=== PATIENT | female | born 1950 | race Caucasian/White ===

== ENCOUNTER → 2023-04-03 | Outpatient (REF) | payer OTHER, MEDICARE, SELFPAY ==
[2023-04-03 10:20] LABS: Hematocrit 38.3 % (37-47); Hemoglobin 12.8 g/dL (12.0-15.0); Mean Corp Hgb Conc 33.4 g/dL (32-36); Mean Corpuscular Volume 98.7 fL (81-99); Mean Platelet Vol. 9.4 fl (6.2-12.0); Platelet Count 245 K/mm3 (150-450); RBC Distribution Width CV 12.7 % (11.6-14.6); RBC Distribution Width SD 45.5 fl (35.1-43.9); Red Blood Count 3.88 M/mm3 (4.2-5.4); White Blood Count 7.8 K/mm3 (4.4-11.0)
[2023-04-03 10:42] LABS: Hemoglobin A1c 6.3 % (3.8-5.6)
[2023-04-03 10:45] LABS: ALB/GLOB Ratio 1.1 RATIO (0.9-2.4); AST(SGOT) 15 U/L (15-37); Alanine Aminotransfer ALT/SGPT 21 U/L (13-56); Albumin, Serum 3.6 g/dL (3.2-5.0); Alkaline Phosphatase 94 U/L (45-117); Anion Gap 6 (5-15); BUN 22 mg/dL (7-18); BUN/Creat Ratio 22.9 RATIO (10-20); Calcium,Total 9.2 mg/dL (8.5-10.1); Chloride 102 mmol/L (98-107); Creatinine, Serum 0.96 mg/dL (0.55-1.02); EST Glomerular Filtration Rate 60 mL/min (>60); Est Glom Filt Rate - Afr Amer 73 mL/min (>60); Globulin 3.4 g/dL (2.2-4.2); Glucose 124 mg/dL (74-106); International Normalized Ratio 1.2; Potassium 4.2 mmol/L (3.5-5.1); Prothrombin Time (Protime)PT. 15.3 SECONDS (11.7-14.9); Sodium Level 138 mmol/L (136-145); Thyroid Stim Hormone (TSH) 0.73 uIU/mL (0.358-3.74)
== END ==
LOC: OLS.SANC 07:00
PROVIDERS: Referring Provider Internal Medicine; Visit Provider Internal Medicine
DX: I48.91 Unspecified atrial fibrillation (principal); E11.9 Type 2 diabetes mellitus without complications; I10 Essential (primary) hypertension; E03.9 Hypothyroidism, unspecified
CPT/HCPCS: 36415; 80053; 83036; 84443; 85027; 85610

== ENCOUNTER → 2023-07-04 | Outpatient (REF) | payer MEDICARE, SELFPAY ==
--- OUTSIDE RECORDS SUMMARY | 2023-07-04 04:47 | XMS RPT_ITS | CCD ---
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 CHANEL MENDEZ Start: 03-06-2023 CBC panel - Blood by Automated count CHANEL MENDEZ Start: 03-06-2023 Lipid panel CHANEL MENDEZ Start: 03-06-2023 Lipid 1996 panel - S rajan or Plasma Vern Porter MD Work Phone: Start: 03-05-2023 Glucose [Mass/volume ] in Serum or Plasma CHANEL MENDEZ Start: 03-05-2023 VASC US CAROTID HENRI RY DUPLEX BILATERAL CHANEL MENDEZ Start: 03-05-2023 Glucose [Mass/volume ] in Serum or Plasma CHANEL MENDEZ Start: 03-05-2023 Glucose [Mass/volume ] in Serum or Plasma CHANEL MENDEZ Start: 03-05-2023 MR BRAIN WO IV CONTRAST CHANEL MENDEZ Start: 03-05-2023 Cyanocobalamin vitamin b-12 CHANEL MENDEZ Start: 03-05-2023 IP CONSULT TO NEUROLOGY CHANEL MENDEZ Start: 03-05-2023 Glucose [Mass/volume ] in Serum or Plasma CHANEL MENDEZ Start: 03-04-2023 Glucose [Mass/volume ] in Serum or Plasma CHANEL MENDEZ Start: 03-04-2023 Glucose [Mass/volume ] in Serum or Plasma CHANEL MENDEZ Start: 03-04-2023 TRANSTHORACIC ECHO ( TTE) COMPLETE CHANEL MENDEZ Start: 03-04-2023 Glucose [Mass/volume ] in Serum or Plasma CHANEL MENDEZ Start: 03-04-2023 Glucose [Mass/volume ] in Serum or Plasma CHANLE MENDEZ Start: 03-04-2023 Basic metabolic 2000 panel - Serum or Plasma CHANEL MENDEZ Start: 03-04-2023 CBC panel - Blood by Automated count CHANEL MENDEZ Start: 03-04-2023 Glucose [Mass/volume ] in Serum or Plasma CHANEL MENDEZ Start: 03-03-2023 Glucose [Mass/volume ] in Serum or Plasma CHANEL MENDEZ Start: 03-03-2023 Glucose [Mass/volume ] in Serum or Plasma CHANEL MENDEZ Start: 03-03-2023 Glucose [Mass/volume ] in Serum or Plasma CHANEL MENDEZ Start: 03-02-2023 Glucose [Mass/volume ] in Serum or Plasma CHANEL MENDEZ Start: 03-02-2023 Glucose [Mass/volume ] in Serum or Plasma CHANEL MENDEZ Start: 03-02-2023 IP CONSULT TO CARDIOLOGY CHANEL MENDEZ Start: 03-02-2023 Glucose [Mass/volume ] in Serum or Plasma CHANEL MENDEZ Start: 03-02-2023 Glucose [Mass/volume ] in Serum or Plasma CHANEL MENDEZ Start: 03-02-2023 EXTRA TUBES CHANEL MENDEZ Start: 03-02-2023 LAVENDER TOP CHANEL MENDEZ Start: 03-02-2023 SERIAL TROPONIN, 6 H OUR (POOLE) CHANEL MENDEZ Start: 03-02-2023 THYROXINE, FREE CHANEL SHORT Start: 03-02-2023 ED TO FLOOR BED REQUEST CHANEL MENDEZ Start: 03-02-2023 ADMIT TO INPATIENT MARY KAY MENDEZ Start: 03-02-2023 SERIAL TROPONIN, 2 H OUR (POOLE) CHANEL MENDEZ Start: 03-02-2023 Bacteria identified in Urine by Culture CHANEL MENDEZ Start: 03-02-2023 DRUG SCREEN,URINE CHANEL MENDEZ Start: 03-02-2023 MICROSCOPIC ONLY, URINE CHANEL MENDEZ Start: 03-02-2023 URINALYSIS WITH REFL EX MICROSCOPIC CHANEL MENDEZ Start: 03-02-2023 Thyrotropin [Units/v olume] in Serum or Plasma Vern Porter MD Work Phone: Start: 03-02-2023 INSERT STRAIGHT CATH ETER PRN CHANEL MENDEZ Start: 03-01-2023 XR CHEST 1 VIEW CHANEL SHORT Start: 03-01-2023 XR PELVIS 1-2 VIEWS TROY MENDEZ Start: 03-01-2023 XR TIBIA FIBULA LEFT 2 VIEWS CHANEL MENDEZ Start: 03-01-2023 XR TIBIA FIBULA RIGH T 2 VIEWS CHANEL MENDEZ Start: 03-01-2023 CT HEAD WO IV CONTRAST CHANEL MENDEZ Start: 03-01-2023 CT CERVICAL SPINE WO IV CONTRAST CHANEL MENDEZ Start: 03-01-2023 aPTT in Blood by Coagulation assay CHANEL MENDEZ Start: 03-01-2023 Basic metabolic 2000 panel - Serum or Plasma CHANEL MENDEZ Start: 03-01-2023 CBC W Auto Different ial panel - Blood CHANEL MENDEZ Start: 03-01-2023 PROTIME-INR CHANEL MENDEZ Start: 03-01-2023 SERIAL TROPONIN, INI TIAL (PEABODY) CHANEL MENDEZ Start: 03-01-2023 TROPONIN T SERIES, H IGH SENSITIVITY (0, 2 HR, 6 HR) CHANEL MENDEZ Start: 03-01-2023 Glucose [Mass/volume ] in Serum or Plasma CHANEL MENDEZ Start: 01-31-2023 Microalbumin/Creatin ine [Mass Ratio] in Urine Francesca Mcconnell MD Work Phone: Start: 01-31-2023 Urinalysis Francecsa Mcconnell MD Work Phone: Start: 01-31-2023 Complete blood count with white cell differential, automated Francesca Mcconnell MD Work Phone: Start: 01-31-2023 Comprehensive metabo lic panel Francesca Mcconnell MD Work Phone: Start: 01-31-2023 Hemoglobin A1c measurement Francesca Mcconnell MD Work Phone: Start: 01-31-2023 Lipid panel Francesca Mcconnell MD Work Phone: Start: 01-31-2023 TSH WITH REFLEX TO F REE T4 IF ABNORMAL Francesca Mcconnell MD Work Phone: Start: 05-24-2021 Mammography Vern powell MD Work Phone: Start: 01-16-2019 Colonoscopy Francesca blanco Plan of Treatment Date Care Activity Detail Author Start: 03-29-2028 DTaP/Tdap/Td Vaccines (2 - Td or Tdap) DTaP/Tdap/Td Vaccines (2 - Td or Tdap) [facility] Start: 03-06-2024 Lipid panel Lipid Panel [facility] Start: 03-02-2024 Thyroid stimulating hormone measurement TSH Level [facility] Start: 02-01-2024 Hemoglobin A1c measurement Diabetes: Hemoglobin A1C [facility] Start: 10-04-2023 End: 10-04-2023 Patient encounter procedure 10/04/2023 10:00 AM EDT Office Visit [facility] [address] [place] [address] Vern Porter MD [address] [place] [address] [facility] Start: 07-28-2023 End: 07-28-2023 Patient encounter procedure 07/28/2023 1:45 PM EST Office Visit [facility] [address] [place] [id number] Francesca Mcconnell MD [address] [place] [address] [facility] Start: 05-02-2023 Hemoglobin A1c measurement Diabetes: Hemoglobin A1C [facility] Start: 01-27-2023 COVID-19 Vaccine () COVID-19 Vaccine ( season) [facility] Start: 01-27-2023 Influenza vaccination Influenza Vaccine (#1) [facility] Start: 12-29-2022 Glaucoma screening Diabetes: Retinopathy Screening [facility] Start: 05-24-2022 Screening for malignant neoplasm of breast Mammogram [facility] Start: 04-27-2022 COVID-19 Vaccine (4 - Pfizer series) COVID-19 Vaccine (4 - Pfizer series) [facility] Start: 2008 RSV Immunization aged 60 or older (1 - 1-dose 60+ series) RSV Immunization aged 60 or older (1 - 1-dose 60+ series) [facility] Start: 1998 Zoster Vaccines (1 of 2) Zoster Vaccines (1 of 2) [facility] Start: 1988 Screening for malignant neoplasm of breast Mammogram [facility] Start: 08-16-1967 Urine screening for protein Diabetes: Urine Protein Screening [facility] Start: 1966 Hepatitis C screening Hepatitis C Screening [facility] Start: 1960 Depression Screening Depression Screening [facility] Start: 1958 Diabetic foot examination Diabetes: Foot Exam [facility] Start: 1958 Glaucoma screening Diabetes: Retinopathy Screening [facility] Start: 1958 Preventive dental service Diabetes: Dental Exam [facility] Start: 1948 Medicare Advantage Annual Wellness Visit (AWV) Medicare Advantage Annual Wellness Visit (AWV) [facility] Start: 1948 Medicare Annual Wellness Visit Medicare Annual Wellness Visit (AWV) [facility] Start: 1948 Screening for malignant neoplasm of colon [facility] Start: 1948 Screening for osteoporosis Bone Density Scan [facility] End: 06-26-2023 Bacteria identified in Urine by Culture [facility] Work Phone: Immunizations Immunization Date Immunization Notes Care Provider Fa cili 03-02-2022 Flu vaccine, quadrivalent, high-dose, preservative free, age 65y+ (FLUZONE) Vern Porter MD Work Phone: [facility] Work Phone: 03-02-2022 influenza virus vaccine, unspecified formulation Francesca Mcconnell MD [facility] 03-02-2022 SARS-CoV-2 (COVID-19 ) mRNA (tozinameran 12y+) bivalent boost Francesca Mcconnell MD [facility] 04-08-2021 SARS-CoV-2 (COVID-19 ) mRNA BNT-162b2 vax Francesca Mcconnell MD [facility] 01-17-2021 Flu vaccine, quadrivalent, high-dose, preservative free, age 65y+ (FLUZONE) Vern Porter MD Work Phone: [facility] Work Phone: 01-17-2021 influenza virus vaccine, unspecified formulation Francesca Mcconnell MD [facility] 09-13-2020 SARS-CoV-2 (COVID-19 ) mRNA BNT-162b2 ruth Mcconnell MD [facility] Payers Date Payer Category Payer Medicare [id number] 2018 Unknown [id number] 1950 Unknown [id number] 1948 Unknown [id number] 1948 Unknown [id number] 1948 Unknown [id number] Social History Date Type Detail Facility Start: 10-16-2017 End: 04-05-2023 Never smoked tobacco (finding) [facility] Sex Assigned At [facility] Start: 04-05-2023 Tobacco use and exposure Smokeless tobacco non-user [facility] Work Phone: Start: 04-05-2023 Alcohol intake Ex-drinker (finding) [facility] Work Phone: Start: 03-02-2023 End: 04-05-2023 History of Social function [facility] Start: 03-02-2023 End: 04-05-2023 [facility] Utilities [facility] Has the electric, gas, oil, or water Related Content Database (RCDb) threatened to shut off services in your home in past 12Mo No [facility] Are you now , , , , never or living with a partner? Never [facility] Work Phone: How often to you hav e a drink containing alcohol? Never [facility] Work Phone: How many standard drinks containing alcohol do you have on a typical day? Patient does not drink [facility] Work Phone: Do you feel stress - tense, restless, nervous, or anxious, or unable to sleep at night because your mind is troubled all the time - these days [OSQ] Not at all [facility] Work Phone: (I/We) worried whether (my/our) food would run out before (I/we) got money to buy more. Never true [facility] Work Phone: Start: 1950 [facility] Start: 03-02-2023 Gender identity Identifies as female gender (finding) [facility] Work Phone: Start: 03-26-2023 End: 04-05-2023 Exposure to SARS-CoV-2 (event) Not sure [facility] Start: 06-26-2023 Tobacco smoking status NHIS Tobacco smoking consumption unknown [facility] Work Phone: Start: 1950 Sex Assigned At Not on file [facility] NEGATED: Highlighted rowStart: NINF History of tobacco use Passive smoker [facility] Work Phone: Medical Equipment Procedure Code Equipment Code Equipment Origin al Text Equipment Identifier Dates One touch ultra blue test strips, See Instructions, Instructions: Tests once daily and when not feeling well. Please dispense a 9 day supply, Supply, # 3 box(es), 3 Refill(s), Type: Maintenance, Pharmacy: [id number], Tests once daily and when... Start: 11-23-2017 One touch ultra soft lancets, See Instructions, Instructions: Tests once daily and when not feeling well. Please dispense a 90 day supply., Supply, # 3 box(es), 0 Refill(s), Type: Maintenance, Pharmacy: [facility] #[id number], Tests once daily and when not... Start: 11-23-2017 See Instructions , Instructions: USE TO TEST ONCE DAILY AND WHEN NOT FEELING WELL, # 100 unknown unit, 2 Refill(s), Type: Soft Stop, Pharmacy: [facility] #[id number], USE TO TEST ONCE DAILY AND WHEN NOT FEELING WELL Start: 09-25-2018 See Instructions , Instructions: USE TO TEST ONCE DAILY AND WHEN NOT FEELING WELL., # 100 unknown unit, 2 Refill(s), Type: Soft Stop, Pharmacy: [id number], USE TO TEST ONCE DAILY AND WHEN NOT FEELING WELL. Start: 09-25-2018 Instructions: US E TO TEST ONCE DAILY AND WHEN NOT FEELING WELL Start: 10-15-2017 End: 11-23-2017 One touch ultra blue test strips, See Instructions, Instructions: Tests once daily and when not feeling well. Please dispense a 9 day supply, Supply, # 3 box(es), 3 Refill(s), Type: Maintenance, Pharmacy: [facility] #[id number], Tests once daily and when... Start: 11-23-2017 One touch ultra soft lancets, See Instructions, Instructions: Tests once daily and when not feeling well. Please dispense a 90 day supply., Supply, # 3 box(es), 0 Refill(s), Type: Maintenance, Pharmacy: [facility] #[id number], Tests once daily and when not... Start: 11-23-2017 See Instructions , Instructions: USE TO TEST ONCE DAILY AND WHEN NOT FEELING WELL, # 100 unknown unit, 2 Refill(s), Type: Soft Stop, Pharmacy: [facility] #[id number], USE TO TEST ONCE DAILY AND WHEN NOT FEELING WELL Start: 09-25-2018 See Instructions , Instructions: USE TO TEST ONCE DAILY AND WHEN NOT FEELING WELL., # 100 unknown unit, 2 Refill(s), Type: Soft Stop, Pharmacy: [facility] #[id number], USE TO TEST ONCE DAILY AND WHEN NOT FEELING WELL. Start: 09-25-2018 Instructions: US E TO TEST ONCE DAILY AND WHEN NOT FEELING WELL Start: 10-15-2017 End: 11-23-2017 One touch ultra blue test strips, See Instructions, Instructions: Tests once daily and when not feeling well. Please dispense a 9 day supply, Supply, # 3 box(es), 3 Refill(s), Type: Maintenance, Pharmacy: [facility] #[id number], Tests once daily and when... Start: 11-23-2017 One touch ultra soft lancets, See Instructions, Instructions: Tests once daily and when not feeling well. Please dispense a 90 day supply., Supply, # 3 box(es), 0 Refill(s), Type: Maintenance, Pharmacy: [facility] #[id number], Tests once daily and when not... Start: 11-23-2017 Instructions: US E TO TEST ONCE DAILY AND WHEN NOT FEELING WELL Start: 10-15-2017 End: 11-23-2017 See Instructions , Instructions: USE TO TEST ONCE DAILY AND WHEN NOT FEELING WELL, # 100 unknown unit, 2 Refill(s), Type: Soft Stop, Pharmacy: [facility] #[id number], USE TO TEST ONCE DAILY AND WHEN NOT FEELING WELL Start: 09-25-2018 See Instructions , Instructions: USE TO TEST ONCE DAILY AND WHEN NOT FEELING WELL., # 100 unknown unit, 2 Refill(s), Type: Soft Stop, Pharmacy: [facility] #[id number], USE TO TEST ONCE DAILY AND WHEN NOT FEELING WELL. Start: 09-25-2018 One touch ultra blue test strips, See Instructions, Instructions: Tests once daily and when not feeling well. Please dispense a 9 day supply, Supply, # 3 box(es), 3 Refill(s), Type: Maintenance, Pharmacy: [facility] #[id number], Tests once daily and when... Start: 03-25-2020 One touch ultra soft lancets, See Instructions, Instructions: Tests once daily and when not feeling well. Please dispense a 90 day supply., Supply, # 3 box(es), 0 Refill(s), Type: Maintenance, Pharmacy: [facility] #[id number], Tests once daily and when not... Start: 03-25-2020 Instructions: US E TO TEST ONCE DAILY AND WHEN NOT FEELING WELL Start: 10-15-2017 End: 11-23-2017 See Instructions , Instructions: USE TO TEST ONCE DAILY AND WHEN NOT FEELING WELL, # 100 unknown unit, 2 Refill(s), Type: Soft Stop, Pharmacy: [facility] #[id number], USE TO TEST ONCE DAILY AND WHEN NOT FEELING WELL Start: 09-25-2018 See Instructions , Instructions: USE TO TEST ONCE DAILY AND WHEN NOT FEELING WELL., # 100 unknown unit, 2 Refill(s), Type: Soft Stop, Pharmacy: [facility] #[id number], USE TO TEST ONCE DAILY AND WHEN NOT FEELING WELL. Start: 09-25-2018 One touch ultra blue test strips, See Instructions, Instructions: Tests once daily and when not feeling well. Please dispense a 9 day supply, Supply, # 3 box(es), 3 Refill(s), Type: Maintenance, Pharmacy: [facility] #[id number], Tests once daily and when... Start: 03-25-2020 One touch ultra soft lancets, See Instructions, Instructions: Tests once daily and when not feeling well. Please dispense a 90 day supply., Supply, # 3 box(es), 0 Refill(s), Type: Maintenance, Pharmacy: [facility] #[id number], Tests once daily and when not... Start: 03-25-2020 Instructions: US E TO TEST ONCE DAILY AND WHEN NOT FEELING WELL Start: 10-15-2017 End: 11-23-2017 See Instructions , Instructions: USE TO TEST ONCE DAILY AND WHEN NOT FEELING WELL, # 100 unknown unit, 2 Refill(s), Type: Soft Stop, Pharmacy: [facility] #[id number], USE TO TEST ONCE DAILY AND WHEN NOT FEELING WELL Start: 09-25-2018 See Instructions , Instructions: USE TO TEST ONCE DAILY AND WHEN NOT FEELING WELL., # 100 unknown unit, 2 Refill(s), Type: Soft Stop, Pharmacy: [facility] #[id number], USE TO TEST ONCE DAILY AND WHEN NOT FEELING WELL. Start: 09-25-2018 One touch ultra blue test strips, See Instructions, Instructions: Tests once daily and when not feeling well. Please dispense a 9 day supply, Supply, # 3 box(es), 3 Refill(s), Type: Maintenance, Pharmacy: [facility] #[id number], Tests once daily and when... Start: 11-23-2017 One touch ultra soft lancets, See Instructions, Instructions: Tests once daily and when not feeling well. Please dispense a 90 day supply., Supply, # 3 box(es), 0 Refill(s), Type: Maintenance, Pharmacy: [facility] #[id number], Tests once daily and when not... Start: 11-23-2017 Instructions: US E TO TEST ONCE DAILY AND WHEN NOT FEELING WELL Start: 10-15-2017 End: 11-23-2017 See Instructions , Instructions: USE TO TEST ONCE DAILY AND WHEN NOT FEELING WELL, # 100 unknown unit, 2 Refill(s), Type: Soft Stop, Pharmacy: [facility] #[id number], USE TO TEST ONCE DAILY AND WHEN NOT FEELING WELL Start: 09-25-2018 See Instructions , Instructions: USE TO TEST ONCE DAILY AND WHEN NOT FEELING WELL., # 100 unknown unit, 2 Refill(s), Type: Soft Stop, Pharmacy: [facility] #[id number], USE TO TEST ONCE DAILY AND WHEN NOT FEELING WELL. Start: 09-25-2018 One touch ultra blue test strips, See Instructions, Instructions: Tests once daily and when not feeling well. Please dispense a 9 day supply, Supply, # 3 box(es), 3 Refill(s), Type: Maintenance, Pharmacy: [facility] #[id number], Tests once daily and when... Start: 11-23-2017 One touch ultra soft lancets, See Instructions, Instructions: Tests once daily and when not feeling well. Please dispense a 90 day supply., Supply, # 3 box(es), 0 Refill(s), Type: Maintenance, Pharmacy: [facility] #[id number], Tests once daily and when not... Start: 11-23-2017 See Instructions , Instructions: USE TO TEST ONCE DAILY AND WHEN NOT FEELING WELL, # 100 unknown unit, 2 Refill(s), Type: Soft Stop, Pharmacy: [facility] #[id number], USE TO TEST ONCE DAILY AND WHEN NOT FEELING WELL Start: 09-25-2018 See Instructions , Instructions: USE TO TEST ONCE DAILY AND WHEN NOT FEELING WELL., # 100 unknown unit, 2 Refill(s), Type: Soft Stop, Pharmacy: [facility] #[id number], USE TO TEST ONCE DAILY AND WHEN NOT FEELING WELL. Start: 09-25-2018 Instructions: US E TO TEST ONCE DAILY AND WHEN NOT FEELING WELL Start: 10-15-2017 End: 11-23-2017 One touch ultra blue test strips, See Instructions, Instructions: Tests once daily and when not feeling well. Please dispense a 9 day supply, Supply, # 3 box(es), 3 Refill(s), Type: Maintenance, Pharmacy: [facility] #[id number], Tests once daily and when... Start: 03-25-2020 One touch ultra soft lancets, See Instructions, Instructions: Tests once daily and when not feeling well. Please dispense a 90 day supply., Supply, # 3 box(es), 0 Refill(s), Type: Maintenance, Pharmacy: [facility] #[id number], Tests once daily and when not... Start: 03-25-2020 Instructions: US E TO TEST ONCE DAILY AND WHEN NOT FEELING WELL Start: 10-15-2017 End: 11-23-2017 See Instructions , Instructions: USE TO TEST ONCE DAILY AND WHEN NOT FEELING WELL, # 100 unknown unit, 2 Refill(s), Type: Soft Stop, Pharmacy: [facility] #[id number], USE TO TEST ONCE DAILY AND WHEN NOT FEELING WELL Start: 09-25-2018 See Instructions , Instructions: USE TO TEST ONCE DAILY AND WHEN NOT FEELING WELL., # 100 unknown unit, 2 Refill(s), Type: Soft Stop, Pharmacy: [facility] #[id number], USE TO TEST ONCE DAILY AND WHEN NOT FEELING WELL. Start: 09-25-2018 One touch ultra blue test strips, See Instructions, Instructions: Tests once daily and when not feeling well. Please dispense a 9 day supply, Supply, # 3 box(es), 3 Refill(s), Type: Maintenance, Pharmacy: [facility] #[id number], Tests once daily and when... Start: 03-25-2020 One touch ultra soft lancets, See Instructions, Instructions: Tests once daily and when not feeling well. Please dispense a 90 day supply., Supply, # 3 box(es), 0 Refill(s), Type: Maintenance, Pharmacy: [facility] #[id number], Tests once daily and when not... Start: 03-25-2020 Instructions: US E TO TEST ONCE DAILY AND WHEN NOT FEELING WELL Start: 10-15-2017 End: 11-23-2017 See Instructions , Instructions: USE TO TEST ONCE DAILY AND WHEN NOT FEELING WELL, # 100 unknown unit, 2 Refill(s), Type: Soft Stop, Pharmacy: [facility] #[id number], USE TO TEST ONCE DAILY AND WHEN NOT FEELING WELL Start: 09-25-2018 See Instructions , Instructions: USE TO TEST ONCE DAILY AND WHEN NOT FEELING WELL., # 100 unknown unit, 2 Refill(s), Type: Soft Stop, Pharmacy: [facility] #[id number], USE TO TEST ONCE DAILY AND WHEN NOT FEELING WELL. Start: 09-25-2018 One touch ultra blue test strips, See Instructions, Instructions: Tests once daily and when not feeling well. Please dispense a 9 day supply, Supply, # 3 box(es), 3 Refill(s), Type: Maintenance, Pharmacy: [facility] #[id number], Tests once daily and when... Start: 03-25-2020 One touch ultra soft lancets, See Instructions, Instructions: Tests once daily and when not feeling well. Please dispense a 90 day supply., Supply, # 3 box(es), 0 Refill(s), Type: Maintenance, Pharmacy: [facility] #[id number], Tests once daily and when not... Start: 03-25-2020 Instructions: US E TO TEST ONCE DAILY AND WHEN NOT FEELING WELL Start: 10-15-2017 End: 11-23-2017 See Instructions , Instructions: USE TO TEST ONCE DAILY AND WHEN NOT FEELING WELL, # 100 unknown unit, 2 Refill(s), Type: Soft Stop, Pharmacy: [facility] #[id number], USE TO TEST ONCE DAILY AND WHEN NOT FEELING WELL Start: 09-25-2018 See Instructions , Instructions: USE TO TEST ONCE DAILY AND WHEN NOT FEELING WELL., # 100 unknown unit, 2 Refill(s), Type: Soft Stop, Pharmacy: [facility] #[id number], USE TO TEST ONCE DAILY AND WHEN NOT FEELING WELL. Start: 09-25-2018 One touch ultra blue test strips, See Instructions, Instructions: Tests once daily and when not feeling well. Please dispense a 9 day supply, Supply, # 3 box(es), 3 Refill(s), Type: Maintenance, Pharmacy: [facility], Tests once daily and when... Start: 03-25-2020 One touch ultra soft lancets, See Instructions, Instructions: Tests once daily and when not feeling well. Please dispense a 90 day supply., Supply, # 3 box(es), 0 Refill(s), Type: Maintenance, Pharmacy: [facility], Tests once daily and when not... Start: 03-25-2020 Instructions: US E TO TEST ONCE DAILY AND WHEN NOT FEELING WELL Start: 10-15-2017 End: 11-23-2017 See Instructions , Instructions: USE TO TEST ONCE DAILY AND WHEN NOT FEELING WELL, # 100 unknown unit, 2 Refill(s), Type: Soft Stop, Pharmacy: [id number], USE TO TEST ONCE DAILY AND WHEN NOT FEELING WELL Start: 09-25-2018 End: 01-04-2021 See Instructions , Instructions: USE TO TEST ONCE DAILY AND WHEN NOT FEELING WELL., # 100 unknown unit, 2 Refill(s), Type: Soft Stop, Pharmacy: [id number], USE TO TEST ONCE DAILY AND WHEN NOT FEELING WELL. Start: 09-25-2018 End: 01-04-2021 One touch ultra blue test strips, See Instructions, Instructions: Tests once daily and when not feeling well. Please dispense a 9 day supply, Supply, # 3 box(es), 3 Refill(s), Type: Maintenance, Pharmacy: [id number], Tests once daily and when... Start: 03-25-2020 One touch ultra soft lancets, See Instructions, Instructions: Tests once daily and when not feeling well. Please dispense a 90 day supply., Supply, # 3 box(es), 0 Refill(s), Type: Maintenance, Pharmacy: [id number], Tests once daily and when not... Start: 03-25-2020 Instructions: US E TO TEST ONCE DAILY AND WHEN NOT FEELING WELL Start: 10-15-2017 End: 11-23-2017 See Instructions , Instructions: USE TO TEST ONCE DAILY AND WHEN NOT FEELING WELL, # 100 unknown unit, 2 Refill(s), Type: Soft Stop, Pharmacy: [id number], USE TO TEST ONCE DAILY AND WHEN NOT FEELING WELL Start: 09-25-2018 End: 01-04-2021 See Instructions , Instructions: USE TO TEST ONCE DAILY AND WHEN NOT FEELING WELL., # 100 unknown unit, 2 Refill(s), Type: Soft Stop, Pharmacy: [id number], USE TO TEST ONCE DAILY AND WHEN NOT FEELING WELL. Start: 09-25-2018 End: 01-04-2021 One touch ultra blue test strips, See Instructions, Instructions: Tests once daily and when not feeling well. Please dispense a 9 day supply, Supply, # 3 box(es), 3 Refill(s), Type: Maintenance, Pharmacy: [id number], Tests once daily and when... Start: 03-25-2020 One touch ultra soft lancets, See Instructions, Instructions: Tests once daily and when not feeling well. Please dispense a 90 day supply., Supply, # 3 box(es), 0 Refill(s), Type: Maintenance, Pharmacy: [id number], Tests once daily and when not... Start: 03-25-2020 One touch ultra blue test strips, See Instructions, Instructions: Tests once daily and when not feeling well. Please dispense a 9 day supply, Supply, # 3 box(es), 3 Refill(s), Type: Maintenance, Pharmacy: [id number], Tests once daily and when... Start: 03-25-2020 One touch ultra soft lancets, See Instructions, Instructions: Tests once daily and when not feeling well. Please dispense a 90 day supply., Supply, # 3 box(es), 0 Refill(s), Type: Maintenance, Pharmacy: [id number], Tests once daily and when not... Start: 03-25-2020 One touch ultra blue test strips, See Instructions, Instructions: Tests once daily and when not feeling well. Please dispense a 9 day supply, Supply, # 3 box(es), 3 Refill(s), Type: Maintenance, Pharmacy: [id number], Tests once daily and when... Start: 03-25-2020 One touch ultra soft lancets, See Instructions, Instructions: Tests once daily and when not feeling well. Please dispense a 90 day supply., Supply, # 3 box(es), 0 Refill(s), Type: Maintenance, Pharmacy: [id number], Tests once daily and when not... Start: 03-25-2020 One touch ultra blue test strips, See Instructions, Instructions: Tests once daily and when not feeling well. Please dispense a 9 day supply, Supply, # 100 EA, 3 Refill(s), Type: Maintenance, Pharmacy: [id number], Tests once daily and when not... Start: 07-09-2021 One touch ultra soft lancets, See Instructions, Instructions: Tests once daily and when not feeling well. Please dispense a 90 day supply., Supply, # 100 EA, 3 Refill(s), Type: Maintenance, Pharmacy: [id number], Tests once daily and when not fe... Start: 07-09-2021 One touch ultra blue test strips, See Instructions, Instructions: Tests once daily and when not feeling well., Supply, # 100 EA, 3 Refill(s), Type: Maintenance, Pharmacy: [id number], Tests once daily and when not feeling well., 63, in, 01/05/22... Start: 01-05-2022 One touch ultra soft lancets, See Instructions, Instructions: Tests once daily and when not feeling well. Please dispense a 90 day supply., Supply, # 100 EA, 3 Refill(s), Type: Maintenance, Pharmacy: [id number], Tests once daily and when not fe... Start: 01-05-2022 One touch ultra blue test strips, See Instructions, Instructions: Tests once daily and when not feeling well., Supply, # 100 EA, 3 Refill(s), Type: Maintenance, Pharmacy: [id number], Tests once daily and when not feeling well., 63, in, 01/05/22... Start: 01-05-2022 One touch ultra soft lancets, See Instructions, Instructions: Tests once daily and when not feeling well. Please dispense a 90 day supply., Supply, # 100 EA, 3 Refill(s), Type: Maintenance, Pharmacy: [id number], Tests once daily and when not fe... Start: 01-05-2022 One touch ultra blue test strips, See Instructions, Instructions: Tests once daily and when not feeling well., Supply, # 100 EA, 3 Refill(s), Type: Maintenance, Pharmacy: [id number], Tests once daily and when not feeling well., 63, in, 01/05/22... Start: 01-05-2022 One touch ultra soft lancets, See Instructions, Instructions: Tests once daily and when not feeling well. Please dispense a 90 day supply., Supply, # 100 EA, 3 Refill(s), Type: Maintenance, Pharmacy: [id number], Tests once daily and when not fe... Start: 01-05-2022 One touch ultra blue test strips, See Instructions, Instructions: Tests once daily and when not feeling well., Supply, # 100 EA, 3 Refill(s), Type: Maintenance, Pharmacy: [id number], Tests once daily and when not feeling well., 63, in, 01/05/22... Start: 01-05-2022 One touch ultra soft lancets, See Instructions, Instructions: Tests once daily and when not feeling well. Please dispense a 90 day supply., Supply, # 100 EA, 3 Refill(s), Type: Maintenance, Pharmacy: [id number], Tests once daily and when not fe... Start: 01-05-2022 One touch ultra blue test strips, See Instructions, Instructions: Tests once daily and when not feeling well., Supply, # 100 EA, 3 Refill(s), Type: Maintenance, Pharmacy: [id number], Tests once daily and when not feeling well., 63, in, 01/05/22... Start: 01-05-2022 One touch ultra soft lancets, See Instructions, Instructions: Tests once daily and when not feeling well. Please dispense a 90 day supply., Supply, # 100 EA, 3 Refill(s), Type: Maintenance, Pharmacy: [id number], Tests once daily and when not fe... Start: 01-05-2022 One touch ultra blue test strips, See Instructions, Instructions: Tests once daily and when not feeling well., Supply, # 100 EA, 3 Refill(s), Type: Maintenance, Pharmacy: [id number], Tests once daily and when not feeling well., 63, in, 01/05/22 13:55:00 EDT, Height Measured, 160, lb, 01/05/22 13:55:00 EDT, Weight Measured Start: 01-05-2022 One touch ultra soft lancets, See Instructions, Instructions: Tests once daily and when not feeling well. Please dispense a 90 day supply., Supply, # 100 EA, 3 Refill(s), Type: Maintenance, Pharmacy: [id number], Tests once daily and when not feeling well. Please dispense a 90 day supply., 63, in, 01/05/22 13:55:00 EDT, Height Measured, 160, lb, 01/05/22 13:55:00 EDT, Weight Measured Start: 01-05-2022 OneTouch Delica Plus [id number] Miscellaneous, See Instructions, Instructions: TEST ONCE DAILY AND WHEN NOT FEELING WELL., # 100 unknown unit, 0 Refill(s), Type: Maintenance, Pharmacy: [facility] #[id number], TEST ONCE DAILY AND WHEN NOT FEELING WELL., 63, in, 07/11/22 13:24:00 EST, Height Measured, 160, lb, 07/11/22 13:24:00 EST, Weight Measured Start: 01-05-2023 OneTouch Ultra I n Vitro Strip, See Instructions, Instructions: USE TO TEST ONCE DAILY AND WHEN NOT FEELING WELL, # 100 unknown unit, 0 Refill(s), Type: Maintenance, Pharmacy: [facility] #[id number], USE TO TEST ONCE DAILY AND WHEN NOT FEELING WELL, 63, in, 07/11/22 13:24:00 EST, Height Measured, 160, lb, 07/11/22 13:24:00 EST, Weight Measured Start: 01-05-2023 One touch ultra blue test strips, See Instructions, Instructions: Tests once daily and when not feeling well., Supply, # 100 EA, 3 Refill(s), Type: Maintenance, Pharmacy: [facility] #[id number], Tests once daily and when not feeling well., 63, in, 01/05/22 13:55:00 EDT, Height Measured, 160, lb, 01/05/22 13:55:00 EDT, Weight Measured Start: 01-05-2022 One touch ultra soft lancets, See Instructions, Instructions: Tests once daily and when not feeling well. Please dispense a 90 day supply., Supply, # 100 EA, 3 Refill(s), Type: Maintenance, Pharmacy: [facility] #[id number], Tests once daily and when not feeling well. Please dispense a 90 day supply., 63, in, 01/05/22 13:55:00 EDT, Height Measured, 160, lb, 01/05/22 13:55:00 EDT, Weight Measured Start: 01-05-2022 OneTouch Delica Plus [id number] Miscellaneous, See Instructions, Instructions: TEST ONCE DAILY AND WHEN NOT FEELING WELL., # 100 unknown unit, 0 Refill(s), Type: Maintenance, Pharmacy: [facility] #[id number], TEST ONCE DAILY AND WHEN NOT FEELING WELL., 63, in, 07/11/22 13:24:00 EST, Height Measured, 160, lb, 07/11/22 13:24:00 EST, Weight Measured Start: 01-05-2023 OneTouch Ultra I n Vitro Strip, See Instructions, Instructions: USE TO TEST ONCE DAILY AND WHEN NOT FEELING WELL, # 100 unknown unit, 0 Refill(s), Type: Maintenance, Pharmacy: [facility] #[id number], USE TO TEST ONCE DAILY AND WHEN NOT FEELING WELL, 63, in, 07/11/22 13:24:00 EST, Height Measured, 160, lb, 07/11/22 13:24:00 EST, Weight Measured Start: 01-05-2023 USE TO TEST ONCE DAILY AND WHEN NOT FEELING WELL [id number] Start: 04-03-2023 TEST ONCE DAILY AND WHEN NOT FEELING WELL. [id number] Start: 04-03-2023 Functional Status Date Assessment Result Facility 07-11-2022 Functional Status Other Exposure to Infectious Disease Unknown [facility] 01-05-2022 Functional Status No recent travel [facility] Clinical Notes 01-04-2021 to 06-26-2023 Cecile Albert RN - 06/26/2023 11:45 AM Jose Albert RN - 06/26/2023 11:45 AM Jose Albert RN - 06/26/2023 9:30 AM Jagdish Rivera RN - 06/26/2023 7:16 AM EST Note Date & Type Note Facility 06-26-2023 Emergency department Note Confirmed with Dr Shankar. Ok to hold off on drawing 2nd troponin Cecile Albert RN 06/26/23 1145 [facility] 06-26-2023 Emergency department Note Confirmed with Dr Shankar. Ok to hold off on drawing 2nd troponin Cecile Albert RN 06/26/23 1145 Checked on patient. Still waiting on urine sample. Pt notified that if not able to urinate might have to straight cath. Pt is going to try now. Silverman external catheter in place. Cecile Albert RN 06/26/23 0931 PT family member called for update, Lillian soto (POA per family member). Approved by patient Andressa Rivera RN 06/26/23 0717 PT to ED via EMS From [facility] in [place]. PT nurse was concerned about AMS. Nurse reports suddenly was disorient last known 0400. PT usually Alert and oriented pt told nurse eye felt funny. Sara patel. Pt currently a x o x 2. BG 128. Andressa Rivera RN 06/26/23 0552 Emergency Department Encounter [facility] ED Patient: Cindy Soto : 1950 Date of Evaluation: 06/26/2023 ED Provider: Hernan Kenny DO Chief Complaint Chief Complaint Patient presents with Altered Mental Status NOORVIK Cindy Soto is a 72 y.o. female who presents to the emergency department complaining of feeling abnormal. Patient reports she woke up, just did not feel . She cannot put her finger on exactly what is causing her to feel ill. Per EMS, patient had complained that her vision was off. She is normally alert and oriented but was reportedly only oriented x 2. Currently, patient is awake, alert and oriented x 4. She has no complaints and states that her symptoms have resolved. Additional history obtained from : n/a Barriers to obtaining history from patient: n/a ROS: Review of Systems completed as follows: (Bold = positive, Not bold = negative) GENERAL: fevers, chills, malaise ENT: runny nose, congestion, sore throat, ear pain NEURO: weakness, numbness of tingling, headache, confusion CARDIOVASCULAR: chest pain, syncope PULMONARY: shortness of breath, cough, wheezing GASTROINTESTINAL: nausea, vomiting, abdominal pain, diarrhea, constipation, MUSCULOSKELETAL: pain GENITAL/URINARY: dysuria, hematuria, increased urinary frequency, hesitancy, flank pain SKIN: rash, lesions, wound Past History Past Medical History: Diagnosis Date Diabetes mellitus (HCC) Disease of thyroid gland Stroke (HCC) No past surgical history on file. Social History Socioeconomic History Marital status: Single I have reviewed the history above as provided by nursing notes. Medications/Allergies Previous Medications No medications on file No Known Allergies I have reviewed the history above as provided by nursing notes. Physical Exam ED Triage Vitals Temp Heart Rate Resp BP 06/26/23 0604 06/26/23 0604 06/26/23 0604 06/26/23 0607 36.7 C (98.1 F) 63 21 134/75 SpO2 Temp Source Heart Rate Source Patient Position 06/26/23 0604 06/26/23 0604 06/26/23 0606/26/23 06 96 % Oral Monitor Lying BP Location FiO2 (%) 06/26/23 06 -- Left arm GENERAL: The patient appears nourished and normally developed. Vital signs as documented. EYES: PERRL. No scleral icterus or orbital trauma noted. HEENT: Mucous membranes moist. Nares patent without copious rhinorrhea. LUNGS: Lungs are clear to auscultation, without any respiratory distress. CARDIAC: Rhythm is regular. No murmur appreciated ABDOMEN: Nontender, soft, with no obvious masses, and no peritoneal signs. EXTREMITIES: Non edematous, with no obvious deformities. SKIN: Good color, with no significant rashes. No pallor. NEURO: Alert and oriented x 3. Extraocular movements intact. Pupils equal round reactive. No appreciable facial droop. Motor strength normal in upper and lower extremities. Sensation intact throughout. Normal sqchep-hjkt-cnujbi movements. Normal heel wynne movements. NIH stroke scale 0. Diagnostics Labs: Results for orders placed or performed during the hospital encounter of 06/26/23 CBC auto differential Result Value Ref Range Auto WBC 8.4 3.6 - 10.7 10*3/uL RBC 4.17 3.8 - 5.20 10*6/uL Hemoglobin 13.6 11.7 - 16.0 g/dL Hematocrit 39.9 35.0 - 47.0 % MCV 95.8 80.0 - 98.0 fL MCH 32.6 26.0 - 34.0 pg MCHC 34.0 32.0 - 36.0 % RDW 12.5 11.5 - 14.5 % Platelets 269 140 - 440 10*3/uL MPV 7.4 7.4 - 12.4 fL nRBC 0.2 0.0 - 2.0 /100 WBCs Neutrophils Relative 57.3 40.0 - 80.0 % Lymphocytes Relative 28.3 20.0 - 40.0 % Monocytes Relative 10.0 2.0 - 10.0 % Eosinophils Relative 4.0 1.0 - 6.0 % Basophils Relative 0.4 0.0 - 2.0 % Neutrophils Absolute 4.8 1.8 - 7.0 10*3/uL Lymphocytes Absolute 2.4 1.0 - 4.3 10*3/uL Monocytes Absolute 0.8 0.0 - 0.8 10*3/uL Eosinophils Absolute 0.3 0.0 - 0.5 10*3/uL Basophils Absolute 0.0 0.0 - 0.2 10*3/uL PROTIME/INR & PTT Result Value Ref Range PROTHROMBIN TIME 10.7 9.0 - 12.0 s INR 1.0 0.9 - 1.1 APTT 28.8 20.0 - 30.5 s Comprehensive metabolic panel Result Value Ref Range SODIUM 139 135 - 145 mmol/L POTASSIUM 3.9 3.5 - 5.1 mmol/L CHLORIDE 105 98 - 107 mmol/L CARBON DIOXIDE 24 22 - 30 mmol/L ANION GAP 10 3 - 13 mmol/L UREA NITROGEN 17 7 - 17 mg/dL CREATININE 0.96 0.52 - 1.04 mg/dL GLUCOSE 116 (H) 70 - 100 mg/dL CALCIUM 9.6 8.4 - 10.4 mg/dL AST (SGOT) 22 15 - 46 U/L ALT 17 0 - 34 U/L ALKALINE PHOSPHATASE 87 38 - 126 U/L ALBUMIN 3.8 3.5 - 5.0 g/dL BILIRUBIN, TOTAL 0.3 0.2 - 1.3 mg/dL TOTAL PROTEIN 6.6 6.3 - 8.2 g/dL eGFR 62.2 >60.0 mL/min/1.73m*2 ECG 12 lead if not already done by Squad Result Value Ref Range Heart Rate 56 bpm QRSD Interval 87 ms QT Interval 475 ms QTC Interval 459 ms P [place] 0 degrees QRS [place] -39 degrees T Wave [place] -22 degrees [place] Interval 0 ms Radiographs: CT head wo IV contrast Final Result Diminished cerebral volume and evidence of chronic microvascular ischemic change without acute intracranial abnormality. Report Dictated on Electronically Signed By: Daryl Malik MD Electronically Signed Date/Time: 06/26/2023 6:33 AM EST Procedures/EKG: EKG Interpreted in [employer] software by myself SCREENINGS EMERGENCY DEPARTMENT COURSE and DIFFERENTIAL DIAGNOSIS/MDM: Vitals: Vitals: 06/26/23 0604 06/26/23 0607 BP: 134/75 Pulse: 63 Resp: 21 Temp: 36.7 C (98.1 F) TempSrc: Oral SpO2: 96% Weight: 75.6 kg (166 lb 9.6 oz) Height: 1.676 m (5' 6 ) The patient presented with a chief complaint of altered mental status. Vital signs reviewed. Examination shows a well-appearing female with normal mental status. She is not confused currently. Her NIH stroke scale is 0. Considered differential such as TIA, stroke, metabolic encephalopathy from conditions such as urinary tract infection among other etiologies. I ordered the stroke B order set as well as urinalysis to ensure patient is not suffering from these issues. Patient's workup reveals a grossly normal CBC and metabolic panel. Her INR is within normal limits. CT head was performed, personally reviewed and shows no acute intracranial hemorrhage. EKG personally reviewed showing atrial fibrillation consistent with reported history. Pending troponin, and urinalysis as well as reassessment, patient will likely be discharged back to nursing facility as she currently is without symptoms. Unsure of the etiology of the symptoms but I do not see a large evidence that this would be related to TIA. Diagnoses as of 06/26/23 1116 Altered mental status, unspecified altered mental status type Lower urinary tract infectious disease Diagnostic tests considered but not performed: Considered admission but I see no evidence of stroke on today's current exam External records reviewed: Reviewed office visit with neurology on 06/08/2023. Patient was evaluated post hospitalization due to stroke as she was found to have multifocal subacute infarcts on 03/20. The concern was that these were cardioembolic in setting of new of atrial fibrillation. She is currently on Eliquis. She has history of hypertension, hyperlipidemia, diabetes and CAD. Diagnostics interpreted by me: Personally reviewed CT head, EKG as above Chronic conditions impacting care: Atrial fibrillation, previous stroke, hypertension, hyperlipidemia, diabetes ED Medications managed: Medications - No data to display Patients symptoms are consistent with sepsis, severe sepsis or septic shock (if yes, use .sepsiscoremeasure ) - no Final Impression 1. Altered mental status, unspecified altered mental status type DISPOSITION anticipate discharge if workup is unremarkable Comment: Please note this report has been produced using speech recognition software and may contain errors related to that system including errors in grammar, punctuation, and spelling, as well as words and phrases that may be inappropriate. If there are any questions or concerns please feel free to contact the dictating provider for clarification. Hernan Kenny DO [employer] Hernan Kenny DO 06/26/23 0649 Patient signed out to me pending a UA she presented with some confusion sounds like but has improved mental status she does have a UTI plan to treat with Keflex and discharge given her mental status is normal noticed the workup was benign. Jas Shankar MD 06/26/23 1115 documented in this encounter [facility] 06-26-2023 Emergency department Note Checked on patient. Still waiting on urine sample. Pt notified that if not able to urinate might have to straight cath. Pt is going to try now. Silverman external catheter in place. Cecile Albert RN 06/26/23 0931 [facility] 06-26-2023 Emergency department Note PT family member called for update, Lillian soto (POA per family member). Approved by patient Andressa Rivera RN 06/26/23 0717 [facility] 06-26-2023 Emergency department Note PT to ED via EMS From [facility] in [place]. PT nurse was concerned about AMS. Nurse reports suddenly was disorient last known 0400. PT usually Alert and oriented pt told nurse eye felt funny. [place] neg. Pt currently a x o x 2. BG 128. Andressa Rivera RN 06/26/23 0552 [facility] True Office 06-26-2023 Physician Emergency department Note Emergency Department Encounter [facility] ED Patient: Cindy Soto : 1950 Date of Evaluation: 06/26/2023 ED Provider: Hernan Kenny DO Chief Complaint Chief Complaint Patient presents with Altered Mental Status KHANH Soto is a 72 y.o. female who presents to the emergency department complaining of feeling abnormal. Patient reports she woke up, just did not feel . She cannot put her finger on exactly what is causing her to feel ill. Per EMS, patient had complained that her vision was off. She is normally alert and oriented but was reportedly only oriented x 2. Currently, patient is awake, alert and oriented x 4. She has no complaints and states that her symptoms have resolved. Additional history obtained from : n/a Barriers to obtaining history from patient: n/a ROS: Review of Systems completed as follows: (Bold = positive, Not bold = negative) GENERAL: fevers, chills, malaise ENT: runny nose, congestion, sore throat, ear pain NEURO: weakness, numbness of tingling, headache, confusion CARDIOVASCULAR: chest pain, syncope PULMONARY: shortness of breath, cough, wheezing GASTROINTESTINAL: nausea, vomiting, abdominal pain, diarrhea, constipation, MUSCULOSKELETAL: pain GENITAL/URINARY: dysuria, hematuria, increased urinary frequency, hesitancy, flank pain SKIN: rash, lesions, wound Past History Past Medical History: Diagnosis Date Diabetes mellitus (HCC) Disease of thyroid gland Stroke (HCC) No past surgical history on file. Social History Socioeconomic History Marital status: Single I have reviewed the history above as provided by nursing notes. Medications/Allergies Previous Medications No medications on file No Known Allergies I have reviewed the history above as provided by nursing notes. Physical Exam ED Triage Vitals Temp Heart Rate Resp BP 06/26/23 0604 06/26/23 0604 06/26/23 0604 06/26/23 0607 36.7 C (98.1 F) 63 21 134/75 SpO2 Temp Source Heart Rate Source Patient Position 06/26/23 0604 06/26/23 0604 06/26/23 0604 06/26/23 0604 96 % Oral Monitor Lying BP Location FiO2 (%) 06/26/23 0604 -- Left arm GENERAL: The patient appears nourished and normally developed. Vital signs as documented. EYES: PERRL. No scleral icterus or orbital trauma noted. HEENT: Mucous membranes moist. Nares patent without copious rhinorrhea. LUNGS: Lungs are clear to auscultation, without any respiratory distress. CARDIAC: Rhythm is regular. No murmur appreciated ABDOMEN: Nontender, soft, with no obvious masses, and no peritoneal signs. EXTREMITIES: Non edematous, with no obvious deformities. SKIN: Good color, with no significant rashes. No pallor. NEURO: Alert and oriented x 3. Extraocular movements intact. Pupils equal round reactive. No appreciable facial droop. Motor strength normal in upper and lower extremities. Sensation intact throughout. Normal puzvxl-nrpb-vqauwn movements. Normal heel wynne movements. NIH stroke scale 0. Diagnostics Labs: Results for orders placed or performed during the hospital encounter of 06/26/23 CBC auto differential Result Value Ref Range Auto WBC 8.4 3.6 - 10.7 10*3/uL RBC 4.17 3.8 - 5.20 10*6/uL Hemoglobin 13.6 11.7 - 16.0 g/dL Hematocrit 39.9 35.0 - 47.0 % MCV 95.8 80.0 - 98.0 fL MCH 32.6 26.0 - 34.0 pg MCHC 34.0 32.0 - 36.0 % RDW 12.5 11.5 - 14.5 % Platelets 269 140 - 440 10*3/uL MPV 7.4 7.4 - 12.4 fL nRBC 0.2 0.0 - 2.0 /100 WBCs Neutrophils Relative 57.3 40.0 - 80.0 % Lymphocytes Relative 28.3 20.0 - 40.0 % Monocytes Relative 10.0 2.0 - 10.0 % Eosinophils Relative 4.0 1.0 - 6.0 % Basophils Relative 0.4 0.0 - 2.0 % Neutrophils Absolute 4.8 1.8 - 7.0 10*3/uL Lymphocytes Absolute 2.4 1.0 - 4.3 10*3/uL Monocytes Absolute 0.8 0.0 - 0.8 10*3/uL Eosinophils Absolute 0.3 0.0 - 0.5 10*3/uL Basophils Absolute 0.0 0.0 - 0.2 10*3/uL PROTIME/INR & PTT Result Value Ref Range PROTHROMBIN TIME 10.7 9.0 - 12.0 s INR 1.0 0.9 - 1.1 APTT 28.8 20.0 - 30.5 s Comprehensive metabolic panel Result Value Ref Range SODIUM 139 135 - 145 mmol/L POTASSIUM 3.9 3.5 - 5.1 mmol/L CHLORIDE 105 98 - 107 mmol/L CARBON DIOXIDE 24 22 - 30 mmol/L ANION GAP 10 3 - 13 mmol/L UREA NITROGEN 17 7 - 17 mg/dL CREATININE 0.96 0.52 - 1.04 mg/dL GLUCOSE 116 (H) 70 - 100 mg/dL CALCIUM 9.6 8.4 - 10.4 mg/dL AST (SGOT) 22 15 - 46 U/L ALT 17 0 - 34 U/L ALKALINE PHOSPHATASE 87 38 - 126 U/L ALBUMIN 3.8 3.5 - 5.0 g/dL BILIRUBIN, TOTAL 0.3 0.2 - 1.3 mg/dL TOTAL PROTEIN 6.6 6.3 - 8.2 g/dL eGFR 62.2 >60.0 mL/min/1.73m*2 ECG 12 lead if not already done by Squad Result Value Ref Range Heart Rate 56 bpm QRSD Interval 87 ms QT Interval 475 ms QTC Interval 459 ms P [place] 0 degrees QRS [place] -39 degrees T Wave [place] -22 degrees [place] Interval 0 ms Radiographs: CT head wo IV contrast Final Result Diminished cerebral volume and evidence of chronic microvascular ischemic change without acute intracranial abnormality. Report Dictated on Electronically Signed By: Daryl Malik MD Electronically Signed Date/Time: 06/26/2023 6:33 AM EST Procedures/EKG: EKG Interpreted in [employer] software by myself SCREENINGS EMERGENCY DEPARTMENT COURSE and DIFFERENTIAL DIAGNOSIS/MDM: Vitals: Vitals: 06/26/23 0604 06/26/23 0607 BP: 134/75 Pulse: 63 Resp: 21 Temp: 36.7 C (98.1 F) TempSrc: Oral SpO2: 96% Weight: 75.6 kg (166 lb 9.6 oz) Height: 1.676 m (5' 6 ) The patient presented with a chief complaint of altered mental status. Vital signs reviewed. Examination shows a well-appearing female with normal mental status. She is not confused currently. Her NIH stroke scale is 0. Considered differential such as TIA, stroke, metabolic encephalopathy from conditions such as urinary tract infection among other etiologies. I ordered the stroke B order set as well as urinalysis to ensure patient is not suffering from these issues. Patient's workup reveals a grossly normal CBC and metabolic panel. Her INR is within normal limits. CT head was performed, personally reviewed and shows no acute intracranial hemorrhage. EKG personally reviewed showing atrial fibrillation consistent with reported history. Pending troponin, and urinalysis as well as reassessment, patient will likely be discharged back to nursing facility as she currently is without symptoms. Unsure of the etiology of the symptoms but I do not see a large evidence that this would be related to TIA. Diagnoses as of 06/26/23 1116 Altered mental status, unspecified altered mental status type Lower urinary tract infectious disease Diagnostic tests considered but not performed: Considered admission but I see no evidence of stroke on today's current exam External records reviewed: Reviewed office visit with neurology on 06/08/2023. Patient was evaluated post hospitalization due to stroke as she was found to have multifocal subacute infarcts on 03/20. The concern was that these were cardioembolic in setting of new of atrial fibrillation. She is currently on Eliquis. She has history of hypertension, hyperlipidemia, diabetes and CAD. Diagnostics interpreted by me: Personally reviewed CT head, EKG as above Chronic conditions impacting care: Atrial fibrillation, previous stroke, hypertension, hyperlipidemia, diabetes ED Medications managed: Medications - No data to display Patients symptoms are consistent with sepsis, severe sepsis or septic shock (if yes, use .sepsiscoremeasure ) - no Final Impression 1. Altered mental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 individual risks. Cervical cancer screening: A screening PAP is recommended every 3 years for women 21-29. For women 30-65 it is recommended a PAP test with HPV test every 5 years. No further screening after age 65, if previous PAPs were negative. Pelvic exam: Screening tool used to detect abnormalities in the female genitals. This is recommended on visits where a PAP test is performed. This is done at your comprehensive physical exam. Cholesterol screening: Screening through lab testing should be performed every 5 years in patients who have no chronic health issues. Patients who have underlying issues such as: hypertension, diabetes, high cholesterol, or history of stroke, should have this done at least every year. This is usually done with your comprehensive physical exam blood work. Diabetes screening: You should have your blood sugar measured once a year if you are at low risk and twice a year if you are at high risk for developing diabetes. Your blood sugar is usually checked with your comprehensive physical exam blood work. Glaucoma screening: Recommended yearly for anyone with diabetes, family history of glaucoma, -Americans, or Hispanics. Bone Mass Measurements: All women 65 and older should have testing done every 5 years or at a younger age if a high risk for fracture. Last bone density was 2018. Colon cancer screening: Recommended for all adults 50-75 years old. There are several ways to screen for colon cancer based on your risk: FIT: This is to detect blood in your stool and is recommended on a yearly basis. This is done via stool cards that can be sent home with you after your visit. ColoGuard: Every 3 years. Your last test was done in and should be repeated in . Colonoscopy: Recommended at least once every 10 years for those at low risk, and as frequently as every 2 years for those at high risk. Your last test was done in 2018 and should be repeated in 2028 Lung cancer screening: Counseling and annual screening for lung cancer with low dose CT. Recommended for smokers or former smokers (quit within last 15 years) age 50-79, who have smoked an amount that is equal to at least 1 pack per day for 20 years. Hepatitis C Virus (HCV) Screening: Recommended as a one-time test for all adults born between 1711-8573, or those with high-risk behaviors. Human Immunodeficiency Virus (HIV): Recommended once for healthy adults 18-75, as screening and then only if there are any concerns of possible exposure. Influenza Vaccine: Required yearly for all adults Pneumococcal Vaccine: Required for all adults 65 or older. Zoster Vaccine (Shingles): Two shots 2-6 months apart, this can be completed at your local pharmacy. Provider: Dr. Mcconnell [facility] 02-13-2023 Evaluation + Plan noteExtracted from: Title:dm Author:Francesca Mcconnell MD Date: 07/11/22 1. Type 2 diabetes mellitus without complications (E11.9) Healthy diet discussed. Limit simple sugars. Test glucose daily. Goals reviewed. Continue with metformin. Await labs 2. Hypothyroid (E03.9) TSH reviewed from December. Euthyroid. Continue to take medication on an empty stomach first thing in the morning. Continue current dose. 3. Hypertension (I10) DASH diet reviewed. Stressed importance of 20 minutes of cardiovascular exercise at least 20 minutes daily. Continue with current medication. 4. Hypercholesterolemia (E78.00) Well controlled on current medication. Continue to take as prescribed. Monitor diet. Exercise 20 minutes at least 4 times per week. 5. Chronic kidney disease, stage 3 (N18.30) await labs Orders: 1123F adv care pln tlkd + alt dcsn maker docd (Charge), Quantity: 1, Well adult exam Mammogram Routine Screening Bilateral (Request), Instructions: Additional Mammography Images and US Breast If Needed. Radiologist to Determine Optimal Study, Breast cancer screening by mammogram Mammogram Routine Screening Bilateral (Request), Instructions: Additional Mammogram Views and US if needed, Breast cancer screening by mammogram US Carotid Duplex Bilateral (Request), Carotid stenosis follow-up in December for annual wellness [facility] 02-13-2023 Note Chief Complaint DM/HTN/CHOL/TSH CHECK, DID NOT HAVE LABS DRAWN PRIOR TO APPT History of Present Illness Cindy presents for chronic condition review. DM - Taking metformin without any side effects, monitoring diet HTN - compliant with prescribed medications, no chest pain or palpitations Hypercholesterolemia - taking simvastatin without any side effects Depression - taking duloxetine 60 milligrams daily along with ziprasidone from psychiatrist Hypothyroidism - taking on an empty stomach, no palpitations or abnormal weight changes Review of Systems Constitutional Symptoms: negative for fever, headaches, fatigue, recent Illness. Eyes: negative for loss and blurring of vision, double vision. Cardiovascular: negative for chest pain/pressure, palpitations, edema, claudication. Integumentary: negative for skin trouble or rash, Non-healing skin lesion. Neurological: negative for numbness, tingling, weakness. Endocrine: negative for weight gain, polyuria, polydipsia, polyphagia Physical Exam Vitals & Measurements HR: 72 (Peripheral) BP: 110/64 SpO2: 97% HT: 63 in WT: 160 lb BMI: 28.34 General Appearance: Vital Signs have been reviewed. Comfortable. Well nourished, and well developed. Awake, alert, and oriented and appears stated age. The patient is cooperative with exam. Eyes: PERRLA, EOMI, conjunctiva and sclerae clear. Chest: Lungs are clear to auscultation bilaterally with no wheezes, rales, or rhonchi. Cardiovascular: The heart rate is normal and the rhythm is regular. Murmur: not present. Extremities reveal no cyanosis, clubbing, or edema. Skin: Skin reveals good turgor and no rashes . Neurological: Neuro: Intact and non-focal. Sensation is normal to touch, position and vibration Assessment/Plan 1. Type 2 diabetes mellitus without complications (E11.9) Healthy diet discussed. Limit simple sugars. Test glucose daily. Goals reviewed. Continue with metformin. Await labs 2. Hypothyroid (E03.9) TSH reviewed from December. Euthyroid. Continue to take medication on an empty stomach first thing inthe morning. Continue current dose. 3. Hypertension (I10) DASH diet reviewed. Stressed importance of 20 minutes of cardiovascular exercise at least 20 minutes daily. Continue with current medication. 4. Hypercholesterolemia (E78.00) Well controlled on current medication. Continue to take as prescribed. Monitor diet. Exercise 20 minutes at least 4 times per week. 5. Chronic kidney disease, stage 3 (N18.30) await labs Orders: 1123F adv care pln tlkd + alt dcsn maker docd (Charge), Quantity: 1, Well adult exam Mammogram Routine Screening Bilateral (Request), Instructions: Additional Mammography Images and USBreast If Needed. Radiologist to Determine Optimal Study, Breast cancer screening by mammogram Mammogram Routine Screening Bilateral (Request), Instructions: Additional Mammogram Views and US ifneeded, Breast cancer screening by mammogram US Carotid Duplex Bilateral (Request), Carotid stenosis follow-up in December for annual wellness Patient Information Name:CINDY SOTO Address: [address] [place] [address] [address] [place] [address] Sex:Female Date of :1950 Location:[facility] Date of Service:07/11/2022 Primary Care Physician: Francesca Mcconnell MD, Problem List/Past Medical History Ongoing Carotid stenosis Cervical disc disorder with radiculopathy, unspecified cervical region Chronic GERD Chronic kidney disease, stage 3 Hypercholesterolemia Hypertension Hypothyroid IBS (irritable bowel syndrome) Type 2 diabetes mellitus without complications Historical No qualifying data Procedure/Surgical History Colonoscopy (01/16/2019) Comments: 01/16/2019 Friedenberg hemorrhoids repeat 5 years. CE - Cataract extraction (12/27/2017) Comments: With lens implant. Lumbar spinal stenosis (07/27/2014) Colonoscopy (06/29/2013) Comments: Normal. Due in 2019.. Colonoscopy (10/27/2009) Comments: Normal. LMP - Last menstrual period (05/29/1998) Medications aspirin 81 mg oral tablet, 81 mg= 1 tab(s), Oral, daily calcium (as carbonate)-vitamin D 600 mg-800 intl units oral tablet, chewable, 1 tab(s), Chewed, daily DULoxetine 60 mg oral delayed release capsule, bid fluticasone 50 mcg/inh nasal spray, 2 spray(s), Nasal, daily, 3 refills Lasix 20 mg oral tablet, 20 mg= 1 tab(s), Oral, daily, 3 refills levothyroxine 75 mcg (0.075 mg) oral tablet, 1 tab(s), Oral, daily Lyrica 50 mg oral capsule, 50 mg= 1 cap(s), Oral, hs metFORMIN 1000 mg oral tablet, 1 tab(s), Oral, bid Multi Vitamin+, daily One touch ultra blue test strips, See Instructions, 3 refills One touch ultra soft lancets, See Instructions, 3 refills PreserVision, Oral, daily simvastatin 20 mg oral tablet, 1 tab(s), Oral, qhs valsartan 80 mg oral tablet, 80 mg= 1 tab(s), Oral, bid ziprasidone 40 mg oral capsule, 40 mg= 1 cap(s), Oral, daily Allergies No known allergies Social History Alcohol Current, Wine (5 oz) Electronic Cigarette/Vaping Electronic Cigarette Use: Never. Employment/School Retired Exercise Exercise frequency: 1-2 times/week. Home/Environment Feels unsafe at home: No. Financial concerns: No. Quaker restrictions/concerns: NONE. Substance Abuse Never Tobacco Never (less than 100 in lifetime) Family History CAD - Coronary artery disease: Father. Cancer: Mother. Diabetes: Brother. Electronically Signed on 07/11/22 01:37 PM Francesca Mcconnell MD [facility]08-10-2022 Hospital Discharge instructions Patient Education 01/05/2022 12:59:18 Medicare Preventive (Women) (LIZZIE) Date:Female Patient Name: The physicians of [facility] would like to take this opportunity to remind you of the importance of preventative medicine and why it is important for you to schedule yearly checkups.The following are the current recommendations for preventative services based on your age group according to the U.S. Preventive Services Task Force: Annual wellness exam: This is a yearly visit with your physician to review your overall health and to discuss necessary testing to prevent disease. Blood pressure: You should have your blood pressure checked yearly to screen for high blood pressure. We have checked this today at your visit. The goal is to have a blood pressure less than 140/90 for most adults. Breast cancer screening: Recommended for all women over age 40. Testing to be done every 1-2 years based on individual risks. Cervical cancer screening: A screening PAP is recommended every 3 years for women 21-29. For women 30-65 it is recommended a PAP test with HPV test every 5 years. No further screening after age 65, if previous PAPs were negative. Pelvic exam: Screening tool used to detect abnormalities in the female genitals. This is recommended on visits where a PAP test is performed. This is done at your comprehensive physical exam. Cholesterol screening: Screening through lab testing should be performed every 5 years in patients who have no chronic health issues. Patients who have underlying issues such as: hypertension, diabetes, high cholesterol, or history of stroke, should have this done at least every year. This is usually done with your comprehensive physical exam blood work. Diabetes screening: You should have your blood sugar measured once a year if you are at low risk and twice a year if you are at high risk for developing diabetes. Your blood sugar is usually checked with your comprehensive physical exam blood work. Glaucoma screening: Recommended yearly for anyone with diabetes, family history of glaucoma, -Americans, or Hispanics. Bone Mass Measurements: All women 65 and older should have testing done every 5 years or at a younger age if a high risk for fracture. Last bone density was 2018. Colon cancer screening: Recommended for all adults 50-75 years old. There are several ways to screen for colon cancer based on your risk: FIT: This is to detect blood in your stool and is recommended on a yearly basis. This is done via stool cards that can be sent home with you after your visit. ColoGuard: Every 3 years. Your last test was done in and should be repeated in . Colonoscopy: Recommended at least once every 10 years for those at low risk, and as frequently as every 2 years for those at high risk. Your last test was done in 2018 and should be repeated in 2028 Lung cancer screening: Counseling and annual screening for lung cancer with low dose CT. Recommended for smokers or former smokers (quit within last 15 years) age 50-79, who have smoked an amount that is equal to at least 1 pack per day for 20 years. Hepatitis C Virus (HCV) Screening: Recommended as a one-time test for all adults born between 8462-8134, or those with high-risk behaviors. Human Immunodeficiency Virus (HIV): Recommended once for healthy adults 18-75, as screening and then only if there are any concerns of possible exposure. Influenza Vaccine: Required yearly for all adults Pneumococcal Vaccine: Required for all adults 65 or older. Zoster Vaccine (Shingles): Two shots 2-6 months apart, this can be completed at your local pharmacy. Provider: [facility] 08-09-2021 Evaluation + Plan noteExtracted from: Title:cpe Author:Francesca Mcconnell MD Date: 01/04/21 1. Encounter for general ariadne lt medical examination without abnormal findings (Z00.00) Preventative measures reviewed. Immunizations are up to date. Labs reviewed. Ordered: [id number] urnls dip stick/tablet rgnt auto w/o microscopy (Form/Charge), Quantity: 1, Modifier(s): QW, Encounter for general adult medical examination without abnormal findings Hypertension Type 2 diabetes mellitus without complications ECG 12-Lead, Diabetes w Periph. Circulatory Disorder, 01/04/21 8:34:00 EDT Urine Albumin/Creatinine Ratio (Request), Encounter for general adult medical examination without abnormal findings Hypertension Type 2 diabetes mellitus without complications 2. Encounter for screening mammogram for malignant neoplasm of breast (Z12.31) order given Ordered: Mammogram Routine Screening Bilateral (Request), Instructions: Additional Mammography Images and US Breast if needed, Encounter for screening mammogram for malignant neoplasm of breast Review Orders for Potential Authorizations, 01/04/21 8:35:19 EDT, 01/04/21 8:35:19 EDT 3. Type 2 diabetes mellitus without complications (E11.9) Healthy diet discussed. Limit simple sugars. Test glucose daily. Goals reviewed. Continue with current medication. Ordered: [id number] urnls dip stick/tablet rgnt auto w/o microscopy (Form/Charge), Quantity: 1, Modifier(s): QW, Encounter for general adult medical examination without abnormal findings Hypertension Type 2 diabetes mellitus without complications ECG 12-Lead, Diabetes w Periph. Circulatory Disorder, 01/04/21 8:34:00 EDT [facility] - OFFICE VISIT 20 MIN-POOLE (Scheduling Request), Type 2 diabetes mellitus without complications Hypothyroid Hypertension Hypercholesterolemia Urine Albumin/Creatinine Ratio (Request), Encounter for general adult medical examination without abnormal findings Hypertension Type 2 diabetes mellitus without complications 4. Hypothyroid (E03.9) TSH reviewed. Euthyroid. Continue to take medication on an empty stomach first thing in the morning. Continue current dose. Ordered: [facility] - OFFICE VISIT 20 MIN-POOLE (Scheduling Request), Type 2 diabetes mellitus without complications Hypothyroid Hypertension Hypercholesterolemia 5. Hypertension (I10) DASH diet reviewed. Stressed importance of 20 minutes of cardiovascular exercise at least 20 minutes daily. Continue with current medication. Ordered: [id number] urnls dip stick/tablet rgnt auto w/o microscopy (Form/Charge), Quantity: 1, Modifier(s): QW, Encounter for general adult medical examination without abnormal findings Hypertension Type 2 diabetes mellitus without complications ECG 12-Lead, Diabetes w Periph. Circulatory Disorder, 01/04/21 8:34:00 EDT [facility] - OFFICE VISIT 20 MIN-POOLE (Scheduling Request), Type 2 diabetes mellitus without complications Hypothyroid Hypertension Hypercholesterolemia Urine Albumin/Creatinine Ratio (Request), Encounter for general adult medical examination without abnormal findings Hypertension Type 2 diabetes mellitus without complications 6. Hypercholesterolemia (E78.00) Well controlled on current medication. Continue to take as prescribed. Monitor diet. continue with exercise 5 days a week Ordered: [facility] - OFFICE VISIT 20 MIN-ZULEMA (Scheduling Request), Type 2 diabetes mellitus without complications Hypothyroid Hypertension Hypercholesterolemia 7. Chronic GERD (K21.9) monitor diet 8. Chronic kidney disease, stage 3 (N18.30) continue follow up with Dr. Esquivel 9. Carotid stenosis (I65.29) Needs repeat carotid ultrasound. Orders: furosemide, = 1 tab(s) ( 20 mg ), PO, Daily, # 90 tab(s), 3 Refill(s), Type: Maintenance, Pharmacy: [facility], 1 tab(s) Oral daily, 64, in, 01/04/21 8:32:00 EDT, Height Measured, 165, lb, 01/04/21 8:32:00 EDT, Weight Measured, (Ordered) furosemide, = 1 tab(s) ( 20 mg ), PO, Daily, # 90 tab(s), 3 Refill(s), Type: Hard Stop, Pharmacy: [facility], (Completed) Blood Count, Complete, CBC, Auto: Hgb, Hct, RBC, WBC and Platelet Count, and Auto Diff WB (Request), Annual physical exam Comprehensive Metabolic Panel (Request), Instructions: w/ reflex a1c, Annual physical exam Hemoglobin A1c (Request), Type 2 diabetes mellitus without complications Lipid Panel (Request), Annual physical exam Hypercholesterolemia T3 Free (Request), Hypothyroid T4 Free (Request), Hypothyroid TSH (Request), Hypothyroid Annual physical exam US Carotid Duplex Bilateral (Request), Bilateral carotid artery stenosis f/u 6 months [facility] Evaluation + Plan note No data available for this section [facility] Evaluation note* Diagnosis 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)- Primary Essential hypertension Unspecified essential hypertension Hypercholesterolemia Pure hypercholesterolemia Diabetes mellitus without complication (CMS/HCC) Type II or unspecified type diabetes mellitus without mention of complication, not stated as uncontrolled Cerebrovascular accident (CVA), unspecified mechanism (CMS/HCC) Mixed hyperlipidemia documented in this encounter [facility] Work Phone: Evaluation note* Diagnosis Type 2 diabetes mellitus without complications (CMS/HCC) Essential (primary) hypertension Unspecified essential hypertension Pure hypercholesterolemia, unspecified Hypothyroidism, unspecified Chronic kidney disease, stage 3 unspecified (CMS/HCC) documented in this encounter [facility] Work Phone: Evaluation note* Diagnosis Altered mental status, unspecified altered mental status type- Primary Lower urinary tract infectious disease Urinary tract infection, site not specified documented in this encounter [facility] Discharge instructions No data available for this section [facility] Progress note No data available for this section [facility] Reason for referral (narrative)* Consultation (Routine) - Authorized Specialty Diagnoses / Procedures Referred By Tatianna stevenson Referred To Contact Cardiology Diagnoses 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) Essential hypertension Hypercholesterolemia Diabetes mellitus without complication (CMS/HCC) Cerebrovascular accident (CVA), unspecified mechanism (CMS/HCC) Mixed hyperlipidemia Procedures Follow Up In Cardiology Vern Porter MD [address] [address] Referral ID Status Reason Start Date Expiration Date V isits Requested Visits Authorized [id number] Authorized 04/05/2023 04/04/2024 1 1 [facility] Work Phone: Reason for referral (narrative)* Consultation (Routine) - Pending Review Specialty Diagnoses / Procedures Referred By Tatianna stevenson Referred To Contact Internal Medicine Diagnoses Lower urinary tract infectious disease Procedures [place] OFFICE/OUTPATIENT NEW HIGH MDM 60 MINUTES Jas Shankar MD [address] [place] [address] 75 [address] [place] [address] Referral ID Status Reason Start Date Expiration Date Visits Requested Visits Authorized [id number] Pending Review Specialty Services Required 06/26/2023 06/25/2024 1 1 [facility] Summary Purpose Family History No Family History Records FoundNo Family History Records FoundNo Family History Records FoundNo Family History Records FoundNo Family History Records FoundNo Family History Records FoundNo Family History Records FoundNo Family History Records Found Advance Directives No Advanced Directives Records FoundDocuments on File Type Date Recorded Patient Scanning Manager Expl anation Living Will 03/14/2023 TRI Latest Code Status on File Code Status Date Activated Date Inactivated Comments Full Code 03/13/2023 4:22 PM Question Answer Comments Plan of Care: Code Status Discussion Completed Decision Maker: Patient Code Status History Code Status Date Activated Date Inactivated Comments Full Code 03/11/2023 1:53 PM 03/13/2023 4:22 PM Question Answer Comments Plan of Care: Code Status Discussion Completed Decision Maker: Patient Full Code 03/02/2023 5:29 AM 03/11/2023 1:53 PM Question Answer Comments Plan of Care: Code Status Discussion Not Compl eted Decision Maker: Provider Rationale: Patient lacks capaci ty/Care Team unable to identify or reach proxy Documents on File Type Date Recorded Patient Scanning Manager Krunal alfred Living Will 03/14/2023 TRI Latest Code Status on File Code Status Date Activated Date Inactivated Comments Full Code 03/13/2023 4:22 PM Question Answer Comments Plan of Care: Code Status Discussion Completed Decision Maker: Patient Code Status History Code Status Date Activated Date Inactivated Comments Full Code 03/11/2023 1:53 PM 03/13/2023 4:22 PM Question Answer Comments Plan of Care: Code Status Discussion Completed Decision Maker: Patient Full Code 03/02/2023 5:29 AM 03/11/2023 1:53 PM Question Answer Comments Plan of Care: Code Status Discussion Not Compl eted Decision Maker: Provider Rationale: Patient lacks capaci ty/Care Team unable to identify or reach proxy Assessments and Plan Title:Viral Syndrome/COVID RO phone Author:Paul Calvillo PA-C Date:05/25/20 1. Viral syndrome (B34.9) discussed with Cindy she is a concerning presentation for COVID-19, we need to get her on the testing schedule , she develops chest pain or shortness of breath she needs to go directly to the emergency room, she should increase her fluid intake , Tylenol for fevers , we will follow-up with her test results , she will call if she develops any new symptoms or localization of her symptoms . Discussed her presentation is much more in keeping with a viral syndrome rather than an acute localized bacterial infection . She is aware and agrees. Overall phone time was 6 minutes. Orders: SARS-CoV-2 RNA (COVID-19), Qualitative NAAT (Request), Body aches Cough Fever Title:DM Author:Francesca Mcconnell MD Date: 07/03/20 1. Type 2 diabetes mellitus without complications (E11.9) Healthy diet discussed. Limit simple sugars. Test glucose daily. Goals reviewed. Continue with current medication. Ordered: LCFP - OFFICE VISIT 20 MIN-POOLE (Scheduling Request), Hypertension 2. Hypothyroid (E03.9) TSH reviewed. Euthyroid. Continue to take medication on an empty stomach first thing in the morning. Continue current dose. Ordered: LCFP - OFFICE VISIT 20 MIN-POOLE (Scheduling Request), Hypertension 3. Hypertension (I10) DASH diet reviewed. Stressed importance of 20 minutes of cardiovascular exercise at least 20 minutes daily. Continue with current medication. Ordered: LCFP - OFFICE VISIT 20 MIN-POOLE (Scheduling Request), Hypertension 4. Chronic kidney disease, stage 3 (N18.30) Stable 5. Hypercholesterolemia (E78.00) Well controlled on current medication. Continue to take as prescribed. Monitor diet. Exercise 20 minutes at least 4 times per week. F/U 6 months. Title:cpe Author:Francesca Mcconnell MD Date: 01/01/20 1. Annual physical exam (Z00 .00) Preventative measures reviewed. Immunizations are up to date. Labs reviewed. Ordered: [id number] urnls dip stick/tablet rgnt auto w/o microscopy (Form/Charge), Quantity: 1, Modifier(s): QW, Hypertension Annual physical exam 2. BMI 26.0-26.9,adult (Z68.26) 3. Breast cancer screening by mammogram (Z12.31) Indications, risks and benefits reviewed. Ordered: Mammogram Routine Screening Bilateral (Request), Instructions: Additional Mammogram Views and US if needed, Breast cancer screening by mammogram 4. Type 2 diabetes mellitus without complications (E11.9) Healthy diet discussed. Limit simple sugars. Test glucose daily. Goals reviewed. Continue with current medication. Ordered: Blood Count, Complete, CBC, Auto: Hgb, Hct, RBC, WBC and Platelet Count, and Auto Diff WB (Request), Hypertension Type 2 diabetes mellitus without complications Hypothyroid Hypercholesterolemia Chronic GERD Chronic kidney disease, stage 3 Comprehensive Metabolic Panel (Request), Instructions: w/ reflex a1c, Hypertension Type 2 diabetes mellitus without complications Hypothyroid Hypercholesterolemia Chronic GERD Chronic kidney disease, stage 3 Hemoglobin A1c (Request), Hypertension Type 2 diabetes mellitus without complications Hypothyroid Hypercholesterolemia Chronic GERD Chronic kidney disease, stage 3 LCFP - OFFICE VISIT 20 MIN-POOLE (Scheduling Request), Type 2 diabetes mellitus without complications Hypertension Hypothyroid Lipid Panel (Request), Hypertension Type 2 diabetes mellitus without complications Hypothyroid Hypercholesterolemia Chronic GERD Chronic kidney disease, stage 3 TSH (Request), Hypertension Type 2 diabetes mellitus without complications Hypothyroid Hypercholesterolemia Chronic GERD Chronic kidney disease, stage 3 5. Hypertension (I10) DASH diet reviewed. Stressed importance of 20 minutes of cardiovascular exercise at least 20 minutes daily. Continue with current medication. Ordered: [id number] urnls dip stick/tablet rgnt auto w/o microscopy (Form/Charge), Quantity: 1, Modifier(s): QW, Hypertension Annual physical exam Blood Count, Complete, CBC, Auto: Hgb, Hct, RBC, WBC and Platelet Count, and Auto Diff WB (Request), Hypertension Type 2 diabetes mellitus without complications Hypothyroid Hypercholesterolemia Chronic GERD Chronic kidney disease, stage 3 Comprehensive Metabolic Panel (Request), Instructions: w/ reflex a1c, Hypertension Type 2 diabetes mellitus without complications Hypothyroid Hypercholesterolemia Chronic GERD Chronic kidney disease, stage 3 Hemoglobin A1c (Request), Hypertension Type 2 diabetes mellitus without complications Hypothyroid Hypercholesterolemia Chronic GERD Chronic kidney disease, stage 3 LCFP - OFFICE VISIT 20 MIN-POOLE (Scheduling Request), Type 2 diabetes mellitus without complications Hypertension Hypothyroid Lipid Panel (Request), Hypertension Type 2 diabetes mellitus without complications Hypothyroid Hypercholesterolemia Chronic GERD Chronic kidney disease, stage 3 TSH (Request), Hypertension Type 2 diabetes mellitus without complications Hypothyroid Hypercholesterolemia Chronic GERD Chronic kidney disease, stage 3 Urine Albumin/Creatinine Ratio (Request), Hypertension 6. Hypothyroid (E03.9) TSH reviewed. Euthyroid. Continue to take medication on an empty stomach first thing in the morning. Continue current dose. Ordered: Blood Count, Complete, CBC, Auto: Hgb, Hct, RBC, WBC and Platelet Count, and Auto Diff WB (Request), Hypertension Type 2 diabetes mellitus without complications Hypothyroid Hypercholesterolemia Chronic GERD Chronic kidney disease, stage 3 Comprehensive Metabolic Panel (Request), Instructions: w/ reflex a1c, Hypertension Type 2 diabetes mellitus without complications Hypothyroid Hypercholesterolemia Chronic GERD Chronic kidney disease, stage 3 Hemoglobin A1c (Request), Hypertension Type 2 diabetes mellitus without complications Hypothyroid Hypercholesterolemia Chronic GERD Chronic kidney disease, stage 3 LCFP - OFFICE VISIT 20 MIN-POOLE (Scheduling Request), Type 2 diabetes mellitus without complications Hypertension Hypothyroid Lipid Panel (Request), Hypertension Type 2 diabetes mellitus without complications Hypothyroid Hypercholesterolemia Chronic GERD Chronic kidney disease, stage 3 TSH (Request), Hypertension Type 2 diabetes mellitus without complications Hypothyroid Hypercholesterolemia Chronic GERD Chronic kidney disease, stage 3 7. Carotid stenosis (I65.29) Repeat carotid ultrasounds ordered 8. Hypercholesterolemia (E78.00) continue with current diet and exercise management. tolerating simvastatin without any side effects Ordered: Blood Count, Complete, CBC, Auto: Hgb, Hct, RBC, WBC and Platelet Count, and Auto Diff WB (Request), Hypertension Type 2 diabetes mellitus without complications Hypothyroid Hypercholesterolemia Chronic GERD Chronic kidney disease, stage 3 Comprehensive Metabolic Panel (Request), Instructions: w/ reflex a1c, Hypertension Type 2 diabetes mellitus without complications Hypothyroid Hypercholesterolemia Chronic GERD Chronic kidney disease, stage 3 Hemoglobin A1c (Request), Hypertension Type 2 diabetes mellitus without complications Hypothyroid Hypercholesterolemia Chronic GERD Chronic kidney disease, stage 3 Lipid Panel (Request), Hypertension Type 2 diabetes mellitus without complications Hypothyroid Hypercholesterolemia Chronic GERD Chronic kidney disease, stage 3 TSH (Request), Hypertension Type 2 diabetes mellitus without complications Hypothyroid Hypercholesterolemia Chronic GERD Chronic kidney disease, stage 3 9. Chronic kidney disease, stage 3 (N18.3) stable. Discussed the importance of monitoring blood pressure and sugar to preserve renal function Ordered: Blood Count, Complete, CBC, Auto: Hgb, Hct, RBC, WBC and Platelet Count, and Auto Diff WB (Request), Hypertension Type 2 diabetes mellitus without complications Hypothyroid Hypercholesterolemia Chronic GERD Chronic kidney disease, stage 3 Comprehensive Metabolic Panel (Request), Instructions: w/ reflex a1c, Hypertension Type 2 diabetes mellitus without complications Hypothyroid Hypercholesterolemia Chronic GERD Chronic kidney disease, stage 3 Hemoglobin A1c (Request), Hypertension Type 2 diabetes mellitus without complications Hypothyroid Hypercholesterolemia Chronic GERD Chronic kidney disease, stage 3 Lipid Panel (Request), Hypertension Type 2 diabetes mellitus without complications Hypothyroid Hypercholesterolemia Chronic GERD Chronic kidney disease, stage 3 TSH (Request), Hypertension Type 2 diabetes mellitus without complications Hypothyroid Hypercholesterolemia Chronic GERD Chronic kidney disease, stage 3 10. Chronic GERD (K21.9) diet reviewed Ordered: Blood Count, Complete, CBC, Auto: Hgb, Hct, RBC, WBC and Platelet Count, and Auto Diff WB (Request), Hypertension Type 2 diabetes mellitus without complications Hypothyroid Hypercholesterolemia Chronic GERD Chronic kidney disease, stage 3 Comprehensive Metabolic Panel (Request), Instructions: w/ reflex a1c, Hypertension Type 2 diabetes mellitus without complications Hypothyroid Hypercholesterolemia Chronic GERD Chronic kidney disease, stage 3 Hemoglobin A1c (Request), Hypertension Type 2 diabetes mellitus without complications Hypothyroid Hypercholesterolemia Chronic GERD Chronic kidney disease, stage 3 Lipid Panel (Request), Hypertension Type 2 diabetes mellitus without complications Hypothyroid Hypercholesterolemia Chronic GERD Chronic kidney disease, stage 3 TSH (Request), Hypertension Type 2 diabetes mellitus without complications Hypothyroid Hypercholesterolemia Chronic GERD Chronic kidney disease, stage 3 follow-up in 6 months for DM check Additional Source Comments INFORMATION SOURCE (unrecogn ized section and content) DATE CREATED AUTHOR AUTHOR'S ORGANIZ ATION 07/12/2022 [facility] DATE CREATED AUTHOR AUTHOR'S ORGANIZ ATION 01/28/2023 [facility] DATE CREATED AUTHOR AUTHOR'S ORGANIZ ATION 03/07/2023 [facility] DATE CREATED AUTHOR AUTHOR'S ORGANIZ ATION 04/07/2023 [facility] DATE CREATED AUTHOR AUTHOR'S ORGANIZ ATION 04/07/2023 [facility] DATE CREATED AUTHOR AUTHOR'S ORGANIZ ATION 06/15/2023 [facility] DATE CREATED AUTHOR AUTHOR'S ORGANIZ ATION 06/28/2023 [facility] Patient Care team informatio n (unrecognized section and content) Senior Human Resources Representative Relationship Specialty Start Date End Date Francesca Mcconnell MD [address] [address] Primary Care Provider 08/16/14 Senior Human Resources Representative Relationship Specialty Start Date End [facility] [address] [place] [address] PCP - General 06/26/23 Reason for Visit (unrecogniz ed section and content) Reason Comments Altered Mental Status Scheduled Active and Recently Administ ered Medications (unrecognized section and content) FOR RECORDS PERTAINING TO PATIENTS WHO ARE OR HAVE BEEN ENROLLED IN A CHEMICAL DEPENDENCY/SUBSTANCEABUSE PROGRAM, SOME INFORMATION MAY BE OMITTED. This clinical summary was aggregated from multiple sources. Caution should be exercised in using it in the provision of clinical care. This summary normalizes information from multiple sources, and as a consequence, information in this document may materially change the coding, format and clinical context of patient data. In addition, data may be omitted in some cases. CLINICAL DECISIONS SHOULD BE BASED ON THE PRIMARY CLINICAL RECORDS. [facility] [employer] [facility] provides no warranty or guarantee of the accuracy or completeness of information in this document.
[2023-07-04 10:00] LABS: Mean Corp Hgb Conc 33.3 g/dL (32-36); Mean Corpuscular Volume 96.1 fL (81-99); Mean Platelet Vol. 9.5 fl (6.2-12.0); Platelet Count 281 K/mm3 (150-450); RBC Distribution Width CV 11.8 % (11.6-14.6); RBC Distribution Width SD 41.3 fl (35.1-43.9); Red Blood Count 4.37 M/mm3 (4.2-5.4); White Blood Count 9.1 K/mm3 (4.4-11.0)
[2023-07-04 10:20] LABS: Anion Gap 3 (5-15); BUN 19 mg/dL (7-18); BUN/Creat Ratio 18.1 RATIO (10-20); Chloride 104 mmol/L (98-107); Creatinine, Serum 1.05 mg/dL (0.55-1.02); EST Glomerular Filtration Rate 54 mL/min (>60); Est Glom Filt Rate - Afr Amer 66 mL/min (>60); Glucose 131 mg/dL (74-106); Sodium Level 134 mmol/L (136-145)
== END ==
LOC: OLS.SANC 04:00
PROVIDERS: Visit Provider Internal Medicine
DX: I48.91 Unspecified atrial fibrillation (principal); E11.9 Type 2 diabetes mellitus without complications; I10 Essential (primary) hypertension; E78.5 Hyperlipidemia, unspecified; E03.9 Hypothyroidism, unspecified
CPT/HCPCS: 36415; 80048; 85027

== ENCOUNTER → 2023-08-02 | Outpatient (REF) | payer MEDICARE, SELFPAY ==
--- OUTSIDE RECORDS SUMMARY | 2023-08-02 04:33 | XMS RPT_ITS | CCD ---
Author Name Unknown Address [address] [place] [address] Organization [facility] Care Team Providers Care [place] Worker Name Role Phone Francesca Mcconnell Primary Care Physician [phone] Dr. FRANCESCA MCCONNELL Primary Care Unavailable Dr. [...] Unavailable Francesca Mcconnell MD Primary Care Provider [phone] VERN PORTER Attending Unavailable FRANCESCA MCCONNELL Primary Care Unavailable CHANEL MENDEZ Admitting Unavailable CHANEL MENDEZ Attending Unavailable CATALINA HAM Consulting Unavailable FRANCESCA MCCONNELL Primary Care Unavailable CASE NOBLE Consulting UnavailBRIDGET Smith Consulting Unavailable FRANCESCA MCCONNELL Primary Care Unavailable ALLYSON MURRAY Attending Unavailable [facility] Primary Care Provider Unav HERNAN Baltazar Attending Unavailable [facility] Primary Care Unavailable Medications Current Medications Medication [...] mg tablet Indications: Atrial fibrillation by electrocardiogram ([facility]) Take 1 tablet (5 mg) by mouth [...] 30 tab(s), 1 Refill(s), Type: Maintenance, Pharmacy: [id number], 1 tab(s) Oral daily Start Date: 08/08/18 Stop Date: 08/17/18 Status: Discontinued linaclotide 0.145 mg oral capsule (12 sources) Guanylate Cyclase-C Agonist Start: 8 End: 8 take 1 capsule by mouth once daily Linzess 145 mcg oral capsule 1 cap(s) ( 145 mcg ), po, daily, # 30 cap(s), 0 Refill(s), Type: Maintenance, Pharmacy: [id number] #[id number], 1 cap(s) po daily Start Date: 10/16/17 Stop Date: 02/22/18 Status: Discontinued lisinopril 40 mg oral tablet (13 sources) Angiotensin Converting Enzyme Inhibitor Start: 8 End: 3 take 1 tablet by mouth once daily lisinopril 40 mg oral tablet See Instructions, Instructions: TAKE 1 TABLET DAILY, # 90 tab(s), 2 Refill(s), Type: Soft Stop, [facility]acy: [facility], TAKE 1 TABLET DAILY Start [...] Coronary atherosclerosis; Translations: [Atherosclerotic heart disease of [place] coronary artery with other forms of angina [...] Cervical disc disorder with radiculopathy 08-27-2018 Chronic Spondylosis; intervertebral disc disorders; other back problems (18 sources) Cervical disc disorder with radiculopathy; Translations: [Cervical disc disorder with radiculopathy, unspecified cervical region] Onset: 08-18-19 19 08-27-2018 Episodic Thyroid disorders (20 sources) Hypothyroidism; Translations: [Hypothyroidism, unspecified] Onset: 10-17-19 18 12-03-2018 Chronic Unclassified (2 sources) Patient encounter status; Translations: [Encounter for screening mammogram for malignant neoplasm of breast] Onset: 01-01-20 Urinary tract infections (3 sources) Lower urinary tract infectious disease; Translations: [Urinary tract infection, site not specified] Onset: 06-26-19 24 06-26-2023 Episodic Past or Other Problems Problem Classification [...] for closed fracture] Onset: 04-01-2018 04-04-2023 Episodic Superficial injury; contusion (2 sources) Contusion [...] 09:30-0500 Diastolic blood pressure 95 mm[Hg] Hernan [employer] DO Work Phone: [facility] 06-26-2023 09:30-0500 Heart rate 55 /min Hernan [employer] DO Work Phone: [facility] 06-26-2023 09:30-0500 Respiratory rate 18 /min Hernan [employer] DO Work Phone: [facility] 06-26-2023 09:30-0500 SaO2% (BldA) [Mass fraction] 99 % Hernan [employer] DO Work Phone: [facility] 06-26-2023 09:30-0500 Systolic blood pressure 160 mm[Hg] Hernan Nesheim DO Work Phone: [facility] 06-26-2023 06:04-0500 Body height 167.6 cm Hernan Nesheim DO Work Phone: [facility] 06-26-2023 06:04-0500 Body mass index (BMI) [Ratio] 26.89 kg/m2 Hernan [employer] DO Work Phone: [facility] 06-26-2023 06:04-0500 Body temperature 98.1 [degF] Hernan [employer] DO Work Phone: [facility] 06-26-2023 06:04-0500 Body weight 75.57 kg Hernan Nesheim DO Work Phone: [facility] [email or web address] 04-05-2023 11:37-0500 Body height 162.6 cm Vern Porter MD Work Phone: [facility] 04-05-2023 11:37-0500 Body mass index (BMI) [Ratio] 27.12 kg/m2 Vern Porter MD Work Phone: [facility] 04-05-2023 11:37-0500 Body temperature 98.91 [degF] Vern Porter MD Work Phone: [facility] 04-05-2023 11:37-0500 Body weight 71.67 kg Vern Porter MD Work Phone: [facility] 04-05-2023 11:37-0500 Diastolic blood pressure 93 mm[Hg] Vern Porter MD Work Phone: [facility] 04-05-2023 11:37-0500 Heart rate 66 /min Vern Porter MD Work Phone: [facility] 04-05-2023 11:37-0500 Respiratory rate 18 /min Vern Porter MD Work Phone: [facility] 04-05-2023 11:37-0500 SaO2% (BldA) [Mass fraction] 98 % Vern Porter MD Work Phone: [facility] 04-05-2023 11:37-0500 Systolic blood pressure 155 mm[Hg] Vern Porter MD Work Phone: [facility] 01-27-2023 12:59-0400 Body height 160.02 cm Francesca Mcconnell MD [facility] 01-27-2023 12:59-0400 Body mass index (BMI) [Ratio] 29.05 kg/m2 Francesca Mcconnell MD [facility] 01-27-2023 12:59-0400 Body surface area Derived from formula 1.82 m2 Francesca Mcconnell MD [facility] 01-27-2023 12:59-0400 Body weight 74.39 kg Francesca Mcconnell MD [facility] 01-27-2023 12:59-0400 Diastolic blood pressure 82 mm[Hg] Francesca Mcconnell MD [facility] 01-27-2023 12:59-0400 Heart rate 60 /min Francesca Mcconnell MD [facility] 01-27-2023 12:59-0400 Last Menstrual Period [id number] Francesca Mcconnell MD [facility] 01-27-2023 12:59-0400 Mean blood pressure 97 mm[Hg] Francesca Mcconnell MD [facility] 01-27-2023 12:59-0400 SaO2% (BldA) [Mass fraction] 96 % Francesca Mcconnell MD [facility] 01-27-2023 12:59-0400 Systolic blood pressure 128 mm[Hg] Francesca Mcconnell MD [facility] 07-11-2022 13:24-0500 Body height 160.02 cm Francesca Mcconnell MD [facility] 07-11-2022 13:24-0500 Body mass index (BMI) [Ratio] 28.34 kg/m2 Francesca Mcconnell MD [facility] 07-11-2022 13:24-0500 Body surface area Derived from formula 1.79 m2 Francesca Mcconnell MD [facility] 07-11-2022 13:24-0500 Body weight 72.58 kg Francesca Mcconnell MD [facility] 07-11-2022 13:24-0500 Diastolic blood pressure 64 mm[Hg] Francesca Mcconnell MD [facility] 07-11-2022 13:24-0500 Heart rate 72 /min Francesca Mcconnell MD [facility] 07-11-2022 13:24-0500 Mean blood pressure 79 mm[Hg] Francesca Mcconnell MD [facility] 07-11-2022 13:24-0500 SaO2% (BldA) [Mass fraction] 97 % Francesca Mcconnell MD [facility] 07-11-2022 13:24-0500 Systolic blood pressure 110 mm[Hg] Francesca Mcconnell MD [facility] 01-05-2022 13:55-0400 Body height 160.02 cm Francesca Mcconnell MD [facility] 01-05-2022 13:55-0400 Body mass index (BMI) [Ratio] 28.34 kg/m2 Francesca Mcconnell MD [facility] 01-05-2022 13:55-0400 Body surface area Derived from formula 1.79 m2 Francesca Mcconnell MD [facility] 01-05-2022 13:55-0400 Body weight 72.58 kg Francesca Mcconnell MD [facility] 01-05-2022 13:55-0400 Diastolic blood pressure 78 mm[Hg] Francesca Mcconnell MD [facility] 01-05-2022 13:55-0400 Heart rate 72 /min Francesca Mcconnell MD [facility] 01-05-2022 13:55-0400 Mean blood pressure 93 mm[Hg] Francesca Mcconnell MD [facility] 01-05-2022 13:55-0400 SaO2% (BldA) [Mass fraction] 100 % Francesca Mcconnell MD [facility] 01-05-2022 13:55-0400 Systolic blood pressure 122 mm[Hg] Francesca Mcconnell MD [facility] 01-04-2021 08:32-0400 Body height 162.56 cm Francesca Mcconnell MD [facility] 01-04-2021 08:32-0400 Body mass index (BMI) [Ratio] 28.32 kg/m2 Francesca Mcconnell MD [facility] 01-04-2021 08:32-0400 Body surface area Derived from formula 1.84 m2 Francesca Mcconnell MD [facility] 01-04-2021 08:32-0400 Body temperature 97.9 [degF] Francesca Mcconnell MD [facility] 01-04-2021 08:32-0400 Body weight 74.84 kg Francesca Mcconnell MD [facility] 01-04-2021 08:32-0400 Diastolic blood pressure 80 mm[Hg] Francesca Mcconnell MD [facility] 01-04-2021 08:32-0400 Heart rate 65 /min Francesca Mcconnell MD [facility] 01-04-2021 08:32-0400 Last Menstrual Period [id number] Francesca Mcconnell MD [facility] 01-04-2021 08:32-0400 Mean blood pressure 95 mm[Hg] Francesca Mcconnell MD [facility] 01-04-2021 08:32-0400 Systolic blood pressure 124 mm[Hg] Francesca Mcconnell MD [facility] 07-03-2020 10:12-0500 BMI (Body Mass Index) 27.19 kg/m2 Francesca Mcconnell [facility] 07-03-2020 10:12-0500 Body Temperature 95.2 [degF] [facility]2020 10:12-0500 [facility] 07-03-2020 10:12-0500 BSA (Body Surface Area) 1.8 [facility] 10:120500 Height 162.56 cm [facility] 05-25-2020 10:27-0500 BMI (Body Mass Index) 27.12 kg/m2 [facility] 05-25-2020 10:27-0500 Body Temperature 104 [degF] [facility] 05-25-2020 10:27-0500 [facility] 05-25-2020 10:27-0500 BSA (Body Surface Area) 1.8 m2 [facility] 05-25-2020 10:27-0500 Height [facility] 01-01-2020 08:49-0400 BMI (Body Mass Index) 26.26 kg/m2 [facility] 01-01-2020 08:49-0400 [facility] 01-01-2020 08:49-0400 BP Diastolic 64 mm[Hg] [facility] 01-01-2020 08:49-0400 BP Systolic 110 mm[Hg] [facility] 01-01-2020 08:49-0400 BSA (Body Surface Area) 1.77 m2 Francesca [facility] 01-01-2020 08:49-0400 Heart rate 66 /min Francesca [facility] 01-01-2020 08:49-0400 Height 162.56 cm Francesca [facility] 01-01-2020 08:49-0400 Last Menstrual Period [id number] Francesca [facility] 01-01-2020 08:49-0400 Mean Blood Pressure 79 mm[Hg] Francesca [facility] Encounters Encounter Date Encounter Type Care Provider Facility Start: 07-28-2023 Unknown Francesca Mcconnell MD Faci lity:[facility] Start: 07-28-2023 End: 07-29-2023 Patient encounter procedure Francesca Mcconnell MD [facility] Start: 06-26-2023 End: 06-26-2023 Emergency department patient visit HERNAN KENNY [facility] Start: 06-26-2023 End: 06-26-2023 Emergency department patient visit Hernan Elan Nesheim DO Work Phone: [facility] ED Procedures Date Procedure Procedure Detail Performing Clinician Start: 06-26-2023 Urinalysis complete panel - Urine Hernan Elan Nesheim DO Work Phone: Start: 06-26-2023 Urnls [...] CHANEL MENDEZ Start: 03-13-2023 WALKER STANDARD CHANEL R OTH Start: 03-13-2023 WEIGH PATIENT CHANEL Spaulding Start: 03-13-2023 ADULT DISCHARGE DIET DA VID MENDEZ Start: 03-13-2023 SNF DISCHARGE POTENTIAL CHANEL MENDEZ Start: 03-13-[address] [facility] LEVEL OF CARE CHANEL MENDEZ Start: 03-13-2023 SNF REHAB POTENTIAL TROY MENDEZ Start: 03-13-2023 Glucose [Mass/volume ] in [...] MENDEZ Start: 03-11-2023 DISCHARGE ACTIVITY MARY KAY MENDEZ Start: 03-11-2023 DISCHARGE INSTRUCTIONS CHANEL MENDEZ Start: 03-11-2023 SNF DISCHARGE POTENTIAL CHANEL MENDEZ Start: 03-11-2023 SNF FREE OF COMMUNIC ABLE DISEASE CHANEL MENDEZ Start: 03-11-[address] [facility] LEVEL OF CARE CHANEL MENDEZ Start: 03-11-2023 SNF REHAB POTENTIAL TROY SONYA MENDEZ Start: 03-11-2023 VITAL SIGNS CHANEL MENDEZ [...] Serum or Plasma CHANEL MENDEZ Start: 03-08-2023 CONTROL MANAGER EVAL AND TREAT MARY KAY Afia MENDEZ [...] metabolic 2000 panel - Serum or Plasma HCANEL MENDEZ Start: 03-07-2023 CBC panel - Blood [...] [Mass/volume ] in Serum or Plasma CHANEL MEDNEZ Start: 03-04-2023 Glucose [Mass/volume ] in Serum or Plasma CHANEL MENDEZ Start: 03-04-2023 Basic metabolic 2000 panel [...] Start: 03-02-2023 SERIAL TROPONIN, 6 H OUR (METCALF) CHANEL MENDEZ Start: 03-02-2023 THYROXINE, FREE CHANEL SHORT Start: 03-02-2023 ED TO FLOOR BED REQUEST CHANEL MENDEZ Start: 03-02-2023 ADMIT TO INPATIENT MARY KAY MENDEZ Start: 03-02-2023 SERIAL TROPONIN, 2 H OUR (METCALF) CHANEL MENDEZ Start: 03-02-2023 Bacteria identified in [...] MENDEZ Start: 03-01-2023 SERIAL TROPONIN, INI TIAL (POOLE) CHANEL MENDEZ Start: 03-01-2023 TROPONIN T SERIES, H IGH SENSITIVITY (0, 2 HR, 6 HR) CHANEL MENDEZ Start: 03-01-2023 Glucose [Mass/volume ] in Serum or Plasma CHANEL MENDEZ Start: 01-31-2023 Microalbumin/Creatin ine [Mass Ratio] in Urine Francesca Mcconnell MD Work Phone: Start: 01-31-2023 Urinalysis Francesca Mcconnell MD Work Phone: Start: 01-31-2023 Complete [...] DTaP/Tdap/Td Vaccines (2 - Td or Tdap) [facility] Start: 03-06-2024 Lipid panel Lipid Panel [facility] Start: 03-02-2024 Thyroid stimulating hormone measurement TSH Level [facility] Start: 02-01-2024 Hemoglobin A1c measurement Diabetes: Hemoglobin A1C [facility] Start: 10-04-2023 End: 10-04-2023 Patient encounter procedure 10/04/2023 10:00 AM EDT Office Visit [facility] [address] [place] [address] Vern Porter MD [address] [place], [place] [id number] [facility] Start: 07-28-2023 End: 07-28-2023 Patient encounter procedure 07/28/2023 1:45 PM EST Office Visit [facility] [address] [place] [id number] Francesca Mcconnell MD [address] [place] [address] [place], [place] [id number] [facility] Start: 05-02-2023 Hemoglobin A1c measurement Diabetes: Hemoglobin A1C [facility] Start: 01-27-2023 COVID-19 Vaccine () COVID-19 Vaccine () [facility] Start: 01-27-2023 Influenza vaccination Influenza Vaccine (#1) [facility] Start: 12-29-2022 Glaucoma screening Diabetes: Retinopathy Screening [facility] Start: 05-24-2022 Screening for malignant neoplasm of breast Mammogram [facility] Start: 04-27-2022 COVID-19 Vaccine (4 - Pfizer series) COVID-19 Vaccine (4 - Pfizer series) [facility] Start: 2008 RSV Immunization aged 60 or older (1 - 1-dose 60+ series) RSV Immunization aged 60 or older (1 - 1-dose 60+ series) [facility] Start: 1998 Zoster Vaccines (1 of 2) Zoster Vaccines (1 of 2) [facility] Start: 1988 Screening for malignant neoplasm of breast Mammogram [facility] Start: 08-16-1967 Urine screening for protein Diabetes: Urine Protein Screening [facility] Start: 1966 Hepatitis C screening Hepatitis C Screening [facility] Start: 1960 Depression Screening Depression Screening [facility] Start: 1958 Diabetic foot examination Diabetes: Foot Exam [facility] Start: 1958 Glaucoma screening Diabetes: Retinopathy Screening [facility] Start: 1958 Preventive dental service Diabetes: Dental Exam [facility] Start: 1948 Medicare Advantage Annual Wellness Visit (AWV) Medicare Advantage Annual Wellness Visit (AWV) [facility] Start: 1948 Medicare Annual Wellness Visit Medicare Annual Wellness Visit (AWV) [facility] Start: 1948 Screening for malignant neoplasm of colon [facility] Start: 1948 Screening for osteoporosis Bone Density Scan [facility] [email or web address] End: 06-26-2023 Bacteria identified in Urine by Culture [facility] [email or web address] [facility] Work Phone: Immunizations Immunization Date Immunization Notes Care Provider [facility] 03-02-2022 Flu vaccine, quadrivalent, high-dose, preservative free, age 65y+ (FLUZONE) Vern Porter MD Work Phone: [facility] Work Phone: 03-02-2022 influenza virus vaccine, unspecified formulation Francesca Mcconnell MD [facility] 03-02-2022 SARS-CoV-2 (COVID-19 ) mRNA (tozinameran 12y+) bivalent boost Francesca Mcconnell MD [facility] 04-08-2021 SARS-CoV-2 (COVID-19 ) mRNA BNT-162b2 kristyx Francesca Mcconnell MD [facility] 01-17-2021 Flu vaccine, quadrivalent, high-dose, preservative free, age 65y+ (FLUZONE) Vern Porter MD Work Phone: [facility] Work Phone: 01-17-2021 influenza virus vaccine, unspecified formulation Francesca Mcconnell MD [facility] 09-13-2020 SARS-CoV-2 (COVID-19 ) mRNA BNT-162b2 kristyx Francesca Mcconnell MD [facility] Payers Date Payer Category Payer Medicare [id number] 2018 Unknown [id number] 1948 Unknown [id number] 1948 Unknown [id number] 1948 Unknown [id number] 1948 Unknown [id number] Social History Date Type Detail Facility Start: 10-16-2017 End: 07-11-2022 Never smoked tobacco (finding) [facility] Sex Assigned At Sex [facility] Start: 04-05-2023 Tobacco use and exposure Smokeless tobacco non-user [facility] Work Phone: Start: 04-05-2023 Alcohol intake Ex-drinker (finding) [facility] Work Phone: Start: 03-02-2023 End: 04-05-2023 History of Social function [facility] Start: 03-02-2023 End: 04-05-2023 [facility] [employer] [facility] Has [employer], gas, oil, or water [email or web address] threatened to shut off services in your home in past 12Mo No [facility] Are you now , , , , never or living with a partner? Never [facility] Work Phone: How often to you hav e a drink containing alcohol? Never [facility] Work Phone: How many standard drinks containing alcohol do you have on a typical day? Patient does not drink [facility] Work Phone: Do you feel stress - tense, restless, nervous, or anxious, or unable to sleep at night because your mind is troubled all the time - these days [OSQ] Not at all [facility] Work Phone: (I/We) worried whether (my/our) food would run out before (I/we) got money to buy more. Never true [facility] Work Phone: Start: 1950 [facility] Start: 03-02-2023 Gender identity Identifies as female gender (finding) [facility] Work Phone: Start: 03-26-2023 End: 04-05-2023 Exposure to SARS-CoV-2 (event) Not sure [facility] Start: 06-26-2023 Tobacco smoking status NHIS Tobacco smoking consumption unknown [facility] Work Phone: Start: 1950 Sex Assigned At Not on file [facility] [email or web address] NEGATED: Highlighted rowStart: NINF History of tobacco use Passive smoker [facility] Work Phone: Medical Equipment Procedure Code Equipment Code Equipment Origin al Text Equipment Identifier Dates One touch ultra blue test strips, See Instructions, Instructions: Tests once daily and when not feeling well. Please dispense a 9 day supply, Supply, # 3 box(es), 3 Refill(s), Type: Maintenance, Pharmacy: [id number], Tests once daily and when... Start: 11-23-2017 One touch ultra soft lancets, See Instructions, Instructions: Tests once daily and when not feeling well. Please dispense a 90 day supply., Supply, # 3 box(es), 0 Refill(s), Type: Maintenance, Pharmacy: [id number], Tests once daily and when not... Start: 11-23-2017 See Instructions , Instructions: USE TO TEST ONCE DAILY AND WHEN NOT FEELING WELL, # 100 unknown unit, 2 Refill(s), Type: Soft Stop, Pharmacy: [id number] #[id number], USE TO TEST ONCE DAILY AND WHEN NOT FEELING WELL Start: 09-25-2018 See Instructions , Instructions: USE TO TEST ONCE DAILY AND WHEN NOT FEELING WELL., # 100 unknown unit, 2 Refill(s), Type: Soft Stop, Pharmacy: [id number] #[id number], USE TO TEST ONCE DAILY AND WHEN NOT FEELING WELL. Start: 09-25-2018 Instructions: US E TO TEST ONCE DAILY AND WHEN NOT FEELING WELL Start: 10-15-2017 End: 11-23-2017 One touch ultra blue test strips, See Instructions, Instructions: Tests once daily and when not feeling well. Please dispense a 9 day supply, Supply, # 3 box(es), 3 Refill(s), Type: Maintenance, Pharmacy: [id number] #[id number], Tests once daily and when... Start: 11-23-2017 One touch ultra soft lancets, See Instructions, Instructions: Tests once daily and when not feeling well. Please dispense a 90 day supply., Supply, # 3 box(es), 0 Refill(s), Type: Maintenance, Pharmacy: [id number][id number], Tests once daily and when not... Start: 11-23-2017 See Instructions , Instructions: USE TO TEST ONCE DAILY AND WHEN NOT FEELING WELL, # 100 unknown unit, 2 Refill(s), Type: Soft Stop, Pharmacy: [id number] #[id number], USE TO TEST ONCE DAILY AND WHEN NOT FEELING WELL Start: 09-25-2018 See Instructions , Instructions: USE TO TEST ONCE DAILY AND WHEN NOT FEELING WELL., # 100 unknown unit, 2 Refill(s), Type: Soft Stop, Pharmacy: [id number], USE TO TEST ONCE DAILY AND WHEN NOT FEELING WELL. Start: 09-25-2018 Instructions: US E TO TEST ONCE DAILY AND WHEN NOT FEELING WELL Start: 10-15-2017 End: 11-23-2017 One touch ultra blue test strips, See Instructions, Instructions: Tests once daily and when not feeling well. Please dispense a 9 day supply, Supply, # 3 box(es), 3 Refill(s), Type: Maintenance, Pharmacy: [id number], Tests once daily and when... Start: [...] box(es), 3 Refill(s), Type: Maintenance, [facility]acy: [id number], Tests once daily and when... Start: 03-25-2020 One touch ultra soft lancets, See Instructions, Instructions: Tests once daily and when not feeling well. Please dispense a 90 day supply., Supply, # 3 box(es), 0 Refill(s), Type: Maintenance, Pharmacy: [id number], Tests once daily and when not... Start: 03-25-2020 Instructions: US E TO TEST ONCE DAILY AND WHEN NOT FEELING WELL Start: 10-15-2017 End: 11-23-2017 See Instructions , Instructions: USE TO TEST ONCE DAILY AND WHEN NOT FEELING WELL, # 100 unknown unit, 2 Refill(s), Type: Soft Stop, [facility]acy: [id number], USE TO TEST ONCE DAILY AND WHEN NOT FEELING WELL Start: 09-25-2018 See Instructions , Instructions: USE TO TEST ONCE DAILY AND WHEN NOT FEELING WELL., # 100 unknown unit, 2 Refill(s), Type: Soft Stop, Pharmacy: [id number], USE TO TEST ONCE DAILY AND WHEN NOT FEELING WELL. Start: 09-25-2018 One touch ultra blue test strips, See Instructions, Instructions: Tests once daily and when not feeling well. Please dispense a 9 day supply, Supply, # 3 box(es), 3 Refill(s), Type: Maintenance, Pharmacy: [id number], Tests once daily and when... Start: [...] 2 Refill(s), Type: Soft Stop, Pharmacy: [id number], USE TO TEST ONCE DAILY AND WHEN NOT FEELING WELL Start: 09-25-2018 See Instructions , Instructions: USE TO TEST ONCE DAILY AND WHEN NOT FEELING WELL., # 100 unknown unit, 2 Refill(s), Type: Soft Stop, Pharmacy: [id number], USE TO TEST ONCE DAILY AND WHEN NOT FEELING WELL. Start: 09-25-2018 One touch ultra blue test strips, See Instructions, Instructions: Tests once daily and when not feeling well. Please dispense a 9 day supply, Supply, # 3 box(es), 3 Refill(s), Type: Maintenance, Pharmacy: [id number], Tests once daily and when... Start: 11-23-2017 One touch ultra soft lancets, See Instructions, Instructions: Tests once daily and when not feeling well. Please dispense a 90 day supply., Supply, # 3 box(es), 0 Refill(s), Type: Maintenance, Pharmacy: [id number], Tests once daily and when not... Start: 11-23-2017 See Instructions , Instructions: USE TO TEST ONCE DAILY AND WHEN NOT FEELING WELL, # 100 unknown unit, 2 Refill(s), Type: Soft Stop, Pharmacy: [id number], USE TO TEST ONCE DAILY AND WHEN NOT FEELING WELL Start: 09-25-2018 See Instructions , Instructions: USE TO TEST ONCE DAILY AND WHEN NOT FEELING WELL., # 100 unknown unit, 2 Refill(s), Type: Soft Stop, Pharmacy: [facility] #[id number], USE TO TEST ONCE DAILY AND WHEN NOT FEELING WELL. Start: 09-25-2018 Instructions: US E TO TEST ONCE DAILY AND WHEN NOT FEELING WELL Start: 10-15-2017 End: 11-23-2017 One touch ultra blue test strips, See Instructions, Instructions: Tests once daily and when not feeling well. Please dispense a 9 day supply, Supply, # 3 box(es), 3 Refill(s), Type: Maintenance, Pharmacy: [id number], Tests once daily and when... Start: 03-25-2020 One touch ultra soft lancets, See Instructions, Instructions: Tests once daily and when not feeling well. Please dispense a 90 day supply., Supply, # 3 box(es), 0 Refill(s), Type: Maintenance, Pharmacy: [id number], Tests once daily and when not... Start: 03-25-2020 Instructions: US E TO TEST ONCE DAILY AND WHEN NOT FEELING WELL Start: 10-15-2017 End: 11-23-2017 See Instructions , Instructions: USE TO TEST ONCE DAILY AND WHEN NOT FEELING WELL, # 100 unknown unit, 2 Refill(s), Type: Soft Stop, Pharmacy: [id number], USE TO TEST ONCE DAILY AND WHEN NOT FEELING WELL Start: 09-25-2018 See Instructions , Instructions: USE TO TEST ONCE DAILY AND WHEN NOT FEELING WELL., # 100 unknown unit, 2 Refill(s), Type: Soft Stop, Pharmacy: [id number], USE TO TEST ONCE DAILY AND WHEN NOT FEELING WELL. Start: 09-25-2018 One touch ultra blue test strips, See Instructions, Instructions: Tests once daily and when not feeling well. Please dispense a 9 day supply, Supply, # 3 box(es), 3 Refill(s), Type: Maintenance, Pharmacy: [id number], Tests once daily and when... Start: 03-25-2020 One touch ultra soft lancets, See Instructions, Instructions: Tests once daily and when not feeling well. Please dispense a 90 day supply., Supply, # 3 box(es), 0 Refill(s), Type: Maintenance, Pharmacy: [facility] #[id number], Tests once daily and when not... Start: 03-25-2020 Instructions: US E TO TEST ONCE DAILY AND WHEN NOT FEELING WELL Start: 10-15-2017 End: 11-23-2017 See Instructions , Instructions: USE TO TEST ONCE DAILY AND WHEN NOT FEELING WELL, # 100 unknown unit, 2 Refill(s), Type: Soft Stop, Pharmacy: [id number], USE TO TEST ONCE DAILY AND WHEN NOT FEELING WELL Start: 09-25-2018 See Instructions , Instructions: USE TO TEST ONCE DAILY AND WHEN NOT FEELING WELL., # 100 unknown unit, 2 Refill(s), Type: Soft Stop, Pharmacy: [id number], USE TO TEST ONCE DAILY AND WHEN NOT FEELING WELL. Start: 09-25-2018 One touch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 Address: [facility] [address] P: F: [place] [address]- [place] Worker Relationship Specialty Start Date End Date Francesca Mcconnell MD [address] [place] [address] Primary Care Provider 08/16/14 [place] Worker Relationship Specialty Start Date End Date [facility] [address] [place] [address] PCP - General 06/26/23 Reason for Visit [...] BE BASED ON THE PRIMARY CLINICAL RECORDS. [employer] provides no warranty or guarantee of the accuracy or completeness of information in this document.
[2023-08-02 07:43] LABS: Anion Gap 5 (5-15); BUN 17 mg/dL (7-18); BUN/Creat Ratio 15.6 RATIO (10-20); Calcium,Total 9.9 mg/dL (8.5-10.1); Chloride 107 mmol/L (98-107); Creatinine, Serum 1.09 mg/dL (0.55-1.02); EST Glomerular Filtration Rate 52 mL/min (>60); Est Glom Filt Rate - Afr Amer 63 mL/min (>60); Glucose 124 mg/dL (74-106); Potassium 4.1 mmol/L (3.5-5.1); Sodium Level 140 mmol/L (136-145)
[2023-08-02 07:48] LABS: Hematocrit 41.5 % (37-47); Hemoglobin 13.9 g/dL (12.0-15.0); Mean Corp Hgb Conc 33.5 g/dL (32-36); Mean Corpuscular Hgb 32.3 pg (27.0-32.0); Mean Corpuscular Volume 96.3 fL (81-99); Mean Platelet Vol. 9.1 fl (6.2-12.0); Platelet Count 261 K/mm3 (150-450); RBC Distribution Width CV 12.1 % (11.6-14.6); RBC Distribution Width SD 43.2 fl (35.1-43.9); Red Blood Count 4.31 M/mm3 (4.2-5.4); White Blood Count 6.8 K/mm3 (4.4-11.0)
== END ==
LOC: OLS.SANC 04:00
PROVIDERS: Referring Provider Internal Medicine; Visit Provider Internal Medicine
DX: E11.9 Type 2 diabetes mellitus without complications (principal); E78.5 Hyperlipidemia, unspecified
CPT/HCPCS: 36415; 80048; 85027

== ENCOUNTER → 2023-09-05 | Outpatient (REF) | payer MEDICARE, SELFPAY ==
[2023-09-05 13:48] LABS: BUN 17 mg/dL (7-18); Creatinine, Serum 1.03 mg/dL (0.55-1.02); EST Glomerular Filtration Rate 56 mL/min (>60); Est Glom Filt Rate - Afr Amer 67 mL/min (>60)
== END ==
LOC: OLS.SANC 05:00
PROVIDERS: Visit Provider Internal Medicine
DX: E11.9 Type 2 diabetes mellitus without complications (principal); I10 Essential (primary) hypertension; E78.5 Hyperlipidemia, unspecified; E03.9 Hypothyroidism, unspecified
CPT/HCPCS: 36415; 82565; 84520

== ENCOUNTER → 2023-09-15 | Outpatient (REF) | payer MEDICARE, SELFPAY ==
[2023-09-15 08:36] LABS: Vitamin B12 275 pg/mL (211-911)
[2023-09-15 08:47] LABS: Thyroid Stim Hormone (TSH) 0.51 uIU/mL (0.358-3.74)
== END ==
LOC: OLS.SANC 05:00
PROVIDERS: Visit Provider Internal Medicine
DX: E11.9 Type 2 diabetes mellitus without complications (principal); E03.9 Hypothyroidism, unspecified
CPT/HCPCS: 36415; 82607; 84443

== ENCOUNTER → 2023-11-02 05:00 | Outpatient (REF) | payer MEDICARE, SELFPAY ==
[2023-11-02 08:51] LABS: Hematocrit 34.7 % (37-47); Hemoglobin 11.3 g/dL (12.0-15.0); Mean Corp Hgb Conc 32.6 g/dL (32-36); Mean Corpuscular Hgb 31.8 pg (27.0-32.0); Mean Corpuscular Volume 97.7 fL (81-99); Mean Platelet Vol. 9.5 fl (6.2-12.0); Platelet Count 262 K/mm3 (150-450); RBC Distribution Width CV 12.6 % (11.6-14.6); RBC Distribution Width SD 45.2 fl (35.1-43.9); Red Blood Count 3.55 M/mm3 (4.2-5.4); White Blood Count 9.3 K/mm3 (4.4-11.0)
[2023-11-02 09:04] LABS: Anion Gap 7 (5-15); BUN 15 mg/dL (7-18); BUN/Creat Ratio 14.2 RATIO (10-20); Calcium,Total 9.1 mg/dL (8.5-10.1); Chloride 103 mmol/L (98-107); Creatinine, Serum 1.06 mg/dL (0.55-1.02); EST Glomerular Filtration Rate 54 mL/min (>60); Est Glom Filt Rate - Afr Amer 65 mL/min (>60); Glucose 120 mg/dL (74-106); Potassium 3.7 mmol/L (3.5-5.1); Sodium Level 136 mmol/L (136-145)
== END ==
LOC: OLS.SANC 05:00
PROVIDERS: Visit Provider Internal Medicine
DX: I48.91 Unspecified atrial fibrillation (principal); E11.9 Type 2 diabetes mellitus without complications; I10 Essential (primary) hypertension; E78.5 Hyperlipidemia, unspecified; E03.9 Hypothyroidism, unspecified
CPT/HCPCS: 36415; 80048; 85027

== ENCOUNTER → 2023-11-08 04:00 | Outpatient (REF) | payer MEDICARE, SELFPAY ==
[2023-11-08 08:43] LABS: Hematocrit 34.5 % (37-47); Hemoglobin 11.1 g/dL (12.0-15.0); Mean Corp Hgb Conc 32.2 g/dL (32-36); Mean Corpuscular Hgb 31.7 pg (27.0-32.0); Mean Corpuscular Volume 98.6 fL (81-99); Mean Platelet Vol. 9.4 fl (6.2-12.0); Platelet Count 272 K/mm3 (150-450); RBC Distribution Width CV 12.9 % (11.6-14.6); RBC Distribution Width SD 45.8 fl (35.1-43.9); White Blood Count 8.8 K/mm3 (4.4-11.0)
[2023-11-08 08:52] LABS: Anion Gap 3 (5-15); BUN 15 mg/dL (7-18); BUN/Creat Ratio 16.3 RATIO (10-20); Calcium,Total 9.4 mg/dL (8.5-10.1); Chloride 104 mmol/L (98-107); Creatinine, Serum 0.92 mg/dL (0.55-1.02); EST Glomerular Filtration Rate 63 mL/min (>60); Est Glom Filt Rate - Afr Amer 77 mL/min (>60); Glucose 171 mg/dL (74-106); Sodium Level 137 mmol/L (136-145)
== END ==
LOC: OLS.SANC 04:00
PROVIDERS: Referring Provider Internal Medicine; Visit Provider Internal Medicine
DX: E11.9 Type 2 diabetes mellitus without complications (principal); I10 Essential (primary) hypertension; E78.5 Hyperlipidemia, unspecified; E03.9 Hypothyroidism, unspecified
CPT/HCPCS: 36415; 80048; 85027

== ENCOUNTER → 2023-12-20 | Outpatient (REF) | payer MEDICARE, SELFPAY ==
[2023-12-20 09:00] LABS: Hematocrit 37.5 % (37-47); Hemoglobin 12.2 g/dL (12.0-15.0); Mean Corp Hgb Conc 32.5 g/dL (32-36); Mean Corpuscular Hgb 31.5 pg (27.0-32.0); Mean Corpuscular Volume 96.9 fL (81-99); Mean Platelet Vol. 9.6 fl (6.2-12.0); Platelet Count 231 K/mm3 (150-450); RBC Distribution Width CV 12.6 % (11.6-14.6); RBC Distribution Width SD 44.6 fl (35.1-43.9); Red Blood Count 3.87 M/mm3 (4.2-5.4); White Blood Count 7.1 K/mm3 (4.4-11.0)
[2023-12-20 09:10] LABS: Anion Gap 6 (5-15); BUN 12 mg/dL (7-18); BUN/Creat Ratio 11.1 RATIO (10-20); Calcium,Total 9.2 mg/dL (8.5-10.1); Chloride 104 mmol/L (98-107); Creatinine, Serum 1.08 mg/dL (0.55-1.02); EST Glomerular Filtration Rate 53 mL/min (>60); Est Glom Filt Rate - Afr Amer 64 mL/min (>60); Glucose 112 mg/dL (74-106); Potassium 4.2 mmol/L (3.5-5.1); Sodium Level 139 mmol/L (136-145)
== END ==
LOC: OLS.SANC 05:00
PROVIDERS: Visit Provider Internal Medicine
DX: E11.9 Type 2 diabetes mellitus without complications (principal); E03.9 Hypothyroidism, unspecified; E78.5 Hyperlipidemia, unspecified; I10 Essential (primary) hypertension
CPT/HCPCS: 36415; 80048; 85027

== ENCOUNTER → 2024-01-05 | Outpatient (REF) | payer MEDICARE, SELFPAY ==
[2024-01-05 09:16] LABS: Thyroid Stim Hormone (TSH) 1.56 uIU/mL (0.358-3.74)
[2024-01-05 10:38] LABS: Vitamin B12 301 pg/mL (211-911)
== END ==
LOC: OLS.SANC 05:00
PROVIDERS: Visit Provider Internal Medicine
DX: E11.9 Type 2 diabetes mellitus without complications (principal); I63.9 Cerebral infarction, unspecified; I10 Essential (primary) hypertension; E03.9 Hypothyroidism, unspecified
CPT/HCPCS: 36415; 82607; 82746; 84443

== ENCOUNTER → 2024-01-22 04:00 | Outpatient (REF) | payer MEDICARE, SELFPAY ==
[2024-01-22 09:18] LABS: Cholesterol 128 mg/dL (200); High Density Lipoprotein 48 mg/dL; Triglycerides 121 mg/dL; Very Low Density Lipoprotein 24 mg/dL (5-40)
== END ==
LOC: OLS.SANC 04:00
PROVIDERS: Visit Provider Internal Medicine
DX: I48.91 Unspecified atrial fibrillation (principal); I10 Essential (primary) hypertension; E03.9 Hypothyroidism, unspecified; E11.9 Type 2 diabetes mellitus without complications; E78.5 Hyperlipidemia, unspecified
CPT/HCPCS: 36415; 80061

== ENCOUNTER → 2024-03-20 | Outpatient (REF) | payer MEDICARE, SELFPAY ==
[2024-03-20 09:14] LABS: Hematocrit 38.7 % (37-47); Hemoglobin 12.7 g/dL (12.0-15.0); Mean Corp Hgb Conc 32.8 g/dL (32-36); Mean Corpuscular Hgb 32.3 pg (27.0-32.0); Mean Corpuscular Volume 98.5 fL (81-99); Mean Platelet Vol. 9.4 fl (6.2-12.0); Platelet Count 270 K/mm3 (150-450); RBC Distribution Width CV 13.2 % (11.6-14.6); RBC Distribution Width SD 48.2 fl (35.1-43.9); Red Blood Count 3.93 M/mm3 (4.2-5.4); White Blood Count 8.9 K/mm3 (4.4-11.0)
[2024-03-20 09:21] LABS: Anion Gap 4 (5-15); BUN 17 mg/dL (7-18); BUN/Creat Ratio 15.7 RATIO (10-20); Calcium,Total 9.4 mg/dL (8.5-10.1); Chloride 102 mmol/L (98-107); Creatinine, Serum 1.08 mg/dL (0.55-1.02); EST Glomerular Filtration Rate 53 mL/min (>60); Est Glom Filt Rate - Afr Amer 64 mL/min (>60); Glucose 120 mg/dL (74-106); Potassium 3.9 mmol/L (3.5-5.1); Sodium Level 136 mmol/L (136-145)
== END ==
LOC: OLS.SANC 05:00
DX: I48.91 Unspecified atrial fibrillation (principal); E11.9 Type 2 diabetes mellitus without complications; I10 Essential (primary) hypertension; E78.5 Hyperlipidemia, unspecified
CPT/HCPCS: 36415; 80048; 85027

== ENCOUNTER → 2024-08-23 | Outpatient (REF) | payer MEDICARE, SELFPAY ==
[2024-08-23 08:48] LABS: Anion Gap 13 (5-15); BUN 16 mg/dL (4-19); BUN/Creat Ratio 15.5 RATIO (10-20); Calcium,Total 9.3 mg/dL (7.6-11.0); Carbon Dioxide 24.3 mmol/L (21.0-32.0); Chloride 100 mmol/L (98-108); Creatinine, Serum 1.06 mg/dL (0.70-1.20); EST Glomerular Filtration Rate 54 (>60); Glucose 126 mg/dL (70-99); Potassium 4.1 mmol/L (3.3-5.1); Sodium Level 137 mmol/L (133-145)
== END ==
LOC: OLS.SANC 05:00
DX: I48.91 Unspecified atrial fibrillation (principal); E11.9 Type 2 diabetes mellitus without complications; E03.9 Hypothyroidism, unspecified; I10 Essential (primary) hypertension
CPT/HCPCS: 36415; 80048

== ENCOUNTER → 2024-09-08 | Outpatient (REF) | payer MEDICARE, SELFPAY ==
[2024-09-09 08:30] LABS: Bacteria 0 SEEN /hpf (None Seen); Mucous, Urine 0 SEEN /hpf (<or=2+); White Blood Cells 0 SEEN /hpf (0-5)
[2024-09-09 09:09] LABS: Color, Urine Yellow (Yellow); Glucose, Dipstick Normal (Normal); Ketone-Dipstick Negative (Negative); Leukocyte Esterase-Dipstick Negative /ul (Negative); Nitrite-Dipstick Negative (Negative); Occult Blood-Urine 25 /ul (Negative); Protein-Dipstick 30 mg/dl (Negative); Urine Bilirubin Dipstick Negative (Negative); Urine Clarity Sl. Cloudy (Clear); Urine Urobilinogen Normal (Normal)
[2024-09-09 09:26] LABS: Red Blood Cells-Urine 0-5 SEEN /hpf (0-5); Squamous Epithelial Cells - UA 0-5 SEEN /hpf (5-10)
== END ==
LOC: OLS.SANC 20:00
DX: N39.0 Urinary tract infection, site not specified (principal)
CPT/HCPCS: 81001; 87077; 87086; 87088

== ENCOUNTER → 2024-09-10 | Outpatient (REF) | payer MEDICARE, SELFPAY ==
[2024-09-10 10:24] LABS: Hemoglobin A1c 6.3 % (<=5.6)
== END ==
LOC: OLS.SANC 04:00
DX: I48.91 Unspecified atrial fibrillation (principal); E11.9 Type 2 diabetes mellitus without complications; I10 Essential (primary) hypertension; E03.9 Hypothyroidism, unspecified
CPT/HCPCS: 36415; 83036

== ENCOUNTER → 2024-11-28 | Outpatient (REF) | payer MEDICARE, SELFPAY ==
[2024-11-28 09:10] LABS: Cholesterol 116 mg/dL (<=200); Low Density Lipoprotein Calc. 48 mg/dL; Triglycerides 146 mg/dL; Very Low Density Lipoprotein 29 mg/dL (5-40); cholesterol:hdl ratio screen 3.02
== END ==
LOC: OLS.SANC 04:00
DX: I48.91 Unspecified atrial fibrillation (principal); I10 Essential (primary) hypertension; E11.9 Type 2 diabetes mellitus without complications; E03.9 Hypothyroidism, unspecified; E78.5 Hyperlipidemia, unspecified
CPT/HCPCS: 36415; 80061

== ENCOUNTER → 2025-01-17 | Outpatient (REF) | payer MEDICARE, SELFPAY ==
[2025-01-17 08:28] LABS: Hematocrit 34.1 % (37-47); Hemoglobin 12.2 g/dL (12.0-15.0); Mean Corp Hgb Conc 35.8 g/dL (32-36); Mean Corpuscular Volume 94.7 fL (81-99); Mean Platelet Vol. 9.3 fl (6.2-12.0); Platelet Count 258 K/mm3 (150-450); RBC Distribution Width CV 11.9 % (11.6-14.6); RBC Distribution Width SD 41.1 fl (35.1-43.9); Red Blood Count 3.60 M/mm3 (4.2-5.4); White Blood Count 8.8 K/mm3 (4.4-11.0)
== END ==
LOC: OLS.SANC 05:00
DX: I10 Essential (primary) hypertension (principal); E11.9 Type 2 diabetes mellitus without complications; E03.9 Hypothyroidism, unspecified
CPT/HCPCS: 36415; 85027

== ENCOUNTER → 2025-01-22 | Outpatient (REF) | payer MEDICARE, SELFPAY ==
[2025-01-22 08:07] LABS: Hematocrit 33.9 % (37-47); Hemoglobin 12.0 g/dL (12.0-15.0); Immature Granulocytes Count 0.030 X10^3/uL (0.0-0.0); Mean Corp Hgb Conc 35.4 g/dL (32-36); Mean Corpuscular Volume 95.5 fL (81-99); Mean Platelet Vol. 9.3 fl (6.2-12.0); NRBC Flagged by Analyzer 0 % (0-5); Platelet Count 251 K/mm3 (150-450); RBC Distribution Width CV 11.8 % (11.6-14.6); RBC Distribution Width SD 41.1 fl (35.1-43.9); Red Blood Count 3.55 M/mm3 (4.2-5.4); White Blood Count 7.3 K/mm3 (4.4-11.0)
[2025-01-22 08:44] LABS: AST(SGOT) 22 U/L (<=31); Alanine Aminotransfer ALT/SGPT 12 U/L (<=34); Albumin, Serum 3.9 g/dL (3.4-4.8); Alkaline Phosphatase 67 U/L (35-104); Anion Gap 11 (5-15); BUN 14 mg/dL (4-19); BUN/Creat Ratio 14.9 RATIO (10-20); Calcium,Total 9.3 mg/dL (7.6-11.0); Carbon Dioxide 28.4 mmol/L (21.0-32.0); Chloride 96 mmol/L (98-108); Globulin 2.4 g/dL (2.2-4.2); Glucose 108 mg/dL (70-99); Potassium 3.5 mmol/L (3.3-5.1)
== END ==
LOC: OLS.SANC 05:00
PROVIDERS: Visit Provider Internal Medicine
DX: I48.91 Unspecified atrial fibrillation (principal); I10 Essential (primary) hypertension; E11.9 Type 2 diabetes mellitus without complications; E03.9 Hypothyroidism, unspecified
CPT/HCPCS: 36415; 80053; 84443; 85025

== ENCOUNTER → 2025-02-14 | Outpatient (REF) | payer MEDICARE, SELFPAY | LOC: OLS.SANC 05:00 | DX: E11.9 Type 2 diabetes mellitus without complications (principal) | CPT/HCPCS: 36415; 83036 ==

== ENCOUNTER → 2025-05-22 10:00 | Outpatient (REF) | payer MEDICARE, SELFPAY ==
[2025-05-23 07:37] LABS: Mucous, Urine 0 SEEN /hpf (<or=2+)
--- OUTSIDE RECORDS SUMMARY | 2025-05-23 07:55 | XMS RPT_ITS | CCD ---
Author Organization [facility] Care Team Providers Care Driver Supervisor Name Role Phone Jeovany Mcconnell Primary Care Physician Dr. JEOVANY MCCONNELL Primary Care Unavailable Dr. JEOVANY MCCONNELL Attending Unavailable Dr. JEOVANY MCCONNELL Primary Care Unavailable Dr. JEOVANY MCCONNELL Attending Unavailable Jeovany Mcconnell MD Primary Care Physician PROVIDER, UNKNOWN Attending Unavailable PROVIDER, UNKNOWN Referring Unavailable Jeovany Mcconnell MD Primary Care Unavailable Jeovany Mcconnell MD Primary Care Unavailable PROVIDER, UNKNOWN Attending Unavailable PROVIDER, UNKNOWN Referring Unavailable Jeovany Mcconnell MD Primary Care Unavailable PROVIDER, UNKNOWN Attending Unavailable PROVIDER, UNKNOWN Referring Unavailable Jeovany Mcconnell MD Unavailable [phone] Jeovany Mcconnell MD Primary Care Provider VERN BLEDSOE Attending Unavailable JEOVANY MCCONNELL Primary Care Unavailable [facility] Primary Care Provider Unav vitaliyable HERNAN KENNY Attending Unavailable [facility] Primary Care Unavailable Jeovany Mcconnell MD Primary Care Provider Jeovany Mcconnell MD Primary Care Provider Mark Jimenez MD Primary Care Provider CHANEL MENDEZ Admitting Unavailable CHANEL MENDEZ Attending Unavailable SUPRIYA HOFFMAN Consulting Unavailable JEOVANY MCCONNELL Primary Care Unavailable Mirza Moffett MD Primary Care Provider Henry Ewing MD Attending Provider Unava ilable CHELSI CARLSON Attending Unavaila MIRZA Ratliff Primary Care Unavailable CHELSI CARLSON Attending Unavaila MIRZA Ratliff Primary Care Unavailable CYDNEY ENCISO Attending Unavailable CYDNEY ENCISO Referring Unavailable MARK JIMENEZ Primary Care Unavaila ble JOSE MIGUEL ALFARO Attending Unavailable SELF Referring Unavailable MIRZA MOFFETT Primary Care Unavailable CYDNEY ENCISO Attending Unavailable ZUHAIR, MIRZA Primary Care Unavailable MATTO, JOSE MIGUEL Attending Unavailable SELF Referring Unavailable ZUHAIR, MIRZA Primary Care Unavailable CYDNEY ENCISO Referring Unavailable JASSMARK Primary Care Unavaila ble [place] OLS, Peter Attending Unavailable [place] OLS, Mahaveer Attending Unavail able [place] OLS, Mahaveer Attending Unavail able [place] OLS, Mahaveer Referring Unavail able [place] OLS, Mahaveer Attending Unavail able [place] [facility], Mahaveer Referring Unavail able [place] OLS, Mahaveer Attending Unavail able [place] [facility]LS, Mahaveer Attending Unavail able [place] OLS, Mahaveer Attending Unavail able Medications Current Medications Medication Drug Class(es) Dates Sig (Normalized) Sig (Original) acetaminophen 325 mg oral tablet (20 sources) Start: 03-12-2023 take 2 tablets by mouth every four hours for pain acetaminophen (Tylenol) 325 mg tablet Indications: Bilateral leg pain Take 2 tablets (650 mg) by mouth every 4 hours if needed for mild pain (1 - 3). 30 tablet 0 03/12/2023 Active take 2 capsules by m outh every six hours as needed acetaminophen 325 mg cap Take 2 capsules by mouth every 6 hours as needed for pain. Active take 1 tablet by jeanine th every eight hours as needed acetaminophen (TYLENOL EXTRA STRENGTH) 5 00 mg tablet Take 500 mg by mouth every 8 hours as needed. Active acetaminophen 32 5 mg cap Take by mouth. 0 Active Comment on above: Take by mouth. apixaban 5 mg oral tablet (17 sources) Factor Xa Inhibitor Start: 3 take 1 tablet by mouth every twelve hours apixaban (Eliquis) 5 mg tablet Indications: Atrial fibrillation by electrocardiogram ([facility]) Take 1 tablet (5 mg) by mouth every 12 hours. 0 03/11/2023 Active take 1 tablet by mouth twice giuseppe ly apixaban (ELIQUIS) 5 mg tab(s) Take 5 mg by mouth two times a day. Active Comment on above: Take by mouth two ti mes a day. PreserVision (20 sources) Vitamin C Start: 9 PreserVision Oral, daily, 0 Refill(s), Type: Maintenance Start Date: 08/08/18 Status: Ordered aspirin 81 mg oral tablet (20 sources) Platelet Aggregation Inhibitor, Nonsteroidal Anti-inflammatory Drug Start: 9 take 1 tablet by mouth once daily aspirin 81 mg oral tablet = 1 tab(s) ( 81 mg ), Oral, daily, 0 Refill(s), Type: Maintenance Start Date: 08/08/18 Status: Ordered Start: 10-16-2017 End: 02-22-2018 take 1 tablet by mouth once daily aspirin 81 mg oral delayed release tablet 1 tab(s) ( 81 mg ), PO, Daily, # 90 tab(s), 0 Refill(s), Type: Maintenance Start Date: 10/16/17 Stop Date: 02/22/18 Status: Discontinued take 1 tablet by jeanine th once daily aspirin 81 mg EC tablet Take 1 tablet (81 mg) by mouth once daily. 0 Active Comment on above: Take by mouth. atenolol 25 mg oral tablet (17 sources) beta-Adrenergic Angie Start: 3 take 1 tablet by mouth twice daily atenolol (Tenormin) 25 mg tablet Indications: Atrial fibrillation by electrocardiogram ([facility]) Take 1 tablet (25 mg) by mouth 2 times a day. 0 03/11/2023 Active take 1 tablet by mouth once tere y atenolol (TENORMIN) 25 mg tablet Take 25 mg by mouth once daily. Active Comment on above: Take 25 mg by mouth once daily. atorvastatin 10 mg oral tablet (17 sources) HMG-CoA Reductase Inhibitor Start: 03-24-2023 atorvastatin (Lipitor) 10 mg tablet 1 tablet (10 mg). 0 03/24/2023 Active Comment on above: Take 10 mg by mouth once daily. benoxinate hydrochloride 4 mg/ml / fluorescein sodium 3 mg/ml ophthalmic solution (4 sources) Diagnostic Dye Start: 11-12-2024 End: 11-13-2024 fluorescein-benoxinate 0.3-0.4 % 1 drop (FLURESS) Start: 03-11-2024 End: 03-11-2024 fluorescein-benoxinate 0.3-0 .4 % 1 Drop (FLURESS) Start: 08-03-2023 End: 08-04-2023 fluorescein-benoxinate 0.3-0 .4 % 1 Drop (FLURESS) bisacodyl 5 mg delayed release oral tablet (16 sources) Stimulant Laxative Bisacodyl (DU LCOLAX) 5 mg tab Take 5 mg by mouth as needed for constipation. Active Comment on above: Take 5 mg by mouth a s needed for constipation. busPIRone hydrochloride 5 mg oral tablet (17 sources) Start: 3 take 1 tablet by mouth once daily busPIRone (Buspar) 5 mg tablet Take 1 tablet (5 mg) by mouth once daily. 0 04/03/2023 Active take 1 tablet by mouth twice giuseppe ly busPIRone (BUSPAR) 5 mg tablet Take 5 mg by mouth two times a day. Active take 1 tablet by mouth three mamie es daily busPIRone (BUSPAR) 5 mg tablet Take 5 mg by mouth three times a day. 0 Active Comment on above: Take 5 mg by mouth t hree times a day. Calcium (1 source) Phosphate Binder, Calcium take 1 tablet by mouth once daily [id number] op-david-bor 600 mg calcium- 800 unit-50 mg tablet Take 1 tablet by mouth once daily. 0 Active calcium carbonate 1500 mg / cholecalciferol 800 unt chewable tablet (20 sources) Vitamin D Start: 9 take 1 tablet by mouth once daily calcium (as carbonate)-vitamin D 600 mg-800 intl units oral tablet, chewable 1 tab(s), Chewed, daily, 0 Refill(s), Type: Maintenance Start Date: 08/08/18 Status: Ordered Start: 08-08-2018 take 1 tablet by jeanine th once daily calcium (as carbonate)-vitamin D 600 mg-800 intl units oral tablet, chewable 1 tab(s), Chewed, daily, 0 Refill(s), Type: Maintenance Start Date: 08/08/18 Status: Ordered take 1 tablet by jeanine th once daily calcium carbonate-vitamin D3 600 mg-20 mcg (800 unit) tablet Take 1 tablet by mouth once daily. 0 Active Calcium Carbonate / vitamin D3 (16 sources) take 1 tablet by jeanine th once daily CALCIUM CARBONATE/VITAMIN D3 (CALCIUM 600 + D,3, ORAL) Take 1 tablet by mouth once daily. Active CALCIUM CARBONAT E/VITAMIN D3 (CALCIUM 600 + D,3, ORAL) Take by mouth. 0 Active Comment on above: Take by mouth. CALCIUM CARBONATE-VITAMIN D3 ORAL (1 source) take 800 [IU] by mouth once daily CALCIUM CARBONATE-VITAMIN D3 ORAL Take 800 Units by mouth once daily. 0 Active carboxymethylcellulose sodium 10 mg/ml ophthalmic solution (16 sources) carboxymethylcel lulose sodium ([employer]IFICIAL TEARS, [facility],) 1 % drops Use 1-2 drops in both eyes as needed. Active Comment on above: Use in both eyes. cephalexin 500 mg oral capsule (15 sources) Cephalosporin Antibacterial Start : 06-26 End: 07-03 cephalexin (Keflex) 500 MG capsule Take 1 capsule (500 mg) by mouth in the morning and 1 capsule (500 mg) at noon and 1 capsule (500 mg) in the evening and 1 capsule (500 mg) before bedtime. Do all this for 7 days. 28 capsule 0 06/26/2023 07/03/2023 Active Start: 04-02-2018 End: 08-08-2018 take 1 capsule by mouth every twelve hours Keflex 500 mg oral capsule = 1 cap(s) ( 500 mg ), PO, q12 hr, # 20 cap(s), 0 Refill(s), Type: Maintenance, Pharmacy: [id number], 1 cap(s) Oral q12 hr,x10 day(s) Start Date: 04/02/18 Stop Date: 08/08/18 Status: Discontinued cetirizine hydrochloride 10 mg oral capsule (8 sources) Histamine-1 Receptor Antagonist take 1 capsule by mouth once daily as needed Cetirizine 10 mg cap Take 10 mg by mouth once daily as needed. Active docusate sodium 100 mg oral capsule (16 sources) take 1 capsule by mouth once daily docusate sodium (DULCOLAX STOOL SOFTENER, DSS,) 100 mg capsule Take 100 mg by mouth once daily. Active take 1 capsule by mouth twice da shawn docusate sodium (DULCOLAX STOOL SOFTENER, DSS,) 100 mg capsule Take 100 mg by mouth two times a day. 0 Active Comment on above: Take 100 mg by mouth two times a day. DULoxetine 60 mg delayed release oral capsule (20 sources) Serotonin and Norepinephrine Reuptake Inhibitor Start: 04-15-20 14 take 1 capsule by mouth twice daily DULoxetine (CYMBALTA) 60 mg capsule Take 60 mg by mouth two times a day. 04/15/2014 Active fluticasone propionate 0.05 mg/actuat metered dose nasal spray (20 sources) Corticosteroid Start: 07-11-19 15 fluticasone (FLONASE) 50 mcg/actuation nasal spray Use 1 spray in each nostril as needed for cold/allergy symptoms. 07/11/2014 Active Start: 07-11-2014 fluticasone (F LONASE) 50 mcg/actuation nasal spray take 2 spray(s) nasa l route once daily fluticasone (Flonase) 50 mcg/actuation nasal spray Administer 2 sprays into each nostril once daily. Shake gently. Before first use, prime pump. After use, clean tip and replace cap. 0 Active fluticasone 50 mcg/inh nasal spray (5 sources) Start: 07-23-2020 fluticasone 50 mcg/inh nasal spray = 2 spray(s), Nasal, daily, # 48 g, 3 Refill(s), Type: Soft Stop, Pharmacy: [facility], 2 spray(s) Nasal daily, 64, in, 07/03/20 10:12:00 EST, Height Measured, 158.4, lb, 07/03/20 10:12:00 EST, Weight Measured Start Date: 07/23/20 Status: Ordered Fluticasone propionate 0.05 MG/ACTUAT Metered Dose Nasal [place] (8 sources) Start: 03-02-2020 fluticasone 50 mcg/inh nasal spray = 2 spray(s), Nasal, daily, # 48 g, 3 Refill(s), Type: Soft Stop, Pharmacy: [facility], 2 spray(s) Nasal daily, 64, in, 01/01/20 8:49:00 EDT, Height Measured, 153, lb, 01/01/20 8:49:00 EDT, Weight Measured Start Date: 03/02/20 Status: Ordered Start: 12-05-2018 fluticasone 50 mcg/inh nasal spray 2 spray(s), Nasal, daily, # 48 g, 3 Refill(s), Type: Soft Stop, Pharmacy: [facility] Start Date: 12/05/18 Status: Ordered furosemide 20 mg oral tablet (20 sources) Loop Diuretic Start: 05-16-2018 End: 04-05-2023 take 1 tablet by mouth once daily Lasix 20 mg oral tablet = 1 tab(s) ( 20 mg ), PO, Daily, # 90 tab(s), 3 Refill(s), Type: Maintenance, Pharmacy: [facility], 1 tab(s) Oral daily, 64, in, 01/04/21 8:32:00 EDT, Height Measured, 165, lb, 01/04/21 8:32:00 EDT, Weight Measured Start Date: 01/04/21 Status: Ordered take 1 tablet by mouth twice giuseppe ly furosemide (LASIX) 20 mg tablet Take 20 mg by mouth two times a day. 0 Active Comment on above: Take 20 mg by mouth two times a day. gabapentin 300 mg oral capsule (8 sources) Anti-epileptic Agent take 1 capsule by mouth three times daily gabapentin (NEURONTIN) 300 mg capsule Take 300 mg by mouth three times a day. Active hydroCHLOROthiazide 25 mg oral tablet (13 sources) Thiazide Diuretic Start: 2024 take 1 tablet by mouth once daily hydroCHLOROthiazide 25 mg tablet Take 1 tablet by mouth once daily. 90 tablet 11/27/2024 Active Start: 08-08-2018 End: 08-17-2018 take 1 tablet by mouth once daily hydroCHLOROthiazide 25 mg oral tablet = 1 tab(s) ( 25 mg ), PO, Daily, # 30 tab(s), 1 Refill(s), Type: Maintenance, Pharmacy: [id number], 1 tab(s) Oral daily Start Date: 08/08/18 Stop Date: 08/17/18 Status: Discontinued ibuprofen 600 mg oral tablet (14 sources) Nonsteroidal Anti-inflammatory Drug Start: 03-28-2023 ibuprofen 600 mg tablet Take 1 tablet (600 mg) by mouth. 0 03/28/2023 Active End: 07-03-2024 take 1 tablet by mouth every eight hours as needed ibuprofen (MOTRIN) 600 mg tablet Take 600 mg by mouth every 8 hours as needed for pain. 07/03/2024 Discontinued (Other) Comment on above: Take 600 mg by mouth every 6 hours as needed. latanoprost 0.05 mg/ml ophthalmic solution (18 sources) Prostaglandin Analog Start: 4 End: 4 take 1 drop(s) into the eye(s) once daily at bedtime latanoprost (XALATAN) 0.005 % ophthalmic solution Use 1 Drop in both eyes daily at bedtime. 2.5 mL 11 03/11/2024 Active Start: 03-30-2023 latanoprost (X alatan) 0.005 % ophthalmic solution LATANOPROST 0.005% EYE DROPS 0 03/30/2023 Active take 1 drop(s) into the eye(s) once daily at bedtime latanoprost (XALATAN) 0.005 % ophthalmic solution 1 Drop daily at bedtime. 0 Active Comment on above: 1 Drop daily at bedt kiley. levothyroxine sodium 0.075 mg oral tablet (20 sources) l-Thyroxine Start: 3 take 1 tablet by mouth once daily levothyroxine 75 mcg (0.075 mg) oral tablet = 1 tab(s), Oral, daily, Instructions: ON AN EMPTY STOMACH., # 90 tab(s), 3 Refill(s), Type: Maintenance, Pharmacy: [facility], TAKE 1 TABLET DAILY ON AN EMPTY STOMACH, 63, in, 07/11/22 13:24:00 EST, Height Measured, 160, lb, 07/11/22 13:24:00 EST, Weight Measured Start Date: 12/29/22 Status: Ordered Start: 01-03-2022 take 1 tablet by jeanine once daily levothyroxine 75 mcg (0.075 mg) oral tablet = 1 tab(s), Oral, daily, Instructions: ON AN EMPTY STOMACH., # 90 tab(s), 3 Refill(s), Type: Maintenance, Pharmacy: [facility], TAKE 1 TABLET DAILY ON AN EMPTY STOMACH, 64, in, 07/08/21 9:58:00 EST, Height Measured, 163, lb, ... Start Date: 01/03/22 Status: Ordered Start: 01-26-2021 take 1 tablet by jeanine th once daily levothyroxine 75 mcg (0.075 mg) oral tablet = 1 tab(s), Oral, daily, Instructions: ON AN EMPTY STOMACH., # 90 tab(s), 3 Refill(s), Type: Maintenance, Pharmacy: [facility], TAKE 1 TABLET DAILY ON AN EMPTY STOMACH, 64, in, 01/04/21 8:32:00 EDT, Height Measured, 165, lb, 2... Start Date: 01/26/21 Status: Ordered Start: 02-07-2020 take 1 tablet by jeanine th once daily Synthroid 75 mcg (0.075 mg) oral tablet = 1 tab(s) ( 75 mcg ), PO, Daily, Instructions: TAKE ON AN EMPTY STOMACH, # 90 tab(s), 3 Refill(s), Type: Maintenance, Pharmacy: [facility], 1 tab(s) Oral daily,Instr:TAKE ON AN EMPTY STOMACH, 64, in, 01/01/20 8:49:00 EDT, Height Me... Start Date: 02/07/20 Status: Ordered Start: 12-14-2019 take 1 tablet by jeanine th once daily Synthroid 75 mcg (0.075 mg) oral tablet = 1 tab(s) ( 75 mcg ), PO, Daily, Instructions: TAKE ON AN EMPTY STOMACH, # 90 tab(s), 0 Refill(s), Type: Maintenance, Pharmacy: [facility], 1 tab(s) Oral daily,Instr:TAKE ON AN EMPTY STOMACH, 64, in, 09/02/19 8:31:00 EDT, Height Me... Start Date: 12/14/19 Status: Ordered Start: 10-15-2017 End: 10-16-2017 take 1 tablet by mouth once daily Synthroid 75 mcg (0.075 mg) oral tablet 1 tab(s) ( 75 mcg ), PO, Daily, # 90 tab(s), 0 Refill(s), Type: Maintenance Start Date: 10/15/17 Stop Date: 10/16/17 Status: Discontinued take 1 capsule by mo ut once daily before breakfast levothyroxine 75 mcg cap Take 75 mcg by mouth daily before breakfast. Active take 1 tablet by jeanine th once daily before mealtime levothyroxine (Synthroid, Levoxyl) 75 mcg tablet Take 1 tablet (75 mcg) by mouth once daily in the morning. Take before meals. 0 Active Comment on above: Take 75 mcg by mouth daily before breakfast. losartan potassium 50 mg oral tablet (7 sources) Angiotensin 2 Receptor Angie take 2 tablets by mouth once daily losartan (COZAAR) 50 mg tablet Take 100 mg by mouth once daily. Active take 1 tablet by jeanine th once daily losartan (COZAAR) 50 mg tablet Take 50 mg by mouth once daily. Active End: 07-03-2024 take 1 tablet by mouth once daily losartan (COZAAR) 25 mg tablet Take 25 mg by mouth once daily. 07/03/2024 Discontinued (Dosage adjustment) Magnesium Hydroxide (16 sources) take 30 mL by mouth once daily as needed magnesium hydroxide (MILK OF MAGNESIA ORAL) Take 30 mL by mouth once daily as needed. Active magnesium hydrox all (MILK OF MAGNESIA ORAL) Take by mouth. 0 Active Comment on above: Take by mouth. metFORMIN hydrochloride 1000 mg oral tablet (20 sources) Biguanide Start: 07-21-2022 take 1 tablet by mouth twice daily metFORMIN 1000 mg oral tablet = 1 tab(s), Oral, bid, # 180 tab(s), 3 Refill(s), Type: Maintenance, Pharmacy: [facility], TAKE 1 TABLET TWICE A DAY, 63, in, 07/11/22 13:24:00 EST, Height Measured, 160, lb, 07/11/22 13:24:00 EST, Weight Measured Start Date: 07/21/22 Status: Ordered Start: 07-26-2021 take 1 tablet by jeanine twice daily metFORMIN 1000 mg oral tablet = 1 tab(s), Oral, bid, # 180 tab(s), 3 Refill(s), Type: Maintenance, Pharmacy: [facility], TAKE 1 TABLET TWICE A DAY, 64, in, 07/08/21 9:58:00 EST, Height Measured, 163, lb, 07/08/21 9:58:00 EST, Weight Measured Start Date: 07/26/21 Status: Ordered Start: 01-27-2021 take 1 tablet by jeanine twice daily metFORMIN 1000 mg oral tablet = 1 tab(s), Oral, bid, # 180 tab(s), 1 Refill(s), Type: Maintenance, Pharmacy: [facility], TAKE 1 TABLET TWICE A DAY, 64, in, 01/04/21 8:32:00 EDT, Height Measured, 165, lb, 01/04/21 8:32:00 EDT, Weight Measured Start Date: 01/27/21 Status: Ordered Start: 10-29-2020 take 1 tablet by jeanine th twice daily metFORMIN 1000 mg oral tablet = 1 tab(s), Oral, bid, # 180 tab(s), 0 Refill(s), Type: Maintenance, Pharmacy: [facility], TAKE 1 TABLET TWICE A DAY, 64, in, 07/03/20 10:12:00 EST, Height Measured, 158.4, lb, 07/03/20 10:12:00 EST, Weight Measured Start Date: 10/29/20 Status: Ordered Start: 12-01-2019 take 1 tablet by jeanine th twice daily metFORMIN 1000 mg oral tablet See Instructions, Instructions: TAKE 1 TABLET TWICE A DAY, # 180 tab(s), 3 Refill(s), Pharmacy: [facility], 64, in, 09/02/19 8:31:00 EDT, Height Measured, 158, lb, 09/02/19 8:31:00 EDT, Weight Measured Start Date: 12/01/19 Status: Ordered Start: 10-15-2017 End: 11-23-2017 take 1 tablet by mouth twice daily metFORMIN 1000 mg oral tablet 1 tab(s) ( 1,000 mg ), PO, BID, # 180 tab(s), 0 Refill(s), Type: Maintenance Start Date: 10/15/17 Stop Date: 11/23/17 Status: Discontinued Comment on above: Take 1,000 mg by jeanine th twice daily with meals. Multi Vitamin+ (20 sources) Start: 08-09-19 Multi Vitamin+ daily, 0 Refill(s), Type: Maintenance Start Date: 08/08/18 Status: Ordered Multivitamin preparation (4 sources) multivitamin (ON CE DAILY ORAL) Take by mouth. Active multivitamin tablet (1 source) take 1 tablet by mouth once daily multivitamin tablet Take 1 tablet by mouth once daily. 0 Active multivitamin with minerals iron-free (tdihfnym-phfq-xyksjbl s-folic acid) (1 source) take 1 tablet by mouth once daily multivitamin with minerals iron-free (wxvzwaya-ssrc-neqhbe ls-folic acid) Take 1 tablet by mouth once daily. 0 Active nitroglycerin 0.4 mg sublingual tablet (6 sources) Nitrate Vasodilator nitroglyceri n sublingual (NITROQUICK) 0.4 mg SL tablet Dissolve 0.4 mg under the tongue every 5 minutes as needed for chest pain. Active phenylephrine hydrochloride 25 mg/ml ophthalmic solution (4 sources) alpha-1 Adrenergic Agonist Start: 11-13-19 End: 11-14-19 PHENYLephrine 2.5 % 1 drop (AK-DILATE, KATHY-SYNEPHRINE) Start: 11-12-2024 End: 11-13-2024 1 drop, BOTH EYES, DIRECT ED, Starting on Mon11/12/24 at 1430, Until Mon11/13/24 at 022, Administer for dilation PROTECT FROM LIGHT, OPHT CLINIC MED ORDERS Start: 08-03-2023 End: 08-04-2023 PHENYLephrine 2.5 % 1 Drop ( AK-DILATE, KATHY-SYNEPHRINE) Polyethylene Glycol 3350 powd (6 sources) take 17 g by mouth once daily Polyethylene Glycol 3350 powd Take 17 g by mouth once daily. Active proparacaine hydrochloride 5 mg/ml ophthalmic solution (4 sources) Local Anesthetic Start: 11-12-2024 End: 11-13-2024 proparacaine 0.5 % 1 drop (ALCAINE) Start: 11-12-2024 End: 11-13-2024 1 drop, BOTH EYES, DIRECT ED, Starting on Mon11/12/24 at 1430, Until Mon11/13/24 at 0229, Administer for pneumo tonometry, tonopen tonometry, or pachymetry. In the event of a proparacaine shortage, administer 1 drop of tetracaine 0.5% ophthalmic drops into both eyes as directed for pneumo tonometry, tonopen tonometry, or pachymetry, OPHT CLINIC MED ORDERS Start: 08-03-2023 End: 08-04-2023 proparacaine 0.5 % 1 Drop (A LCAINE) simvastatin 20 mg oral tablet (20 sources) HMG-CoA Reductase Inhibitor Start: 04-19-2014 End: 09-18-2023 take 1 tablet by mouth once daily at bedtime simvastatin 20 mg oral tablet = 1 tab(s), Oral, qhs, # 90 tab(s), 1 Refill(s), Type: Maintenance, [facility]acy: [facility], TAKE 1 TABLET AT BEDTIME, 63, in, 07/11/22 13:24:00 EST, Height Measured, 160, lb, 07/11/22 13:24:00 EST, Weight Measured Start Date: 01/19/23 Status: Ordered tropicamide 10 mg/ml ophthalmic solution (4 sources) Anticholinergic Start: 11-12-2024 End: 11-13-2024 tropicamide 1 % 1 drop (MYDRIACYL) Start: 11-12-2024 End: 11-13-2024 1 drop, BOTH EYES, DIRECT ED, Starting on Mon11/12/24 at 1430, Until Mon11/13/24 at 0229, Administer for dilation, OPHT CLINIC MED ORDERS Start: 08-03-2023 End: 08-04-2023 tropicamide 1 % 1 Drop (MYDR IACYL) valsartan 80 mg oral tablet (20 sources) Angiotensin 2 Receptor Angie Start: 12-23-2018 End: 04-05-2023 take 1 tablet by mouth twice daily valsartan 80 mg oral tablet = 1 tab(s) ( 80 mg ), Oral, bid, # 30 tab(s), 0 Refill(s), Type: Maintenance Start Date: 12/23/18 Status: Ordered Start: 08-17-2018 End: 04-05-2023 take 1 tablet by mouth twice daily valsartan 160 mg oral tablet = 1 tab(s) ( 160 mg ), PO, bid, # 30 tab(s), 0 Refill(s), Type: Maintenance Start Date: 08/17/18 Stop Date: 12/23/18 Status: Discontinued vit A/C/E ac/ZnOx/cupric oxide (VIT A-VIT C-VIT [id number]-[id number] ORAL) (1 source) take 1 tablet by mouth once daily before mealtime vit A/C/E ac/ZnOx/cupric oxide (VIT A-VIT C-VIT T-HJLY-EXOTOE ORAL) Take 1 tablet by mouth once daily. 0 Active vit A/vit C/vit E/zinc/copper (PRESERVISION AREDS ORAL) (1 source) Start: 019 End: 023 vit A/vit C/vit E/zinc/copper (PRESERVISION AREDS ORAL) Take by mouth. PreserVision 0 08/08/2018 04/05/2023 Discontinued (Duplicate order) ziprasidone 40 mg oral capsule (20 sources) Atypical Antipsychotic Start: 018 take 1 capsule by mouth once daily ziprasidone 40 mg oral capsule = 1 cap(s) ( 40 mg ), PO, daily, # 180 cap(s), 0 Refill(s), Type: Maintenance Start Date: 10/15/17 Status: Ordered take 1 capsule by mouth once giuseppe ly ziprasidone (GEODON) 20 mg capsule Take 20 mg by mouth once daily. Active Completed/Discontinued Medications Medication Drug Class(es) Dates Sig (Normalized) Sig (Original) FOLIC ACID/MULTIVIT-MIN/ LUTEIN (CENTRUM SILVER ORAL) (13 sources) End: 07-03-2024 take 1 tablet by mouth once daily FOLIC ACID/MULTIVIT-MIN/L UTEIN (CENTRUM SILVER ORAL) Take 1 tablet by mouth once daily. 07/03/2024 Discontinued (Other) take 1 tablet by mouth once tere y FOLIC ACID/MULTIVIT-MIN/LUTEIN (CENTRUM SILVER ORAL) Take 1 tablet by mouth once daily. Active FOLIC ACID/MULTI VIT-MIN/LUTEIN (CENTRUM SILVER ORAL) Take by mouth. 0 Active Comment on above: Take by mouth. linaclotide 0.145 mg oral capsule (12 sources) Guanylate Cyclase-C Agonist Start: 8 End: 8 take 1 capsule by mouth once daily Linzess 145 mcg oral capsule 1 cap(s) ( 145 mcg ), po, daily, # 30 cap(s), 0 Refill(s), Type: Maintenance, Pharmacy: [id number], 1 cap(s) po daily Start Date: 10/16/17 Stop Date: 02/22/18 Status: Discontinued lisinopril 40 mg oral tablet (20 sources) Angiotensin Converting Enzyme Inhibitor Start: 8 End: 4 take 1 tablet by mouth once daily lisinopril 40 mg oral tablet See Instructions, Instructions: TAKE 1 TABLET DAILY, # 90 tab(s), 2 Refill(s), Type: Soft Stop, Pharmacy: [facility], TAKE 1 TABLET DAILY Start Date: 11/23/17 Stop Date: 08/17/18 Status: Discontinued Comment on above: Take 40 mg by mouth once daily. MULTIVITAMIN ORAL (11 sources) End: 4 MULTIVITAMIN ORAL Take by mouth. 02/26/2024 Discontinued (Course of therapy completed) MULTIVITAMIN ORA L Take by mouth. 0 Active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 [facility] (SB[facility]) [address] [place] [address] [place] MUCUS (#/LPF) IN URINE SEDIMENT Few Normal Negative [facility] Comment on above: Performed By: #### L [id number], LAB17 #### [employer]: CARLOS A VILLAGRAN ([id number]) [facility] ([facility]) [address] NITRITE PRESENCE IN URINE Negative Normal Negative [facility] Comment on above: Performed By: #### L [id number], LAB17 #### [employer]: CARLOS A VILLAGRAN ([id number]) [facility] [address] [place] [address] [place] NON-SQUAMOUS EPITHELIAL (#/HPF) IN URINE 0-2 Abnormal Negative [facility] Comment on above: Performed By: #### L [id number], LAB17 #### [employer]: CARLOS A VILLAGRAN ([id number]) [facility] ([facility]) [address] pH (U) 6.0 [pH] Normal 5.0-8.0 [facility] Comment on above: Performed By: #### L [id number], LAB17 #### [employer]: CARLOS A VILLAGRAN ([id number]) [facility] ([facility]) [address] Protein (U) [Mass/Vol] Negative Normal Negative [facility] Comment on above: Performed By: #### L [id number], LAB17 #### [employer]: CARLOS A VILLAGRAN ([id number]) [facility] [address] [place] [address] [place] RBC (#/HPF) IN URINE SEDIMENT 3-5 Abnormal 0-2 [facility] Comment on above: Performed By: #### L [id number], LAB17 #### [employer]: CARLOS A VILLAGRAN ([id number]) [facility] ([facility]) [address] Specific gravity (U) [Rel density] 1.009 Normal 1.005-1.030 [facility] Comment on above: Performed By: #### L [id number], LAB17 #### [employer]: CARLOS A VILLAGRAN ([id number]) [facility] [place] ([facility]) [address] SQUAMOUS EPITHELIAL CELLS (#/HPF) IN URINE SEDIMENT 0-2 Normal 3-5 [facility] Comment on above: Performed By: #### L [id number], LAB17 #### [employer]: CARLOS A VILLAGRAN ([id number]) [facility] ([facility] [address] UROBILINOGEN (MG/DL) IN URINE Normal Normal Normal (0-1) [facility] Comment on above: Performed By: #### L [id number], LAB17 #### [employer]: CARLOS A VILLAGRAN ([id number]) [facility] ([facility]) [address] WBC (LEUKOCYTE) (#/HPF) IN URINE SEDIMENT 26-50 Abnormal 0-5 [facility] Comment on above: Performed By: #### L [id number], LAB17 #### [employer]: CARLOS A VILLAGRAN ([id number]) [facility] ([facility]) [address] COMPREHENSIVE METABOLIC PANE Raul 06-26-2023 Albumin [Mass/Vol] 3.8 g/dL Normal 3.5-5.0 [facility] Comment on above: Performed By: #### L [id number], LAB17 #### [employer]: CARLOS A VILLAGRAN ([id number]) [facility] ([facility]) [address] [place] [address] [place] ALP [Catalytic activity/Vol] 87 U/L Normal 38-126 [facility] Comment on above: Performed By: #### L [id number], LAB17 #### [employer]: CARLOS A VILLAGRAN ([id number]) [facility] ([facility] [address] [place] [address] [place] ALT [Catalytic activity/Vol] 17 U/L Normal 0-34 [facility] Comment on above: Performed By: #### L [id number], LAB17 #### [employer]: CARLOS A VILLAGRAN ([id number]) [facility] [place] (SBHLAB) [address] [place], [place] [id number] [place] [address] Anion gap [Moles/Vol] 10 mmol/L Normal 3-13 [facility] Comment on above: Performed By: #### L [id number], LAB17 #### [employer]: CARLOS A VILLAGRAN ([id number]) [facility] ([facility]) [address] [place], [place] [id number] [place] [address] AST [Catalytic activity/Vol] 22 U/L Normal 15-46 [facility] Comment on above: Performed By: #### L [id number], LAB17 #### [employer]: CARLOS A VILLAGRAN ([id number]) [facility] ([facility]) [address] [place], [place] [id number] [place] [address] Bilirubin [Mass/Vol] 0.3 mg/dL Normal 0.2-1.3 [facility] Comment on above: Performed By: #### L [id number], LAB17 #### [employer]: CARLOS A VILLAGRAN ([id number]) [facility] (HLAB) [address] [place], [place] [id number] [place] [address] Calcium [Mass/Vol] 9.6 mg/dL Normal 8.4-10.4 [facility] Comment on above: Performed By: #### L [id number], LAB17 #### [employer]: CARLOS A VILLAGRAN ([id number]) [facility] ([facility] [address] [place] [address] [place] Chloride [Moles/Vol] 105 mmol/L Normal 98-107 [facility] Comment on above: Performed By: #### L [id number], LAB17 #### [employer]: CARLOS A VILLAGRAN ([id number]) [facility] ([facility]) [address] [place] [address] [place] CO2 [Moles/Vol] 24 mmol/L Normal 22-30 [facility] Comment on above: Performed By: #### L [id number], LAB17 #### [employer]: CARLOS A VILLAGRAN ([id number]) [facility] ([facility]) [address] Creatinine [Mass/Vol] 0.96 mg/dL Normal 0.52-1.04 [facility] Comment on above: Performed By: #### L [id number], LAB17 #### [employer]: CARLOS A VILLAGRAN ([id number]) [facility] ([facility]) [address] GLOMERULAR FILTRATION RATE ML/MIN/1.73 SQ M.PREDICTED 62.2 mL/min/1.73m*2 Normal >60.0 [facility] Comment on above: Result Comment: Calc ulation based on the Chronic Kidney Disease Epidemiology Collaboration (CKD-EPI) equation refit without adjustment for race Performed By: #### L [id number], LAB17 #### [employer]: CARLOS A VILLAGRAN ([id number]) [facility] ([facility]) [address] [place] [address] [place] Glucose [Mass/Vol] 116 mg/dL High 70-100 [facility] Comment on above: Performed By: #### L [id number], LAB17 #### [employer]: CARLOS A VILLAGRAN ([id number]) [facility] ([facility]) [address] [place] [address] [place] Potassium [Moles/Vol] 3.9 mmol/L Normal 3.5-5.1 [facility] Comment on above: Performed By: #### L [id number], LAB17 #### [employer]: CARLOS A VILLAGRAN ([id number]) [facility] ([facility]) [address] [place] [address] [place] Protein [Mass/Vol] 6.6 g/dL Normal 6.3-8.2 [facility] Comment on above: Performed By: #### L [id number], LAB17 #### [employer]: CARLOS A VILLAGRAN ([id number]) [facility] ([facility]) [address] Sodium [Moles/Vol] 139 mmol/L Normal 135-145 [facility] Comment on above: Performed By: #### L [id number], LAB17 #### [employer]: CARLOS A VILLAGRAN ([id number]) [facility] (SB[facility]) [address] Urea nitrogen [Mass/Vol] 17 mg/dL Normal 7-17 [facility] Comment on above: Performed By: #### L [id number], LAB17 #### [employer]: CARLOS A VILLAGRAN ([id number]) [facility] ([facility]) [address] HEAD WO IV CONTRASTon CT HEAD WO IV CONTRAST [facility] 1950 [id number] Exam Date/Time: 06/26/2023 06:31 Procedure: CT HEAD WO IV CONTRAST Ordering Provider: KENNY DUSTIN Reason For Exam: Neuro deficit, acute, stroke suspected CT HEAD: CLINICAL INDICATION: Acute alteration in mental awareness TECHNIQUE: Transaxial CT sequence performed through the head with 3 mm reconstruction. Sagittal and Coronal reconstruction images included. Dose reduction employed with automated exposure control. COMPARISON: None FINDINGS: Ventricles and Extra-axial spaces: Generalized enlargement of the ventricles and sulci is noted. No abnormal extracerebral collection identified. Cerebral and cerebellar parenchyma: Periventricular low attenuation areas are noted bilaterally, corresponding to chronic microvascular ischemic change. No additional focal mass lesion or evidence for acute infarct is identified throughout the cerebrum or cerebellum. Hemorrhage: None Brainstem: Normal Visualized Paranasal sinuses: Normal. Mastoid air cells: Normal Visualized Orbits: Normal Calvarium and skull base: Normal Other: Atherosclerotic calcification within the distal internal carotid and vertebral arteries IMPRESSION: Diminished cerebral volume and evidence of chronic microvascular ischemic change without acute intracranial abnormality. Report Dictated on Electronically Signed By: Daryl Malik MD Electronically Signed Date/Time: 06/26/2023 6:33 AM EST AMS Normal [facility] CT Head WO contraston 2023 Diminished cerebral volume and evidence of chronic microvascular ischemic change without acute intracranial abnormality. Report Dictated on Electronically Signed By: Daryl Malik MD Electronically Signed Date/Time: 06/26/2023 6:33 AM [facility] RADIOLOGY SYSTEM Patient Name: CINDY SOTO : 1950 Exam Date/Time: 06/26/2023 06:31 Procedure: CT HEAD WO IV CONTRAST Ordering Provider: KENNY DUSTIN Reason For Exam: Neuro deficit, acute, stroke suspected CT HEAD: CLINICAL INDICATION: Acute alteration in mental awareness TECHNIQUE: Transaxial CT sequence performed through the head with 3 mm reconstruction. Sagittal and Coronal reconstruction images included. Dose reduction employed with automated exposure control. COMPARISON: None FINDINGS: Ventricles and Extra-axial spaces: Generalized enlargement of the ventricles and sulci is noted. No abnormal extracerebral collection identified. Cerebral and cerebellar parenchyma: Periventricular low attenuation areas are noted bilaterally, corresponding to chronic microvascular ischemic change. No additional focal mass lesion or evidence for acute infarct is identified throughout the cerebrum or cerebellum. Hemorrhage: None Brainstem: Normal Visualized Paranasal sinuses: Normal. Mastoid air cells: Normal Visualized Orbits: Normal Calvarium and skull base: Normal Other: Atherosclerotic calcification within the distal internal carotid and vertebral arteries [facility] Daryl Malik MD - 06/26/2023 Patient Name: CINDY SOTO : 1950 Exam Date/Time: 06/26/2023 06:31 Procedure: CT HEAD WO IV CONTRAST Ordering Provider: KENNY DUSTIN Reason For Exam: Neuro deficit, acute, stroke suspected CT HEAD: CLINICAL INDICATION: Acute alteration in mental awareness TECHNIQUE: Transaxial CT sequence performed through the head with 3 mm reconstruction. Sagittal and Coronal reconstruction images included. Dose reduction employed with automated exposure control. COMPARISON: None FINDINGS: Ventricles and Extra-axial spaces: Generalized enlargement of the ventricles and sulci is noted. No abnormal extracerebral collection identified. Cerebral and cerebellar parenchyma: Periventricular low attenuation areas are noted bilaterally, corresponding to chronic microvascular ischemic change. No additional focal mass lesion or evidence for acute infarct is identified throughout the cerebrum or cerebellum. Hemorrhage: None Brainstem: Normal Visualized Paranasal sinuses: Normal. Mastoid air cells: Normal Visualized Orbits: Normal Calvarium and skull base: Normal Other: Atherosclerotic calcification within the distal internal carotid and vertebral arteries IMPRESSION: Diminished cerebral volume and evidence of chronic microvascular ischemic change without acute intracranial abnormality. Report Dictated on Electronically Signed By: Daryl Malik MD Electronically Signed Date/Time: 06/26/2023 6:33 AM EST [facility] Radiology Study observation (narrative) [facility] CT Head WO contrastOrdered B y: Daryl Malik on 06-26-2023 [facility] Work Phone: Comprehensive metabolic 1998 panelon 06-26-2023 Albumin [Mass/Vol] 3.8 g/dL 3.5 - 5.0 g/dL [facility] ALP [Catalytic activity/Vol] 87 U/L 38 - 126 U/L [facility] ALT [Catalytic activity/Vol] 17 U/L 0 - 34 U/L [facility] Anion gap [Moles/Vol] 10 mmol/L 3 - 13 mmol/L [facility] AST [Catalytic activity/Vol] 22 U/L 15 - 46 U/L [facility] Bilirubin [Mass/Vol] 0.3 mg/dL 0.2 - 1 .3 mg/dL [facility] Calcium [Mass/Vol] 9.6 mg/dL 8.4 - 10. 4 mg/dL [facility] Chloride [Moles/Vol] 105 mmol/L 98 - 10 7 mmol/L [facility] CO2 [Moles/Vol] 24 mmol/L 22 - 30 mmol/L [facility] Creatinine [Mass/Vol] 0.96 mg/dL 0.52 - 1.04 mg/dL [facility] GFR/1.73 sq M.predicted MDRD (S/P/Bld) [Vol rate/Area] 62.2 mL/min/{1.73_m2} - PINF [facility] Comment on above: Calculation based on the Chronic Kidney Disease Epidemiology Collaboration (CKD-EPI) equation refit without adjustment for race Glucose [Mass/Vol] 116 mg/dL High 70 - 100 mg/dL [facility] Interpretation and review of laboratory results Abnormal [facility] Potassium [Moles/Vol] 3.9 mmol/L 3.5 - 5.1 mmol/L [facility] Protein [Mass/Vol] 6.6 g/dL 6.3 - 8.2 g/dL [facility] Sodium [Moles/Vol] 139 mmol/L 135 - 145 mmol/L [facility] Urea nitrogen [Mass/Vol] 17 mg/dL 7 - 17 mg/dL [facility] ECG 12 lead if not already d one by Mela 06-26-2023 Heart Rate 56 bpm [facility] P [place] 0 degrees [facility] [place] Interval 0 ms [facility] QRS [place] -39 degrees [facility] QRSD [facility]val [facility] ms [facility] QTC Interval 459 ms [facility] T Wave [place] -22 degrees [facility] Atrial fibrillation LVH with secondary repolarization abnormality Inferior infarct, old Anterior infarct, old No previous ECG for comparison Electronically Signed On 06-26-2023 06:50:15 EST by Hernan Kenny CV Hernan Gallardo D O - 06/26/2023 IMPRESSION: Atrial fibrillation LVH with secondary repolarization abnormality Inferior infarct, old Anterior infarct, old No previous ECG for comparison Electronically Signed On 06-26-2023 06:50:15 EST by Hernan Kenny [facility] ECG 12-LEADon 06-26-2023 ECG 12-LEAD IMPRESSION: Atrial fibrillation LVH with secondary repolarization abnormality Inferior infarct, old Anterior infarct, old No previous ECG for comparison Electronically Signed On 06-26-2023 06:50:15 EST by Hernan Kenny Normal [facility] ED Nursing Noteon 06-26-2023 ED Nursing Note Confirmed with Dr Shankar. Ok to hold off on drawing 2nd troponin Cecile Albert RN 06/26/23 0519 Normal [facility] ED Nursing Note Checked on patient. Still waiting on urine sample. Pt notified that if not able to urinate might have to straight cath. Pt is going to try now. [place] external catheter in place. Cecile Albert RN 06/26/23 6378 [facility] ED Nursing Note PT family member jazmin led for update, Lillian soto (POA per family member). Approved by patient Andressa Rivera RN 06/26/23 0717 [facility] ED Nursing Note [facility] [place] PT nurse was concerned about AMS. Nurse reports suddenly was disorient last known 0400. PT usually Alert and oriented pt told nurse eye felt funny. [place] neg. Pt currently a x o x 2. BG 128. Andressa Rivera RN 06/26/23 0552 [facility] ED Provider Noteon ED Provider Note Emergency Department Encounter [facility] ED Patient: Cindy Soto : 1950 Date of Evaluation: 06/26/2023 ED Provider: Hernan Kenny, Chief Complaint Chief Complaint Patient presents with ? Altered Mental Status KHANH Soto is a 72 y.o. female who presents to the emergency department complaining of feeling abnormal. Patient reports she woke up, just did not feel. She cannot put her finger on exactly [...] Past History Past Medical History: Diagnosis Date ? Diabetes mellitus (HCC) ? Disease of thyroid gland ? Stroke (HCC) No past surgical history on file. Social History Socioeconomic History ? Marital status: Single I have reviewed the history above as provided by nursing notes. Medications/Allergies Previous Medications No medications on file No Known Allergies I have reviewed the history above as provided by nursing notes. Physical Exam ED Triage Vitals Temp Heart Rate Resp BP 06/26/23 0604 06/26/23 0604 06/26/23 0604 06/26/23 0607 36.7 ?C (98.1 ?F) 63 21 134/75 SpO2 Temp Source Heart [...] and lower extremities. Sensation intact throughout. Normal [id number] movements. Normal heel wynne movements. NIH stroke [...] 475 ms QTC Interval 459 ms P [place] 0 degrees QRS [place] -39 degrees T Wave [place] -22 degrees [place] Interval 0 ms Radiographs: CT head wo IV contrast Final Result Diminished cerebral volume and evidence of chronic microvascular ischemic ch (more content not included)... Normal [facility] ED Provider Note Patient signed out t o me pending a UA she presented with some confusion sounds like but has improved mental status she does have a UTI plan to treat with Keflex and discharge given her mental status is normal noticed the workup was benign. Jas Shankar MD 06/26/23 1115 Normal [facility] PROTIME AND APTTon aPTT Coag (Bld) [Time] 28.8 s Normal 20.0-30.5 [facility] Comment on above: Performed By: #### L [id number] #### [employer]: CARLOS A VILLAGRAN ([id number]) [facility] ([facility]) [address] INR Coag (PPP) [Relative time] 1.0 {INR} Normal 0.9-1.1 [facility] Comment on above: Result Comment: Kg mmended Anticoagulant Therapy: SEE BELOW ----- INR of 2.0 - 3.0 : - Prophylaxis of Venous Thrombosis (high-risk surgery) - Treatment of Venous Thrombosis - Treatment of Pulmonary Embolism (Includes tissue heart valves, Acute Myocardial Infarction to prevent systemic embolism, Valvular Heart Disease, and Atrial Fibrillation) ----- INR of 2.5 - 3.5 : - Mechanical Prosthetic Valves (high risk) - If oral anticoagulant therapy is used to prevent Myocardial Infarction Performed By: #### Stoney [id number] #### [employer]: CARLOS A VILLAGRAN ([phone]) [facility] ([facility]) [address] [place] [address] PT Coag (PPP) [Time] 10.7 s Normal 9.0-12.0 [facility] Comment on above: Performed By: #### L [id number] #### [employer]: CARLOS A VILLAGRAN ([id number]) [facility] ([facility]) [address] [place] [address] PROTIME/INR & PTTon 06-26-19 24 aPTT Coag (PPP) [Time] 28.8 s 20.0 - 30.5 s [facility] INR Coag (PPP) [Relative time] 1.0 {INR} 0.9 - 1.1 [facility] Comment on above: Recommended Anticoag ulant Therapy: SEE BELOW ----- INR of 2.0 - 3.0 : - Prophylaxis of Venous Thrombosis (high-risk surgery) - Treatment of Venous Thrombosis - Treatment of Pulmonary Embolism (Includes tissue heart valves, Acute Myocardial Infarction to prevent systemic embolism, Valvular Heart Disease, and Atrial Fibrillation) ----- INR of 2.5 - 3.5 : - Mechanical Prosthetic Valves (high risk) - If oral anticoagulant therapy is used to prevent Myocardial Infarction Interpretation and review of laboratory results Normal [facility] PT Coag (Bld) [Time] 10.7 s 9.0 - 1 2.0 s [facility] TROPONIN, WITH SERIAL REFLEX on 06-26-2023 Troponin I.cardiac [Mass/Vol] ng/mL Normal <0.034 [facility] Comment on above: Result Comment: SHARON Sykes COMMENTS: Patients with high levels of Biotin oral intake (ie >5 mg/day) may have falsely decreased Troponin levels. Performed By: #### L [id number], [id number] #### [employer]: CARLOS A VILLAGRAN ([id number]) [facility] ([facility]) [address] [place] [address] Troponin I.cardiac [Mass/Vol ]on 06-26-2023 Interpretation and review of laboratory results Normal [facility] Patients with high levels of Biotin oral intake (ie >5 mg/day) may have falsely decreased Troponin levels. [facility] Troponin, with Serial Reflex on 06-26-2023 Troponin I.cardiac [Mass/Vol] ng/mL NINF - 0.034 ng/mL [facility] URINE CULTUREon 06-26-2023 Bacteria identified Cx Nom (U) URINE CULTURE Reference Normal urogenital armando present [ S = SUSCEPTIBLE R = RESISTANT I = INTERMEDIATE S-DD = Susceptible-dose dependent NS = Non-susceptible NO = No Interpretation ] Normal [facility] Comment on above: Performed By: #### L [id number] #### [employer]: TUYET GARZA ([id number]) [facility] ([facility]) [address] [place] [address] Urinalysis complete panel (U )Ordered By: Liza Douglas on 06-26-2023 Bacteria LM.HPF (Urine sed) [#/Area] Few Abnormal Negative /HPF [facility] Bilirubin Ql (U) Negative Negative mg/dL [facility] Clarity (U) Clear Clear [facility] Color (U) Light Yellow Lt. Yellow [facility] Epithelial cells.squamous LM.HPF (Urine sed) [#/Area] [facility]) Normal Normal (<70) mg/dL [facility] Hemoglobin Ql (U) Negative Negative mg/dL [facility] Interpretation and review of laboratory results Abnormal [facility] Ketones (U) [Mass/Vol] Negative Negat juan mg/dL [facility] Leukocyte esterase Test strip Ql (U) 500 Abnormal Negative Darlyn/uL [facility] Mucus LM.HPF (Urine sed) [#/Area] Few Negative /LPF [facility] Nitrite Ql (U) Negative Negative [facility] th Non-Squamous Epithalial Cells, Urine 0-2 Abnormal Negative /HPF [facility] pH (U) 6.0 [pH] 5.0 - 8.0 pH [facility] Protein (U) [Mass/Vol] Negative Negat juan mg/dL [facility] RBC LM.HPF (Urine sed) [#/Area] 3-5 Abnormal [facility] Specific gravity (U) [Rel density] 1.009 1.005 - 1.030 [facility] Urobilinogen (U) [Mass/Vol] Normal Normal (0-1) mg/dL [facility] WBC LM.HPF (Urine sed) [#/Area] 26-50 Abnormal [facility] Basophil percentageOrdered B y: Mark Jimenez on 04-03-2023 Bilirubin [Mass/Vol] 0.50 mg/dL 0.20-1.00 [facility] Comment on above: For patients on eltr ombopag therapy, use of Dimension [place]on TBIL is not recommended. Chloride [Moles/Vol] 102 mmol/L 98-107 [facility] Glucose [Mass/Vol] 124 mg/dL 74-106 [facility] Comment on above: Fasting Glucose resu lt from 100 to 125 mg/dL suggests IMPAIRED HOMEOSTASIS per A.D.A. criteria. Potassium [Moles/Vol] 4.2 mmol/L 3.5-5.1 [facility] Protein [Mass/Vol] 7.0 g/dL 6.4-8.2 [facility] Sodium [Moles/Vol] 138 mmol/L 136-145 [facility] WBC (Bld) [#/Vol] 7.8 10*3/uL 4.4-11.0 [facility] Blood erythrocytes count (nu mber/volume)Ordered By: Mark Jimenez on 04-03-2023 RBC (Bld) [#/Vol] 3.88 10*6/uL 4.2-5.4 [facility] Blood hemoglobin measurement (mass/volume)Ordered By: Mark Jimenez on 04-03-2023 Hemoglobin (Bld) [Mass/Vol] 12.8 g/dL 12.0-15.0 [facility] Blood platelet mean volumeOr dered By: Mark Jimenez on 04-03-2023 Platelet mean volume (Bld) [Entitic vol] 9.4 fL 6.2-12.0 [facility] Determination of erythrocyte mean corpuscular volume (MCV)Ordered By: Mark Jimenez on 04-03-2023 MCV (RBC) [Entitic vol] 98.7 fL 81-99 [facility] Hematocrit Auto (Bld) [Volum e fraction]Ordered By: Mark Jimenez on 04-03-2023 Hematocrit (Bld) [Volume fraction] 38.3 % 37-47 [facility] INR in Blood by Coagulation assayOrdered By: Mark Jimenez on 04-03-2023 INR Coag (Bld) [Relative time] 1.2 {INR} [facility] - Chemistry and C hemistry - challengeOrdered By: Mark Jimenez on 04-03-2023 ALP [Catalytic activity/Vol] 94 U/L 45-117 [facility] ALT [Catalytic activity/Vol] 21 U/L 13-56 [facility] CO2 [Moles/Vol] 30.0 mmol/L 21.0-32.0 [facility] Globulin (S) [Mass/Vol] 3.4 g/dL 2.2-4.2 [facility] Urea nitrogen/Creatinine [Mass ratio] 22.9 mg/mg 10-20 [facility] - CoagulationOrde red By: Mark Jimenez on 04-03-2023 PT Coag (PPP) [Time] 15.3 s 11.7-14.9 [facility] - Hematology and Cell countsOrdered By: Mark Jimenez on 04-03-2023 Erythrocyte distribution width (RBC) [Entitic vol] 45.5 fL 35.1-43.9 [facility] Erythrocyte distribution width (RBC) [Ratio] 12.7 % 11.6-14.6 [facility] MCH (RBC) [Entitic mass] 33.0 pg 27.0-32.0 [facility] MCHC Auto (RBC) [Mass/Vol]Or dered By: Mark Jimenez on 04-03-2023 MCHC (RBC) [Mass/Vol] 33.4 g/dL 32-36 [facility] No Panel InformationOrdered By: Mark Jimenez on 04-03-2023 Estimated GFR (MDRD) Amer 73 mL/min >60 [facility] Comment on above: GFR Calc Estimated GFR (MDRD) Non-Af Amer 60 mL/min >60 [facility] Comment on above: Non- GFR Calc Thyroid Stimulating Hormone (TSH) 0.73 uIU/mL 0.358-3.74 [facility] Platelets bldOrdered By: Basil Jimenez on 04-03-2023 Platelets (Bld) [#/Vol] 245 10*3/uL 150-450 [facility] Serum or plasma albumin kai urement (mass/volume)Ordered By: Mark Jimenez on 04-03-2023 Albumin [Mass/Vol] 3.6 g/dL 3.2-5.0 [facility] Serum or plasma albumin/glob ulin mass ratioOrdered By: Mark Jimenez on 04-03-2023 Albumin/Globulin [Mass ratio] 1.1 {ratio} 0.9-2.4 [facility] Serum or plasma calcium kai urement (mass/volume)Ordered By: Mark Jimenez on 04-03-2023 Calcium [Mass/Vol] 9.2 mg/dL 8.5-10.1 [facility] Serum or plasma creatinine m easurement (mass/volume)Ordered By: Mark Jimenez on 04-03-2023 Creatinine [Mass/Vol] 0.96 mg/dL 0.55-1.02 [facility] Comment on above: The validity of the calculated GFR & GFRAA in patients over 70 years has not been determined. Clinical correlation is essential. Serum or plasma urea nitroge n measurement (mass/volume)Ordered By: Mark Jimenez on 04-03-2023 Urea nitrogen [Mass/Vol] 22 mg/dL 7-18 [facility] Thin prep Papanicolaou smear with manual screeningOrdered By: Mark Jimenez on 04-03-2023 Thin prep Papanicolaou smear with manual screening 15 U/L 15-37 [facility] Thin prep Papanicolaou smear with manual screening 6 5-15 [facility] Whole blood hemoglobin A1c/t otal hemoglobin ratio (mass fraction)Ordered By: Mark Jimenez on 04-03-2023 HbA1c (Bld) [Mass fraction] 6.3 % 3.8-5.6 [facility] Comment on above: Normal < 5.7 % Predi abetic 5.7 - 6.4 % Diabetic >or= 6.5 % Please note range changes. Glucose Test strip manual (B ld) [Mass/Vol]on 03-13-2023 Glucose [Mass/Vol] 168 mg/dL High [address] [place] [address] Comment on above: Performed By: #### 2 341-6 ####KEENAN Gonzalez ([id number])[facility] ([facility])[address] [place] [address] Glucose [Mass/Vol] 227 mg/dL High [address] [place] [address] Comment on above: Performed By: #### 6 598-7 #### KEENAN Gonzalez ([id number]) [facility] ([facility]) [address] [place] [address] Glucose [Mass/Vol] 134 mg/dL High [address] [place] [address] Comment on above: Performed By: #### 6 598-7 #### KEENAN Gonzalez ([id number]) [facility] ([facility]) [address] [place] [address] Glucose Test strip manual (B ld) [Mass/Vol]on 03-12-2023 Glucose [Mass/Vol] 183 mg/dL High [address] [place] [address] Comment on above: Performed By: #### 6 598-7 #### KEENAN Gonzalez ([id number]) [facility] ([facility]) [address] [place] [address] Glucose [Mass/Vol] 145 mg/dL High [address] [place] [address] Comment on above: Performed By: #### 6 598-7 #### KEENAN Gonzalez ([id number]) [facility] ([facility]) [address] [place] [address] Glucose [Mass/Vol] 260 mg/dL High [address] [place] [address] Comment on above: Performed By: #### 6 598-7 #### KEENAN Gonzalez ([id number]) [facility] ([facility]) [address] [place] [address] Glucose [Mass/Vol] 113 mg/dL High [address] [place] [address] Comment on above: Performed By: #### 6 598-7 #### KEENAN Gonzalez ([id number]) [facility] ([facility]) [address] [place] [address] Glucose Test strip manual (B ld) [Mass/Vol]on 03-11-2023 Glucose [Mass/Vol] 137 mg/dL High [address] [place] [address] Comment on above: Performed By: #### 6 598-7 #### KEENAN Gonzalez ([id number]) [facility] ([facility]) [address] [place] [address] Glucose [Mass/Vol] 213 mg/dL High [address] [place] [address] Comment on above: Performed By: #### 6 598-7 #### KEENAN Gonzalez ([id number]) [facility] ([facility]) [address] [place] [address] Glucose [Mass/Vol] 236 mg/dL High [address] [place] [address] Comment on above: Performed By: #### 6 598-7 #### KEENAN Gonzalez ([id number]) [facility] ([facility]) [address] [place] [address] Glucose [Mass/Vol] 145 mg/dL High [address] [place] [address] Comment on above: Performed By: #### 6 598-7 #### KEENAN Gonzalez ([id number]) [facility] ([facility]) [address] [place] [address] Glucose Test strip manual (B ld) [Mass/Vol]on 03-10-2023 Glucose [Mass/Vol] 131 mg/dL High [address] [place] [address] Comment on above: Performed By: #### 2 341-6 ####KEENAN Gonzalez ([id number])[facility] ([facility])[address] [place] [address] Glucose [Mass/Vol] 212 mg/dL High [address] [place] [address] Comment on above: Performed By: #### 2 341-6 ####KEENAN Gonzalez ([id number])[facility] ([facility])[address] [place] [address] Glucose [Mass/Vol] 226 mg/dL High [address] [place] [address] Comment on above: Performed By: #### 2 341-6 ####KEENAN Gonzalez ([id number])[facility] ([facility])[address] [place] [address] Glucose [Mass/Vol] 134 mg/dL High [address] [place] [address] Comment on above: Performed By: #### 2 341-6 ####KEENAN Gonzalez ([id number])[facility] ([facility])[address] [place] [address] Glucose Test strip manual (B ld) [Mass/Vol]on 03-09-2023 Glucose [Mass/Vol] 124 mg/dL High [address] [place] [address] Comment on above: Performed By: #### 2 341-6 ####KEENAN Gonzalez ([id number])[facility] ([facility])[address] [place] [address] Glucose [Mass/Vol] 187 mg/dL High [address] [place] [address] Comment on above: Performed By: #### 2 341-6 ####KEENAN Gonzalez ([id number])[facility] ([facility])[address] [place] [address] Glucose [Mass/Vol] 216 mg/dL High 74-99 [facility] Comment on above: Performed By: #### 2 341-6 ####KEENAN Gonzalez ([id number])[facility] ([facility])[address] [place] [address] Glucose [Mass/Vol] 139 mg/dL High 74-99 [facility] Comment on above: Performed By: #### 2 341-6 ####KEENAN Gonzalez ([id number])[facility] ([facility])[address] [place] [address] Basic metabolic 2000 panelon 03-08-2023 Anion gap [Moles/Vol] 11 mmol/L Normal <=19 [facility] Comment on above: Performed By: #### 2 4321-2 #### KEENAN Gonzalez ([id number]) [facility] ([facility]) [address] [place] [address] Calcium [Mass/Vol] 9.4 mg/dL Normal 8.5-10.4 [facility] Comment on above: Performed By: #### 2 4321-2 #### KEENAN Gonzalez ([id number]) [facility] ([facility]) [address] [place] [address] Chloride [Moles/Vol] 102 mmol/L Normal 97-107 [facility] Comment on above: Performed By: #### 2 4321-2 #### KEENAN Gonzalez ([id number]) [facility] ([facility]) [address] [place] [address] CO2 [Moles/Vol] 24 mmol/L Normal 24-31 [facility] Comment on above: Performed By: #### 2 4321-2 #### KEENAN Gonzalez ([id number]) [facility] ([facility]) [address] [place] [address] Creatinine [Mass/Vol] 1.00 mg/dL Normal 0.40-1.60 [facility] Comment on above: Performed By: #### 2 4321-2 #### KEENAN Gonzalez ([id number]) [facility] ([facility]) [address] [place] [address] GFR/1.73 sq M.predicted MDRD (S/P/Bld) [Vol rate/Area] 59 mL/min/1.73m*2 Low >60 [facility] Comment on above: Result Comment: Calc ulations of estimated GFR are performed using the 2020 CKD-EPI Study Refit equation without the race variable for the IDMS-Traceable creatinine methods. https://jasn.asnjournals.org/content/early//ASN.2020 430250 Performed By: #### 2 1-2 #### KEENAN Gonzalez ([id number]) [facility] ([facility]) [address] [place] [address] Glucose [Mass/Vol] 153 mg/dL High 65-99 [facility] Comment on above: Performed By: #### 2 1-2 #### KEENAN Gonzalez ([id number]) [facility] ([facility]) [address] [place] [address] Potassium [Moles/Vol] 4.2 mmol/L Normal 3.4-5.1 [facility] Comment on above: Performed By: #### 2 1-2 #### KEENAN Gonzalez ([id number]) [facility] ([facility]) [address] [place] [address] Sodium [Moles/Vol] 137 mmol/L Normal 133-145 [facility] Comment on above: Performed By: #### 2 4320-2 #### KEENAN Gonzalez ([id number]) [facility] ([facility]) [address] [place] [address] Urea nitrogen [Mass/Vol] 29 mg/dL High 8-25 [facility] Comment on above: Performed By: #### 2 4320-2 #### KEENAN Gonzalez ([id number]) [facility] ([facility]) [address] [place] [address] CBC panel Auto (Bld)on 03-08 Erythrocyte distribution width (RBC) [Ratio] 11.9 % Normal 11.5-14.5 [facility] Comment on above: Performed By: #### 2 4321-2 #### KEENAN Gonzalez ([id number]) [facility] ([facility]) [address] [place] [address] Hematocrit (Bld) [Volume fraction] 37.2 % Normal 36.0-46.0 [facility] Comment on above: Performed By: #### 2 4321-2 #### KEENAN Gonzalez ([id number]) [facility] ([facility]) [address] [place] [address] Hemoglobin (Bld) [Mass/Vol] 12.4 g/dL Normal 12.0-16.0 [facility] Comment on above: Performed By: #### 2 4320-2 #### KEENAN Gonzalez ([id number]) [facility] ([facility]) [address] [place] [address] MCH (RBC) [Entitic mass] 31.8 pg Normal 26.0-34.0 [facility] Comment on above: Performed By: #### 2 4320-2 #### KEENAN Gonzalez ([id number]) [facility] ([facility]) [address] [place] [address] MCHC (RBC) [Mass/Vol] 33.3 g/dL Normal 32.0-36.0 [facility] Comment on above: Performed By: #### 2 4321-2 #### KEENAN Gonzalez ([id number]) [facility] ([facility]) [address] [place] [address] MCV (RBC) [Entitic vol] 95 fL Normal 80-100 [facility] Comment on above: Performed By: #### 2 4320-2 #### KEENAN Gonzalez ([id number]) [facility] ([facility]) [address] [place] [address] Nucleated RBC/100 WBC (Bld) [Ratio] 0.0 /100 WBCs Normal 0.0-0.0 [facility] Comment on above: Performed By: #### 2 4321-2 #### KEENAN Gonzalez ([id number]) [facility] ([facility]) [address] [place] [address] Platelet mean volume (Bld) [Entitic vol] 9.4 fL Normal 7.5-11.5 [facility] Comment on above: Performed By: #### 2 4321-2 #### KEENAN Gonzalez ([id number]) [facility] ([facility]) [address] [place] [address] Platelets (Bld) [#/Vol] 248 x10*3/uL Normal 150-450 [facility] Comment on above: Performed By: #### 2 4321-2 #### KEENAN Gonzalez ([id number]) [facility] ([facility]) [address] [place] [address] RBC (Bld) [#/Vol] 3.90 x10*6/uL Low 4.00-5.20 [facility] Comment on above: Performed By: #### 2 4321-2 #### KEENAN Gonzalez ([id number]) [facility] ([facility]) [address] [place] [address] WBC (Bld) [#/Vol] 8.0 x10*3/uL Normal 4.4-11.3 [facility] Comment on above: Performed By: #### 2 4321-2 #### KEENAN Gonzalez ([id number]) [facility] ([facility]) [address] [place] [address] Glucose Test strip manual (B ld) [Mass/Vol]on 03-08-2023 Glucose [Mass/Vol] 102 mg/dL High 74-99 [facility] Comment on above: Performed By: #### 2 341-6 ####KEENAN Gonzalez ([id number])[facility] ([facility])[address] [place] [address] Glucose [Mass/Vol] 249 mg/dL High 74-99 [facility] Comment on above: Performed By: #### 2 341-6 ####KEENAN Gonzalez ([id number])[facility] ([facility])[address] [place] [address] Glucose [Mass/Vol] 171 mg/dL High 74-99 [facility] Comment on above: Performed By: #### 2 4321-2 #### KEENAN Gonzalez ([id number]) [facility] ([facility]) [address] [place] [address] Glucose [Mass/Vol] 165 mg/dL High 74-99 [facility] Comment on above: Performed By: #### 2 4321-2 #### KEENAN Gonzalez ([id number]) [facility] ([facility]) [address] [place] [address] Basic metabolic 2000 panelon 03-07-2023 Anion gap [Moles/Vol] 8 mmol/L Normal <=19 [facility] Comment on above: Performed By: #### 2 4321-2 #### KEENAN Gonzalez ([id number]) [facility] ([facility]) [address] [place] [address] Calcium [Mass/Vol] 9.4 mg/dL Normal 8.5-10.4 [facility] Comment on above: Performed By: #### 2 1-2 #### KEENAN Gonzalez ([id number]) [facility] ([facility]) [address] [place] [address] Chloride [Moles/Vol] 103 mmol/L Normal 97-107 [facility] Comment on above: Performed By: #### 2 4321-2 #### KEENAN Gonzalez ([id number]) [facility] ([facility]) [address] [place] [address] CO2 [Moles/Vol] 27 mmol/L Normal 24-31 [facility] Comment on above: Performed By: #### 2 4321-2 #### KEENAN Gonzalez ([id number]) [facility] ([facility]) [address] [place] [address] Creatinine [Mass/Vol] 0.90 mg/dL Normal 0.40-1.60 [facility] Comment on above: Performed By: #### 2 4321-2 #### KEENAN Gonzalez ([id number]) [facility] ([facility]) [address] [place] [address] GFR/1.73 sq M.predicted MDRD (S/P/Bld) [Vol rate/Area] 67 mL/min/1.73m*2 Normal >60 [facility] Comment on above: Result Comment: Calc ulations of estimated GFR are performed using the 2020 CKD-EPI Study Refit equation without the race variable for the IDMS-Traceable creatinine methods. https://jasn.asnjournals.org/content/early//ASN.2020 274348 Performed By: #### 2 4321-2 #### KEENAN Gonzalez ([id number]) [facility] ([facility]) [address] [place] [address] Glucose [Mass/Vol] 154 mg/dL High 65-99 [facility] Comment on above: Performed By: #### 2 4321-2 #### KEENAN Gonzalez ([id number]) [facility] ([facility]) [address] [place] [address] Potassium [Moles/Vol] 4.2 mmol/L Normal 3.4-5.1 [facility] Comment on above: Performed By: #### 2 4321-2 #### KEENAN Gonzalez ([id number]) [facility] ([facility]) [address] [place] [address] Sodium [Moles/Vol] 138 mmol/L Normal 133-145 [facility] Comment on above: Performed By: #### 2 4321-2 #### KEENAN Gonzalez ([id number]) [facility] ([facility]) [address] [place] [address] Urea nitrogen [Mass/Vol] 30 mg/dL High 8-25 [facility] Comment on above: Performed By: #### 2 4321-2 #### KEENAN Gonzalez ([id number]) [facility] ([facility]) [address] [place] [address] CBC panel Auto (Bld)on 03-07 Erythrocyte distribution width (RBC) [Ratio] 11.9 % Normal 11.5-14.5 [facility] Comment on above: Performed By: #### 5 8410-2 ####KEENAN Gonzalez ([id number])[facility] ([facility])[address] [place] [address] Hematocrit (Bld) [Volume fraction] 38.7 % Normal 36.0-46.0 [facility] Comment on above: Performed By: #### 5 8410-2 ####KEENAN Gonzalez ([id number])[facility] (TR[facility])[address] [place] [address] Hemoglobin (Bld) [Mass/Vol] 12.8 g/dL Normal 12.0-16.0 [facility] Comment on above: Performed By: #### 5 8410-2 ####KEENAN Gonzalez ([id number])[facility] ([facility])[address] [place] [address] MCH (RBC) [Entitic mass] 31.9 pg Normal 26.0-34.0 [facility] Comment on above: Performed By: #### 5 8410-2 ####KEENAN Gonzalez ([id number])[facility] (TRIP)[address] [place] [address] MCHC (RBC) [Mass/Vol] 33.1 g/dL Normal 32.0-36.0 [facility] Comment on above: Performed By: #### 5 8410-2 ####KEENAN Gonzalez ([id number])[facility] (TRIP)[address] [place] [address] MCV (RBC) [Entitic vol] 97 fL Normal 80-100 [facility] Comment on above: Performed By: #### 5 8410-2 ####KEENAN Gonzalez ([id number])[facility] (TRIP)[address] [place] [address] Nucleated RBC/100 WBC (Bld) [Ratio] 0.0 /100 WBCs Normal 0.0-0.0 [facility] Comment on above: Performed By: #### 5 8410-2 ####KEENAN Gonzalez ([id number])[facility] (TRIP)[address] [place] [address] Platelet mean volume (Bld) [Entitic vol] 9.2 fL Normal 7.5-11.5 [facility] Comment on above: Performed By: #### 5 8410-2 ####KEENAN Gonzalez ([id number])[facility] (TRIP)[address] [place] [address] Platelets (Bld) [#/Vol] 255 x10*3/uL Normal 150-450 [facility] Comment on above: Performed By: #### 5 8410-2 ####KEENAN Gonzalez ([id number])[facility] (TRIP)[address] [place] [address] RBC (Bld) [#/Vol] 4.01 x10*6/uL Normal 4.00-5.20 [facility] Comment on above: Performed By: #### 5 8410-2 ####KEENAN Gonzalez ([id number])[facility] (TRIP)[address] [place] [address] WBC (Bld) [#/Vol] 9.0 x10*3/uL Normal 4.4-11.3 [facility] Comment on above: Performed By: #### 5 8410-2 ####KEENAN Gonzalez ([id number])[facility] (TRIP)[address] [place] [address] Glucose Test strip manual (B ld) [Mass/Vol]on 03-07-2023 Glucose [Mass/Vol] 167 mg/dL High 74-99 [facility] Comment on above: Performed By: #### 2 4321-2 #### KEENAN Gonzalez ([id number]) [facility] (TRIP) [address] [place] [address] Glucose [Mass/Vol] 202 mg/dL High 74-99 [facility] Comment on above: Performed By: #### 2 4321-2 #### KEENAN Gonzalez ([id number]) [facility] (TRIP) [address] [place] [address] Glucose [Mass/Vol] 235 mg/dL High 74-99 [facility] Comment on above: Performed By: #### 2 4321-2 #### KEENAN Gonzalez ([id number]) [facility] (TRIP) [address] [place] [address] Glucose [Mass/Vol] 142 mg/dL High 74-99 [facility] Comment on above: Performed By: #### 2 4321-2 #### KEENAN Gonzalez ([id number]) [facility] (TRIP) [address] [place] [address] Basic metabolic 2000 panelon 03-06-2023 Anion gap [Moles/Vol] 10 mmol/L Normal <=19 [facility] Comment on above: Performed By: #### 2 4321-2 ####KEENAN Gonzalez ([id number])[facility] (TRIP)[address] [place] [address] Calcium [Mass/Vol] 9.5 mg/dL Normal 8.5-10.4 [facility] Comment on above: Performed By: #### 2 4321-2 ####KEENAN Gonzalez ([id number])[facility] (TRIP)[address] [place] [address] Chloride [Moles/Vol] 102 mmol/L Normal 97-107 [facility] Comment on above: Performed By: #### 2 4321-2 ####KEENAN Gonzalez ([id number])[facility] (TRIP)[address] [place] [address] CO2 [Moles/Vol] 27 mmol/L Normal 24-31 [facility] Comment on above: Performed By: #### 2 4321-2 ####KEENAN Gonzalez ([id number])[facility] (TRIP)[address] [place] [address] Creatinine [Mass/Vol] 0.90 mg/dL Normal 0.40-1.60 [facility] Comment on above: Performed By: #### 2 4321-2 ####KEENAN Gonzalez ([id number])[facility] (TRIP)[address] [place] [address] GFR/1.73 sq M.predicted MDRD (S/P/Bld) [Vol rate/Area] 67 mL/min/1.73m*2 Normal >60 [facility] Comment on above: Result Comment: Calc ulations of estimated GFR are performed using the 2020 CKD-EPI Study Refit equation without the race variable for the IDMS-Traceable creatinine methods. https://jasn.asnjournals.org/content/early//ASN.2020 776112 Performed By: #### 2 4320-2 ####KEENAN Gonzalez ([id number])[facility] (TRIP)[address] [place] [address] Glucose [Mass/Vol] 165 mg/dL High 65-99 [facility] Comment on above: Performed By: #### 2 1-2 ####KEENAN Gonzalez ([id number])[facility] (TRIP)[address] [place] [address] Potassium [Moles/Vol] 4.5 mmol/L Normal 3.4-5.1 [facility] Comment on above: Performed By: #### 2 1-2 ####KEENAN Gonzalez ([id number])[facility] (TRIP)[address] [place] [address] Sodium [Moles/Vol] 139 mmol/L Normal 133-145 [facility] Comment on above: Performed By: #### 2 1-2 ####KEENAN Gonzalez ([id number])[facility] (TRIP)[address] [place] [address] Urea nitrogen [Mass/Vol] 32 mg/dL High 8-25 [facility] Comment on above: Performed By: #### 2 4321-2 ####KEENAN Gonzalez ([id number])[facility] (TRIP)[address] [place] [address] CBC panel Auto (Bld)on 03-06 Erythrocyte distribution width (RBC) [Ratio] 11.9 % Normal 11.5-14.5 [facility] Comment on above: Performed By: #### 5 8410-2 ####KEENAN Gonzalez ([id number])[facility] (TRIP)[address] [place] [address] Hematocrit (Bld) [Volume fraction] 38.6 % Normal 36.0-46.0 [facility] Comment on above: Performed By: #### 5 8410-2 ####KEENAN Gonzalez ([id number])[facility] (TRIP)[address] [place] [address] Hemoglobin (Bld) [Mass/Vol] 13.0 g/dL Normal 12.0-16.0 [facility] Comment on above: Performed By: #### 5 8410-2 ####KEENAN Gonzalez ([id number])[facility] (TRIP)[address] [place] [address] MCH (RBC) [Entitic mass] 32.4 pg Normal 26.0-34.0 [facility] Comment on above: Performed By: #### 5 8410-2 ####KEENAN Gonzalez ([id number])[facility] (TRIP)[address] [place] [address] MCHC (RBC) [Mass/Vol] 33.7 g/dL Normal 32.0-36.0 [facility] Comment on above: Performed By: #### 5 8410-2 ####KEENNA Gonzalez ([id number])[facility] (TRIP)[address] [place] [address] MCV (RBC) [Entitic vol] 96 fL Normal 80-100 [facility] Comment on above: Performed By: #### 5 8410-2 ####KEENAN Gonzalez ([id number])[facility] (TRIP)[address] [place] [address] Nucleated RBC/100 WBC (Bld) [Ratio] 0.0 /100 WBCs Normal 0.0-0.0 [facility] Comment on above: Performed By: #### 5 8410-2 ####KEENAN Gonzalez ([id number])[facility] (TRIP)[address] [place] [address] Platelet mean volume (Bld) [Entitic vol] 9.5 fL Normal 7.5-11.5 [facility] Comment on above: Performed By: #### 5 8410-2 ####KEENAN Gonzalez ([id number])[facility] (TRIP)[address] [place] [address] Platelets (Bld) [#/Vol] 267 x10*3/uL Normal 150-450 [facility] Comment on above: Performed By: #### 5 8410-2 ####KEENAN Gonzalez ([id number])[facility] (TRIP)[address] [place] [address] RBC (Bld) [#/Vol] 4.01 x10*6/uL Normal 4.00-5.20 [facility] Comment on above: Performed By: #### 5 8410-2 ####KEENAN Gonzalez ([id number])[facility] (TRIP)[address] [place] [address] WBC (Bld) [#/Vol] 8.6 x10*3/uL Normal 4.4-11.3 [facility] Comment on above: Performed By: #### 5 8410-2 ####KEENAN Gonzalez ([id number])[facility] (TRIP)[address] [place] [address] CT ANGIO HEAD NECK W AND WO IV CONTRASTon 03-06-2023 CT ANGIO HEAD NECK W AND WO IV CONTRAST Interpreted By: Chanel Akhtar, STUDY: CT ANGIO HEAD NECK W AND WO IV CONTRAST; 03/06/2023 2:41 pm INDICATION: Signs/Symptoms:CVA; COMPARISON: None available. ACCESSION NUMBER(S): [id number] ORDERING CLINICIAN: RENATA LAL TECHNIQUE: Spiral high resolution axial images were obtained through the head, neck and superior mediastinum following bolus administration of intravenous contrast for CT angiography. The data was subsequently post-processed utilizing 3D multi-planar reconstructions, 3D maximum intensity projections, and a tissue segmentation algorithm at a separate workstation under physician supervision. 75 cc Omnipaque 350 IV contrast was administered. FINDINGS: Moderate motion artifact is seen in the lungs without consolidation. There is atelectasis. No airway filling defects seen. Thyroid is unremarkable. Visualized pulmonary vasculature is unremarkable. Moderate motion of the vasculature demonstrated. The ascending thoracic aorta measures 3.4 cm external AP diameter. Mild atherosclerotic disease of the descending thoracic aorta demonstrated. Takeoff of the bilateral common carotid arteries are patent. Bilateral bulbs are patent with mild atherosclerotic disease. Bilateral internal carotid arteries are patent but tortuous. The patient is canted in the gantry. Petrous, clinoid intracavernous carotid arteries are widely patent with mild atherosclerotic disease of the intracavernous carotid arteries. Given the rotation of the head each A1 segment is patent. Each M1 segment is patent. M2 through M4 branches appear patent given the canted in the gantry. 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 Tortuous takeoff of each vertebral artery demonstrated with atherosclerotic disease of the takeoff the right vertebral artery. The left vertebral artery is more tortuous than the right. Both are patent and nearly equal in caliber and contribute to a normal basilar artery which supplies the bilateral posterior cerebral arteries which are patent given the canted in the gantry of the patient. Artifact from fusion hardware with multiple laminectomies in the cervical spine noted. Hyperostosis frontalis interna is seen. IMPRESSION: 1. The patient is canted in the gantry increasing the appearance of tortuosity of the left intracavernous carotid artery before the M1 and A1 segment takeoff. On the sagittal images this appears to be symmetric. In the axial images this suggests slight aneurysmal dilatation to 4 mm that may be accentuated due to the tilt in the axial plane. This is more symmetric in appearance on the coronal reconstructed images with the aneurysmal portion measuring 2.6 mm. This is near the takeoff of the ophthalmic artery but separate from it. 2. Ectatic ascending thoracic aorta. 3. Moderate motion in the lungs. No focal airspace disease suggested. Signed by: Chanel Akhtar 03/07/2023 8:07 AM Dictation workstation: [id number] [facility] Glucose Test strip manual (B ld) [Mass/Vol]on 03-06-2023 Glucose [Mass/Vol] 170 mg/dL High [address] [place] [address] Comment on above: Performed By: #### 2 341-6 ####KEENAN Gonzalez ([id number])[facility] (TRIP)[address] [place] [address] Glucose [Mass/Vol] 170 mg/dL High [address] [place] [address] Comment on above: Performed By: #### 2 341-6 ####KEENAN Gonzalez ([id number])[facility] (TRIP)[address] [place] [address] Glucose [Mass/Vol] 216 mg/dL High [address] [place] [address] Comment on above: Performed By: #### 2 341-6 ####KEENAN Gonzalez ([id number])[facility] (TRIP)[address] [place] [address] Glucose [Mass/Vol] 161 mg/dL High [address] [place] [address] Comment on above: Performed By: #### 2 341-6 ####KEENAN Gonzalez ([id number])[facility] (TRIP)[address] [place] [address] Lipid 1996 panelon Cholesterol [Mass/Vol] 120 mg/dL Low 133-200 [facility] Comment on above: Performed By: #### 2 4331-1 ####KEENAN Gonzalez ([id number])[facility] ()[address] [place] [address] Cholesterol in HDL [Mass/Vol] 35.0 mg/dL Low >50.0 [facility] Comment on above: Result Comment: Teresa elam Cholesterol Education Program (NCFP) guidelines: <40 mg/dL: Low HDL-cholesterol (major risk factor for CHD) >60 mg/dL: High HDL-cholesterol (negativerisk factor for CHD) HDL-cholesterol is affected by a number of factors (e.g., smoking, exercise, hormones, sex and age). Performed By: #### 2 4331-1 ####KEENAN Gonzalez ([id number])[facility] ()[address] [place] [address] Cholesterol in LDL [Mass/Vol] 61 mg/dL Low 65-130 [facility] Comment on above: Performed By: #### 2 4331-1 ####KEENAN Gonzalez ([id number])[facility] ()[address] [place] [address] Cholesterol.total/Felicia sterol in HDL [Mass ratio] 3.4 Normal SEE COMMENT [facility] Comment on above: Result Comment: Acco rding to the [employer], the goal is to maintain the total Cholesterol/HDL ratio at 5-to-1, or lower, with an optimum ratio of 3.5-to-1. Performed By: #### 2 4331-1 ####KEENAN Gonzalez ([id number])[facility] ()[address] [place] [address] Triglyceride [Mass/Vol] 118 mg/dL Normal 40-150 [facility] Comment on above: Performed By: #### 2 4331-1 ####KEENAN Gonzalez ([id number])[facility] ()[address] [place] [address] Cobalaminson 03-05-2023 Cobalamin (Vitamin B12) [Mass/Vol] 1046 pg/mL High 211-911 [facility] Comment on above: Performed By: #### 2 132-9 ####JEANETTE Lua ([id number])[facility] ([facility])[address] [place] [address] Glucose Test strip manual (B ld) [Mass/Vol]on 03-05-2023 Glucose [Mass/Vol] 205 mg/dL High 74-99 [facility] Comment on above: Performed By: #### 2 341-6 ####KEENAN Gonzalez ([id number])[facility] ([facility])[address] [place] [address] Glucose [Mass/Vol] 163 mg/dL High 74-99 [facility] Comment on above: Performed By: #### 5 902-2 #### KEENAN Gonzalez ([id number]) [facility] (TRIP) [address] [place] [address] Glucose [Mass/Vol] 216 mg/dL High 74-99 [facility] Comment on above: Performed By: #### 5 902-2 #### KEENAN Gonzalez ([id number]) [facility] (TRIP) [address] [place] [address] Glucose [Mass/Vol] 171 mg/dL High -99 [facility] Comment on above: Performed By: #### 5 902-2 #### KEENAN Gonzalez ([id number]) [facility] (TRIP) [address] [place] [address] MR BRAIN WO IV CONTRASTon MR BRAIN WO IV CONTRAST Interpreted By: Chanel Akhtar, STUDY: MR BRAIN WO IV CONTRAST; 03/05/2023 11:41 am INDICATION: Signs/Symptoms:Persisten t confusion, trouble following commands. COMPARISON: CT brain 01 March 2023 and MR brain 02 September 2016. ACCESSION NUMBER(S): [id number] ORDERING CLINICIAN: ELENI PURCELL TECHNIQUE: PROCEDURE: Multiplanar, multisequence MRI of the brain performed on a 1.5 Venessa MRI without contrast. DWI and ADC map are performed as well. FINDINGS: Faint 2 mm area of restricted diffusion seen in the subcortical right parietal lobe with ADC correlate. The FLAIR and T2 weighted sequence demonstrate no abnormality in this location. Moderate periventricular and scattered supratentorial increased signal intensity on FLAIR and T2 weighted sequence is also seen in the carlito consistent with chronic microvascular ischemic change. Symmetric volume loss of the cerebral more than cerebellar hemispheres. No intra-axial or extra-axial mass or signal intensity to suggest abnormal blood products. 7th and 8th cranial nerve complex and cerebellopontine angles are unremarkable. Atrophy of the corpus callosum is seen. There is marked atrophy of the pituitary. No abnormality in the region of the pineal gland. No cerebellar tonsillar ectopia. Carlito, medulla and cervical spinal cord are unremarkable. Tiny old lacunar infarct left thalamus is seen. Iumb-ny-edfaocbe motion artifact is seen on the axial gradient > FLAIR or T2 weighted sequence. Prominent Virchow Kal spaces are seen. Brainstem is otherwise unremarkable. Globes and orbits are unremarkable. Mild ethmoid mucosal thickening is seen. The remainder of the paranasal sinuses and the mastoids are unremarkable as is the scalp and calvarium. IMPRESSION: 1. Tiny foci of faint restricted diffusion may be due to subacute infarcts in the subcortical bilateral parietal lobes with ADC correlates, but no signal intensity on FLAIR or T2 weighted sequence in these regions. Discussed with Eleni York, nurse practitioner caring for the patient. 2. Symmetric volume loss of the cerebral more than cerebellar hemispheres. 3. Scattered supratentorial white matter increased signal intensity on FLAIR and T2 weighted sequence likely due to chronic microvascular ischemic change. Signed by: Chanel Akhtar 03/05/2023 4:40 PM Dictation workstation: [id number] [facility] US CAROTID ARTERY DUPLE X BILATERALon 03-05-2023 [facility] US CAROTID ARTERY DUPLEX BILATERAL Interpreted By: Leonidas Remy, STUDY: [id number]; 03/05/2023 5:39 pm INDICATION: Signs/Symptoms:CVA : /possible CVA COMPARISON: 03/13/2020 ACCESSION NUMBER(S): [id number] ORDERING CLINICIAN: ELENI PURCELL TECHNIQUE: Carotid Examination using B-mode, color flow and doppler spectral analysis. FINDINGS: RIGHT CAROTID SYSTEM DCCA PSV/EDV: 49.8 / 13 cm/sec ECA PSV: 71.9 cm/sec PICA PSV/EDV: 68.2 / 14.2 cm/sec JULIANNE PSV/EDV: 63.3 / 17.9 cm/sec DICA PSV/EDV: 87.8 / 17.9 cm/sec ALIX/VCC Ratio: 1.8 VERT : ANTEGRADE LEFT CAROTID SYSTEM DCCA PSV/EDV: 57 / 15.5 cm/sec ECA PSV: 51.1 cm/sec PICA PSV/EDV: 39 / 9 cm/sec JULIANNE PSV/EDV: 45 / 9 cm/sec DICA PSV/EDV: 85 / 25 cm/sec ALIX/VCC Ratio: 1.5 VERT : ANTEGRADE DUPLEX IMAGES: Right Carotid System: This carotid bifurcation is widely patent. Mild plaque is noted within the internal carotid artery. Left Carotid System: This carotid bifurcation is widely patent. Mild plaque is noted within the internal carotid artery. Interpretation is based upon the IAC recommendations which are the 2020 modified diagnostic criteria adopted from the 2003 Society of Radiologist and Ultrasound Consensus Conference. IMPRESSION: Less than 50% stenosis of the ICAs bilaterally. MACRO: None. Signed by: Leonidas Remy 03/05/2023 6:37 PM Dictation workstation: [id number] [facility] Basic metabolic 2000 panelon 03-04-2023 Anion gap [Moles/Vol] 14 mmol/L Normal <=19 [facility] Comment on above: Performed By: #### 1 4979-9 #### KEENAN Gonzalez ([id number]) [facility] (TRIP) [address] [place] [address] Calcium [Mass/Vol] 9.7 mg/dL Normal 8.5-10.4 [facility] Comment on above: Performed By: #### 1 4979-9 #### KEENAN Gonzalez ([id number]) [facility] (TRIP) [address] [place] [address] Chloride [Moles/Vol] 102 mmol/L Normal 97-107 [facility] Comment on above: Performed By: #### 1 4979-9 #### KEENAN Gonzalez ([id number]) [facility] (TRIP) [address] [place] [address] CO2 [Moles/Vol] 25 mmol/L Normal 24-31 [facility] Comment on above: Performed By: #### 1 4979-9 #### KEENAN Gonzalez ([id number]) [facility] (TRIP) [address] [place] [address] Creatinine [Mass/Vol] 0.90 mg/dL Normal 0.40-1.60 [facility] Comment on above: Performed By: #### 1 4979-9 #### KEENAN Gonzalez ([id number]) [facility] (TRIP) [address] [place] [address] GFR/1.73 sq M.predicted MDRD (S/P/Bld) [Vol rate/Area] 67 mL/min/1.73m*2 Normal >60 [facility] Comment on above: Result Comment: Calc ulations of estimated GFR are performed using the 2020 CKD-EPI Study Refit equation without the race variable for the IDMS-Traceable creatinine methods. https://jasn.asnjournals.org/content/early//ASN.2020 769413 Performed By: #### 1 4979-9 #### KEENAN Gonzalez ([id number]) [facility] (TRIP) [address] [place] [address] Glucose [Mass/Vol] 179 mg/dL High 65-99 [facility] Comment on above: Performed By: #### 1 4979-9 #### KEENAN Gonzalez ([id number]) [facility] (TRIP) [address] [place] [address] Potassium [Moles/Vol] 3.7 mmol/L Normal 3.4-5.1 [facility] Comment on above: Performed By: #### 1 4979-9 #### KEENAN Gonzalez (83089) [facility] (TRIP) [address] [place] [address] Sodium [Moles/Vol] 141 mmol/L Normal 133-145 [facility] Comment on above: Performed By: #### 1 4979-9 #### KEENAN Gonzalez ([id number]) [facility] (TRIP) [address] [place] [address] Urea nitrogen [Mass/Vol] 28 mg/dL High 8-25 [facility] Comment on above: Performed By: #### 1 4979-9 #### KEENAN Gonzalez ([id number]) [facility] (TRIP) [address] [place] [address] CBC panel Auto (Bld)on 03-04 Erythrocyte distribution width (RBC) [Ratio] 12.0 % Normal 11.5-14.5 [facility] Comment on above: Performed By: #### 1 4979-9 #### KEENAN Gonzalez ([id number]) [facility] (TRIP) [address] [place] [address] Hematocrit (Bld) [Volume fraction] 39.3 % Normal 36.0-46.0 [facility] Comment on above: Performed By: #### 1 4979-9 #### KEENAN Gonzalez ([id number]) [facility] (TRIP) [address] [place] [address] Hemoglobin (Bld) [Mass/Vol] 13.2 g/dL Normal 12.0-16.0 [facility] Comment on above: Performed By: #### 1 4979-9 #### KEENAN Gonzalez ([id number]) [facility] (TRIP) [address] [place] [address] MCH (RBC) [Entitic mass] 31.8 pg Normal 26.0-34.0 [facility] Comment on above: Performed By: #### 1 4979-9 #### KEENAN Gonzalez ([id number]) [facility] (TRIP) [address] [place] [address] MCHC (RBC) [Mass/Vol] 33.6 g/dL Normal 32.0-36.0 [facility] Comment on above: Performed By: #### 1 4979-9 #### KEENAN Gonzalez ([id number]) [facility] (TRIP) [address] [place] [address] MCV (RBC) [Entitic vol] 95 fL Normal 80-100 [facility] Comment on above: Performed By: #### 1 4979-9 #### KEENAN Gonzalez ([id number]) [facility] (TRIP) [address] [place] [address] Nucleated RBC/100 WBC (Bld) [Ratio] 0.0 /100 WBCs Normal 0.0-0.0 [facility] Comment on above: Performed By: #### 1 4979-9 #### KEENAN Gonzalez ([id number]) [facility] (TRIP) [address] [place] [address] Platelet mean volume (Bld) [Entitic vol] 9.2 fL Normal 7.5-11.5 [facility] Comment on above: Performed By: #### 1 4979-9 #### KEENAN Gonzalez ([id number]) [facility] (TRIP) [address] [place] [address] Platelets (Bld) [#/Vol] 278 x10*3/uL Normal 150-450 [facility] Comment on above: Performed By: #### 1 4979-9 #### KEENAN Gonzalez ([id number]) [facility] (TRIP) [address] [place] [address] RBC (Bld) [#/Vol] 4.15 x10*6/uL Normal 4.00-5.20 [facility] Comment on above: Performed By: #### 1 4979-9 #### KEENAN Gonzalez ([id number]) [facility] (TRIP) [address] [place] [address] WBC (Bld) [#/Vol] 9.1 x10*3/uL Normal 4.4-11.3 [facility] Comment on above: Performed By: #### 1 4979-9 #### KEENAN Gonzalez ([id number]) [facility] ([facility]) [address] [place] [address] Glucose Test strip manual (B ld) [Mass/Vol]on 03-04-2023 Glucose [Mass/Vol] 180 mg/dL High 7499 [facility] Comment on above: Performed By: #### 5 902-2 #### KEENAN Gonzalez ([id number]) [facility] ([facility]) [address] [place] [address] Glucose [Mass/Vol] 165 mg/dL High 7499 [facility] Comment on above: Performed By: #### 5 902-2 #### KEENAN Gonzalez ([id number]) [facility] ([facility]) [address] [place] [address] Glucose [Mass/Vol] 155 mg/dL High 74-99 [facility] Comment on above: Performed By: #### 5 902-2 #### KEENAN Gonzalez ([id number]) [facility] ([facility]) [address] [place] [address] Glucose [Mass/Vol] 166 mg/dL High 74-99 [facility] Comment on above: Performed By: #### 5 902-2 #### KEENAN Gonzalez ([id number]) [facility] ([facility]) [address] [place] [address] TRANSTHORACIC ECHO (TTE) [facility] 03-04-2023 TRANSTHORACIC ECHO (TTE) COMPLETE [facility] [address] [place] [address] TRANSTHORACIC ECHOCARDIOGRAM REPORT Patient Name: CINDY Lopez Physician: [id number] Vern Bledsoe MD Study Date: 03/04/2023 Ordering Provider: [id number] SUPRIYA HOFFMAN MRN/PID: [id number] Fellow: Nurse: Date of /Age: 3 1950 Cia Agent: Edyta Concepcion RDCS years Gender: F Additional Staff: Height: 167.64 cm Admit Date: Weight: 72.58 kg Admission Status: BSA: 1.82 m2 Department Location: [facility] Blood Pressure: 133 /70 mmHg Study Type: TRANSTHORACIC ECHO (TTE) COMPLETE Diagnosis/ICD: Disorientation, unspecified-R41.0; Shortness of breath-R06.02 Indication: SOB, Altered mental status Patient History: Pertinent History: Dyspnea and Altered mental status. Study Detail: The following Echo studies were performed: 2D, M-Mode, Doppler and color flow. PHYSICIAN INTERPRETATION: Left Ventricle: Left ventricular systolic function is normal, with an estimated ejection fraction of 50-55%. There are no regional wall motion abnormalities. The left ventricular cavity size is upper limits of normal. Spectral Doppler shows an impaired relaxation pattern of left ventricular diastolic filling. Left Atrium: The left atrium is mildly dilated. Right Ventricle: The right ventricle is upper limits of normal in size. There is normal right ventricular global systolic function. Right Atrium: The right atrium is upper limits of normal in size. Aortic Valve: The aortic valve is probably trileaflet. There is trivial aortic valve regurgitation. The peak instantaneous gradient of the aortic valve is 8.4 mmHg. Mitral Valve: The mitral valve is normal in structure. There is trace mitral valve regurgitation. Tricuspid Valve: The tricuspid valve is structurally normal. There is mild to moderate tricuspid regurgitation. Pulmonic Valve: The pulmonic valve is not well visualized. There is trace pulmonic valve regurgitation. Pericardium: There is no pericardial effusion noted. Aorta: The aortic root was not well visualized. CONCLUSIONS: 1. Left ventricular systolic function is normal with a 50-55% estimated ejection fraction. 2. Spectral Doppler shows an impaired relaxation pattern of left ventricular diastolic filling. 3. Mild to moderate tricuspid regurgitation. QUANTITATIVE DATA SUMMARY: 2D MEASUREMENTS: Normal Ranges: LAs: 3.40 cm (2.7-4.0cm) LA VOLUME: Normal Ranges: LA Volume Index: 32.7 ml/m2 RA VOLUME BY A/L METHOD: Normal Ranges: RA Area A4C: 20.9 cm2 M-MODE MEASUREMENTS: Normal Ranges: Ao Root: 2.80 cm (2.0-3.7cm) AORTA MEASUREMENTS: Normal Ranges: Asc Ao, d: 2.40 cm (2.1-3.4cm) LV DIASTOLIC FUNCTION: Normal Ranges: MV Peak E: 0.87 m/s (0.7-1.2 m/s) MV Peak A: 0.39 m/s (0.42-0.7 m/s) E/A Ratio: 2.23 (1.0-2.2) MV lateral e' 0.13 m/s MV medial e' 0.08 m/s MITRAL VALVE: Normal Ranges: MV DT: 139 msec (150-240msec) AORTIC VALVE: Normal Ranges: AoV Vmax: 1.45 m/s (<=1.7m/s) AoV Peak P.4 mmHg (<20mmHg) LVOT Max Luis: 0.79 m/s (<=1.1m/s) LVOT Diameter: 1.80 cm (1.8-2.4cm) AoV Area,Vmax: 1.38 cm2 (2.5-4.5cm2) RIGHT VENTRICLE: RV Basal 2.74 cm RV Mid 2.79 cm RV Major 6.6 cm TAPSE: 12.6 mm RV s' 0.07 m/s TRICUSPID VALVE/RVSP: Normal Ranges: Peak TR Velocity: 2.48 m/s RV Syst Pressure: 27.6 mmHg (< 30mmHg) IVC Diam: 1.30 cm [id number] Vern Bledsoe MD Electronically signed on 03/05/2023 at 3:31:37 PM Final [facility] Glucose Test strip manual (B ld) [Mass/Vol]on 03-03-2023 Glucose [Mass/Vol] 152 mg/dL High [address] [place] [address] Comment on above: Performed By: #### 1 4979-9 #### KEENAN Gonzalez ([id number]) [facility] ([facility]) [address] [place] [address] Glucose [Mass/Vol] 173 mg/dL High [address] [place] [address] Comment on above: Performed By: #### 1 4979-9 #### KEENAN Gonzalez ([id number]) [facility] ([facility]) [address] [place] [address] Glucose [Mass/Vol] 180 mg/dL High [address] [place] [address] Comment on above: Performed By: #### 1 4979-9 #### KEENAN Gonzalez ([id number]) [facility] ([facility]) [address] [place] [address] Glucose [Mass/Vol] 178 mg/dL High [address] [place] [address] Comment on above: Performed By: #### 1 4979-9 #### KEENAN Gonzalez ([id number]) [facility] ([facility]) [address] [place] [address] Bacteria identifiedon 2022 Bacteria identified Cx Nom (U) Test: Urine culture Specimen Source: Clean Catch/Voided Specimen Type: Urine Specimen Date: 03/02/2023 1:01 AM Result Date: 03/03/2023 9:42 AM Result Status: Final result Abnormal: No Resulting Lab: [facility] [id number] [place] [address] CULTURE No significant growth [facility] Comment on above: Performed By: #### 1 4979-9 #### KEENAN Gonzalez ([id number]) [facility] ([facility]) [address] [place] [address] DRUG SCREEN,URINEon 03-02-20 Amphetamines Screen method >1000 ng/mL Ql (U) Negative [facility] Comment on above: Order Comment: These toxicological screening tests provide unconfirmed qualitative measurements to aid in treatment and diagnosis in cases of drug use or overdose. This test is used only for medical purposes. A positive result does not indicate or measure intoxication. For specific test performance or pathologist consultation, please contact the Laboratory.The following threshold concentrations are used for these analyses.Values at or above the threshold concentration are reported as positive. Values below the threshold are reported as negative.Drug /Screening ThresholdTHC/CANNABINOIDS................50 ng/mlMETHADONE......................300 ng/mlCOCAINE METABOLITES............300 ng/mlBENZODIAZEPINE.................300 ng/mlPCP.............................25 ng/mlOPIATE.........................300 ng/mlAMPHETAMINE/ECSTASY...........1000 ng/mlBARBITURATE....................200 ng/mlOXYCODONE......................100 ng/mlFENTANYL.........................5 ng/ml Performed By: #### 5 7021-8 #### KEENAN Gonzalez ([id number]) [facility] ([facility]) [address] [place] [address] Barbiturates Screen method >300 ng/mL Ql (U) Negative [facility] Comment on above: Order Comment: These toxicological screening tests provide unconfirmed qualitative measurements to aid in treatment and diagnosis in cases of drug use or overdose. This test is used only for medical purposes. A positive result does not indicate or measure intoxication. For specific test performance or pathologist consultation, please contact the Laboratory.The following threshold concentrations are used for these analyses.Values at or above the threshold concentration are reported as positive. Values below the threshold are reported as negative.Drug /Screening ThresholdTHC/CANNABINOIDS................50 ng/mlMETHADONE......................300 ng/mlCOCAINE METABOLITES............300 ng/mlBENZODIAZEPINE.................300 ng/mlPCP.............................25 ng/mlOPIATE.........................300 ng/mlAMPHETAMINE/ECSTASY...........1000 ng/mlBARBITURATE....................200 ng/mlOXYCODONE......................100 ng/mlFENTANYL.........................5 ng/ml Performed By: #### 5 7021-8 #### KEENAN Gonzalez ([id number]) [facility] ([facility]) [address] [place] [address] Benzodiazepines Screen method >300 ng/mL Ql (U) Negative [facility] Comment on above: Order Comment: These toxicological screening tests provide unconfirmed qualitative measurements to aid in treatment and diagnosis in cases of drug use or overdose. This test is used only for medical purposes. A positive result does not indicate or measure intoxication. For specific test performance or pathologist consultation, please contact the Laboratory.The following threshold concentrations are used for these analyses.Values at or above the threshold concentration are reported as positive. Values below the threshold are reported as negative.Drug /Screening ThresholdTHC/CANNABINOIDS................50 ng/mlMETHADONE......................300 ng/mlCOCAINE METABOLITES............300 ng/mlBENZODIAZEPINE.................300 ng/mlPCP.............................25 ng/mlOPIATE.........................300 ng/mlAMPHETAMINE/ECSTASY...........1000 ng/mlBARBITURATE....................200 ng/mlOXYCODONE......................100 ng/mlFENTANYL.........................5 ng/ml Performed By: #### 5 7021-8 #### KEENAN Gonzalez ([id number]) [facility] ([facility]) [address] [place] [address] Benzoylecgonine Screen method >300 ng/mL Ql (U) Negative [facility] Comment on above: Order Comment: These toxicological screening tests provide unconfirmed qualitative measurements to aid in treatment and diagnosis in cases of drug use or overdose. This test is used only for medical purposes. A positive result does not indicate or measure intoxication. For specific test performance or pathologist consultation, please contact the Laboratory.The following threshold concentrations are used for these analyses.Values at or above the threshold concentration are reported as positive. Values below the threshold are reported as negative.Drug /Screening ThresholdTHC/CANNABINOIDS................50 ng/mlMETHADONE......................300 ng/mlCOCAINE METABOLITES............300 ng/mlBENZODIAZEPINE.................300 ng/mlPCP.............................25 ng/mlOPIATE.........................300 ng/mlAMPHETAMINE/ECSTASY...........1000 ng/mlBARBITURATE....................200 ng/mlOXYCODONE......................100 ng/mlFENTANYL.........................5 ng/ml Performed By: #### 5 7021-8 #### KEENAN Gonzalez ([id number]) [facility] ([facility]) [address] [place] [address] Cannabinoids Screen method >50 ng/mL Ql (U) Negative Normal [facility] Comment on above: Order Comment: These toxicological screening tests provide unconfirmed qualitative measurements to aid in treatment and diagnosis in cases of drug use or overdose. This test is used only for medical purposes. A positive result does not indicate or measure intoxication. For specific test performance or pathologist consultation, please contact the Laboratory.The following threshold concentrations are used for these analyses.Values at or above the threshold concentration are reported as positive. Values below the threshold are reported as negative.Drug /Screening ThresholdTHC/CANNABINOIDS................50 ng/mlMETHADONE......................300 ng/mlCOCAINE METABOLITES............300 ng/mlBENZODIAZEPINE.................300 ng/mlPCP.............................25 ng/mlOPIATE.........................300 ng/mlAMPHETAMINE/ECSTASY...........1000 ng/mlBARBITURATE....................200 ng/mlOXYCODONE......................100 ng/mlFENTANYL.........................5 ng/ml Performed By: #### 5 7021-8 #### KEENAN Gonzalez ([id number]) [facility] ([facility]) [address] [place] [address] fentaNYL+Norfentanyl Screen Ql (U) Negative [facility] Comment on above: Order Comment: These toxicological screening tests provide unconfirmed qualitative measurements to aid in treatment and diagnosis in cases of drug use or overdose. This test is used only for medical purposes. A positive result does not indicate or measure intoxication. For specific test performance or pathologist consultation, please contact the Laboratory.The following threshold concentrations are used for these analyses.Values at or above the threshold concentration are reported as positive. Values below the threshold are reported as negative.Drug /Screening ThresholdTHC/CANNABINOIDS................50 ng/mlMETHADONE......................300 ng/mlCOCAINE METABOLITES............300 ng/mlBENZODIAZEPINE.................300 ng/mlPCP.............................25 ng/mlOPIATE.........................300 ng/mlAMPHETAMINE/ECSTASY...........1000 ng/mlBARBITURATE....................200 ng/mlOXYCODONE......................100 ng/mlFENTANYL.........................5 ng/ml Performed By: #### 5 7021-8 #### KEENAN Gonzalez ([id number]) [facility] ([facility]) [address] [place] [address] Methadone Ql (U) Negative Normal [facility] Comment on above: Order Comment: These toxicological screening tests provide unconfirmed qualitative measurements to aid in treatment and diagnosis in cases of drug use or overdose. This test is used only for medical purposes. A positive result does not indicate or measure intoxication. For specific test performance or pathologist consultation, please contact the Laboratory.The following threshold concentrations are used for these analyses.Values at or above the threshold concentration are reported as positive. Values below the threshold are reported as negative.Drug /Screening ThresholdTHC/CANNABINOIDS................50 ng/mlMETHADONE......................300 ng/mlCOCAINE METABOLITES............300 ng/mlBENZODIAZEPINE.................300 ng/mlPCP.............................25 ng/mlOPIATE.........................300 ng/mlAMPHETAMINE/ECSTASY...........1000 ng/mlBARBITURATE....................200 ng/mlOXYCODONE......................100 ng/mlFENTANYL.........................5 ng/ml Performed By: #### 5 7021-8 #### KEENAN Gonzalez ([id number]) [facility] ([facility]) [address] [place] [address] Opiates Screen method >300 ng/mL Ql (U) Negative Normal [facility] Comment on above: Order Comment: These toxicological screening tests provide unconfirmed qualitative measurements to aid in treatment and diagnosis in cases of drug use or overdose. This test is used only for medical purposes. A positive result does not indicate or measure intoxication. For specific test performance or pathologist consultation, please contact the Laboratory.The following threshold concentrations are used for these analyses.Values at or above the threshold concentration are reported as positive. Values below the threshold are reported as negative.Drug /Screening ThresholdTHC/CANNABINOIDS................50 ng/mlMETHADONE......................300 ng/mlCOCAINE METABOLITES............300 ng/mlBENZODIAZEPINE.................300 ng/mlPCP.............................25 ng/mlOPIATE.........................300 ng/mlAMPHETAMINE/ECSTASY...........1000 ng/mlBARBITURATE....................200 ng/mlOXYCODONE......................100 ng/mlFENTANYL.........................5 ng/ml Performed By: #### 5 7021-8 #### KEENAN Gonzalez ([id number]) [facility] ([facility]) [address] [place] [address] oxyCODONE Ql (U) Negative Normal [facility] Comment on above: Order Comment: These toxicological screening tests provide unconfirmed qualitative measurements to aid in treatment and diagnosis in cases of drug use or overdose. This test is used only for medical purposes. A positive result does not indicate or measure intoxication. For specific test performance or pathologist consultation, please contact the Laboratory.The following threshold concentrations are used for these analyses.Values at or above the threshold concentration are reported as positive. Values below the threshold are reported as negative.Drug /Screening ThresholdTHC/CANNABINOIDS................50 ng/mlMETHADONE......................300 ng/mlCOCAINE METABOLITES............300 ng/mlBENZODIAZEPINE.................300 ng/mlPCP.............................25 ng/mlOPIATE.........................300 ng/mlAMPHETAMINE/ECSTASY...........1000 ng/mlBARBITURATE....................200 ng/mlOXYCODONE......................100 ng/mlFENTANYL.........................5 ng/ml Performed By: #### 5 7021-8 #### KEENAN Gonzalez ([id number]) [facility] ([facility]) [address] [place] [address] Phencyclidine Screen method >25 ng/mL Ql (U) Negative Normal [facility] Comment on above: Order Comment: These toxicological screening tests provide unconfirmed qualitative measurements to aid in treatment and diagnosis in cases of drug use or overdose. This test is used only for medical purposes. A positive result does not indicate or measure intoxication. For specific test performance or pathologist consultation, please contact the Laboratory.The following threshold concentrations are used for these analyses.Values at or above the threshold concentration are reported as positive. Values below the threshold are reported as negative.Drug /Screening ThresholdTHC/CANNABINOIDS................50 ng/mlMETHADONE......................300 ng/mlCOCAINE METABOLITES............300 ng/mlBENZODIAZEPINE.................300 ng/mlPCP.............................25 ng/mlOPIATE.........................300 ng/mlAMPHETAMINE/ECSTASY...........1000 ng/mlBARBITURATE....................200 ng/mlOXYCODONE......................100 ng/mlFENTANYL.........................5 ng/ml Performed By: #### 5 7021-8 #### KEENAN Gonzalez ([id number]) [facility] ([facility]) [address] [place] [address] Glucose Test strip manual (B ld) [Mass/Vol]on 03-02-2023 Glucose [Mass/Vol] 144 mg/dL High 74-99 [facility] Comment on above: Performed By: #### 1 4979-9 #### KEENAN Gonzalez ([id number]) [facility] ([facility]) [address] [place] [address] Glucose [Mass/Vol] 182 mg/dL High 74-99 [facility] Comment on above: Performed By: #### 1 4979-9 #### KEENAN Gonzalez ([id number]) [facility] ([facility]) [address] [place] [address] Glucose [Mass/Vol] 161 mg/dL High 74-99 [facility] Comment on above: Performed By: #### 1 4979-9 #### KEENAN Gonzalez ([id number]) [facility] ([facility]) [address] [place] [address] Glucose [Mass/Vol] 152 mg/dL High -[address] [place] [address] Comment on above: Performed By: #### 5 7021-8 #### KEENAN Gonzalez ([id number]) [facility] ([facility]) [address] [place] [address] TSH DL <= 0.05 mIU/L Qnon TSH Qn 0.10 m[IU]/L Low 0.27-4.20 [facility] Comment on above: Performed By: #### 5 7021-8 #### KEENAN Gonzalez ([id number]) [facility] ([facility]) [address] [place] [address] Thyroxine.freeon 03-02-2023 Free T4 [Mass/Vol] 4.10 ng/dL High 0.90-1.70 [facility] Comment on above: Performed By: #### 5 7021-8 #### KEENAN Gonzalez ([id number]) [facility] ([facility]) [address] [place] [address] Troponin T.cardiacon 023 Troponin T.cardiac [Mass/Vol] 21 ng/L High <=15 [facility] Comment on above: Result Comment: Cons istent with previous results Performed By: #### 5 7021-8 #### KEENAN Gonzalez ([id number]) [facility] ([facility]) [address] [place] [address] Troponin T.cardiac [Mass/Vol] 22 ng/L High <=15 [facility] Comment on above: Result Comment: Cons istent with previous results Performed By: #### 5 7021-8 #### KEENAN Gonzalez ([id number]) [facility] ([facility]) [address] [place] [address] Urinalysis complete panel (U )on 03-02-2023 Appearance (U) Clear Normal Clear [facility] Comment on above: Performed By: #### 5 7021-8 #### KEENAN Gonzalez ([id number]) [facility] ([facility]) [address] [place] [address] Bilirubin (U) [Mass/Vol] Negative Normal NEGATIVE [facility] Comment on above: Performed By: #### 5 7021-8 #### KEENAN Gonzalez ([id number]) [facility] ([facility]) [address] [place] [address] Color (U) Yellow Normal Light-Yello w, Yellow, Dark-Yellow [facility] Comment on above: Performed By: #### 5 7021-8 #### KEENAN Gonzalez ([id number]) [facility] ([facility]) [address] [place] [address] Glucose Auto test strip (U) [Mass/Vol] Normal Normal Normal [facility] Comment on above: Performed By: #### 5 7021-8 #### KEENAN Gonzalez ([id number]) [facility] ([facility]) [address] [place] [address] Ketones (U) [Mass/Vol] Negative [facility]: Performed By: #### 5 7021-8 #### KEENAN Gonzalez ([id number]) [facility] ([facility]) [address] [place] [address] Leukocyte esterase Auto test strip Ql (U) 75 Darlyn/???L Abnormal NEGATIVE [facility] Comment on above: Performed By: #### 5 7021-8 #### KEENAN Gonzalez ([id number]) [facility] ([facility]) [address] [place] [address] Nitrite Auto test strip Ql (U) Negative Normal NEGATIVE [facility] Comment on above: Performed By: #### 5 7021-8 #### KEENAN Gonzalez ([id number]) [facility] ([facility]) [address] [place] [address] pH (U) 5.5 [pH] Normal 5.0, 5.5, 6.0, 6.5, 7.0, 7.5, 8.0 [facility] Comment on above: Performed By: #### 5 7021-8 #### KEENAN Gonzalez ([id number]) [facility] ([facility]) [address] [place] [address] Protein (U) [Mass/Vol] 30 (1+) Abnormal NEGAT JUAN, 10 (TRACE), 20 (TRACE) [facility] Comment on above: Performed By: #### 5 7021-8 #### KEENAN Gonzalez ([id number]) [facility] ([facility]) [address] [place] [address] RBC (U) [#/Vol] 0.03 (TRACE) Abnormal NEGATIVE [facility] Comment on above: Performed By: #### 5 7021-8 #### KEENAN Gonzalez ([id number]) [facility] ([facility]) [address] [place] [address] Specific gravity (U) [Rel density] 1.019 Normal 1.005-1.035 [facility] Comment on above: Performed By: #### 5 7021-8 #### KEENAN Gonzalez ([id number]) [facility] ([facility]) [address] [place] [address] Urobilinogen (U) [Mass/Vol] Normal Normal Normal [facility] Comment on above: Performed By: #### 5 7021-8 #### KEENAN Gonzalez ([id number]) [facility] ([facility]) [address] [place] [address] Urinalysis microscopic panel Auto Ql (U)on 03-02-2023 Bacteria Auto (Urine sed) [#/Area] 2+ /HPF Abnormal NONE SEEN [facility] Comment on above: Performed By: #### 5 7021-8 #### KENEAN Gonzalez ([id number]) [facility] ([facility]) [address] [place] [address] Epithelial cells.squamous Auto (Urine sed) [#/Area] 1-9 (SPARSE) Normal Reference range not established . [facility] Comment on above: Performed By: #### 5 7021-8 #### KEENAN Gonzalez ([id number]) [facility] ([facility]) [address] [place] [address] Hyaline casts Auto (Urine sed) [#/Area] 2+ /LPF Abnormal NONE [facility] Comment on above: Performed By: #### 5 7021-8 #### KEENAN Gonzalez ([id number]) [facility] ([facility]) [address] [place] [address] Leukocyte clumps Auto (Urine sed) [#/Area] FEW Normal Reference range not established . [facility] Comment on above: Performed By: #### 5 7021-8 #### KEENAN Gonzalez ([id number]) [facility] ([facility]) [address] [place] [address] RBC Auto (Urine sed) [#/Area] NONE Normal NONE, 1-2, 3-5 [facility] Comment on above: Performed By: #### 5 7021-8 #### KEENAN Gonzalez ([id number]) [facility] ([facility]) [address] [place] [address] Transitional cells Computer assisted (U) [#/Area] 1-2 (FEW) Normal Reference range not established . [facility] Comment on above: Performed By: #### 5 7021-8 #### KEENAN Gonzalez ([id number]) [facility] ([facility]) [address] [place] [address] WBC Auto (Urine sed) [#/Area] 1-5 Normal 1-5, NONE [facility] Comment on above: Performed By: #### 5 7021-8 #### KEENAN Gonzalez ([id number]) [facility] ([facility]) [address] [place] [address] Basic metabolic 2000 panelon 03-01-2023 Anion gap [Moles/Vol] 15 mmol/L Normal <=19 [facility] Comment on above: Performed By: #### 2 4321-2 #### KEENAN Gonzalez ([id number]) [facility] ([facility]) [address] [place] [address] Calcium [Mass/Vol] 10.2 mg/dL Normal 8.5-10.4 [facility] Comment on above: Performed By: #### 2 4321-2 #### KEENAN Gonzalez ([id number]) [facility] ([facility]) [address] [place] [address] Chloride [Moles/Vol] 95 mmol/L Low 97-107 [facility] Comment on above: Performed By: #### 2 4321-2 #### KEENAN Gonzalez ([id number]) [facility] ([facility]) [address] [place] [address] CO2 [Moles/Vol] 23 mmol/L Low 24-31 [facility] Comment on above: Performed By: #### 2 4321-2 #### KEENAN Gonzalez ([id number]) [facility] ([facility]) [address] [place] [address] Creatinine [Mass/Vol] 1.20 mg/dL Normal 0.40-1.60 [facility] Comment on above: Performed By: #### 2 4321-2 #### KEENAN Gonzalez ([id number]) [facility] ([facility]) [address] [place] [address] GFR/1.73 sq M.predicted MDRD (S/P/Bld) [Vol rate/Area] 48 mL/min/1.73m*2 Low >60 [facility] Comment on above: Result Comment: Calc ulations of estimated GFR are performed using the 2020 CKD-EPI Study Refit equation without the race variable for the IDMS-Traceable creatinine methods. https://jasn.asnjournals.org/content//ASN.2020 488279 Performed By: #### 2 4321-2 #### KEENAN Gonzalez ([id number]) [facility] ([facility]) [address] [place] [address] Glucose [Mass/Vol] 219 mg/dL High 65-99 [facility] Comment on above: Performed By: #### 2 4321-2 #### KEENAN Gonzalez ([id number]) [facility] ([facility]) [address] [place] [address] Potassium [Moles/Vol] 4.1 mmol/L Normal 3.4-5.1 [facility] Comment on above: Performed By: #### 2 4321-2 #### KEENAN Gonzalez ([id number]) [facility] ([facility]) [address] [place] [address] Sodium [Moles/Vol] 133 mmol/L Normal 133-145 [facility] Comment on above: Performed By: #### 2 4321-2 #### KEENAN Gonzalez ([id number]) [facility] ([facility]) [address] [place] [address] Urea nitrogen [Mass/Vol] 33 mg/dL High 8-25 [facility] Comment on above: Performed By: #### 2 4321-2 #### KEENAN Gonzalez ([id number]) [facility] ([facility]) [address] [place] [address] CBC W Auto Differential pane l (Bld)on 03-01-2023 Basophils (Bld) [#/Vol] 0.04 x10*3/uL Normal 0.00-0.10 [facility] Comment on above: Performed By: #### 5 7021-8 #### KEENAN Gonzalez ([id number]) [facility] ([facility]) [address] [place] [address] Basophils/100 WBC (Bld) 0.5 % Normal 0.0-2.0 [facility] Comment on above: Performed By: #### 5 7021-8 #### KEENAN Gonzalez ([id number]) [facility] ([facility]) [address] [place] [address] Eosinophils (Bld) [#/Vol] 0.34 x10*3/uL Normal 0.00-0.40 [facility] Comment on above: Performed By: #### 7021-8 #### KEENAN Gonzalez ([id number]) [facility] ([facility]) [address] [place] [address] Eosinophils/100 WBC (Bld) 3.9 % Normal 0.0-6.0 [facility] Comment on above: Performed By: #### 7021-8 #### KEENAN Gonzalez ([id number]) [facility] ([facility]) [address] [place] [address] Erythrocyte distribution width (RBC) [Ratio] 12.4 % Normal 11.5-14.5 [facility] Comment on above: Performed By: #### 5 7021-8 #### KEENAN Gonzalez ([id number]) [facility] ([facility]) [address] [place] [address] Hematocrit (Bld) [Volume fraction] 42.1 % Normal 36.0-46.0 [facility] Comment on above: Performed By: #### 5 7021-8 #### KEENAN Gonzalez ([id number]) [facility] ([facility]) [address] [place] [address] Hemoglobin (Bld) [Mass/Vol] 14.4 g/dL Normal 12.0-16.0 [facility] Comment on above: Performed By: #### 5 7021-8 #### KEENAN Gonzalez ([id number]) [facility] ([facility]) [address] [place] [address] Immature granulocytes (Bld) [#/Vol] 0.03 x10*3/uL Normal 0.00-0.50 [facility] Comment on above: Performed By: #### 7021-8 #### KEENAN Gonzalez ([id number]) [facility] ([facility]) [address] [place] [address] Immature granulocytes/100 WBC (Bld) 0.3 % Normal 0.0-0.9 [facility] Comment on above: Result Comment: Gia ture Granulocyte Count (IG) includes promyelocytes, myelocytes and metamyelocytes but does not include bands. Percent differential counts (%) should be interpreted in the context of the absolute cell counts (cells/UL). Performed By: #### 5 7021-8 #### KEENAN Gonzalez ([id number]) [facility] ([facility]) [address] [place] [address] Lymphocytes (Bld) [#/Vol] 2.17 x10*3/uL Normal 0.80-3.00 [facility] Comment on above: Performed By: #### 5 7021-8 #### KEENAN Gonzalez ([id number]) [facility] ([facility]) [address] [place] [address] Lymphocytes/100 WBC (Bld) 25.0 % Normal 13.0-44.0 [facility] Comment on above: Performed By: #### 5 7021-8 #### KEENAN Gonzalez ([id number]) [facility] ([facility]) [address] [place] [address] MCH (RBC) [Entitic mass] 32.5 pg Normal 26.0-34.0 [facility] Comment on above: Performed By: #### 5 7021-8 #### KEENAN Gonzalez ([id number]) [facility] ([facility]) [address] [place] [address] MCHC (RBC) [Mass/Vol] 34.2 g/dL Normal 32.0-36.0 [facility] Comment on above: Performed By: #### 5 7021-8 #### KEENAN Gonzalez ([id number]) [facility] ([facility]) [address] [place] [address] MCV (RBC) [Entitic vol] 95 fL Normal 80-100 [facility] Comment on above: Performed By: #### 5 7021-8 #### KEENAN Gonzalez ([id number]) [facility] ([facility]) [address] [place] [address] Monocytes (Bld) [#/Vol] 0.88 x10*3/uL High 0.05-0.80 [facility] Comment on above: Performed By: #### 5 7021-8 #### KEENAN Gonzalez ([id number]) [facility] ([facility]) [address] [place] [address] Monocytes/100 WBC (Bld) 10.1 % Normal 2.0-10.0 [facility] Comment on above: Performed By: #### 5 7021-8 #### KEENAN Gonzalez ([id number]) [facility] ([facility]) [address] [place] [address] Neutrophils (Bld) [#/Vol] 5.21 x10*3/uL Normal 1.60-5.50 [facility] Comment on above: Result Comment: Perc ent differential counts (%) should be interpreted in the context of the absolute cell counts (cells/uL). Performed By: #### 5 7021-8 #### KEENAN Gonzalez ([id number]) [facility] ([facility]) [address] [place] [address] Neutrophils/100 WBC (Bld) 60.2 % Normal 40.0-80.0 [facility] Comment on above: Performed By: #### 5 7021-8 #### KEENAN Gonzalez ([id number]) [facility] ([facility]) [address] [place] [address] Nucleated RBC/100 WBC (Bld) [Ratio] 0.0 /100 WBCs Normal 0.0-0.0 [facility] Comment on above: Performed By: #### 5 7021-8 #### KEENAN Gonzalez ([id number]) [facility] ([facility]) [address] [place] [address] Platelet mean volume (Bld) [Entitic vol] 9.0 fL Normal 7.5-11.5 [facility] Comment on above: Performed By: #### 5 7021-8 #### KEENAN Gonzalez ([id number]) [facility] ([facility]) [address] [place] [address] Platelets (Bld) [#/Vol] 282 x10*3/uL Normal 150-450 [facility] Comment on above: Performed By: #### 5 7021-8 #### KEENAN Gonzalez ([id number]) [facility] ([facility]) [address] [place] [address] RBC (Bld) [#/Vol] 4.43 x10*6/uL Normal 4.00-5.20 [facility] Comment on above: Performed By: #### 5 7021-8 #### KEENAN Gonzalez ([id number]) [facility] ([facility]) [address] [place] [address] WBC (Bld) [#/Vol] 8.7 x10*3/uL Normal 4.4-11.3 [facility] Comment on above: Performed By: #### 5 7021-8 #### KEENAN Gonzalez ([id number]) [facility] ([facility]) [address] [place] [address] CT CERVICAL SPINE WO IV CONT [facility] 03-01-2023 CT CERVICAL SPINE WO IV CONTRAST Interpreted By: Julia Pierce, STUDY: CT CERVICAL SPINE WO IV CONTRAST; 03/01/2023 9:11 pm INDICATION: Signs/Symptoms:trauma; COMPARISON: 2019 ACCESSION NUMBER(S): [id number] ORDERING CLINICIAN: RENÉE XIE TECHNIQUE: Contiguous axial images were acquired from the skull base to the lung apices. Images are degraded by motion. FINDINGS: There is straightening of the normal cervical lordosis. No acute fracture or spondylolisthesis is identified. The occipital condyles, arch of C1, and the odontoid processes are intact. The atlantoaxial relationship is well maintained. Postsurgical changes anterior spinal fusion C5-C7 and posterior spinal fusion C3-C7 are noted. Multilevel degenerative changes are noted throughout the cervical spine. The visualized lung apices are unremarkable. IMPRESSION: 1. No definite acute fracture or spondylolisthesis. 2. Images are degraded by motion artifact. Signed by: Julia Pierce 03/01/2023 9:22 PM Dictation workstation: [id number] [facility] CT HEAD WO IV CONTRASTon CT HEAD WO IV CONTRAST Interpreted By: Julia Haines, STUDY: CT HEAD WO IV CONTRAST; 03/01/2023 9:11 pm INDICATION: Signs/Symptoms:trauma. COMPARISON: MRI dated 09/02/2016. ACCESSION NUMBER(S): [id number] ORDERING CLINICIAN: RENÉE XIE TECHNIQUE: CT axial images through the Brain were obtained without contrast. FINDINGS: There is no mass effect, hemorrhage, or infarct. Henderson-white differentiation is maintained. There is diffuse prominence of the ventricles and sulci indicating the presence of mild diffuse cerebral volume loss. The basal cisterns are patent. Patchy areas of hypodense attenuation are seen in the subcortical and periventricular white matter; compatible with small vessel ischemic disease. The visualized paranasal sinuses appear clear. IMPRESSION: No acute intracranial abnormality. Age-related volume loss and microvascular disease. MACRO: None. Signed by: Julia Pierce 03/01/2023 9:17 PM Dictation workstation: [id number] [facility] Coagulation surface inducedo n 03-01-2023 aPTT Coag (PPP) [Time] 25.6 s Normal 22.0-32.5 [facility] Comment on above: Performed By: #### 1 4979-9 #### KEENAN Gonzalez ([id number]) [facility] ([facility]) [address] [place] [address] Coagulation tissue factor in ducedon 03-01-2023 PT Coag (PPP) [Time] 10.7 s Normal 9.3-12.7 [facility] Comment on above: Order Comment: INR T herapeutic Range: 2.0-3.5 Performed By: #### 5 902-2 #### KEENAN Gonzalez ([id number]) [facility] ([facility]) [address] [place] [address] ECG 12-LEADon 03-01-2023 ECG 12-LEAD Ventricular Rate 76 Atrial Rate 375 QRS Duration 92 Q-T Interval 396 QTC Calculation(Bazett) 445 R [place] -39 T [place] 10 QRS Count 13 Q Onset 216 T Offset 414 QTC Fredericia 428 Diagnosis Atrial fibrillation Left axis deviation Voltage criteria for left ventricular hypertrophy Cannot rule out Septal infarct , age undetermined Abnormal ECG No previous ECGs available Confirmed by Supriya Hoffman ([id number]) on 03/06/2023 9:19:30 AM Normal [facility] Glucose Test strip manual (B ld) [Mass/Vol]on 03-01-2023 Glucose [Mass/Vol] 200 mg/dL High 74-99 [facility] Comment on above: Performed By: #### 2 341-6 #### KEENAN Gonzalez ([id number]) [facility] () [address] [place] [address] PT Coag (PPP) [Time]on 03-01 INR Coag (PPP) [Relative time] 1.0 Normal 0.9-1.2 [facility] Comment on above: Order Comment: INR T herapeutic Range: 2.0-3.5 Performed By: #### 5 902-2 #### KEENAN Gonzalez ([id number]) [facility] ([facility]) [address] [place] [address] Troponin T.cardiacon 023 Troponin T.cardiac [Mass/Vol] 24 ng/L High <=15 [facility] Comment on above: Performed By: #### 6 598-7 #### KEENAN Gonzalez ([id number]) [facility] ([facility]) [address] [place] [address] XR CHEST 1 VIEWon 03-01-2023 XR CHEST 1 VIEW Interpreted By: Julia Castillo, STUDY: XR CHEST 1 VIEW; 03/01/2023 9:48 pm INDICATION: Signs/Symptoms:trauma COMPARISON: 2013 ACCESSION NUMBER(S): [id number] ORDERING CLINICIAN: RENÉE XIE TECHNIQUE: Frontal chest radiograph FINDINGS: The cardiomediastinal silhouette is unremarkable. The lungs are clear. No pleural effusion is identified. The osseous structures are intact. IMPRESSION: No acute cardiopulmonary process. Signed by: Julia Pierce 03/01/2023 10:00 PM Dictation workstation: [id number] XR PELVIS 1-2 VIEWSon 2022 XR PELVIS 1-2 VIEWS Interpreted By: Julia Castillo, STUDY: XR PELVIS 1-2 VIEWS 03/01/2023 9:48 pm INDICATION: Signs/Symptoms:a COMPARISON: None. ACCESSION NUMBER(S): [id number] ORDERING CLINICIAN: RENÉE XIE TECHNIQUE: one view of the pelvis were performed. FINDINGS: The bones appear intact. The hip joints are maintained. Sacroiliac joints are maintained. Postsurgical changes of lower lumbar spinal fusion. IMPRESSION: Normal pelvis, hips, and sacroiliac joints. MACRO: None. Signed by: Julia Pierce 03/01/2023 10:00 PM Dictation workstation: [address] XR TIBIA FIBULA LEFT 2 VIEWS on 03-01-2023 XR TIBIA FIBULA LEFT 2 VIEWS Interpreted By: Julia Pierce, STUDY: XR TIBIA FIBULA LEFT 2 VIEWS 03/01/2023 9:48 pm INDICATION: Signs/Symptoms:trauma COMPARISON: None. ACCESSION NUMBER(S): [id number] ORDERING CLINICIAN: RENÉE XIE TECHNIQUE: Two views of the left tibia/fibula were performed. FINDINGS: Bones: The bones appear intact. Joints: The joints are maintained. Soft tissues: Unremarkable. IMPRESSION: No acute bony abnormality. MACRO: None. Signed by: Julia Pierce 03/01/2023 9:59 PM Dictation workstation: [id number] XR TIBIA FIBULA RIGHT 2 VIEW Son 03-01-2023 XR TIBIA FIBULA RIGHT 2 VIEWS Interpreted By: Julia Pierce, STUDY: XR TIBIA FIBULA RIGHT 2 VIEWS 03/01/2023 9:48 pm INDICATION: Signs/Symptoms:trauma COMPARISON: None. ACCESSION NUMBER(S): [id number] ORDERING CLINICIAN: RENÉE XIE TECHNIQUE: Two views of the right tibia/fibula were performed. FINDINGS: Bones: The bones appear intact. Joints: The joints are maintained. Soft tissues: Unremarkable. IMPRESSION: No acute bony abnormality. MACRO: None. Signed by: Julia Pierce 03/01/2023 9:59 PM Dictation workstation: [id number] Normal [facility] Albumin/Creatinine DL <= 20 mg/L (U) [Mass ratio]on 01-31-2023 Albumin DL <= 20 mg/L (U) [Mass/Vol] 137 MG/L High 0 - 23 MG/L [facility] Creatinine (U) [Mass/Vol] 76.7 mg/dL MG/DL [facility] Comment on above: Performed at [facility] [address] [facility] [address] Interpretation and review of laboratory results Abnormal [facility] CBC W Differential panel, ny thod unspecified (Bld)on 01-31-2023 Basophils (Bld) [#/Vol] 0.02 10*3/uL [facility] Basophils/100 WBC (Bld) 0.30 % 0 - 1 % [facility] Differential cell count method Nom (Bld) AUTO DIFF [facility] Eosinophils (Bld) [#/Vol] 0.37 10*3/uL [facility] Eosinophils/100 WBC (Bld) 5.10 % High 0 - 3 % [facility] Erythrocyte distribution width (RBC) [Entitic vol] 44.8 fL [facility] Erythrocyte distribution width (RBC) [Ratio] 12.3 % 11.7 - 15.0 % [facility] Hematocrit (Bld) [Volume fraction] 39.5 % 36 - 44 % [facility] Hemoglobin (Bld) [Mass/Vol] 12.9 g/dL [facility] Immature granulocytes (Bld) [#/Vol] 0.03 10*3/uL [facility] Interpretation and review of laboratory results Abnormal [facility] Lymphocytes (Bld) [#/Vol] 1.68 10*3/uL [facility] Lymphocytes/100 WBC (Bld) 23.10 % 20 - 40 % [facility] MCH (RBC) [Entitic mass] 32.3 pg 26 - 34 PG [facility] MCHC (RBC) [Mass/Vol] 32.7 % 31 - 37 % [facility] MCV (RBC) [Entitic vol] 98.8 fL U [facility] Monocytes (Bld) [#/Vol] 0.58 10*3/uL [facility] Monocytes/100 WBC (Bld) 8.00 % 0 - 8 % U [facility] Neutrophils (Bld) [#/Vol] 4.59 10*3/uL K/UL [facility] Comment on above: Performed at [facility] [address] [facility] [address] Neutrophils.immature/10 0 WBC (Bld) 0.40 % 0.0 - 1.0 % [facility] Nucleated RBC/100 WBC (Bld) [Ratio] 0 % 0 /100 WBC [facility] Platelet mean volume (Bld) [Entitic vol] 9.6 fL [facility] Platelets (Bld) [#/Vol] 252 10*3/uL [facility] RBC (Bld) [#/Vol] 4.00 10*6/uL [facility] Segmented neutrophils/100 WBC (Bld) 63.10 % 50 - 70 % [facility] WBC (Bld) [#/Vol] 7.3 10*3/uL [facility] Comprehensive metabolic 2000 panelon 01-31-2023 Albumin [Mass/Vol] 4.0 g/dL [facility] Albumin/Globulin [Mass ratio] 1.5 {ratio} [facility] ALP (Bld) [Catalytic activity/Vol] 107 U/L 35 - 125 U/L [facility] ALT [Catalytic activity/Vol] 18 U/L 5 - 40 U/L [facility] Anion gap [Moles/Vol] 12 mmol/L [facility] AST [Catalytic activity/Vol] 19 U/L 5 - 40 U/L [facility] Bilirubin [Mass/Vol] 0.3 mg/dL [facility] Calcium [Mass/Vol] 9.3 mg/dL [facility] Chloride [Moles/Vol] 107 mmol/L [facility] CO2 [Moles/Vol] 21 mmol/L [facility] Creatinine [Mass/Vol] 1.0 mg/dL [facility] GFR/1.73 sq M.predicted MDRD (S/P/Bld) [Vol rate/Area] 59 mL/min/{1.73_m2} mL/min/1.73 m2 [facility] Comment on above: CALCULATIONS OF FARRAH MATED GFR ARE PERFORMED USING THE 2020 CKD-EPI STUDY REFIT EQUATION WITHOUT THE RACE VARIABLE FOR THE IDMS-TRACEABLE CREATININE METHODS. https://jasn.asnjournals.org/content/early//ASN.2020 933044 Performed at [address] [address] Globulin (S) [Mass/Vol] 2.6 g/dL U [facility] Glucose [Mass/Vol] 150 mg/dL High [facility] Interpretation and review of laboratory results Abnormal [facility] Potassium [Moles/Vol] 4.7 mmol/L [facility] Protein [Mass/Vol] 6.6 g/dL [facility] Sodium [Moles/Vol] 140 mmol/L [facility] Urea nitrogen [Mass/Vol] 26 mg/dL [facility] Urea nitrogen/Creatinine [Mass ratio] 26.0 mg/mg [facility] HbA1c (Bld) [Mass fraction]o n 01-31-2023 Interpretation and review of laboratory results Abnormal [facility] Hemoglobin A1Con 01-31-2023 HbA1c (Bld) [Mass fraction] 6.4 % High 4.0 - 6.0 % [facility] Comment on above: Hemoglobin A1C level s are related to mean blood glucose during the preceding 2-3 months. The relationship table below may be used as a general guide. Each 1% increase in HGB A1C is a reflection of an increase in mean glucose of approximately 30 mg/dl. Reference: Diabetes Care, volume 29, supplement 1 2005 HGB A1C ................. Approx. Mean Glucose 6% ............................... 120 mg/dl 7% ............................... 150 mg/dl 8% ............................... 180 mg/dl 9% ............................... 210 mg/dl 10% ............................... 240 mg/dl Performed at [address] [address] Lipid 1996 panelon 3 Appearance (P) CLEAR Performed at [address] [address] [facility] Cholesterol [Mass/Vol] 166 mg/dL [facility] Cholesterol in HDL [Mass/Vol] 41 mg/dL Low - PINF [facility] Comment on above: National Cholesterol Education Program(NCFP)guidelines: <40 mg/dl:Low HDL-cholesterol(major risk factor for CHD) >60 mg/dl:High HDL-cholesterol(negativerisk factor for CHD) HDL-cholesterol is affected by a number of factors,e.g.,smoking, exercise,hormones,sex and age. Cholesterol in LDL [Mass/Vol] 98 mg/dL [facility] Cholesterol.total/Felicia sterol in HDL [Mass ratio] 4.0 {ratio} RATIO [facility] Comment on above: According to the [place] [employer] [employer], the goal is to maintain the total cholesterol/HDL ratio at 5-to-1 or lower with an optimum ratio of 3.5-to-1. Performed at [address] [address] Color (Spun body fld) YELLOW Performed at [facility],[address],[place] [address] [facility] Fasting status Reported Ql FASTING Performed at [facility],[address],[place] [address] [facility] Interpretation and review of laboratory results Abnormal [facility] Triglyceride [Mass/Vol] 137 mg/dL U [facility] Microalbumin W/ Creat Ratio, Urineon 01-31-2023 Albumin/Creatinine DL <= 20 mg/L (U) [Mass ratio] 178.6 mg/g High 0 - 30 MG/G [facility] Comment on above: 30 to 300 mg/g indic ates an increased risk for diabetic nephropathy. Greater than 300 mg/g is consistent with clinical nephropathy. (Am J Kidney Disease 1995, 25:107) TSH with reflex to Free T4 i f abnormalon 01-31-2023 TSH Qn 2.19 m[IU]/L [facility] Comment on above: Performed at [facility] [address] [facility] [address] [facility] Urinalysis complete panel (U )on 01-31-2023 Bacteria Auto Ql (U) PRESENT Performed at [facility] [id number] [place] [id number] [facility] Bilirubin Ql (U) Negative NEG [facility] Clarity (U) HAZY [facility] Color (U) PALE YELLOW [facility] Epithelial casts Computer assisted (U) [#/Area] FEW /HPF [facility] Comment on above: SQUAMOUS Glucose Auto test strip (U) [Mass/Vol] Negative NEG mg/dL [facility] Hemoglobin Auto test strip Ql (U) OCC [facility] Hemoglobin Ql (U) Negative NEG [facility] Interpretation and review of laboratory results Abnormal [facility] Ketones Auto test strip Ql (U) Negative NEG [facility] Leukocyte esterase Auto test strip Ql (U) LARGE Abnormal NEG [facility] Nitrite Auto test strip Ql (U) Negative NEG [facility] pH (U) 5.5 [pH] 4.6 - 8.0 [facility] [facility] Protein (U) [Mass/Vol] TRACE Abnormal NEG mg/[facility] Microscopic MANUAL MICROSCOPIC URINES [facility] Specific gravity (U) [Rel density] 1.015 1.005 - 1.030 [facility] Urobilinogen Ql (U) NORMAL [facility] WBC Auto (Urine sed) [#/Area] 10-15 [facility] COMPREHENSIVE METABOLIC PANE Raul 07-11-2022 Albumin [Mass/Vol] 4.4 g/dL Normal 3.5-5.0 [facility] Comment on above: Performed By: #### C MEN'S BASKETBALL COACH #### [facility] [place] [address] [place] [address] Albumin/Globulin [Mass ratio] 1.5 {ratio} Normal 1.5-3.0 [facility] Comment on above: Performed By: #### C MEN'S BASKETBALL COACH #### [facility] [address] [place] [address] ALP [Catalytic activity/Vol] 116 U/L Normal 35-125 [facility] Comment on above: Performed By: #### C MEN'S BASKETBALL COACH #### [facility] [place] [address] [place] [address] ALT [Catalytic activity/Vol] 25 U/L Normal 5-40 [facility] Comment on above: Performed By: #### C MEN'S BASKETBALL COACH #### [facility] [place] [address] [place] [address] Anion gap [Moles/Vol] 14 mmol/L Normal 0-19 [facility] Comment on above: Performed By: #### C MEN'S BASKETBALL COACH #### [facility] [address] [place] [address] AST [Catalytic activity/Vol] 21 U/L Normal 5-40 [facility] Comment on above: Performed By: #### C MEN'S BASKETBALL COACH #### [facility] [address] [place] [address] Bilirubin [Mass/Vol] 0.3 mg/dL Normal 0.1-1.2 [facility] Comment on above: Performed By: #### C MEN'S BASKETBALL COACH #### [facility] [address] [place] [address] Calcium [Mass/Vol] 10.2 mg/dL Normal 8.5-10.4 [facility] Comment on above: Performed By: #### C MEN'S BASKETBALL COACH #### [facility] [place] [address] [place] [address] Chloride [Moles/Vol] 101 mmol/L Normal 97-107 [facility] Comment on above: Performed By: #### C MEN'S BASKETBALL COACH #### [facility] [place] [address] [place] [address] CO2 [Moles/Vol] 24 mmol/L Normal 24-31 [facility] Comment on above: Performed By: #### C MEN'S BASKETBALL COACH #### [facility] [place] [address] [place] [address] Creatinine [Mass/Vol] 1.1 mg/dL Normal 0.4-1.6 [facility] Comment on above: Performed By: #### C MEN'S BASKETBALL COACH #### [place] [address] [place] [address] ESTIMATED GFR 53 mL/min/1.73 m2 Normal [facility] Comment on above: Result Comment: CALCULATIONS OF ESTIMATED GFR ARE PERFORMED USING THE 2020 CKD-EPI STUDY REFIT EQUATION WITHOUT THE RACE VARIABLE FOR THE IDMS-TRACEABLE CREATININE METHODS. https://jasn.asnjournals.org/content//ASN.2020 483844 Performed at [address] [place] [address] Performed By: #### C MEN'S BASKETBALL COACH #### [address] [address] Globulin (S) [Mass/Vol] 3.0 g/dL Normal 1.9-3.7 [facility] Comment on above: Performed By: #### C MEN'S BASKETBALL COACH #### [facility] [address] [place] [address] Glucose [Mass/Vol] 137 mg/dL High 65-99 [facility] Comment on above: Performed By: #### C MEN'S BASKETBALL COACH #### [facility] [address] [place] [address] Potassium [Moles/Vol] 4.5 mmol/L Normal 3.4-5.1 [facility] Comment on above: Performed By: #### C MEN'S BASKETBALL COACH #### [facility] [id number] [place] [address] Protein [Mass/Vol] 7.4 g/dL Normal 5.9-7.9 [facility] Comment on above: Performed By: #### C MEN'S BASKETBALL COACH #### [facility] [address] [address] Sodium [Moles/Vol] 139 mmol/L Normal 133-145 [facility] Comment on above: Performed By: #### C MEN'S BASKETBALL COACH #### [facility] [address] [address] Urea nitrogen [Mass/Vol] 26 mg/dL High 8 [facility] Comment on above: Performed By: #### C MEN'S BASKETBALL COACH #### [facility] [address] [address] Urea nitrogen/Creatinine [Mass ratio] 23.6 mg/mg High 8 [facility] Comment on above: Performed By: #### C MEN'S BASKETBALL COACH #### [facility] [address] [address] ChemistryOrdered By: Robin dougherty Domainuser on 07-11-2022 Albumin [Mass/Vol] 4.4 g/dL 3.5 - 5.0 gm/dL [facility] Work Phone: Albumin/Globulin [Mass ratio] 1.5 {ratio} 1.5 - 3.0 ratio [facility] Work Phone: ALP [Catalytic activity/Vol] 116 U/L 35 - 125 U/L [facility] Work Phone: ALT [Catalytic activity/Vol] 25 U/L 5 - 40 U/L [facility] Work Phone: Anion gap [Moles/Vol] 14 mmol/L 0 - 19 mmol/L [facility] Work Phone: AST [Catalytic activity/Vol] 21 U/L 5 - 40 U/L [facility] Work Phone: Bilirubin [Mass/Vol] 0.3 mg/dL 0.1 - 1.2 [facility] Work Phone: Comment on above: Result Comment: Unit of Measure: MG/DL Calcium [Mass/Vol] 10.2 mg/dL 8.5 - 10.4 [facility] stefany [facility] Work Phone: Comment on above: Result Comment: Unit of Measure: MG/DL Chloride [Moles/Vol] 101 mmol/L 97 - 10 7 mmol/L [facility] Work Phone: Cholesterol [Mass/Vol] 175 mg/dL 133 - 200 [facility] Work Phone: Comment on above: Result Comment: Unit of Measure: MG/DL Cholesterol in HDL [Mass/Vol] 40 mg/dL Low >50 [facility] Work Phone: Comment on above: Result Comment: Unit of Measure: MG/DL National Cholesterol Education Program(NCFP)guidelines: <40 mg/dl:Low HDL-cholesterol(major risk factor for CHD) >60 mg/dl:High HDL-cholesterol(negativerisk factor for CHD) HDL-cholesterol is affected by a number of factors,e.g.,smoking, exercise,hormones,sex and age. Cholesterol.total/Felicia sterol in HDL [Mass ratio] 4.4 {ratio} [facility] Work Phone: Comment on above: Result Comment: Acco rding to the [employer], the goal is to maintain the total cholesterol/HDL ratio at 5-to-1 or lower with an optimum ratio of 3.5-to-1. Performed at [facility] [id number] [place] [address] CO2 [Moles/Vol] 24 mmol/L 24 - 31 mmol/L [facility] Work Phone: Creatinine and Glomerular filtration rate.predicted panel (S/P/Bld) 1.1 0.4 - 1.6 [facility] Work Phone: Comment on above: Result Comment: Unit of Measure: MG/DL GFR/1.73 sq M.predicted among non-blacks MDRD (S/P/Bld) [Vol rate/Area] 53 mL/min/{1.73_m2} [facility] Work Phone: Comment on above: Result Comment: Unit of Measure: mL/min/1.73 m2 CALCULATIONS OF ESTIMATED GFR ARE PERFORMED USING THE 2020 CKD-EPI STUDY REFIT EQUATION WITHOUT THE RACE VARIABLE FOR THE IDMS-TRACEABLE CREATININE METHODS. https://jasn.asnjournals.org/content//ASN 162255 Performed at [facility] [id number] [place] [address] [facility] [address] Globulin (S) [Mass/Vol] 3.0 g/dL 1.9 - 3.7 g/dL [facility] Work Phone: Glucose [Mass/Vol] 137 mg/dL High 65 - 99 [facility] Work Phone: Comment on above: Result Comment: Unit of Measure: MG/DL HbA1c (Bld) [Mass fraction] 6.4 % High 4.0 - 6.0 % [facility] Work Phone: Comment on above: Result Comment: Hemo globin A1C levels are related to mean blood glucose during the preceding 2-3 months. The relationship table below may be used as a general guide. Each 1% increase in HGB A1C is a reflection of an increase in mean glucose of approximately 30 mg/dl. Reference: Diabetes Care, volume 29, supplement 1 2005 HGB A1C ................. Approx. Mean Glucose 6% ............................... 120 mg/dl 7% ............................... 150 mg/dl 8% ............................... 180 mg/dl 9% ............................... 210 mg/dl 10% ............................... 240 mg/dl Performed at [address] [address] LDL Calc 80 65 - 130 [facility] Work Phone: Comment on above: Result Comment: Unit of Measure: MG/DL Lipid Comments YELLOW [facility] Work Phone: Comment on above: Result Comment: Perf ormed at [facility],[address] [place] [address],[place] [address] Lipid Comments 2 FASTING [facility] Work Phone: Comment on above: Result Comment: Perf ormed at [facility],[address] [place] [address],[place] [address] Potassium [Moles/Vol] 4.5 mmol/L 3.4 - 5.1 mmol/L [facility] Work Phone: Protein [Mass/Vol] 7.4 g/dL 5.9 - 7.9 g/dL [facility] Work Phone: Serum Appearance CLEAR [facility] Work Phone: Comment on above: Result Comment: Perf ormed at [address] [address] Sodium [Moles/Vol] 139 mmol/L 133 - 145 mmol/L [facility] Work Phone: Triglyceride [Mass/Vol] 277 mg/dL High 40 - 150 L [facility] Work Phone: Comment on above: Result Comment: Unit of Measure: MG/DL TSH Qn 1.90 m[IU]/L 0.27 - 4.20 mIU/L [facility] Work Phone: Comment on above: Result Comment: Perf ormed at [address] [address] Urea nitrogen post dialysis [Mass/Vol] 26 High 8 - 25 [facility] Work Phone: Comment on above: Result Comment: Unit of Measure: MG/DL Urea nitrogen/Creatinine [Mass ratio] 23.6 ratio High 8 - 21 ratio [facility] Work Phone: HEMOGLOBIN A1con 07-11-2022 HbA1c (Bld) [Mass fraction] 6.4 % High 4.0-6.0 [facility] Comment on above: Result Comment: Hemo globin A1C levels are related to mean blood glucose during the preceding 2-3 months. The relationship table below may be used as a general guide. Each 1% increase in HGB A1C is a reflection of an increase in mean glucose of approximately 30 mg/dl. Reference: Diabetes Care, volume 29, supplement 1 2005 HGB A1C ................. Approx. Mean Glucose 6% ............................... 120 mg/dl 7% ............................... 150 mg/dl 8% ............................... 180 mg/dl 9% ............................... 210 mg/dl 10% ............................... 240 mg/dl Performed at [address] [address] Performed By: #### G [facility] #### [address] [address] LIPID PANELon 07-11-2022 CHOL HDL RATIO 4.4 RATIO Normal [facility] Comment on above: Result Comment: Acco rding to the [employer], the goal is to maintain the total cholesterol/HDL ratio at 5-to-1 or lower with an optimum ratio of 3.5-to-1. Performed at [address] [address] Performed By: #### L IPD #### [place] [id number] [place] [address] [facility] [address] [facility] [address] Cholesterol [Mass/Vol] 175 mg/dL Normal 133-200 [facility] Comment on above: Performed By: #### L IPD #### [place] [id number] [place] [address] [place] [address] [place] [address] Cholesterol in HDL [Mass/Vol] 40 mg/dL Low >50 [facility] Comment on above: Result Comment: Treesa onal Cholesterol Education Program(NCFP)guidelines: <40 mg/dl:Low HDL-cholesterol(major risk factor for CHD) >60 mg/dl:High HDL-cholesterol(negativerisk factor for CHD) HDL-cholesterol is affected by a number of factors,e.g.,smoking, exercise,hormones,sex and age. Performed By: #### L IPD #### [place] [address] [place] [address] [place] [address] [place] [address] Cholesterol in LDL [Mass/Vol] 80 mg/dL Normal 65-130 [facility] Comment on above: Performed By: #### L IPD #### [place] [address] [place] [address] [place] [address] [place] [address] SERUM CLARITY [facility] Comment on above: Result Comment: TEE Sykes Performed at [place] [address] [place] [address] Performed By: #### L IPD #### [place] [id number] [place] [address] [facility] [address] [facility] [place] [address] TRIGLYCERIDE G.B. 277 MG/DL High 40-150 [facility] Comment on above: Performed By: #### L IPD #### [place] [id number] [place] [address] [place] [address] [place] [address] PT. PREPARATION Normal [facility] Comment on above: Result Comment: FAST ING Performed at [facility],[address] [place] [address],[place] [address] Performed By: #### L IPD #### [facility] [address] [place] [address] [place] [address] [facility] [place] [address] SERUM COLOR Normal [facility] Comment on above: Result Comment: YELL OW Performed at [facility],[address] [place] [address],[place] [address] Performed By: #### L IPD #### [facility] [address] [place] [address] [address] TSHon 07-11-2022 TSH 1.90 MIU/L Normal 0.27-4.20 [facility] Comment on above: Result Comment: Perf ormed at [address] [place] [address] Performed By: #### T SHR #### [address] [address] CBC with Diffon 12-30-2021 AB IMMATURE NEUT 0.02 K/UL Normal 0.0-0.1 [facility] Comment on above: Performed By: #### C BCD #### [address] [address] ABS BASO 0.03 K/UL Normal 0.00-0.22 [facility] Comment on above: Performed By: #### C BCD #### [address] [address] ABS EOS 0.39 K/UL Normal 0-0.45 [facility] Comment on above: Performed By: #### C BCD #### [address] [address] ABS NEUTROPHILS 3.95 K/UL Normal 1.8-7.7 [facility] Comment on above: Performed By: #### C BCD #### [facility] [address] [address] ABS.NEUT.CALCULATED 3.95 K/UL Normal [facility] Comment on above: Result Comment: Perf ormed at [place] [address] [address] [place] [address] Performed By: #### C BCD #### [facility] [place] [address] [place] [address] Basophils/100 WBC (Bld) 0.40 % Normal 0-[address] [facility] Comment on above: Performed By: #### C BCD #### [place] [address] [place] [address] DIFF TYPE AUTO DIFF Normal [facility] Comment on above: Performed By: #### C BCD #### [place] [address] [place] [address] Eosinophils/100 WBC (Bld) 5.60 % High 0-3 [facility] Comment on above: Performed By: #### C BCD #### [place] [address] [place] [address] Erythrocyte distribution width (RBC) [Ratio] 12.1 % Normal 11.7-15.0 [facility] Comment on above: Performed By: #### C BCD #### [place] [address] [place] [address] Hematocrit (Bld) [Volume fraction] 42.4 % Normal 36-44 [facility] Comment on above: Performed By: #### C BCD #### [place] [address] [place] [address] Hemoglobin (Bld) [Mass/Vol] 13.9 g/dL Normal 12.0-15.0 [facility] Comment on above: Performed By: #### C BCD #### [place] [address] [place] [address] Lymphocytes (Bld) [#/Vol] 1.91 10*3/uL Normal 1.2-3.2 [facility] Comment on above: Performed By: #### C BCD #### [place] [address] [place] [address] Lymphocytes/100 WBC (Bld) 27.30 % Normal 20-40 [facility] Comment on above: Performed By: #### C BCD #### [facility] [place] [address] [place] [address] MCH (RBC) [Entitic mass] 33.3 pg Normal 26-34 [facility] Comment on above: Performed By: #### C BCD #### [facility] [place] [address] [place] [address] MCHC 32.8 % Normal 31-37 [facility] Comment on above: Performed By: #### C BCD #### [facility] [place] [place] [address] MCV (RBC) [Entitic vol] 101.4 fL High 80-[address] [facility] Comment on above: Performed By: #### C BCD #### [facility] [place] [address] [place] [address] MEAN PLT VOL 9.7 CU Normal 7.0-12.6 [facility] Comment on above: Performed By: #### C BCD #### [place] [address] [place] [address] Monocytes (Bld) [#/Vol] 0.69 10*3/uL Normal 0-0.8 [facility] Comment on above: Performed By: #### C BCD #### [place] [address] [place] [address] Monocytes/100 WBC (Bld) 9.90 % High 0-[address] [facility] Comment on above: Performed By: #### C BCD #### [place] [address] [place] [address] Neutrophils/100 WBC (Bld) 0.30 % Normal 0.0-1.0 [facility] Comment on above: Performed By: #### C BCD #### [place] [address] [place] [address] Neutrophils/100 WBC (Bld) 56.50 % Normal 50-70 [facility] Comment on above: Performed By: #### C BCD #### [facility] [place] [place] [address] NRBC'S 0 /100 WBC Normal 0 [facility] Comment on above: Performed By: #### C BCD #### [facility] [place] [place] [address] Platelets (Bld) [#/Vol] 289 10*3/uL Normal 150-450 [facility] Comment on above: Performed By: #### C BCD #### [place] [address] [place] [address] RBC (Bld) [#/Vol] 4.18 10*6/uL Normal 4.0-4.9 [facility] Comment on above: Performed By: #### C BCD #### [place] [address] [place] [address] RDW-SD 46.0 FL Normal 37.0-54.0 [facility] Comment on above: Performed By: #### C BCD #### [place] [address] [place] [address] WBC (Bld) [#/Vol] 7.0 10*3/uL Normal 4.5-11.0 [facility] Comment on above: Performed By: #### C BCD #### [place] [address] [place] [address] COMPREHENSIVE METABOLIC PANE Raul 12-30-2021 Albumin [Mass/Vol] 4.7 g/dL Normal 3.5-5.0 [facility] Comment on above: Performed By: #### C MEN'S BASKETBALL COACH #### [place] [address] [place] [address] Albumin/Globulin [Mass ratio] 1.8 {ratio} Normal 1.5-3.0 [facility] Comment on above: Performed By: #### C MEN'S BASKETBALL COACH #### [place] [address] [place] [address] ALP [Catalytic activity/Vol] 85 U/L Normal 35-125 [facility] Comment on above: Performed By: #### C MEN'S BASKETBALL COACH #### [place] [address] [place] [address] ALT [Catalytic activity/Vol] 20 U/L Normal 5-40 [facility] Comment on above: Performed By: #### C MEN'S BASKETBALL COACH #### [place] [address] [place] [address] Anion gap [Moles/Vol] 11 mmol/L Normal 0-19 [facility] Comment on above: Performed By: #### C MEN'S BASKETBALL COACH #### [facility] [place] [address] [place] [address] AST [Catalytic activity/Vol] 20 U/L Normal 5-40 [facility] Comment on above: Performed By: #### C MEN'S BASKETBALL COACH #### [facility] [place] [address] [place] [address] Bilirubin [Mass/Vol] 0.3 mg/dL Normal 0.1-1.2 [facility] Comment on above: Performed By: #### C MEN'S BASKETBALL COACH #### [facility] [place] [address] [place] [address] Calcium [Mass/Vol] 10.0 mg/dL Normal 8.5-10.4 [facility] Comment on above: Performed By: #### C MEN'S BASKETBALL COACH #### [place] [address] [place] [address] Chloride [Moles/Vol] 102 mmol/L Normal 97-107 [facility] Comment on above: Performed By: #### C MEN'S BASKETBALL COACH #### [facility] [place] [address] [place] [address] CO2 [Moles/Vol] 25 mmol/L Normal 24-31 [facility] Comment on above: Performed By: #### C MEN'S BASKETBALL COACH #### [facility] [place] [address] [place] [address] Creatinine [Mass/Vol] 1.2 mg/dL Normal 0.4-1.6 [facility] Comment on above: Performed By: #### C MEN'S BASKETBALL COACH #### [facility] [place] [address] [place] [address] ESTIMATED GFR 48 mL/min/1.73 m2 Normal [facility] Comment on above: Result Comment: CALCULATIONS OF ESTIMATED GFR ARE PERFORMED USING THE 2020 CKD-EPI STUDY REFIT EQUATION WITHOUT THE RACE VARIABLE FOR THE IDMS-TRACEABLE CREATININE METHODS. https://jasn.asnjournals.org/content//ASN.2020 300195 Performed at [place] [address] [facility] [place] [address] Performed By: #### C MEN'S BASKETBALL COACH #### [place] [address] [place] [address] Globulin (S) [Mass/Vol] 2.6 g/dL Normal 1.9-3.7 [facility] Comment on above: Performed By: #### C MEN'S BASKETBALL COACH #### [facility] [address] [place] [address] Glucose [Mass/Vol] 175 mg/dL High 65-99 [facility] Comment on above: Performed By: #### C MEN'S BASKETBALL COACH #### [facility] [place] [address] [place] [address] Potassium [Moles/Vol] 5.6 mmol/L High 3.4-5.1 [facility] Comment on above: Performed By: #### C MEN'S BASKETBALL COACH #### [place] [address] [place] [address] Protein [Mass/Vol] 7.3 g/dL Normal 5.9-7.9 [facility] Comment on above: Performed By: #### C MEN'S BASKETBALL COACH #### [place] [address] [place] [address] Sodium [Moles/Vol] 138 mmol/L Normal 133-145 [facility] Comment on above: Performed By: #### C MEN'S BASKETBALL COACH #### [place] [address] [place] [address] Urea nitrogen [Mass/Vol] 34 mg/dL High 8-25 [facility] Comment on above: Performed By: #### C MEN'S BASKETBALL COACH #### [facility] [place] [address] [place] [address] Urea nitrogen/Creatinine [Mass ratio] 28.3 mg/mg High 8-21 [facility] Comment on above: Performed By: #### C MEN'S BASKETBALL COACH #### [facility] [place] [address] [place] [address] ChemistryOrdered By: Robin dougherty Domainuser on 12-30-2021 Albumin [Mass/Vol] 4.7 g/dL 3.5 - 5.0 gm/dL [facility] [facility] Work Phone: Albumin/Globulin [Mass ratio] 1.8 {ratio} 1.5 - 3.0 ratio [facility] Work Phone: ALP [Catalytic activity/Vol] 85 U/L 35 - 125 U/L [facility] Work Phone: ALT [Catalytic activity/Vol] 20 U/L 5 - 40 U/L [facility] Work Phone: Anion gap [Moles/Vol] 11 mmol/L 0 - 19 mmol/L [facility] Work Phone: AST [Catalytic activity/Vol] 20 U/L 5 - 40 U/L [facility] Work Phone: Bilirubin [Mass/Vol] 0.3 mg/dL 0.1 - 1.2 [facility] Work Phone: Comment on above: Result Comment: Unit of Measure: MG/DL Calcium [Mass/Vol] 10.0 mg/dL 8.5 - 10.4 [facility] Work Phone: Comment on above: Result Comment: Unit of Measure: MG/DL Chloride [Moles/Vol] 102 mmol/L 97 - 10 7 mmol/L [facility] Work Phone: Cholesterol [Mass/Vol] 177 mg/dL 133 - 200 [facility] Work Phone: Comment on above: Result Comment: Unit of Measure: MG/DL Cholesterol in HDL [Mass/Vol] 40 mg/dL Low >50 [facility] Work Phone: Comment on above: Result Comment: Unit of Measure: MG/DL National Cholesterol Education Program(NCFP)guidelines: <40 mg/dl:Low HDL-cholesterol(major risk factor for CHD) >60 mg/dl:High HDL-cholesterol(negativerisk factor for CHD) HDL-cholesterol is affected by a number of factors,e.g.,smoking, exercise,hormones,sex and age. Cholesterol.total/Felicia sterol in HDL [Mass ratio] 4.4 {ratio} [facility] Work Phone: Comment on above: Result Comment: Acco rding to the [employer], the goal is to maintain the total cholesterol/HDL ratio at 5-to-1 or lower with an optimum ratio of 3.5-to-1. Performed at [address] [address] CO2 [Moles/Vol] 25 mmol/L 24 - 31 mmol/L [facility] Work Phone: Creatinine and Glomerular filtration rate.predicted panel (S/P/Bld) 1.2 0.4 - 1.6 [facility] Work Phone: Comment on above: Result Comment: Unit of Measure: MG/DL GFR/1.73 sq M.predicted among non-blacks MDRD (S/P/Bld) [Vol rate/Area] 48 mL/min/{1.73_m2} [facility] Work Phone: Comment on above: Result Comment: Unit of Measure: mL/min/1.73 m2 CALCULATIONS OF ESTIMATED GFR ARE PERFORMED USING THE 2020 CKD-EPI STUDY REFIT EQUATION WITHOUT THE RACE VARIABLE FOR THE IDMS-TRACEABLE CREATININE METHODS. https://jasn.asnjournals.org/content//ASN.2020 907090 Performed at [address] [address] Globulin (S) [Mass/Vol] 2.6 g/dL 1.9 - 3.7 g/dL [facility] Work Phone: Glucose [Mass/Vol] 175 mg/dL High 65 - 99 [facility] Work Phone: Comment on above: Result Comment: Unit of Measure: MG/DL HbA1c (Bld) [Mass fraction] 6.1 % High 4.0 - 6.0 % [facility] Work Phone: Comment on above: Result Comment: Hemo globin A1C levels are related to mean blood glucose during the preceding 2-3 months. The relationship table below may be used as a general guide. Each 1% increase in HGB A1C is a reflection of an increase in mean glucose of approximately 30 mg/dl. Reference: Diabetes Care, volume 29, supplement 1 2005 HGB A1C ................. Approx. Mean Glucose 6% ............................... 120 mg/dl 7% ............................... 150 mg/dl 8% ............................... 180 mg/dl 9% ............................... 210 mg/dl 10% ............................... 240 mg/dl Performed at [address] [address] LDL Calc 82 65 - 130 [facility] Work Phone: Comment on above: Result Comment: Unit of Measure: MG/DL Lipid Comments YELLOW [facility] Work Phone: Lipid Comments 2 FASTING [facility] Work Phone: Potassium [Moles/Vol] 5.6 mmol/L High 3.4 - 5.1 mmol/L [facility] Work Phone: Protein [Mass/Vol] 7.3 g/dL 5.9 - 7.9 g/dL [facility] Work Phone: Serum Appearance SLIGHTLY LIPEMIC [facility] Work Phone: Sodium [Moles/Vol] 138 mmol/L 133 - 145 mmol/L [facility] Work Phone: Triglyceride [Mass/Vol] 276 mg/dL High 40 - 150 L [facility] Work Phone: Comment on above: Result Comment: Unit of Measure: MG/DL TSH Qn 2.30 m[IU]/L 0.27 - 4.20 mIU/L [facility] Work Phone: Comment on above: Result Comment: Perf ormed at [address] [address] Urea nitrogen post dialysis [Mass/Vol] 34 High 8 - 25 [facility] Work Phone: Comment on above: Result Comment: Unit of Measure: MG/DL Urea nitrogen/Creatinine [Mass ratio] 28.3 ratio High 8 - 21 ratio [facility] Work Phone: HEMOGLOBIN A1con 12-30-2021 HbA1c (Bld) [Mass fraction] 6.1 % High 4.0-6.0 [facility] Comment on above: Result Comment: Hemo globin A1C levels are related to mean blood glucose during the preceding 2-3 months. The relationship table below may be used as a general guide. Each 1% increase in HGB A1C is a reflection of an increase in mean glucose of approximately 30 mg/dl. Reference: Diabetes Care, volume 29, supplement 1 2005 HGB A1C ................. Approx. Mean Glucose 6% ............................... 120 mg/dl 7% ............................... 150 mg/dl 8% ............................... 180 mg/dl 9% ............................... 210 mg/dl 10% ............................... 240 mg/dl Performed at [address] [address] Performed By: #### G LYC #### Main Laboratory [address] [address] HematologyOrdered By: Bryan mitchell Domainuser on 12-30-2021 Abs Band Neutrophils 3.95 K/uL [facility] Work Phone: Comment on above: Result Comment: Perf ormed at [address] [address] Basophils (Bld) [#/Vol] 0.03 10*3/uL 0.00 - 0.22 K/uL [facility] Work Phone: Basophils/100 WBC (Bld) 0.40 % 0 - 1 % L [facility] Work Phone: Diff Type AUTO DIFF [facility] Work Phone: Eosinophils (Bld) [#/Vol] 0.39 10*3/uL 0 - 0.45 K/uL [facility] Work Phone: Eosinophils/100 WBC (Bld) 5.60 % High 0 - 3 % [facility] Work Phone: Erythrocyte distribution width (RBC) [Ratio] 12.1 % 11.7 - 15.0 % [facility] Work Phone: Hematocrit (Bld) [Volume fraction] 42.4 % 36 - 44 % [facility] Work Phone: Hemoglobin (Bld) [Mass/Vol] 13.9 g/dL 12.0 - 15.0 gm/dL [facility] Work Phone: Immature granulocytes (Bld) [#/Vol] 3.95 10*3/uL 1.8 - 7.7 K/uL [facility] Work Phone: Lymphocytes (Bld) [#/Vol] 1.91 10*3/uL 1.2 - 3.2 K/uL [facility] Work Phone: Lymphocytes/100 WBC (Bld) 27.30 % 20 - 40 % [facility] Work Phone: MCH (RBC) [Entitic mass] 33.3 pg 26 - 34 pg [facility] Work Phone: MCHC (RBC) [Mass/Vol] 32.8 % 31 - 37 % [facility] Work Phone: MCV (RBC) [Entitic vol] 101.4 fL High 80 - 100 fL [facility] Work Phone: Monocytes (Bld) [#/Vol] 0.69 10*3/uL 0 - 0.8 K/uL [facility] Work Phone: Monocytes/100 WBC (Bld) 9.90 % High 0 - 8 % L [facility] Work Phone: Neutrophils (Bld) [#/Vol] 0.02 10*3/uL 0.0 - 0.1 K/uL [facility] Work Phone: Neutrophils/100 WBC (Bld) 0.30 % 0.0 - 1.0 % [facility] Work Phone: Nucleated RBC/100 WBC (Bld) [Ratio] 0 % 0 [facility] Work Phone: Comment on above: Result Comment: Unit of Measure: /100 WBC Platelet mean volume (Bld) [Entitic vol] 9.7 fL 7.0 - 12.6 [facility] Work Phone: Comment on above: Result Comment: Unit of Measure: CU Platelets (Bld) [#/Vol] 289 10*3/uL 150 - 450 K/uL [facility] Work Phone: RBC (Bld) [#/Vol] 4.18 10*6/uL 4.0 - 4.9 M/uL [facility] Work Phone: RDW SD 46.0 fL 37.0 - 54.0 fL [facility] Work Phone: Segmented neutrophils/100 WBC (Bld) 56.50 % 50 - 70 % [facility] Work Phone: WBC (Bld) [#/Vol] 7.0 10*3/uL 4.5 - 11.0 K/uL [facility] Work Phone: LIPID PANELon 12-30-2021 CHOL HDL RATIO 4.4 RATIO Normal [facility] Comment on above: Result Comment: Acco rding to the [employer], the goal is to maintain the total cholesterol/HDL ratio at 5-to-1 or lower with an optimum ratio of 3.5-to-1. Performed at [address] [place] [address] Performed By: #### L IPD #### [address] [address] Cholesterol [Mass/Vol] 177 mg/dL Normal 133-200 [facility] Comment on above: Performed By: #### L IPD #### [address] [address] Cholesterol in HDL [Mass/Vol] 40 mg/dL Low >50 [facility] Comment on above: Result Comment: Teresa onmn Cholesterol Education Program(NCFP)guidelines: <40 mg/dl:Low HDL-cholesterol(major risk factor for CHD) >60 mg/dl:High HDL-cholesterol(negativerisk factor for CHD) HDL-cholesterol is affected by a number of factors,e.g.,smoking, exercise,hormones,sex and age. Performed By: #### L IPD #### [address] [address] Cholesterol in LDL [Mass/Vol] 82 mg/dL Normal 65-130 [facility] Comment on above: Performed By: #### L IPD #### [address] [address] SERUM CLARITY SLIGHTLY LIPEMIC [facility] Comment on above: Performed By: #### L IPD #### [address] [address] TRIGLYCERIDE G.B. 276 MG/DL High 40-150 [facility] Comment on above: Performed By: #### L IPD #### [facility] [address] [address] PT. PREPARATION FASTING [facility] Comment on above: Performed By: #### L IPD #### [address] [address] SERUM COLOR YELLOW [facility] Comment on above: Performed By: #### L IPD #### [address] [address] TSHon 12-30-2021 TSH 2.30 MIU/L Normal 0.27-4.20 [facility] Comment on above: Result Comment: Perf ormed at [address] [place] [address] Performed By: #### T SHR #### [address] [address] UA-REFLEX TO MICROon 022 REFLEX MICROSCOPIC NOT INDICATED Normal [facility] Comment on above: Performed By: #### U #### [address] [address] BILI Negative Normal NEG [facility] Comment on above: Performed By: #### U #### [address] [address] Clarity (U) CLEAR [facility] Comment on above: Performed By: #### U #### [address] [address] Color (U) YELLOW [facility] Comment on above: Performed By: #### U #### [address] [address] GLUC Negative Normal [facility] Comment on above: Performed By: #### U #### [address] [address] Hemoglobin Ql (U) Normal NEG [facility] Comment on above: Result Comment: NEGA TIVE Performed at [address] [place] [address] Performed By: #### U #### [address] [address] KET Negative Normal NEG [facility] Comment on above: Performed By: #### U #### [address] [address] LEUK Negative Normal NEG [facility] Comment on above: Performed By: #### U #### [address] [address] NIT Negative Normal NEG [facility] Comment on above: Performed By: #### U #### [facility] [address] [address] pH (U) 5.0 [pH] Normal 4.6-8.0 [facility] Comment on above: Performed By: #### U #### [facility] [address] [address] PROT Negative Normal NEG [facility] Comment on above: Performed By: #### U #### [facility] [address] [address] SP GRAV,URINE 1.010 Normal 1.005-1.030 [facility] Comment on above: Performed By: #### U #### [facility] [address] [address] URO 0.2 MG/DL Normal 0-1.0 [facility] Comment on above: Performed By: #### U #### [address] [address] UrinalysisOrdered By: Bryan Shelley on 12-30-2021 Bilirubin Ql (U) Negative NEG [facility] Work [facility]: Color (U) YELLOW [facility] Work Phone: Glucose Ql (U) Negative NEG [place] [facility] Work Phone: Comment on above: Result Comment: Unit of Measure: mg/dL Ketones Ql (U) Negative NEG [place] [facility] Work Phone: Nitrite Ql (U) Negative NEG [place] [facility] Work Phone: pH (U) 5.0 [pH] 4.6 - 8.0 [facility] Work Phone: Protein Ql (U) Negative NEG [place] [facility] Work Phone: Comment on above: Result Comment: Unit of Measure: mg/dL Specific gravity (U) [Rel density] 1.010 1.005 - 1.030 [facility] Work Phone: UA Blood Negative [facility] Work Phone: Comment on above: Result Comment: Perf ormed at [place] [id number] [place] [address] UA Clarity CLEAR [facility] Work Phone: UA Leukocyte Esterase Negative NEG [facility] Work Phone: UA Reflex NOT INDICATED [facility] Work Phone: Urobilinogen Qn (U) 0.2 0 - 1.0 [facility] Work Phone: Comment on above: Result Comment: Unit of Measure: MG/DL ChemistryOrdered By: Robin dougherty Domainuser on 06-24-2021 Albumin [Mass/Vol] 4.6 g/dL 3.5 - 5.0 gm/dL [facility] Work Phone: Albumin/Globulin [Mass ratio] 1.6 {ratio} 1.5 - 3.0 ratio [facility] Work Phone: ALP [Catalytic activity/Vol] 72 U/L 35 - 125 U/L [facility] Work Phone: ALT [Catalytic activity/Vol] 16 U/L 5 - 40 U/L [facility] Work Phone: Anion gap [Moles/Vol] 15 mmol/L 0 - 19 mmol/L [facility] Work Phone: AST [Catalytic activity/Vol] 19 U/L 5 - 40 U/L [facility] Work Phone: Bilirubin [Mass/Vol] 0.3 mg/dL 0.1 - 1.2 [facility] Work Phone: Comment on above: Result Comment: Unit of Measure: MG/DL Calcium [Mass/Vol] 10.2 mg/dL 8.5 - 10.4 [facility] Work Phone: Comment on above: Result Comment: Unit of Measure: MG/DL Chloride [Moles/Vol] 103 mmol/L 97 - 10 7 mmol/L [facility] Work Phone: CO2 [Moles/Vol] 24 mmol/L 24 - 31 mmol/L [facility] Work Phone: Creatinine and Glomerular filtration rate.predicted panel (S/P/Bld) 1.2 0.4 - 1.6 [facility] Work Phone: Comment on above: Result Comment: Unit of Measure: MG/DL GFR/1.73 sq M.predicted among non-blacks MDRD (S/P/Bld) [Vol rate/Area] 48 mL/min/{1.73_m2} [facility] Work Phone: Comment on above: Result Comment: Unit of Measure: mL/min/1.73 m2 CALCULATIONS OF ESTIMATED GFR ARE PERFORMED USING THE 2020 CKD-EPI STUDY REFIT EQUATION WITHOUT THE RACE VARIABLE FOR THE IDMS-TRACEABLE CREATININE METHODS. https://jasn.asnjournals.org/content/early//ASN.2020 897616 Performed at [address] [address] Globulin (S) [Mass/Vol] 2.8 g/dL 1.9 - 3.7 g/dL [facility] Work Phone: Glucose [Mass/Vol] 108 mg/dL High 65 - 99 [facility] Work Phone: Comment on above: Result Comment: Unit of Measure: MG/DL HbA1c (Bld) [Mass fraction] 6.2 % High 4.0 - 6.0 % [facility] Work Phone: Comment on above: Result Comment: Hemo globin A1C levels are related to mean blood glucose during the preceding 2-3 months. The relationship table below may be used as a general guide. Each 1% increase in HGB A1C is a reflection of an increase in mean glucose of approximately 30 mg/dl. Reference: Diabetes Care, volume 29, supplement 1 2005 HGB A1C ................. Approx. Mean Glucose 6% ............................... 120 mg/dl 7% ............................... 150 mg/dl 8% ............................... 180 mg/dl 9% ............................... 210 mg/dl 10% ............................... 240 mg/dl Performed at [address] [address] Potassium [Moles/Vol] 5.1 mmol/L 3.4 - 5.1 mmol/L [facility] Work Phone: Protein [Mass/Vol] 7.4 g/dL 5.9 - 7.9 g/dL [facility] Work Phone: Sodium [Moles/Vol] 142 mmol/L 133 - 145 mmol/L [facility] Work Phone: TSH Qn 1.89 m[IU]/L 0.27 - 4.20 mIU/L [facility] Work Phone: Comment on above: Result Comment: Perf ormed at [address] [address] Urea nitrogen post dialysis [Mass/Vol] 20 8 - 25 [facility] Work Phone: Comment on above: Result Comment: Unit of Measure: MG/DL Urea nitrogen/Creatinine [Mass ratio] 16.7 ratio 8 - 21 ratio [facility] Work Phone: ChemistryOrdered By: Robin dougherty Domainuser on 01-04-2021 Albumin DL <= 20 mg/L (24H U) [Mass/Vol] 12 0 - 23 [facility] Work Phone: Comment on above: Result Comment: Unit of Measure: MG/L LESS THAN Albumin/Creatinine Ratio 54.1 High 0 - 30 [facility] Work Phone: Comment on above: Result Comment: Unit of Measure: MG/G 30 to 300 mg/g indicates an increased risk for diabetic nephropathy. Greater than 300 mg/g is consistent with clinical nephropathy. (Am J Kidney Disease 1995, 25:107) UA Creatinine 22.2 [facility] Work Phone: Comment on above: Result Comment: Unit of Measure: MG/DL Performed at [address] [address] UrinalysisOrdered By: Lorena Waller on 01-04-2021 Appearance (U) Clear (01/04/21 8:17 AM) [facility] Work Phone: Bilirubin Urine Dipstick Negative (01/04/21 8:17 AM) [facility] Work Phone: Blood Urine Dipstick Negative (01/04/21 8:17 AM) [facility] Work Phone: Glucose Urine Dipstick Negative (01/04/21 8:17 AM) [facility] Work Phone: Ketones Urine Dipstick Negative (01/04/21 8:17 AM) [facility] Work Phone: Leukocytes Urine Dipstick Trace (01/04/21 8:17 AM) [facility] Work Phone: Nitrite Urine Dipstick Negative (01/04/21 8:17 AM) [facility] Work Phone: pH Urine Dipstick 6 (01/04/21 8:17 AM) [facility] Work Phone: Protein Urine Dipstick Negative (01/04/21 8:17 AM) [facility] Work Phone: Specific [place] Urine Dipstick 1.015 (01/04/21 8:17 AM) [facility] Work Phone: Urine Color Urine Dipstick Yellow (01/04/21 8:17 AM) [facility] Work Phone: Urobilinogen Urine Dipstick 0.2 mg/dl (01/04/21 8:17 AM) [facility] Work Phone: ChemistryOrdered By: Robin dougherty Domainuser on 12-21-2020 Albumin [Mass/Vol] 4.5 g/dL 3.5 - 5.0 gm/dL [facility] Work Phone: Albumin/Globulin [Mass ratio] 1.6 {ratio} 1.5 - 3.0 ratio [facility] Work Phone: ALP [Catalytic activity/Vol] 72 U/L 35 - 125 U/L [facility] Work Phone: ALT [Catalytic activity/Vol] 17 U/L 5 - 40 U/L [facility] Work Phone: Anion gap [Moles/Vol] 13 mmol/L 0 - 19 mmol/L [facility] Work Phone: AST [Catalytic activity/Vol] 22 U/L 5 - 40 U/L [facility] Work Phone: Bilirubin [Mass/Vol] 0.3 mg/dL 0.1 - 1.2 [facility] Work Phone: Comment on above: Result Comment: Unit of Measure: MG/DL Calcium [Mass/Vol] 10.3 mg/dL 8.5 - 10.4 [facility] Work Phone: Comment on above: Result Comment: Unit of Measure: MG/DL Chloride [Moles/Vol] 102 mmol/L 97 - 10 7 mmol/L [facility] Work Phone: Cholesterol [Mass/Vol] 142 mg/dL 133 - 200 [facility] Work Phone: Comment on above: Result Comment: Unit of Measure: MG/DL Cholesterol in HDL [Mass/Vol] 46 mg/dL Low >50 [facility] Work Phone: Comment on above: Result Comment: Unit of Measure: MG/DL National Cholesterol Education Program(NCFP)guidelines: <40 mg/dl:Low HDL-cholesterol(major risk factor for CHD) >60 mg/dl:High HDL-cholesterol(negativerisk factor for CHD) HDL-cholesterol is affected by a number of factors,e.g.,smoking, exercise,hormones,sex and age. Cholesterol.total/Felicia sterol in HDL [Mass ratio] 3.1 {ratio} [facility] Work Phone: Comment on above: Result Comment: Acco rding to the [employer], the goal is to maintain the total cholesterol/HDL ratio at 5-to-1 or lower with an optimum ratio of 3.5-to-1. Performed at [place] [address] [address] [facility] [address] CO2 [Moles/Vol] 28 mmol/L 24 - 31 mmol/L [facility] Work Phone: Creatinine and Glomerular filtration rate.predicted panel (S/P/Bld) 1.1 0.4 - 1.6 [facility] Work Phone: Comment on above: Result Comment: Unit of Measure: MG/DL Free T3 [Mass/Vol] 2.1 pg/mL Low 2.3 - 4.1 [facility] Work Phone: Comment on above: Result Comment: Unit of Measure: pg/ml Performed at [place] [address] [facility] [address] Free T4 [Mass/Vol] 1.4 ng/dL 0.9 - 1.7 [facility] Work Phone: Comment on above: Result Comment: Unit of Measure: NG/DL Performed at [place] [address] [facility] [address] GFR/1.73 sq M.predicted among non-blacks MDRD (S/P/Bld) [Vol rate/Area] 52 mL/min/{1.73_m2} [facility] Work Phone: Comment on above: Result Comment: Unit of Measure: mL/min/1.73 m2 GFR ml/min/1.73m2 Stage ----- 90 1 60-89 2 30-59 3 15-29 4 <15 5 For -Americans, multiply EGFR result by 1.210 Calculation not validated for patients under 18 years of age. Performed at [place] [address] [facility] [address] Globulin (S) [Mass/Vol] 2.8 g/dL 1.9 - 3.7 g/dL [facility] Work Phone: Glucose [Mass/Vol] 117 mg/dL High 65 - 99 [facility]efany [facility] Work Phone: Comment on above: Result Comment: Unit of Measure: MG/DL HbA1c (Bld) [Mass fraction] 5.8 % 4.0 - 6.0 % [facility] Work Phone: Comment on above: Result Comment: Hemo globin A1C levels are related to mean blood glucose during the preceding 2-3 months. The relationship table below may be used as a general guide. Each 1% increase in HGB A1C is a reflection of an increase in mean glucose of approximately 30 mg/dl. Reference: Diabetes Care, volume 29, supplement 1 2005 HGB A1C ................. Approx. Mean Glucose 6% ............................... 120 mg/dl 7% ............................... 150 mg/dl 8% ............................... 180 mg/dl 9% ............................... 210 mg/dl 10% ............................... 240 mg/dl Performed at [facility] [id number] [place] [id number] LDL Calc 53 Low 65 - 130 [facility] Work Phone: Comment on above: Result Comment: Unit of Measure: MG/DL Lipid Comments YELLOW [place] [facility] y [facility] Work Phone: Lipid Comments 2 FASTING [facility] Work Phone: Potassium [Moles/Vol] 4.6 mmol/L 3.4 - 5.1 mmol/L [facility] Work Phone: Protein [Mass/Vol] 7.3 g/dL 5.9 - 7.9 g/dL [facility] Work Phone: Serum Appearance CLEAR [facility] Work Phone: Sodium [Moles/Vol] 143 mmol/L 133 - 145 mmol/L [facility] Work Phone: Triglyceride [Mass/Vol] 215 mg/dL High 40 - 150 L [facility] Work Phone: Comment on above: Result Comment: Unit of Measure: MG/DL TSH Qn 2.12 m[IU]/L 0.27 - 4.20 mIU/L [facility] Work Phone: Comment on above: Result Comment: Perf ormed at [place] [address] [facility] [facility] [address] Urea nitrogen post dialysis [Mass/Vol] 19 8 - 25 [facility] Work Phone: Comment on above: Result Comment: Unit of Measure: MG/DL Urea nitrogen/Creatinine [Mass ratio] 17.3 ratio 8 - 21 ratio [facility] Work Phone: HematologyOrdered By: Bryan Ureñauser on 12-21-2020 Abs Band Neutrophils 3.95 K/uL [facility] Work Phone: Comment on above: Result Comment: [facility]f ormed at [place] [address] [facility] [address] Basophils (Bld) [#/Vol] 0.04 10*3/uL 0.00 - 0.22 K/uL [facility] Work Phone: Basophils/100 WBC (Bld) 0.60 % 0 - 1 % L [facility] Work Phone: Diff Type AUTO DIFF [facility] Work Phone: Eosinophils (Bld) [#/Vol] 0.27 10*3/uL 0 - 0.45 K/uL [facility] Work Phone: Eosinophils/100 WBC (Bld) 4.10 % High 0 - 3 % [facility] Work Phone: Erythrocyte distribution width (RBC) [Ratio] 11.9 % 11.7 - 15.0 % [facility] Work Phone: Hematocrit (Bld) [Volume fraction] 40.3 % 36 - 44 % [facility] Work Phone: Hemoglobin (Bld) [Mass/Vol] 13.3 g/dL 12.0 - 15.0 gm/dL [facility] Work Phone: Immature granulocytes (Bld) [#/Vol] 3.95 10*3/uL 1.8 - 7.7 K/uL [facility] Work Phone: Lymphocytes (Bld) [#/Vol] 1.55 10*3/uL 1.2 - 3.2 K/uL [facility] Work Phone: Lymphocytes/100 WBC (Bld) 23.80 % 20 - 40 % [facility] Work Phone: MCH (RBC) [Entitic mass] 33.1 pg 26 - 34 pg [facility] Work Phone: MCHC (RBC) [Mass/Vol] 33.0 % 31 - 37 % [facility] Work Phone: MCV (RBC) [Entitic vol] 100.2 fL High 80 - 100 fL [facility] Work Phone: Monocytes (Bld) [#/Vol] 0.67 10*3/uL 0 - 0.8 K/uL [facility] Work Phone: Monocytes/100 WBC (Bld) 10.30 % High 0 - 8 % L [facility] Work Phone: Neutrophils (Bld) [#/Vol] 0.03 10*3/uL 0.0 - 0.1 K/uL [facility] Work Phone: Neutrophils/100 WBC (Bld) 0.50 % 0.0 - 1.0 % [facility] Work Phone: Nucleated RBC/100 WBC (Bld) [Ratio] 0 % 0 [facility] Work Phone: Comment on above: Result Comment: Unit of Measure: /100 WBC Platelet mean volume (Bld) [Entitic vol] 9.5 fL 7.0 - 12.6 [facility] Work Phone: Comment on above: Result Comment: Unit of Measure: CU Platelets (Bld) [#/Vol] 256 10*3/uL 150 - 450 K/uL [facility] Work Phone: RBC (Bld) [#/Vol] 4.02 10*6/uL 4.0 - 4.9 M/uL [facility] Work Phone: RDW SD 43.6 fL 37.0 - 54.0 fL [facility] Work Phone: Segmented neutrophils/100 WBC (Bld) 60.70 % 50 - 70 % [facility] Work Phone: WBC (Bld) [#/Vol] 6.5 10*3/uL 4.5 - 11.0 K/uL [facility] Work Phone: ChemistryOrdered By: Robin dougherty [employer] on 06-22-2020 Albumin [Mass/Vol] 4.3 g/dL 3.5 - 5.0 gm/dL [facility] Work Phone: Albumin/Globulin [Mass ratio] 1.8 {ratio} 1.5 - 3.0 ratio [facility] Work Phone: Alkaline phosphatase [Enzymatic activity/volume] in Serum or Plasma 77 U/L 35 - 125 U/L [facility] Work Phone: ALT [Catalytic activity/Vol] 14 U/L 5 - 40 U/L [facility] Work Phone: Anion gap [Moles/Vol] 11 mmol/L 0 - 19 mmol/L [facility] Work Phone: AST [Catalytic activity/Vol] 20 U/L 5 - 40 U/L [facility] Work Phone: Bilirubin [Mass/Vol] 0.3 mg/dL 0.1 - 1.2 [facility] Work Phone: Comment on above: Result Comment: Unit of Measure: MG/DL Calcium [Mass/Vol] 10.2 mg/dL 8.5 - 10.4 [facility] Work Phone: Comment on above: Result Comment: Unit of Measure: MG/DL Chloride [Moles/Vol] 101 mmol/L 97 - 10 7 mmol/L [facility] Work Phone: CO2 [Moles/Vol] 28 mmol/L 24 - 31 mmol/L [facility] Work Phone: Creatinine [Mass/Vol] 1.2 mg/dL 0.4 - 1.6 [facility] Work Phone: Comment on above: Result Comment: Unit of Measure: MG/DL GFR/1.73 sq M predicted among non-blacks MDRD (S/P/Bld) [Vol rate/Area] 47 mL/min/{1.73_m2} [facility] Work Phone: Comment on above: Result Comment: Unit of Measure: mL/min/1.73 m2 GFR ml/min/1.73m2 Stage ----- 90 1 60-89 2 30-59 3 15-29 4 <15 5 For -Americans, multiply EGFR result by 1.210 Calculation not validated for patients under 18 years of age. Performed at [address] [address] Globulin (S) [Mass/Vol] 2.4 g/dL 1.9 - 3.7 g/dL [facility] Work Phone: Glucose [Mass/Vol] 105 mg/dL High 65 - 99 [facility] Work Phone: Comment on above: Result Comment: Unit of Measure: MG/DL HbA1c (Bld) [Mass fraction] 5.9 % 4.0 - 6.0 % [facility] Work Phone: Comment on above: Result Comment: Hemo globin A1C levels are related to mean blood glucose during the preceding 2-3 months. The relationship table below may be used as a general guide. Each 1% increase in HGB A1C is a reflection of an increase in mean glucose of approximately 30 mg/dl. Reference: Diabetes Care, volume 29, supplement 1 2005 HGB A1C ................. Approx. Mean Glucose 6% ............................... 120 mg/dl 7% ............................... 150 mg/dl 8% ............................... 180 mg/dl 9% ............................... 210 mg/dl 10% ............................... 240 mg/dl Performed at [facility] [id number] [place] [id number] Potassium [Moles/Vol] 5.4 mmol/L High 3.4 - 5.1 mmol/L [facility] Work Phone: Protein [Mass/Vol] 6.7 g/dL 5.9 - 7.9 g/dL [facility] Work Phone: Sodium [Moles/Vol] 140 mmol/L 133 - 145 mmol/L [facility] Work Phone: TSH Qn 1.36 m[IU]/L 0.27 - 4.20 mIU/L [facility] Work Phone: Comment on above: Result Comment: Perf ormed at [address] [address] Urea nitrogen post dialysis [Mass/Vol] 20 8 - 25 [facility] Work Phone: Comment on above: Result Comment: Unit of Measure: MG/DL Urea nitrogen/Creatinine [Mass ratio] 16.7 ratio 8 - 21 ratio [facility] Work Phone: ChemistryOrdered By: Robin Ureñausecarina on 01-01-2020 Albumin DL <= 20 mg/L (24H U) [Mass/Vol] 12 0-23 [facility] Work Phone: Comment on above: Result Comment: Unit of Measure: MG/L LESS THAN Albumin/Creatinine Ratio 56.1 High 0-30 [facility] Work Phone: Comment on above: Result Comment: Unit of Measure: MG/G 30 to 300 mg/g indicates an increased risk for diabetic nephropathy. Greater than 300 mg/g is consistent with clinical nephropathy. (Am J Kidney Disease 1995, 25:107) UA Creatinine 21.4 [facility] Work Phone: Comment on above: Result Comment: Unit of Measure: MG/DL Performed at [address] [address] UrinalysisOrdered By: Ghazal Null on 01-01-2020 Appearance (U) Clear (01/01/20 8:42 AM) [facility] Work Phone: Bilirubin Urine Dipstick Negative (01/01/20 8:42 AM) [facility] Work Phone: Blood Urine Dipstick Trace (01/01/20 8:42 AM) [facility] Work Phone: Glucose Urine Dipstick Negative (01/01/20 8:42 AM) [facility] Work Phone: Ketones Urine Dipstick Negative (01/01/20 8:42 AM) [facility] Work Phone: Leukocytes Urine Dipstick Negative (01/01/20 8:42 AM) [facility] Work Phone: Nitrite Urine Dipstick Negative (01/01/20 8:42 AM) [facility] Work Phone: pH Urine Dipstick 6 (01/01/20 8:42 AM) [facility] Work Phone: Protein (U) [Mass/Vol] Negative (01/01/20 8:42 AM) [facility] Work Phone: Specific [place] Urine Dipstick 1.010 (01/01/20 8:42 AM) [facility] Work Phone: Urine Color Urine Dipstick Yellow (01/01/20 8:42 AM) [facility] Work Phone: Urobilinogen Urine Dipstick 0.2 mg/dl (01/01/20 8:42 AM) [facility] Work Phone: ChemistryOrdered By: Robin dougherty [employer] on 12-23-2019 Albumin [Mass/Vol] 4.6 g/dL 3.5-5.0 gm/dL [facility] Work Phone: Albumin/Globulin [Mass ratio] 1.6 {ratio} 1.5-3.0 ratio [facility] Work Phone: ALP [Catalytic activity/Vol] 71 U/L 35-125 U/L [facility] Work Phone: ALT [Catalytic activity/Vol] 15 U/L 5-40 U/L [facility] Work Phone: Anion gap [Moles/Vol] 14 mmol/L 0-19 mmol/L [facility] Work Phone: AST [Catalytic activity/Vol] 21 U/L 5-40 U/L [facility] Work Phone: Bilirubin [Mass/Vol] 0.3 mg/dL 0.1-1.2 [facility] Work Phone: Comment on above: Result Comment: Unit of Measure: MG/DL Calcium [Mass/Vol] 10.0 mg/dL 8.5-10.4 [facility] [employer] [facility] Work Phone: Comment on above: Result Comment: Unit of Measure: MG/DL Chloride [Moles/Vol] 100 mmol/L 97-107 mmol/L [facility] Work Phone: Cholesterol [Mass/Vol] 160 mg/dL 133-200 [facility] Work Phone: Comment on above: Result Comment: Unit of Measure: MG/DL Cholesterol in HDL [Mass/Vol] 44 mg/dL Low >50 [facility] Work Phone: Comment on above: Result Comment: Unit of Measure: MG/DL National Cholesterol Education Program(NCFP)guidelines: <40 mg/dl:Low HDL-cholesterol(major risk factor for CHD) >60 mg/dl:High HDL-cholesterol(negativerisk factor for CHD) HDL-cholesterol is affected by a number of factors,e.g.,smoking, exercise,hormones,sex and age. Cholesterol in LDL [Mass/Vol] 73 mg/dL 65-130 [facility] Work Phone: Comment on above: Result Comment: Unit of Measure: MG/DL Cholesterol.total/Felicia sterol in HDL [Mass ratio] 3.6 {ratio} [facility] Work Phone: Comment on above: Result Comment: Acco rding to the [employer], the goal is to maintain the total cholesterol/HDL ratio at 5-to-1 or lower with an optimum ratio of 3.5-to-1. Performed at [address] [address] CO2 [Moles/Vol] 29 mmol/L 24-31 mmol/L [facility] Work Phone: Creatinine [Mass/Vol] 1.2 mg/dL 0.4-1.6 [facility] Work Phone: Comment on above: Result Comment: Unit of Measure: MG/DL GFR/1.73 sq M predicted among non-blacks MDRD (S/P/Bld) [Vol rate/Area] 47 mL/min/{1.73_m2} [facility] Work Phone: Comment on above: Result Comment: Unit of Measure: mL/min/1.73 m2 GFR ml/min/1.73m2 Stage ----- 90 1 60-89 2 30-59 3 15-29 4 <15 5 For -Americans, multiply EGFR result by 1.210 Calculation not validated for patients under 18 years of age. Performed at [facility] [id number] [place] [id number] Globulin (S) [Mass/Vol] 2.8 g/dL 1.9- 3.7 g/dL [facility] Work Phone: Glucose [Mass/Vol] 150 mg/dL High 65-99 [facility] Work Phone: Comment on above: Result Comment: Unit of Measure: MG/DL HbA1c (Bld) [Mass fraction] 5.7 % 4.0-6.0 % [facility] Work Phone: Comment on above: Result Comment: Hemo globin A1C levels are related to mean blood glucose during the preceding 2-3 months. The relationship table below may be used as a general guide. Each 1% increase in HGB A1C is a reflection of an increase in mean glucose of approximately 30 mg/dl. Reference: Diabetes Care, volume 29, supplement 1 2005 HGB A1C ................. Approx. Mean Glucose 6% ............................... 120 mg/dl 7% ............................... 150 mg/dl 8% ............................... 180 mg/dl 9% ............................... 210 mg/dl 10% ............................... 240 mg/dl Performed at [address] [address] Lipid Comments YELLOW [facility] Work Phone: Lipid Comments 2 FASTING [facility] Work Phone: Potassium [Moles/Vol] 4.7 mmol/L 3.4-5. 1 mmol/L [facility] Work Phone: Protein [Mass/Vol] 7.4 g/dL 5.9-7.9 g/dL [facility] Work Phone: Serum Appearance CLEAR [facility] Work Phone: Sodium [Moles/Vol] 143 mmol/L 133-145 mmol/L [facility] Work Phone: Triglyceride [Mass/Vol] 217 mg/dL High 40-150 L [facility] Work Phone: Comment on above: Result Comment: Unit of Measure: MG/DL TSH Qn 2.68 m[IU]/L 0.27-4.20 mIU/L [facility] Work Phone: Comment on above: Result Comment: Perf ormed at [address] [address] Urea nitrogen post dialysis [Mass/Vol] 20 8-25 [facility] Work Phone: Comment on above: Result Comment: Unit of Measure: MG/DL Urea nitrogen/Creatinine [Mass ratio] 16.7 ratio 8-21 ratio [facility] Work Phone: HematologyOrdered By: Bryan Ureñausecarina on 12-23-2019 Abs Band Neutrophils 3.80 K/uL [facility] Work Phone: Comment on above: Result Comment: Perf ormed at [address] [address] Basophils (Bld) [#/Vol] 0.03 10*3/uL 0.00 -0.22 K/uL [facility] Work Phone: Basophils/100 WBC (Bld) 0.50 % 0-1 % L [facility] Work Phone: Diff Type AUTO DIFF [facility] Work Phone: Eosinophils (Bld) [#/Vol] 0.23 10*3/uL 0-0.45 K/[facility] Work Phone: Eosinophils/100 WBC (Bld) 3.50 % High 0-3 % [facility] Work Phone: Erythrocyte distribution width (RBC) [Ratio] 11.4 % Low 11.7-15.0 % [facility] Work Phone: Hematocrit (Bld) [Volume fraction] 43.7 % 36-44 % [facility] Work Phone: Hemoglobin (Bld) [Mass/Vol] 14.5 g/dL 12.0-15.0 gm/dL [facility] Work Phone: Immature granulocytes (Bld) [#/Vol] 3.80 10*3/uL 1.8-7.7 K/[facility] Work Phone: Lymphocytes (Bld) [#/Vol] 1.79 10*3/uL 1.2-3.2 /uL [facility] Work Phone: Lymphocytes/100 WBC (Bld) 27.40 % 20-40 % [facility] Work Phone: MCH (RBC) [Entitic mass] 33.6 pg 26-34 pg [facility] Work Phone: MCHC (RBC) [Mass/Vol] 33.2 % 31-37 % [facility] Work Phone: MCV (RBC) [Entitic vol] 101.4 fL High 80-100 fL [facility] Work Phone: Monocytes (Bld) [#/Vol] 0.65 10*3/uL 0-0.8 /[facility] Work Phone: Monocytes/100 WBC (Bld) 10.00 % High 0-8 % [facility] Work Phone: Neutrophils (Bld) [#/Vol] 0.03 10*3/uL 0.0-0.1 K/uL [facility] Work Phone: Neutrophils/100 WBC (Bld) 0.50 % 0.0-1.0 % [facility] Work Phone: Nucleated RBC/100 WBC (Bld) [Ratio] 0 % 0 [facility] Work Phone: Comment on above: Result Comment: Unit of Measure: /100 WBC Platelet mean volume (Bld) [Entitic vol] 9.6 fL 7.0-12.6 [facility] Work Phone: Comment on above: Result Comment: Unit of Measure: CU Platelets (Bld) [#/Vol] 311 10*3/uL 150- 450 K/uL [facility] Work Phone: RBC (Bld) [#/Vol] 4.31 10*6/uL 4.0-4.9 M/uL [facility] Work Phone: RDW SD 42.9 fL 37.0-54.0 fL [facility] Work Phone: Segmented neutrophils/100 WBC (Bld) 58.10 % 50-70 % [facility] Work Phone: WBC (Bld) [#/Vol] 6.5 10*3/uL 4.5-11.0 K/uL [facility] Work Phone: Vital Signs Date Time Vital Sign Value Performing Clinician Facility 11-27-2024 15:10-0400 Body mass index (BMI) [Ratio] 25.89 kg/m2 Jose Miguel Alfaro MD Work Phone: [facility] 11-27-2024 15:10-0400 Body weight 70.58 kg Jose Miguel Alfaro MD Work Phone: [facility] 11-27-2024 15:10-0400 Diastolic blood pressure 77 mm[Hg] Jose Miguel Alfaro MD Work Phone: [facility] 11-27-2024 15:10-0400 Heart rate 55 /min Jose Miguel Alfaro MD Work Phone: [facility] 11-27-2024 15:10-0400 SaO2% (BldA) [Mass fraction] 99 % Jose Miguel Alfaro MD Work Phone: [facility] 11-27-2024 15:10-0400 Systolic blood pressure 118 mm[Hg] Jose Miguel Alfaro MD Work Phone: [facility] 07-03-2024 14:37-0500 Body height 165.1 cm Cydney Hollaender PANELBEATER.MANAGER OF HOUSEKEEPING Work Phone: [facility] 07-03-2024 14:37-0500 Body mass index (BMI) [Ratio] 27.12 kg/m2 Cydney Hollaender PANELBEATER.MANAGER OF HOUSEKEEPING Work Phone: [facility] 07-03-2024 14:37-0500 Body weight 73.94 kg Cydney Hollaender PANELBEATER.MANAGER OF HOUSEKEEPING Work Phone: [facility] 07-03-2024 14:37-0500 Diastolic blood pressure 79 mm[Hg] Cydney Hollaender PANELBEATER.MANAGER OF HOUSEKEEPING Work Phone: [facility] 07-03-2024 14:37-0500 Heart rate 59 /min Cydney Hollaender PANELBEATER.MANAGER OF HOUSEKEEPING Work Phone: [facility] 07-03-2024 14:37-0500 Systolic blood pressure 188 mm[Hg] Cydney Hollaender PANELBEATER.MANAGER OF HOUSEKEEPING Work Phone: [facility] 02-26-2024 16:00-0400 Body height 165.1 cm Jose Miguel Alfaro MD Work Phone: [facility] 02-26-2024 16:00-0400 Body mass index (BMI) [Ratio] 25.79 kg/m2 Jose Miguel Alfaro MD Work Phone: [facility] 02-26-2024 16:00-0400 Body weight 70.31 kg Jose Miguel Alfaro MD Work Phone: [facility] 02-26-2024 16:00-0400 Diastolic blood pressure 79 mm[Hg] Jose Miguel Alfaro MD Work Phone: [facility] 02-26-2024 16:00-0400 Heart rate 64 /min Jose Miguel Alfaro MD Work Phone: [facility] 02-26-2024 16:00-0400 SaO2% (BldA) [Mass fraction] 99 % Jose Miguel Alfaro MD Work Phone: [facility] 02-26-2024 16:00-0400 Systolic blood pressure 161 mm[Hg] Jose Miguel Alfaro MD Work Phone: [facility] 01-04-2024 14:47-0400 Body height 152.4 cm Cydney Hollaender PANELBEATER.MANAGER OF HOUSEKEEPING Work Phone: [facility] 01-04-2024 14:47-0400 Body mass index (BMI) [Ratio] 29.29 kg/m2 Cydney Hollaender PANELBEATER.MANAGER OF HOUSEKEEPING Work Phone: [facility] 01-04-2024 14:47-0400 Body weight 68.04 kg Cydney Hollaender PANELBEATER.MANAGER OF HOUSEKEEPING Work Phone: [facility] 01-04-2024 14:47-0400 Diastolic blood pressure 71 mm[Hg] Cydney Hollaender PANELBEATER.MANAGER OF HOUSEKEEPING Work Phone: [facility] 01-04-2024 14:47-0400 Heart rate 63 /min Cydney Hollaender PANELBEATER.MANAGER OF HOUSEKEEPING Work Phone: [facility] 01-04-2024 14:47-0400 Systolic blood pressure 171 mm[Hg] Cydney Hollaender PANELBEATER.MANAGER OF HOUSEKEEPING Work Phone: [facility] 11-10-2023 13:07-0400 Body height 152.4 cm Jose Miguel Alfaro MD Work Phone: [facility] 11-10-2023 13:07-0400 Body mass index (BMI) [Ratio] 29.41 kg/m2 Jose Miguel Alfaro MD Work Phone: [facility] 11-10-2023 13:07-0400 Body weight 68.31 kg Jose Miguel Alfaro MD Work Phone: [facility] 11-10-2023 13:07-0400 Diastolic blood pressure 84 mm[Hg] Jose Miguel Alfaro MD Work Phone: [facility] 11-10-2023 13:07-0400 Heart rate 66 /min Jose Miguel Alfaro MD Work Phone: [facility] 11-10-2023 13:07-0400 SaO2% (BldA) [Mass fraction] 99 % Jose Miguel Alfaro MD Work Phone: [facility] 11-10-2023 13:07-0400 Systolic blood pressure 157 mm[Hg] Jose Miguel Alfaro MD Work Phone: [facility] 09-14-2023 14:43-0400 Diastolic blood pressure 85 mm[Hg] Cydney Hollaender PANELBEATER.MANAGER OF HOUSEKEEPING Work Phone: [facility] 09-14-2023 14:43-0400 Heart rate 71 /min Cydney Hollaender PANELBEATER.MANAGER OF HOUSEKEEPING Work Phone: [facility] 09-14-2023 14:43-0400 Systolic blood pressure 123 mm[Hg] Cydney Hollaender PANELBEATER.MANAGER OF HOUSEKEEPING Work Phone: [facility] 06-26-2023 09:30-0500 Diastolic blood pressure 95 mm[Hg] Hernan Nesheim DO Work Phone: [employer] 06-26-2023 09:30-0500 Heart rate 55 /min Hernan Nesheim DO Work Phone: [employer] 06-26-2023 09:30-0500 Respiratory rate 18 /min Hernan Nesheim DO Work Phone: [employer] 06-26-2023 09:30-0500 SaO2% (BldA) [Mass fraction] 99 % Hernan Nesheim DO Work Phone: [employer] 06-26-2023 09:30-0500 Systolic blood pressure 160 mm[Hg] Hernan Nesheim DO Work Phone: [employer] 06-26-2023 06:04-0500 Body height 167.6 cm Hernan Nesheim DO Work Phone: [facility] [employer] 06-26-2023 06:04-0500 Body mass index (BMI) [Ratio] 26.89 kg/m2 Hernan Nesheim DO Work Phone: [employer] 06-26-2023 06:04-0500 Body temperature 98.1 [degF] Hernan Nesheim DO Work Phone: [facility] 06-26-2023 06:04-0500 Body weight 75.57 kg Hernan Nesheim DO Work Phone: [facility] [employer] 04-05-2023 11:37-0500 Body height 162.6 cm Vern Bledsoe MD Work Phone: [facility] 04-05-2023 11:37-0500 Body mass index (BMI) [Ratio] 27.12 kg/m2 Vern Bledsoe MD Work Phone: [phone] [place] [address] 04-05-2023 11:37-0500 Body temperature 98.91 [degF] Vern Bledsoe MD Work Phone: [facility] 04-05-2023 11:37-0500 Body weight 71.67 kg Vern Bledsoe MD Work Phone: [facility] 04-05-2023 11:37-0500 Diastolic blood pressure 93 mm[Hg] Vern Bledsoe MD Work Phone: [facility] 04-05-2023 11:37-0500 Heart rate 66 /min Vern Bledsoe MD Work Phone: [facility] 04-05-2023 11:37-0500 Respiratory rate 18 /min Vern Bledsoe MD Work Phone: [facility] 04-05-2023 11:37-0500 SaO2% (BldA) [Mass fraction] 98 % Vern Bledsoe MD Work Phone: [facility] 04-05-2023 11:37-0500 Systolic blood pressure 155 mm[Hg] Vern Bledsoe MD Work Phone: [facility] 01-27-2023 12:59-0400 Body height 160.02 cm Jeovany Mcconnell MD [facility] 01-27-2023 12:59-0400 Body mass index (BMI) [Ratio] 29.05 kg/m2 Jeovany Mcconnell MD [facility] 01-27-2023 12:59-0400 Body surface area Derived from formula 1.82 m2 Jeovany Mcconnell MD [facility] 01-27-2023 12:59-0400 Body weight 74.39 kg Jeovany Mcconnell MD [facility] 01-27-2023 12:59-0400 Diastolic blood pressure 82 mm[Hg] Jeovany Mcconnell MD [facility] 01-27-2023 12:59-0400 Heart rate 60 /min Jeovany Mcconnell MD [facility] 01-27-2023 12:59-0400 Last Menstrual Period [id number] Jeovany Mcconnell MD [facility] 01-27-2023 12:59-0400 Mean blood pressure 97 mm[Hg] Jeovany Mcconnell MD [facility] 01-27-2023 12:59-0400 SaO2% (BldA) [Mass fraction] 96 % Jeovany Mcconnell MD [facility] 01-27-2023 12:59-0400 Systolic blood pressure 128 mm[Hg] Jeovany Mcconnell MD [facility] 07-11-2022 13:24-0500 Body height 160.02 cm Jeovany Mcconnell MD [facility] 07-11-2022 13:24-0500 Body mass index (BMI) [Ratio] 28.34 kg/m2 Jeovany Mcconnell MD [facility] 07-11-2022 13:24-0500 Body surface area Derived from formula 1.79 m2 Jeovany Mcconnell MD [facility] 07-11-2022 13:24-0500 Body weight 72.58 kg Jeovany Mcconnell MD [facility] 07-11-2022 13:24-0500 Diastolic blood pressure 64 mm[Hg] Jeovany Mcconnell MD [facility] 07-11-2022 13:24-0500 Heart rate 72 /min Jeovany Mcconnell MD [facility] 07-11-2022 13:24-0500 Mean blood pressure 79 mm[Hg] Jeovany Mcconnell MD [facility] 07-11-2022 13:24-0500 SaO2% (BldA) [Mass fraction] 97 % Jeovany Mcconnell MD [facility] 07-11-2022 13:24-0500 Systolic blood pressure 110 mm[Hg] Jeovany Mcconnell MD [facility] 01-05-2022 13:55-0400 Body height 160.02 cm Jeovany Mcconnell MD [facility] 01-05-2022 13:55-0400 Body mass index (BMI) [Ratio] 28.34 kg/m2 Jeovany Mcconnell MD [facility] 01-05-2022 13:55-0400 Body surface area Derived from formula 1.79 m2 Jeovany Mcconnell MD [facility] 01-05-2022 13:55-0400 Body weight 72.58 kg Jeovany Mcconnell MD [facility] 01-05-2022 13:55-0400 Diastolic blood pressure 78 mm[Hg] Jeovany Mcconnell MD [facility] 01-05-2022 13:55-0400 Heart rate 72 /min Jeovany Mcconnell MD [facility] 01-05-2022 13:55-0400 Mean blood pressure 93 mm[Hg] Jeovany Mcconnell MD [facility] 01-05-2022 13:55-0400 SaO2% (BldA) [Mass fraction] 100 % Jeovany Mcconnell MD [facility] 01-05-2022 13:55-0400 Systolic blood pressure 122 mm[Hg] Jeovany Mcconnell MD [facility] 01-04-2021 08:32-0400 Body height 162.56 cm Jeovany Mcconnell MD [facility] 01-04-2021 08:32-0400 Body mass index (BMI) [Ratio] 28.32 kg/m2 Jeovany Mcconnell MD [facility] 01-04-2021 08:32-0400 Body surface area Derived from formula 1.84 m2 Jeovany Mcconnell MD [facility] 01-04-2021 08:32-0400 Body temperature 97.9 [degF] Jeovany Mcconnell MD [facility] 01-04-2021 08:32-0400 Body weight 74.84 kg Jeovany Mcconnell MD [facility] 01-04-2021 08:32-0400 Diastolic blood pressure 80 mm[Hg] Jeovany Mcconnell MD [facility] 01-04-2021 08:32-0400 Heart rate 65 /min Jeovany Mcconnell MD [facility] 01-04-2021 08:32-0400 Last Menstrual Period [id number] Jeovany Mcconnell MD [facility] 01-04-2021 08:32-0400 Mean blood pressure 95 mm[Hg] Jeovany Mcconnell MD [facility] 01-04-2021 08:32-0400 Systolic blood pressure 124 mm[Hg] Jeovany Mcconnell MD [facility] 07-03-2020 10:12-0500 BMI (Body Mass Index) 27.19 kg/m2 Jeovany [facility] 07-03-2020 10:12-0500 Body Temperature 95.2 [degF] Jeovany [facility] 07-03-2020 10:12-0500 Body weight 71.85 kg Jeovany [facility] 07-03-2020 10:12-0500 BSA (Body Surface Area) 1.8 m2 Jeovany [facility] 07-03-2020 10:12-0500 Height 162.56 cm Jeovany [facility] 05-25-2020 10:27-0500 BMI (Body Mass Index) 27.12 kg/m2 [facility] 05-25-2020 10:27-0500 Body Temperature 104 [degF] [facility] 05-25-2020 10:27-0500 Body weight 71.67 kg [facility] 05-25-2020 10:27-0500 BSA (Body Surface Area) 1.8 m2 [facility] 05-25-2020 10:27-0500 Height 162.56 cm [facility] 01-01-2020 08:49-0400 BMI (Body Mass Index) 26.26 kg/m2 [facility] 01-01-2020 08:49-0400 Body weight 69.4 kg [facility] 01-01-2020 08:49-0400 BP Diastolic 64 mm[Hg] [facility] 01-01-2020 08:49-0400 BP Systolic 110 mm[Hg] [facility] 01-01-2020 08:49-0400 BSA (Body Surface Area) 1.77 m2 [facility] 01-01-2020 08:49-0400 Heart rate 66 /min [facility] 01-01-2020 08:49-0400 Height 162.56 cm [facility] 01-01-2020 08:49-0400 Last Menstrual Period [id number] [facility] 01-01-2020 08:49-0400 Mean Blood Pressure 79 mm[Hg] [facility] Encounters Encounter Date Encounter Type Care Provider Facility Start: 02-14-2025 End: 02-14-2025 ambulatory Henry YUEN Facility:[facility] Start: 01-22-2025 End: 01-22-2025 ambulatory Mark YUEN Facility:[facility] Start: 01-17-2025 End: 01-17-2025 ambulatory Henry YUEN Facility:[facility] Start: 11-27-2024 End: 11-28-2024 ambulatory JOSE MIGUEL ALFARO Facility:[facility] Start: 11-27-2024 End: 11-27-2024 Patient encounter procedure Jose Miguel Alfaro MD Work Phone: [facility] Comment on above: Permanent atrial fib rillation (HCC) (Primary Dx); Hypercholesterolemia; Essential hypertension; half-way (current) use of anticoagulants Start: 11-12-2024 End: 11-12-2024 ambulatory CHELSI CARLSON Facility:[facility] Start: 11-12-2024 End: 11-12-2024 Patient encounter procedure Chelsi Carlson MD Work Phone: [facility] Comment on above: Primary open angle g laucoma (POAG) of both eyes, moderate stage (Primary Dx); PCO (posterior capsular opacification), left; Pseudophakia Start: 09-10-2024 Registered Referred Henry Ewing MD [facility] Start: 09-10-2024 End: 09-10-2024 ambulatory Henry YUEN Facility:[facility] Start: 09-08-2024 End: 09-08-2024 ambulatory Henry Ewing MD [facility] Work Phone: Start: 09-08-2024 End: 09-08-2024 Departed Referred Henry Ewing MD [facility] Start: 09-08-2024 Registered Referred Henry Ewing MD [facility] Start: 09-08-2024 End: 09-08-2024 ambulatory Henry YUEN Facility:[facility] Start: 08-23-2024 End: 08-23-2024 ambulatory Henry Ewing MD [facility] Work Phone: Start: 08-23-2024 End: 08-23-2024 Departed Referred Henry Ewing MD [facility] Start: 08-23-2024 End: 08-23-2024 ambulatory Henry YUEN Facility:[facility] Start: 08-05-2024 End: 08-05-2024 Telephone encounter Cydney Enciso APRN.CNP Work Phone: [facility] Start: 07-03-2024 End: 07-03-2024 Patient encounter procedure Cydney Enciso APRN.CNP Work Phone: [facility] Comment on above: 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 Start: 03-11-2024 End: 03-11-2024 Patient encounter procedure Chelsi Carlson MD Work Phone: [facility] Comment on above: Primary open angle g laucoma (POAG) of both eyes, moderate stage (Primary Dx); PCO (posterior capsular opacification), left; Pseudophakia; Refractive error Start: 02-26-2024 End: 02-26-2024 Patient encounter procedure Jose Miguel Alfaro MD Work Phone: [facility] Comment on above: Persistent atrial fi brillation (HCC) (Primary Dx); Bradycardia; Hypercholesterolemia; Essential hypertension; H/O: stroke with residual effects Start: 02-26-2024 End: 02-26-2024 ambulatory JOSE MIGUEL ALFARO Facility:[facility] Start: 01-05-2024 Telephone encounter Cydney Enciso APRN.MANAGER OF HOUSEKEEPING Work Phone: [facility] Comment on above: Received Outside [facility] Records (Rec'd lab results from [facility] imported into smsPREP./) Start: 01-04-2024 End: 01-04-2024 ambulatory CYDNEY ENCISO Facility:[facility] Start: 01-04-2024 End: 01-04-2024 Patient encounter procedure Cydney Enciso PANELBEATER.MANAGER OF HOUSEKEEPING Work Phone: [facility] Comment on above: 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 (Primary Dx); Other specified hypothyroidism; Paroxysmal atrial fibrillation (HCC); Chronic neck pain; Essential hypertension; Mixed hyperlipidemia; Type 2 diabetes mellitus with chronic kidney disease, without long-term current use of insulin, unspecified CKD stage (HCC) Start: 01-04-2024 End: 01-04-2024 ambulatory CYDNEY ENCISO Facility:[facility] Start: 11-10-2023 End: 11-10-2023 Patient encounter procedure Jose Miguel Alfaro MD Work Phone: [facility] [place] Comment on above: Persistent atrial fi brillation (HCC) (Primary Dx); Essential hypertension; Hypercholesterolemia; Bradycardia; Cerebrovascular accident (CVA), unspecified mechanism (HCC); Stage 3 chronic kidney disease, unspecified whether stage 3a or 3b CKD (HCC); Hypothyroidism, unspecified type; Atherosclerotic heart disease of [place] coronary artery with other forms of angina pectoris (HCC) Start: 11-01-2023 Telephone encounter Cydney Enciso APRN.CNP Work Phone: [facility] Comment on above: Electronic Communica tion (Received fax from [facility].Communication Form/ Original scanned into chart-copy sent via [employer] to [place] provider for completion ) Start: 10-03-2023 Telephone encounter Cydney Enciso APRN.CNP Work Phone: [facility] Comment on above: Release Of Medical R ecords Start: 09-15-2023 Telephone encounter Cydney Enciso APRN.LEANDRO Work Phone: [facility] Comment on above: Orders (Lyrica) Start: 09-14-2023 End: 09-14-2023 Patient encounter procedure Cydney Enciso APRN.MANAGER OF HOUSEKEEPING Work Phone: [facility] Comment on above: 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 (Primary Dx); Syncope, unspecified syncope type; Sinus pause; Cervicogenic headache; Paroxysmal atrial fibrillation (HCC); Essential hypertension; Mixed hyperlipidemia; Type 2 diabetes mellitus with chronic kidney disease, without long-term current use of insulin, unspecified CKD stage (HCC) Start: 09-07-2023 End: 09-07-2023 Subsequent hospital visit by physician [facility] (I-Stat) RADIO CT [facility] Comment on above: Carotid aneurysm, le ft (HCC) [I72.0] Start: 08-03-2023 End: 08-03-2023 Patient encounter procedure Chelsi Carlson MD Work Phone: [facility] Comment on above: Primary open angle g laucoma (POAG) of both eyes, moderate stage (Primary Dx); Exudative age-related macular degeneration, bilateral, with inactive choroidal neovascularization (HCC); PCO (posterior capsular opacification), left; Pseudophakia; Refractive error Start: 08-03-2023 End: 08-03-2023 Subsequent hospital visit by physician Card Lab [facility] Comment on above: New onset atrial fib rillation (HCC) [I48.91] Start: 08-02-2023 End: 08-02-2023 ambulatory [facility] Work Phone: Start: 08-02-2023 End: 08-02-2023 Departed Referred [facility] Start: 07-28-2023 Unknown Jeovany Mcconnell MD Faci lity:[facility] Start: 07-28-2023 End: 07-29-2023 Patient encounter procedure Jeovany Mcconnell MD [facility] Start: 07-04-2023 End: 07-04-2023 ambulatory [facility] Work Phone: Start: 07-04-2023 End: 07-04-2023 Departed Referred [facility] Start: 06-26-2023 End: 06-26-2023 Emergency department patient visit HERNAN KENNY [facility] Start: 06-26-2023 End: 06-26-2023 Emergency department patient visit Hernan Kenny Work Phone: [facility] Comment on above: Altered mental statu s, unspecified altered mental status type (Primary Dx); Lower urinary tract infectious disease Start: 04-05-2023 End: 04-05-2023 ambulatory [facility] Start: 04-05-2023 End: 04-05-2023 Office outpatient visit 25 minutes Vern Bledsoe MD Work Phone: [facility] Comment on above: Atherosclerotic hear t disease of [place] coronary artery with other forms of angina pectoris (CMS/HCC) (Primary Dx); Essential hypertension; Hypercholesterolemia; Diabetes mellitus without complication (CMS/HCC); Cerebrovascular accident (CVA), unspecified mechanism (CMS/HCC); Mixed hyperlipidemia Start: 04-03-2023 End: 04-03-2023 ambulatory [facility] Work Phone: Start: 04-03-2023 End: 04-03-2023 Departed Referred [facility] Start: 03-01-2023 End: 03-13-2023 Evaluation and management of inpatient [facility] Start: 02-01-2023 End: 02-08-2023 Between Visit Jeovany Mcconnell MD [facility] Start: 01-31-2023 End: 01-31-2023 Subsequent hospital visit by physician Jeovany Mcconnell MD Work Phone: [facility] Comment on above: Type 2 diabetes nadeen itus without complications (CMS/HCC); Essential (primary) hypertension; Pure hypercholesterolemia, unspecified; Hypothyroidism, unspecified; Chronic kidney disease, stage 3 unspecified (CMS/HCC) Start: 01-27-2023 End: 01-29-2023 Unknown Jeovany Mcconnell MD Facility:[facility] Start: 01-27-2023 End: 01-28-2023 Patient encounter procedure Jeovany Mcconnell MD [facility] Start: 01-27-2023 End: 01-28-2023 Well adult monitoring check done Jeovany Mcconnell MD [facility] Start: 07-11-2022 End: 07-18-2022 Between Visit Jeovany Mcconnell MD [facility] Start: 07-11-[address] JEOVANY MCCONNELL Facility:UNKNOWN Start: 07-11-2022 End: 07-11-2022 Patient encounter procedure Jeovany Mcconnell MD [facility] Start: 07-11-2022 End: 07-13-2022 Unknown UNKNOWN PROVIDER Facility:[facility] Start: 07-11-2022 End: 07-12-2022 Patient encounter procedure Jeovany Mcconnell MD [facility] Start: 07-11-2022 End: 07-12-2022 Well adult monitoring check done Jeovany Mccnonell MD [facility] Start: 01-05-2022 End: 01-06-2022 Patient encounter procedure Jeovany Mcconnell MD [facility] Start: 12-30-2021 End: 01-06-2022 Between Visit Jeovany Mcconnell MD [facility] Start: 12-30-[address] JEOVANY MCCONNELL Facility:UNKNOWN Start: 12-30-2021 Encounter for genera l adult medical examination without abnormal findings Dr. JEOVANY MCCONNELL Facility:UNKNOWN Start: 12-30-2021 End: 12-30-2021 Patient encounter procedure Jeovany Mcconnell MD [facility] Start: 06-27-2021 End: 07-04-2021 Between Visit Jeovany Mcconnell MD [facility] Start: 06-24-2021 End: 06-24-2021 Patient encounter procedure Jeovany Mcconnell MD [facility] Start: 05-24-2021 End: 05-24-2021 Patient encounter procedure Jeovany Mcconnell MD [facility] Start: 01-04-2021 End: 01-06-2021 Patient encounter procedure Jeovany Mcconnell MD [facility] Start: 01-04-2021 End: 01-06-2021 Well adult monitoring check done Jeovany Mcconnell MD [facility] Start: 12-23-2020 End: 12-30-2020 Between Visit Jeovany Mcconnell MD [facility] Start: 12-21-2020 End: 12-21-2020 Patient encounter procedure Jeovany Mcconnell MD [facility] Start: 07-03-2020 End: 07-05-2020 Patient encounter procedure Jeovany Mcconnell [facility] Start: 06-22-2020 End: 06-22-2020 Patient encounter procedure Jeovany Mcconnell [facility] Start: 05-25-2020 End: 05-27-2020 Video Visit Paul Calvillo [facility] Start: 03-13-2020 End: 03-13-2020 Patient encounter procedure Jeovany Mcconnell [facility] Start: 03-13-2020 End: 03-13-2020 Patient encounter procedure Jeovany Mcconnell [facility] Start: 01-01-2020 End: 01-03-2020 Patient encounter procedure Jeovany Mcconnell [facility] Start: 12-23-2019 End: 12-23-2019 Patient encounter procedure Jeovany Mcconnell [facility] Patient encounter procedure Jeovany Mcconnell [facility] Procedures Date Procedure Procedure Detail Performing Clinician Start: 11-12-2024 Computerized ophthal jasen imaging optic nerve Chelsi Carlson MD Work Phone: Start: 09-08-2024 Urnls dip stick/tabl et reagent auto microscopy Mahaveer Mukkamalla MD Start: 09-08-2024 Urine culture Henry Ewing MD Start: 07-03-2024 Follow-up visit Follow Up AILYN ENCISO Start: 03-11-2024 Computerized ophthal jasen imaging optic nerve Chelsi Carlson MD Work Phone: Start: 09-07-2023 Ct angiography head w/contrast/noncontrast Cydney Enciso PANELBEATER.MANAGER OF HOUSEKEEPING Work Phone: Start: 09-07-2023 Ct angiography neck w/contrast/noncontrast Cydney Enciso PANELBEATER.MANAGER OF HOUSEKEEPING Work Phone: Start: 06-26-2023 Urinalysis complete panel - Urine [...] MENDEZ Start: 03-13-2023 WALKER STANDARD CHANEL Sykes OTH Start: 03-13-2023 WEIGH PATIENT CHANEL ROT H Start: 03-13-2023 ADULT DISCHARGE DIET DA VID [...] PROMPT FOR PARAMETERS) CHANEL MENDEZ Start: 03-11-2023 [facility] RECEIVING AGENCY STANDING ORDERS CHANEL MENDEZ Start: 03-11-2023 ADULT DISCHARGE DIET DA VID MENDEZ Start: 03-11-2023 DISCHARGE ACTIVITY MARY KAY D ANDREA Start: 03-11-2023 DISCHARGE INSTRUCTIONS CHANEL MENDEZ Start: 03-11-2023 SNF DISCHARGE POTENTIAL CHANEL MENDEZ Start: 03-11-2023 [facility] FREE OF COMMUNIC ABLE DISEASE CHANEL MENDEZ Start: 03-11-2023 [facility] LEVEL OF CARE CHANEL MENDEZ Start: 03-11-2023 SNF REHAB POTENTIAL TROY ID MENDEZ Start: 03-11-2023 VITAL SIGNS CHANEL MENDEZ Start: 03-11-2023 WEIGH PATIENT CHANEL ROT H Start: 03-11-2023 DISCHARGE PATIENT CHANEL MENDEZ Start: [...] Serum or Plasma CHANEL MENDEZ Start: 03-08-2023 MIRROR PAINTER EVAL AND TREAT MARY KAY Afia MENDEZ [...] panel - S rajan or Plasma Vern Bledsoe MD Work Phone: Start: 03-05-2023 Glucose [Mass/volume [...] Start: 03-02-2023 SERIAL TROPONIN, 6 H OUR ([place]) CHANEL MENDEZ Start: 03-02-2023 THYROXINE, FREE CHANEL Sykes OTChelly Start: 03-02-2023 ED TO FLOOR BED REQUEST CHANEL MENDEZ Start: 03-02-2023 ADMIT TO INPATIENT MARY KAY Afia MENDEZ Start: 03-02-2023 SERIAL TROPONIN, 2 H OUR ([place]) CHANEL MENDEZ Start: 03-02-2023 Bacteria identified in Urine by Culture CHANEL MENDEZ Start: 03-02-2023 DRUG SCREEN,URINE CHANEL MENDEZ Start: 03-02-2023 MICROSCOPIC ONLY, URINE CHANEL MENDEZ Start: 03-02-2023 URINALYSIS WITH REFL EX MICROSCOPIC CHANEL MENDEZ Start: 03-02-2023 Thyrotropin [Units/v olume] in Serum or Plasma Vern Bledsoe MD Work Phone: Start: 03-02-2023 INSERT STRAIGHT [...] MENDEZ Start: 03-01-2023 SERIAL TROPONIN, INI TIAL ([place]) CHANEL MENDEZ Start: 03-01-2023 TROPONIN T SERIES, H IGH SENSITIVITY (0, 2 HR, 6 HR) CHANEL MENDEZ Start: 03-01-2023 Glucose [Mass/volume ] in Serum or Plasma CHANEL MENDEZ Start: 01-31-2023 Microalbumin/Creatin ine [Mass Ratio] in Urine Jeovany Mcconnell MD Work Phone: Start: 01-31-2023 Urinalysis Jeovany Mcconnell MD Work Phone: Start: 01-31-2023 Complete blood count with white cell differential, automated Jeovany Mcconnell MD Work Phone: Start: 01-31-2023 Comprehensive metabo lic panel Jeovany Mcconnell MD Work Phone: Start: 01-31-2023 Hemoglobin A1c measurement Jeovany Mcconnell MD Work Phone: Start: 01-31-2023 Lipid panel Jeovany Mcconnell MD Work Phone: Start: 01-31-2023 TSH WITH REFLEX TO F REE T4 IF ABNORMAL Jeovany Mcconnell MD Work Phone: Start: 05-24-2021 Mammography Vern powell MD Work Phone: Start: 01-16-2019 Colonoscopy Jeovany blanco Comment on above: 01/16/2019 [place] hemorrhoids repeat 5 years 01/16/2019 [place] hemorrhoids repeat 5 years Start: 12-27-2017 Extraction of cataract Jeovany Mcconnell Comment on above: With lens implant With lens implant Start: 07-27-2014 Spinal stenosis of l umbar region (disorder) Jeovany Mcconnell Start: 06-29-2013 Colonoscopy Jeovany blanco Comment on above: Normal. Due in 2019. Normal. Due in 2019. Start: 10-27-2009 Colonoscopy Jeovany blanco Comment on above: Normal Normal Start: 05-29-1998 Date of last menstru al period (observable entity) Jeovany Mcconnell Plan of Treatment Date Care Activity Detail Author Start: 03-29-2028 DTaP/Tdap/Td Vaccines (2 - Td or Tdap) DTaP/Tdap/Td Vaccines (2 - Td or Tdap) [facility] Start: 03-29-2028 Urine microalbumin profile DTaP,Tdap,Td Vaccine (2 - Td or Tdap) [facility] Start: 12-12-2026 VISUAL FIELD 24-2 OU (BOTH EYES) VISUAL FIELD 24-2 OU (BOTH EYES) [facility] Imaging Routine Primary open angle glaucoma (POAG) of both eyes, moderate stage Expected: 12/12/2026 [facility] Work Phone: Comment on above: Expected: 12/12/2026 Start: 04-10-2026 OCT OPTIC NERVE CIRRUS OU (BOTH EYES) OCT OPTIC NERVE CIRRUS OU (BOTH EYES) [facility] Imaging Routine Primary open angle glaucoma (POAG) of both eyes, moderate stage Expected: 04/10/2026 [facility] Work Phone: Comment on above: Expected: 04/10/2026 Start: 12-01-2025 End: 12-01-2025 Patient encounter procedure 12/01/2025 3:00 PM EDT Office Visit [facility] [address] [place], [place] [phone] Jose Miguel Alfaro MD [address] [place] [id number] Annual f/u Persistant afib. kh [facility] Comment on above: Annual f/u Persistant afib. kh Start: 11-12-2025 Glaucoma screening Dilated Retinal Exam [facility] Start: 09-01-2025 OCT OPTIC NERVE CIRRUS OU (BOTH EYES) OCT OPTIC NERVE CIRRUS OU (BOTH EYES) [facility] Imaging Routine Primary open angle glaucoma (POAG) of both eyes, moderate stage Expected: 09/01/2025 [facility] Work Phone: Comment on above: Expected: 09/01/2025 Start: 05-12-2025 End: 05-12-2025 Patient encounter procedure 05/12/2025 11:00 AM EST Office Visit [facility] [address] [place], [place] [phone] Chelsi Carlson MD 1 [facility] [address] [place] [phone] Diagnostics, [facility] [address] [address] Return in about 6 months (around 05/14/2025) for IOP, visual field 24-2. [facility] Comment on above: Return in about 6 months (around 025) for IOP, visual field 24-2. Start: 01-27-2025 Influenza vaccination [facility] Start: 11-27-2024 End: 11-27-2024 Patient encounter procedure [facility] Comment on above: 9mo follow up 9mo follow up, PAF- EKG-hlk Start: 10-18-2024 Creatinine measurement Serum Creatinine [facility] Start: 09-09-2024 End: 09-09-2024 Patient encounter procedure 09/09/2024 10:45 AM EDT Office Visit [facility] [address] [place] [address] Chelsi Carlson MD 1 [facility] [address] [place] [phone] Return in about 6 months (around 09/09/2024) for refraction, IOP, dilate, OCT- disc. [facility] Comment on above: Return in about 6 months (around 09/10/19 25) for refraction, IOP, dilate, OCT- disc. Start: 08-02-2024 Glaucoma screening Dilated Retinal Exam [facility] Start: 07-03-2024 End: 07-03-2024 Patient encounter procedure 07/03/2024 3:00 PM EST Office Visit [facility] [address] [place] [address] Cydney Enciso APRN.MANAGER OF HOUSEKEEPING [address] [place] [address] 6 month follow up [facility] Comment on above: 6 month follow up Start: 06-26-2024 Complete blood count Hemoglobin/Hematocrit [facility] Start: 06-26-2024 Creatinine measurement Serum Creatinine [facility] Start: 05-29-2024 Advance Directive Discussion Advance Directive Discussion [facility] Start: 05-29-2024 Medicare Advantage Annual Wellness Visit Medicare Advantage Annual Wellness Visit [facility] Start: 04-15-2024 End: 04-15-2024 Patient encounter procedure 04/15/2024 10:15 AM EST Office Visit [facility] [address] [place], [place] [phone] Chelsi Carlson MD 1 [facility] [address] [place] [address] Return in about 6 months (around 02/03/2024) for IOP, OCT- disc. [facility] Comment on above: Return in about 6 months (around 4) for IOP, OCT- disc. Start: 03-11-2024 End: 03-11-2024 Patient encounter procedure 03/11/2024 11:00 AM EDT Office Visit [facility] 1 [facility] [address] Chelsi Carlson MD 1 [facility] [address] [place] [phone] Return in about 6 months (around 02/03/2024) for IOP, OCT- disc. [facility] Comment on above: Return in about 6 months (around ) for IOP, OCT- disc. Start: 03-06-2024 Hepatitis B surface antibody level LDL Cholesterol [facility] Start: 03-06-2024 Lipid panel Lipid Panel [facility] Start: 03-02-2024 Thyroid stimulating hormone measurement TSH Level [facility] Start: 02-26-2024 End: 02-26-2024 Patient encounter procedure 02/26/2024 4:00 PM EDT Office Visit [facility] [address] [place] [address] Jose Miguel Alfaro MD [address] [place] [address] [address] [place] [address] 3 month follow up [facility] Comment on above: 3 month follow up Start: 02-01-2024 Hemoglobin A1c measurement Diabetes: Hemoglobin A1C [facility] Start: 02-01-2024 Hepatitis B screening Urine Albumin:Creatinine Ratio [facility] Start: 02-01-2024 End: 02-01-2024 Patient encounter procedure 02/01/2024 10:15 AM EDT Office Visit [facility] [address] [place] [place] [address] Chelsi Carlson MD 1 [facility] [address] [place] [address] Return in about 6 months (around 02/03/2024) for IOP, OCT- disc. [facility] Comment on above: Return in about 6 months (around ) for IOP, OCT- disc. Start: 01-28-2024 Covid-19 Vaccine ( season) Covid-19 Vaccine () [facility] Start: 01-28-2024 Influenza vaccination [facility] Start: 01-04-2024 End: 01-04-2024 Patient encounter procedure 01/04/2024 3:00 PM EDT Office Visit [facility] [address] [place], [place] [phone] Cydney Enciso, PANELBEATER.MANAGER OF HOUSEKEEPING [address] [facility] [address] [place], [place] [phone] 8 week follow up per haiku sent by ana madrid 11/03/23 [facility] Comment on above: 8 week follow up per haiku sent by ana madrid 11/03/23 Start: 11-16-2023 End: 11-16-2023 Patient encounter procedure 11/16/2023 3:00 PM EDT Office Visit [facility] [address] [place], [place] [phone] Cydney Enciso, PANELBEATER.MANAGER OF HOUSEKEEPING [address] [facility] [address] [place], [place] [phone] 8 week follow up [facility] Comment on above: 8 week follow up Start: 11-10-2023 End: 11-10-2023 Patient encounter procedure 11/10/2023 1:00 PM EDT Office Visit [facility] [address] [place], [place] [phone] Jose Miguel Alfaro MD 224 [facility] [address] [place], [place] [phone] REf; Neuro for Afib/flutter/PVCsEKG* /eo [facility] Comment on above: REf; Neuro for Afib/flutter/PVCsEKG */eo Start: 10-04-2023 End: 10-04-2023 Patient encounter procedure 10/04/2023 10:00 AM EDT Office Visit [facility] [address] [facility] [address] [place] [address] Vern Bledsoe MD [address] [facility] [address] [place], [place] [phone] [facility] Start: 08-16-2023 RSV Vaccine (1 - 1-dose 75+ series) RSV Vaccine (1 - 1-dose 75+ series) [facility] Start: 08-01-2023 Hemoglobin A1c measurement HbA1C [facility] Start: 07-28-2023 End: 07-28-2023 Patient encounter procedure 07/28/2023 1:45 PM EST Office Visit [facility] [address] [place] [address] [place] [phone] Jeovany Mcconnell MD [address] [place] [address] [place] [address] [facility] Start: 05-29-2023 Advance Directive Discussion Advance Directive Discussion [facility] Start: 05-29-2023 Behavioral Health Screening Behavioral Health Screening [facility] Start: 05-29-2023 Depression Assessment Depression Assessment [facility] Start: 05-02-2023 Hemoglobin A1c measurement Diabetes: Hemoglobin A1C [facility] Start: 01-27-2023 COVID-19 Vaccine ( season) COVID-19 Vaccine () [facility] Start: 01-27-2023 Covid-19 Vaccine ( season) Covid-19 Vaccine () [facility] Start: 01-27-2023 Influenza vaccination Influenza Vaccine (#1) [facility] Start: 12-29-2022 Glaucoma screening Diabetes: Retinopathy Screening [facility] Start: 05-24-2022 Screening for malignant neoplasm of breast [facility] Start: 04-27-2022 COVID-19 Vaccine (4 - Pfizer series) COVID-19 Vaccine (4 - Pfizer series) [facility] Start: 2008 RSV Immunization aged 60 or older (1 - 1-dose 60+ series) RSV Immunization aged 60 or older (1 - 1-dose 60+ series) [facility] Start: 2008 RSV Vaccine (1 - 1-dose 60+ series) RSV Vaccine (1 - 1-dose 60+ series) [facility] Start: 1998 Shingrix Vaccine (1 of 2) Shingrix Vaccine (1 of 2) [facility] Start: 1998 Zoster Vaccines (1 of 2) Zoster Vaccines (1 of 2) [facility] Start: 1993 Screening for malignant neoplasm of colon [facility] Start: 1988 Screening for malignant neoplasm of breast Mammogram [facility] Start: 08-16-1967 Urine screening for protein Diabetes: Urine Protein Screening [facility] Start: 1966 Annual PCP Team Chronic Disease Visit Annual PCP Team Chronic Disease Visit [facility] Start: 1966 Anxiety Screening Anxiety Screening [facility] Start: 1966 BP Controlled (<130/80) BP Controlled (<130/80) [facility] Start: 1966 Depression Screening Depression Screening [facility] Start: 1966 Hepatitis C screening Hepatitis C Screening [facility] Start: 1960 Depression Screening Depression Screening [facility] Start: 1958 Diabetic foot examination [facility] Start: 1958 Glaucoma screening Diabetes: Retinopathy Screening [facility] Start: 1958 Preventive dental service Diabetes: Dental Exam [facility] Start: 1948 Medicare Advantage Annual Wellness Visit (AWV) Medicare Advantage Annual Wellness Visit (AWV) [facility] Start: 1948 Medicare Annual Wellness Visit Medicare Annual Wellness Visit (AWV) [facility] Start: 1948 Screening for malignant neoplasm of colon [facility] Start: 1948 Screening for osteoporosis Bone Density Scan [facility] End: 06-26-2023 Bacteria identified in Urine by Culture [facility] Work Phone: Comment on above: Once (Lab) for 1 Occurrences starting until 06/26/2023 ECG B/O W INTERP (ME D OFFICE) ECG B/O W INTERP (MED OFFICE) ECG Routine Persistent atrial fibrillation (HCC) Ordered: 11/10/2023 [facility] Work Phone: Comment on above: Ordered: 11/10/2023 ECG B/O W INTERP (ME D OFFICE) ECG B/O W INTERP (MED OFFICE) ECG Routine Persistent atrial fibrillation (HCC) Ordered: 02/26/2024 [facility] Work Phone: Comment on above: Ordered: 02/26/2024 ECG B/O W INTERP (ME D OFFICE) ECG B/O W INTERP (MED OFFICE) ECG Routine Permanent atrial fibrillation (HCC) Ordered: 11/27/2024 [facility] Work Phone: Comment on above: Ordered: 11/27/2024 EVENT MONITOR EVENT MONITOR Ca rdiology Routine New onset atrial fibrillation (HCC) H/O: stroke with residual effects Ordered: 06/08/2023 [facility] Work Phone: Comment on above: Ordered: 06/08/2023 [facility] Immunizations Immunization Date Immunization Notes Care Provider [facility] 03-02-2022 Flu vaccine, quadrivalent, high-dose, preservative free, age 65y+ (FLUZONE) Vern Bledsoe MD Work Phone: [facility] Work Phone: 03-02-2022 influenza virus vacc ine, unspecified formulation Jeovany Mcconnell MD [facility] 03-02-2022 SARS-CoV-2 (COVID-19 ) mRNA (tozinameran 12y+) bivalent boost Jeovany Mcconnell MD [facility] 04-08-2021 SARS-CoV-2 (COVID-19 ) mRNA BNT-162b2 vax Jeovany Mcconnell MD [facility] 01-17-2021 Flu vaccine, quadrivalent, high-dose, preservative free, age 65y+ (FLUZONE) Vern Bledsoe MD Work Phone: [facility] Work Phone: 01-17-2021 influenza virus vacc ine, unspecified formulation Jeovany Mcconnell MD [facility] 09-13-2020 SARS-CoV-2 (COVID-19 ) mRNA BNT-162b2 vax Jeovany Mcconnell MD [facility] Comment on above: Result Comment: 2020: [id number] 08-23-2020 SARS-CoV-2 (COVID-19 ) mRNA BNT-162b2 ruth Mcconnell MD [facility] Comment on above: Result Comment: 2020: [id number] 02-06-2020 influenza virus vacc ine, unspecified formulation Jeovany Mcconnell MD [facility] 02-06-2020 influenza, injectabl e, quadrivalent, preservative free Vern Bledsoe MD Work Phone: [facility] Work Phone: 01-31-2019 AS03 adjuvant Chelsi cantu MD Work Phone: [facility] 01-31-2019 influenza virus vacc ine, unspecified formulation Jeovany Mcconnell MD [facility] 01-31-2019 Seasonal trivalent influenza vaccine, adjuvanted, preservative free Vern Bledsoe MD Work Phone: [facility] Work Phone: 01-27-2019 influenza, seasonal, injectable Jeovany Mcconnell [facility] 03-29-2018 tetanus toxoid, redu vashti diphtheria toxoid, and acellular pertussis vaccine, adsorbed; Translations: [Boostrix (Tdap)] Jeovany Mcconnell [facility] 02-05-2018 influenza virus vacc ine, unspecified formulation Jeovany Mcconnell MD [facility] 02-05-2018 influenza, high dose seasonal, preservative-free Vern Bledsoe MD Work Phone: [facility] Work Phone: 01-27-2018 influenza, seasonal, injectable Jeovany Mcconnell [facility] 01-15-2017 influenza virus vacc ine, unspecified formulation Jeovany Mcconnell MD [facility] 01-15-2017 influenza, high dose seasonal, preservative-free Vern Bledsoe MD Work Phone: [facility] Work Phone: 01-03-2017 pneumococcal conjuga te vaccine, 13 valent Jeovany [facility] 01-03-2017 pneumococcal polysaccharide vaccine, 23 valent Jeovany [facility] Comment on above: Result Comment: [01/28 Uncharted] not the correct date Result Comment: [01/28 Uncharted] not the correct date 02-07-2016 influenza, seasonal, injectable Jeovany Mcconnell MD [facility] 04-17-2015 pneumococcal polysaccharide vaccine, 23 valent Jeovany Mcconnell [facility] 02-14-2014 influenza, seasonal, injectable Jeovany Mcconnell MD [facility] 04-19-2009 novel influenza-H1N1 -09, preservative-free, injectable Jeovany Mcconnell MD [facility] Payers Date Payer Category Payer Self-pay 2018 Medicare [id number] 2018 Medicare (Managed Care) MMO [employer] PPO Member Subscriber Plan / Payer (Effective 2018-Present) Name: Cindy Soto Relation to Subscriber: Self Name: Cindy Soto Payer ID: Not on file Type: PPO Address: [address] [id number] 2018 Unknown [id number] 1948 Unknown [id number] 1950 Unknown [id number] 1948 Unknown [id number] 1948 Unknown [id number] Medicare MEDICARE PART A B [id number] Unknown [id number] Unknown [id number] Unknown [id number] Unknown [id number] Unknown [id number] Unknown [id number] Unknown [id number] Social History Date Type Detail Facility Start: 10-16-2017 End: 07-11-2022 Never smoked tobacco (finding) [facility] Sex Assigned At Sex Adilson mccall [facility] Start: 04-05-2023 Tobacco use and exposure Smokeless tobacco non-user [facility] Work Phone: Start: 04-05-2023 End: 11-27-2024 Alcohol intake Ex-drinker (finding) [facility] Work Phone: Start: 03-02-2023 End: 06-08-2023 History of Social function [facility] Start: 03-02-2023 End: 06-08-2023 [facility] Utilities [facility] Has the electric, gas, oil, or water company threatened to shut off services in your home in past 12Mo No [facility] Are you now , , , , never or living with a partner? Never [facility] Work Phone: How often to you hav e a drink containing alcohol? Never [facility] Work Phone: How many standard drinks containing alcohol do you have on a typical day? Patient does not drink [facility] Work Phone: Do you feel stress - tense, restless, nervous, or anxious, or unable to sleep at night because your mind is troubled all the time - these days [OSQ] Not at all [facility] Work Phone: (I/We) worried whether (my/our) food would run out before (I/we) got money to buy more. Never true [facility] Work Phone: Start: 1950 [facility] Start: 03-02-2023 Gender identity Identifies as female gender (finding) [facility] Work Phone: Start: 03-26-2023 End: 04-05-2023 Exposure to SARS-CoV-2 (event) Not sure [facility] Start: 06-26-2023 Tobacco smoking status MAIS Tobacco smoking consumption unknown [facility] Work Phone: Start: 1950 Sex Assigned At Not on file [facility] Start: 08-03-2023 End: 02-26-2024 Tobacco smoking status MAIS Ex-smoker [facility] History of tobacco use Current smoker [facility] History of tobacco use Cigarette Smoker [facility] History of tobacco use Passive smoker [facility] Start: 08-03-2023 End: 01-04-2024 Alcohol intake Current drinker of alcohol (finding) [facility] Start: 09-17-2024 Sex Female (finding) [facility] NEGATED: Highlighted rowStart: MARYF History of tobacco use Passive smoker [facility] Work Phone: Medical Equipment Procedure Code Equipment Code Equipment Origin al Text Equipment Identifier Dates One touch ultra blue test strips, See Instructions, Instructions: Tests once daily and when not feeling well. Please dispense a 9 day supply, Supply, # 3 box(es), 3 Refill(s), Type: Maintenance, Pharmacy: [id number], Tests once daily and when... Start: 11-23-2017 One touch ultra soft lancets, See Instructions, Instructions: Tests once daily and when not feeling well. Please dispense a 90 day supply., Supply, # 3 box(es), 0 Refill(s), Type: Maintenance, Pharmacy: [facility] #[id number], Tests once daily and when not... Start: 11-23-2017 See Instructions , Instructions: USE TO TEST ONCE DAILY AND WHEN NOT FEELING WELL, # 100 unknown unit, 2 Refill(s), Type: Soft Stop, Pharmacy: [facility] #[id number], USE TO TEST ONCE DAILY AND WHEN NOT FEELING WELL Start: 09-25-2018 See Instructions , Instructions: USE TO TEST ONCE DAILY AND WHEN NOT FEELING WELL., # 100 unknown unit, 2 Refill(s), Type: Soft Stop, Pharmacy: [facility][id number], USE TO TEST ONCE DAILY AND WHEN NOT FEELING WELL. Start: 09-25-2018 Instructions: US E TO TEST ONCE DAILY AND WHEN NOT FEELING WELL Start: 10-15-2017 End: 11-23-2017 One touch ultra blue test strips, See Instructions, Instructions: Tests once daily and when not feeling well. Please dispense a 9 day supply, Supply, # 3 box(es), 3 Refill(s), Type: Maintenance, Pharmacy: [facility] #[id number], Tests once daily and when... Start: 11-23-2017 One touch ultra soft lancets, See Instructions, Instructions: Tests once daily and when not feeling well. Please dispense a 90 day supply., Supply, # 3 box(es), 0 Refill(s), Type: Maintenance, Pharmacy: [facility] #[id number], Tests once daily and when not... Start: 11-23-2017 See Instructions , Instructions: USE TO TEST ONCE DAILY AND WHEN NOT FEELING WELL, # 100 unknown unit, 2 Refill(s), Type: Soft Stop, Pharmacy: [facility] #[id number], USE TO TEST ONCE DAILY AND WHEN NOT FEELING WELL Start: 09-25-2018 See Instructions , Instructions: USE TO TEST ONCE DAILY AND WHEN NOT FEELING WELL., # 100 unknown unit, 2 Refill(s), Type: Soft Stop, Pharmacy: [facility] #[id number], USE TO TEST ONCE DAILY AND WHEN NOT FEELING WELL. Start: 09-25-2018 Instructions: US E TO TEST ONCE DAILY AND WHEN NOT FEELING WELL Start: 10-15-2017 End: 11-23-2017 One touch ultra blue test strips, See Instructions, Instructions: Tests once daily and when not feeling well. Please dispense a 9 day supply, Supply, # 3 box(es), 3 Refill(s), Type: Maintenance, Pharmacy: [facility] #[id number], Tests once daily and when... Start: 11-23-2017 One touch ultra soft lancets, See Instructions, Instructions: Tests once daily and when not feeling well. Please dispense a 90 day supply., Supply, # 3 box(es), 0 Refill(s), Type: Maintenance, Pharmacy: [facility] #[id number], Tests once daily and when not... [...] 3 box(es), 0 Refill(s), Type: Maintenance, Pharmacy: [facility] #[id number], Tests once daily and when not... [...] unit, 2 Refill(s), Type: Soft Stop, Pharmacy: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 Date:01/27/23 1. Well adult exam (Z00.00) Preventative measures [...] Optimal Study, Breast cancer screening by mammogram [facility] 09-01-2023 Note CHARLES [place] Address: [address] [place] [address] [place] [address] Sex:Female :1950 Location:[facility] Date of Service:01/27/2023 PCP: Jeovany Mcconnell MD Chief Complaint Patient in today [...] no Issues with home safety - no ROLLER CHECKER history -. Does not see a Surgical Processor. Last Pap was in 2009 and was [...] reasonably compliant with a diabetic diet. 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 ROLLER CHECKER: negative for stress incontinence, urge incontinence, abnormal [...] are normal. Both tympanic membranes are pearly henderson andlandmarks normal. Neck: Neck reveals supple, no [...] Strip), See Instructions Miscellaneous Prescription(OneTouch Delica Plus [id number] Miscellaneous), See Instructions Miscellaneous Rx Supply(One touch [...] Home/Environment Feels unsafe at home:No Financial concerns:No Alevism restrictions/concerns:NONE Substance Abuse Use:Never Tobacco Use:Never (less than 100 in lifetime) Family History CAD - Coronary artery disease: Father. Cancer: Mother. Diabetes: Brother. Health Status Family Member(s) Electronically Signed on 01/27/23 01:28 PM Jeovany Mcconnell MD [facility]08-31-2023 Hospital Discharge instructions Patient Education 01/26/2023 12:29:41 Medicare Preventive (Women) Date: 01/27/23Female Patient Name: Cindy Soto The physicians of [facility] would like to take this opportunity to [...] one-time test for all adults born between 5836-8464, or those with high-risk behaviors. Human Immunodeficiency Virus (HIV): Recommended once for healthy adults 18-75, as screening and then only if there are any concerns of possible exposure. Influenza Vaccine: Required yearly for all adults Pneumococcal Vaccine: Required for all adults 65 or older. Zoster Vaccine (Shingles): Two shots 2-6 months apart, this can be completed at your local pharmacy. Provider: Dr. Mcconnell [facility] 02-13-2023 Evaluation + Plan noteExtracted from: Title:dm Author:Jeovany Mcconnell MD Date: 07/11/22 1. Type 2 [...] stenosis follow-up in December for annual wellness [facility] 02-13-2023 Note Chief Complaint DM/HTN/CHOL/TSH CHECK, DID [...] annual wellness Patient Information Name:CINDY SOTO Address: [address] [place] [address] [address] [place] [id number] Sex:Female Date of :1950 Location:[facility] Date of Service:07/11/2022 Primary Care Physician: Jeovany Mcconnell MD, Problem List/Past Medical History Ongoing [...] unsafe at home: No. Financial concerns: No. Alevism restrictions/concerns: NONE. Substance Abuse Never Tobacco Never (less than 100 in lifetime) Family History CAD - Coronary artery disease: Father. Cancer: Mother. Diabetes: Brother. Electronically Signed on 07/11/22 01:37 PM Jeovany Mcconnell MD [facility]08-10-2022 Hospital Discharge instructions Patient Education 01/05/2022 12:59:18 Medicare Preventive (Women) (AMANDAAMEEKS) Date:Female Patient Name: The physicians of [facility] would like to take this opportunity to [...] one-time test for all adults born between 7517-4131, or those with high-risk behaviors. Human Immunodeficiency Virus (HIV): Recommended once for healthy adults 18-75, as screening and then only if there are any concerns of possible exposure. Influenza Vaccine: Required yearly for all adults Pneumococcal Vaccine: Required for all adults 65 or older. Zoster Vaccine (Shingles): Two shots 2-6 months apart, this can be completed at your local pharmacy. Provider: [facility] 08-09-2021 Evaluation + Plan noteExtracted from: Title:cpe Author:Jeovany Mcconnell MD Date: 01/04/21 1. Encounter for general ariadne lt medical examination without abnormal findings (Z00.00) Preventative measures reviewed. Immunizations are up to date. Labs reviewed. Ordered: [id number] urnls dip stick/tablet rgnt auto w/o microscopy [...] Goals reviewed. Continue with current medication. Ordered: [id number] urnls dip stick/tablet rgnt auto w/o microscopy (Form/Charge), Quantity: 1, Modifier(s): QW, Encounter for general adult medical examination without abnormal findings Hypertension Type 2 diabetes mellitus without complications ECG 12-Lead, Diabetes w Periph. Circulatory Disorder, 01/04/21 8:34:00 EDT LCFP - OFFICE VISIT 20 MIN-DE ANDA (Scheduling Request), Type 2 diabetes mellitus without complications Hypothyroid Hypertension Hypercholesterolemia Urine Albumin/Creatinine Ratio (Request), Encounter for general adult medical examination without abnormal findings Hypertension Type 2 diabetes mellitus without complications 4. Hypothyroid (E03.9) TSH reviewed. Euthyroid. Continue to take medication on an empty stomach first thing in the morning. Continue current dose. Ordered: LCFP - OFFICE VISIT 20 MIN-DE ANDA (Scheduling Request), Type 2 diabetes mellitus without complications Hypothyroid Hypertension Hypercholesterolemia 5. Hypertension (I10) DASH diet reviewed. Stressed importance of 20 minutes of cardiovascular exercise at least 20 minutes daily. Continue with current medication. Ordered: [id number] urnls dip stick/tablet rgnt auto w/o microscopy (Form/Charge), Quantity: 1, Modifier(s): QW, Encounter for general adult medical examination without abnormal findings Hypertension Type 2 diabetes mellitus without complications ECG 12-Lead, Diabetes w Periph. Circulatory Disorder, 01/04/21 8:34:00 EDT LCFP - OFFICE VISIT 20 MIN-DE ANDA (Scheduling Request), Type 2 diabetes mellitus without complications Hypothyroid Hypertension Hypercholesterolemia Urine Albumin/Creatinine Ratio (Request), Encounter for general adult medical examination without abnormal findings Hypertension Type 2 diabetes mellitus without complications 6. Hypercholesterolemia (E78.00) Well controlled on current medication. Continue to take as prescribed. Monitor diet. 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)- Primary Essential hypertension Unspecified essential hypertension Hypercholesterolemia Pure hypercholesterolemia Diabetes mellitus without complication (CMS/HCC) Type II or unspecified type diabetes mellitus without mention of complication, not stated as uncontrolled Cerebrovascular accident (CVA), unspecified mechanism (CMS/HCC) Mixed hyperlipidemia documented in this encounter [facility] Work Phone: Evaluation note* Diagnosis Type 2 diabetes mellitus without complications (CMS/HCC) Essential (primary) hypertension Unspecified essential hypertension Pure hypercholesterolemia, unspecified Hypothyroidism, unspecified Chronic kidney disease, stage 3 unspecified (CMS/HCC) documented in this encounter [facility] Work Phone: Evaluation noteNo assessment information available [facility] Work Phone: Evaluation note* Diagnosis Altered mental status, unspecified altered mental status type- Primary Lower urinary tract infectious disease Urinary tract infection, site not specified [facility] Diagnosis Primary open angle glaucoma (POAG) of both eyes, moderate stage- Primary Exudative age-related macular degeneration, bilateral, with inactive choroidal neovascularization (HCC) PCO (posterior capsular opacification), left After-cataract, unspecified Pseudophakia Lens replaced by other means Refractive error Unspecified disorder of refraction and accommodation [facility] Diagnosis Carotid aneurysm, left (HCC) Aneurysm of artery of neck documented in this encounter [facility] note* Diagnosis 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- Primary Cognitive deficits, late effect of cerebrovascular disease Syncope, unspecified syncope type Sinus pause Other heart block Cervicogenic headache Headache Paroxysmal atrial fibrillation (HCC) Atrial fibrillation Essential hypertension Unspecified essential hypertension Mixed hyperlipidemia Type 2 diabetes mellitus with chronic kidney disease, without long-term current use of insulin, unspecified CKD stage (HCC) [facility] Diagnosis History of cervical spinal surgery- Primary Other postprocedural status Chronic neck pain Cervicalgia documented in this encounter [facility] note* Diagnosis Persistent atrial fibrillation (HCC)- Primary Atrial fibrillation Essential hypertension Unspecified essential hypertension Hypercholesterolemia Pure hypercholesterolemia Bradycardia Other specified cardiac dysrhythmias Cerebrovascular accident (CVA), unspecified mechanism (HCC) Stage 3 chronic kidney disease, unspecified whether stage 3a or 3b CKD (HCC) Hypothyroidism, unspecified type Atherosclerotic heart disease of [place] coronary artery with other forms of angina pectoris (HCC) documented in this encounter [facility] note* Diagnosis 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- Primary Cognitive deficits, late effect of cerebrovascular disease Other specified hypothyroidism Paroxysmal atrial fibrillation (HCC) Atrial fibrillation Chronic neck pain Cervicalgia Essential hypertension Unspecified essential hypertension Mixed hyperlipidemia Type 2 diabetes mellitus with chronic kidney disease, without long-term current use of insulin, unspecified CKD stage (HCC) [facility]* Diagnosis Persistent atrial fibrillation (HCC)- Primary Atrial fibrillation Bradycardia Other specified cardiac dysrhythmias Hypercholesterolemia Pure hypercholesterolemia Essential hypertension Unspecified essential hypertension H/O: stroke with residual effects Unspecified late effects of cerebrovascular disease [facility] Diagnosis Primary open angle glaucoma (POAG) of both eyes, moderate stage- Primary PCO (posterior capsular opacification), left After-cataract, unspecified Pseudophakia Lens replaced by other means Refractive error Unspecified disorder of refraction and accommodation [facility] Diagnosis 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- Primary Cognitive deficits, late effect of cerebrovascular disease Chronic neck pain Cervicalgia Paroxysmal atrial fibrillation (HCC) Atrial fibrillation Essential hypertension Unspecified essential hypertension Mixed hyperlipidemia Type 2 diabetes mellitus with chronic kidney disease, without long-term current use of insulin, unspecified CKD stage (HCC) [facility] Diagnosis Primary open angle glaucoma (POAG) of both eyes, moderate stage- Primary PCO (posterior capsular opacification), left After-cataract, unspecified Pseudophakia Lens replaced by other means [facility]* Diagnosis Permanent atrial fibrillation (HCC)- Primary Atrial fibrillation Hypercholesterolemia Pure hypercholesterolemia Essential hypertension Unspecified essential hypertension 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 Long-term (current) use of anticoagulants [facility] No data available for this section [facility] Progress note No data available for this section [facility] Reason for referral (narrative)* Consultation (Routine) - Authorized Specialty Diagnoses / Procedures Referred By Tatianna t Referred To Contact Cardiology Diagnoses Atherosclerotic heart disease of [place] coronary artery with other forms of angina pectoris (CMS/HCC) Essential hypertension Hypercholesterolemia Diabetes mellitus without complication (CMS/HCC) Cerebrovascular accident (CVA), unspecified mechanism (CMS/HCC) Mixed hyperlipidemia Procedures Follow Up In Cardiology Vern Bledsoe MD [address] [address] Referral ID Status Reason Start Date Expiration Date V isits Requested Visits Authorized [id number] Authorized 04/05/2023 04/04/2024 1 1 [facility] Work Phone: Reason for referral (narrative)* Consultation (Routine) - Pending Review Specialty Diagnoses / Procedures Referred By Tatianna stevenson Referred To Contact Internal Medicine Diagnoses Lower urinary tract infectious disease Procedures [place] OFFICE/OUTPATIENT NEW HIGH MDM 60 MINUTES Jas Shankar MD [address] [place] [address] [facility] [address] [facility] [address] [place] [address] Referral ID Status Reason Start Date Expiration Date Visits Requested Visits Authorized [id number] Pending Review Specialty Services Required 06/26/2023 06/25/[address] [facility] for referral (narrative)No reason for referral [facility] Work Phone: Assessments and Plan Title:Viral Syndrome/COVID RO phone [...] NAAT (Request), Body aches Cough Fever Title:DM Author:Jeovany Mcconnell MD Date: 07/03/20 1. Type 2 diabetes mellitus without complications (E11.9) Healthy diet discussed. Limit simple sugars. Test glucose daily. Goals reviewed. Continue with current medication. Ordered: LCFP - OFFICE VISIT 20 MIN-DE ANDA (Scheduling Request), Hypertension 2. Hypothyroid (E03.9) TSH reviewed. Euthyroid. Continue to take medication on an empty stomach first thing in the morning. Continue current dose. Ordered: LCFP - OFFICE VISIT 20 MIN-DE ANDA (Scheduling Request), Hypertension 3. Hypertension (I10) DASH diet reviewed. Stressed importance of 20 minutes of cardiovascular exercise at least 20 minutes daily. Continue with current medication. Ordered: LCFP - OFFICE VISIT 20 MIN-DE ANDA (Scheduling Request), Hypertension 4. Chronic kidney disease, stage 3 (N18.30) Stable 5. Hypercholesterolemia (E78.00) Well controlled on current medication. Continue to take as prescribed. Monitor diet. Exercise 20 minutes at least 4 times per week. F/U 6 months. Title:cpe Author:Jeovany Mcconnell MD Date: 01/01/20 1. Annual physical exam (Z00 .00) Preventative measures reviewed. Immunizations are up to date. Labs reviewed. Ordered: [id number] urnls dip stick/tablet rgnt auto w/o microscopy [...] stage 3 LCFP - OFFICE VISIT 20 MIN-DE ANDA (Scheduling Request), Type 2 diabetes mellitus without [...] minutes daily. Continue with current medication. Ordered: [id number] urnls dip stick/tablet rgnt auto w/o microscopy [...] stage 3 LCFP - OFFICE VISIT 20 MIN-DE ANDA (Scheduling Request), Type 2 diabetes mellitus without [...] stage 3 LCFP - OFFICE VISIT 20 MIN-DE ANDA (Scheduling Request), Type 2 diabetes mellitus without [...] follow-up in 6 months for DM check Summary Purpose Family History No Family History Records Found Condition State Severity Life Cycle Status Age at Onset Cancer POSITIVE Condition State Severity Life Cycle Status Age at Onset CAD - Coronary artery disease POSITIVE Condition State Severity Life Cycle Status Age at Onset Diabetes POSITIVE Advance Directives No Advanced Directives Records FoundDocuments on File Type Date Recorded Patient Gizzard Skin Remover Krunal alfred Living Will 03/14/2023 TRI Latest [...] Documents on File Type Date Recorded Patient Gizzard Skin Remover Expl aubrie Living Will 03/14/2023 TRI Latest Code Status [...] Team unable to identify or reach proxy Chief Complaint and Reason for Visit Chief Complaint DETENTION LAB WOR K Chief Complaint DETENTION LAB WOR K LABWORK Chief Complaint LABWORK DETENTION LAB WORK Chief Complaint Admit Date DETENTION LAB WORK August 23, 2024 5 :00am Chief Complaint Admit Date DETENTION LAB WORK August 23, 2024 5 :00am DETENTION LAB WORK September 08, 2024 8 :00pm Reason for Referral Specialty Diagnoses / Procedures Referred By Tatianna stevenson Referred To Contact [facility] Diagnoses History of cervical spinal surgery Chronic neck pain Procedures [facility] OFFICE/OUTPATIENT [facility] MDM 60 MINUTES Cydney Enciso, PANELBEATER.MANAGER OF HOUSEKEEPING [address] [address] Referral ID Status Reason Start Date Expiration Date Visits Requested Visits Authorized [id number] Authorized PCP Requested Referral 11/01/2023 10/31/2024 1 1 Specialty Diagnoses / Procedures Referred By Contac t Referred To Contact CT IMAGING Diagnoses Carotid aneurysm, left (HCC) Procedures CTA NECK W IVCON CT ANGIOGRAPHY NECK W/CONTRAST/NONCONTRAST Cydney Enciso, PANELBEATER.MANAGER OF HOUSEKEEPING [address] [address] [place] [address] Referral ID Status Reason Start Date Expiration Date V isits Requested Visits Authorized [id number] Closed Auto-Generate d Referral 06/08/2023 07/07/2024 1 1 Additional Source Comments Patient Care team informatio n (unrecognized section and content) Team Status: Inactive Member Role Status Dates Mark YUEN Attending Provider Active Team Status: Inactive Member Role Status Dates Mrak YUEN Attending Provider, Referring Provi eldon Active Driver Supervisor Relationship Specialty Start Date End Date Jeovany Mcconnell MD [address] [place] [address] [place] [address] PCP - General Family Medicine 04/05/23 Jeovany Mcconnell MD [address] [place] [address] [place] [address] Primary Care Provider 08/16/14 Driver Supervisor Relationship Specialty Start Date End Date Jeovany Mcconnell MD [address] [place] [address] [place] [address] Primary Care Provider 08/16/14 Driver Supervisor Relationship Specialty Start Date End Date Oswaldo Michael [address] [place] [address] PCP - General 06/26/23 Driver Supervisor Relationship Specialty Start Date End Date Jeovany Mcconnell MD PCP - General Family Medicine 07/14/14 Driver Supervisor Relationship Specialty Start Date End Date Jeovany Mcconnell MD PCP - General Family Medicine 07/14/14 Driver Supervisor Relationship Specialty Start Date End Date Jeovany Mcconnell MD PCP - General Family Medicine 07/14/14 Driver Supervisor Relationship Specialty Start Date End Date Jeovany Mcconnell MD PCP - General Family Medicine 07/14/14 Driver Supervisor Relationship Specialty Start Date End Date Jeovany Mcconnell MD PCP - General Family Medicine 07/14/14 Driver Supervisor Relationship Specialty Start Date End Date Jeovany Mcconnell MD PCP - General Family Medicine 07/14/14 Driver Supervisor Relationship Specialty Start Date End Date Jeovany Mcconnell MD PCP - General Family Medicine 07/14/14 Driver Supervisor Relationship Specialty Start Date End Date Mark Jimenez MD [address] [address] PCP - General Internal Medicine 11/10/23 Driver Supervisor Relationship Specialty Start Date End Date Mark Jimenez MD [address] [facility] [address] [place] [address] PCP - General Internal Medicine 11/10/23 Driver Supervisor Relationship Specialty Start Date End Date Mark Jimenez MD [address] [facility] [address] [place] [address] PCP - General Internal Medicine 11/10/23 Driver Supervisor Relationship Specialty Start Date End Date Mirza Moffett MD [address] [place], [place] [id number] PCP - General Internal Medicine 02/26/24 Driver Supervisor Relationship Specialty Start Date End Date Mirza Moffett MD [address] [place] [id number] PCP - General Internal Medicine 02/26/24 Driver Supervisor Relationship Specialty Start Date End Date Mirza Moffett MD [address] [place] [id number] PCP - General Internal Medicine 02/26/24 Driver Supervisor Relationship Specialty Start Date End Date Mirza Moffett MD [address] [place] [id number] PCP - General Internal Medicine 02/26/24 Team Status: Inactive Member Role Status Dates Henry YUEN MD Attending Provider Active Start: August 23, 2024 End: August 23, 2024 Team Status: Active Member Role Status Dates Henry YUEN MD Attending Provider Active Start: September 08, 2024 Team Status: Active Member Role Status Dates Henry YUEN MD Attending Provider Active Start: September 10, 2024 Team Status: Inactive Member Role Status Dates Henry YUEN MD Attending Provider Active Start: September 08, 2024 End: September 08, 2024 Driver Supervisor Relationship Specialty Start Date End Date Mirza Moffett MD [address] [place], [place] [phone] PCP - General Internal Medicine 02/26/24 Driver Supervisor Relationship Specialty Start Date End Date Mirza Moffett MD [address] [place], [place] [id number] PCP - General Internal Medicine 02/26/24 INFORMATION SOURCE (unrecogn ized section and content) DATE CREATED AUTHOR 07/12/2022 [facility] DATE CREATED AUTHOR AUTHOR'S ORGANIZ ATION 01/28/2023 [facility] DATE CREATED AUTHOR AUTHOR'S ORGANIZ ATION 03/07/2023 [facility] ical Center DATE CREATED AUTHOR AUTHOR'S ORGANIZ ATION 04/07/2023 [facility] DATE CREATED AUTHOR AUTHOR'S ORGANIZ ATION 06/28/2023 [facility] DATE CREATED AUTHOR AUTHOR'S ORGANIZ ATION 01/11/2024 [facility] DATE CREATED AUTHOR AUTHOR'S ORGANIZ ATION 11/15/2024 [facility] DATE CREATED AUTHOR AUTHOR'S ORGANIZ ATION 11/30/2024 [facility] dical [facility] DATE CREATED AUTHOR AUTHOR'S ORGANIZ ATION 03/29/2025 [facility] Reason for Visit (unrecogniz ed section and content) Reason Comments Follow-up Mrs\Ms. Soto is pr esent for her [address] Bledsoe, Pt and family has a lot of questions and concerns to discuss with provider Reason Comments Altered Mental Status Reason Comments Diabetes Primary Open Angle Glaucoma Both Eyes ARMD Exudative /Wet Both Eyes - patient sees [facility] Specialty Diagnoses / Procedures Referred By Tatianna stevenson Referred To Contact CT IMAGING Diagnoses Carotid aneurysm, left (HCC) Procedures CTA NECK W IVCON CT ANGIOGRAPHY NECK W/CONTRAST/NONCONTRAST Cydney Enciso, PANELBEATER.MANAGER OF HOUSEKEEPING [address] [place] [address] [place] [address] Referral ID Status Reason Start Date Expiration Date V isits Requested Visits Authorized [id number] Closed Auto-Generate d Referral 06/08/2023 07/07/2024 1 1 Reason Comments Follow Up Reason Comments Orders Lyrica Reason Comments Release Of Medical Records Reason Comments Electronic Communication Received fax fr Edie [facility]-Phys.Communication Form/ Original scanned into chart-copy sent via Audinate to Lee provider for completion Reason Comments New Patient AFIB, ATRIAL FLUTTER , PVC Reason Comments Received Outside Medical Records Rec'd l ab [facility] from [facility] imported into smsPREP. Reason Comments CARD Follow Up 3 Month Persistent a-fib Reason Comments Glaucoma Follow Up Reason Comments Cardiology Follow Up Persistent atrial f ibrillation (HCC) Goals (unrecognized section and content) Goals may be documented in a n alternate section Scheduled Active and Recently Administ ered Medications (unrecognized section and content) Medication Order 06/24/2023 06/25/2023 06/26/2023 cephalexin (Keflex) capsule 500 mg (COMPLETED) 500 mg, Oral, Once, On Mon06/26/23 at 1115, For 1 dose, Suspected Indication (Select all that apply): Urinary Tract Infection 1128 (Given - Provid er: Cecile Albert RN) Source Comments (unrecognize d section and content) In the event this informatio n is protected by the Federal Confidentiality of Alcohol and Drug Abuse Patient Records regulations: The Federal rules restrict any use of the information to criminally investigate or prosecute any alcohol or drug abuse patient.[facility] the event this information is protected by the Federal Confidentiality of Alcohol and Drug Abuse Patient Records regulations: The Federal rules restrict any use of the information to criminally investigate or prosecute any alcohol or drug abuse patient.[facility] the event this information is protected by the Federal Confidentiality of Alcohol and Drug Abuse Patient Records regulations: The Federal rules restrict any use of the information to criminally investigate or prosecute any alcohol or drug abuse patient.[facility] the event this information is protected by the Federal Confidentiality of Alcohol and Drug Abuse Patient Records regulations: The Federal rules restrict any use of the information to criminally investigate or prosecute any alcohol or drug abuse patient.[facility]In the event this information is protected by the Federal Confidentiality of Alcohol and Drug Abuse Patient Records regulations: The Federal rules restrict any use of the information to criminally investigate or prosecute any alcohol or drug abuse patient.[facility]In the event this information is protected by the Federal Confidentiality of Alcohol and Drug Abuse Patient Records regulations: The Federal rules restrict any use of the information to criminally investigate or prosecute any alcohol or drug abuse patient.[facility]In the event this information is protected by the Federal Confidentiality of Alcohol and Drug Abuse Patient Records regulations: The Federal rules restrict any use of the information to criminally investigate or prosecute any alcohol or drug abuse patient.[facility]In the event this information is protected by the Federal Confidentiality of Alcohol and Drug Abuse Patient Records regulations: The Federal rules restrict any use of the information to criminally investigate or prosecute any alcohol or drug abuse patient.[facility] HospitalIn the event this information is protected by the Federal Confidentiality of Alcohol and Drug Abuse Patient Records regulations: The Federal rules restrict any use of the information to criminally investigate or prosecute any alcohol or drug abuse patient.[facility] HospitalIn the event this information is protected by the Federal Confidentiality of Alcohol and Drug Abuse Patient Records regulations: The Federal rules restrict any use of the information to criminally investigate or prosecute any alcohol or drug abuse patient.[facility] HospitalIn the event this information is protected by the Federal Confidentiality of Alcohol and Drug Abuse Patient Records regulations: The Federal rules restrict any use of the information to criminally investigate or prosecute any alcohol or drug abuse patient.[facility] HospitalIn the event this information is protected by the Federal Confidentiality of Alcohol and Drug Abuse Patient Records regulations: The Federal rules restrict any use of the information to criminally investigate or prosecute any alcohol or drug abuse patient.[facility] HospitalIn the event this information is protected by the Federal Confidentiality of Alcohol and Drug Abuse Patient Records regulations: The Federal rules restrict any use of the information to criminally investigate or prosecute any alcohol or drug abuse patient.[facility] HospitalIn the event this information is protected by the Federal Confidentiality of Alcohol and Drug Abuse Patient Records regulations: The Federal rules restrict any use of the information to criminally investigate or prosecute any alcohol or drug abuse patient.[facility] HospitalIn the event this information is protected by the Federal Confidentiality of Alcohol and Drug Abuse Patient Records regulations: The Federal rules restrict any use of the information to criminally investigate or prosecute any alcohol or drug abuse patient.[facility] HospitalIn the event this information is protected by the Federal Confidentiality of Alcohol and Drug Abuse Patient Records regulations: The Federal rules restrict any use of the information to criminally investigate or prosecute any alcohol or drug abuse patient.[facility] Active Administered Medications - up to 3 most recent administrations Administered Medications (un recognized section and content) Medication Order MAR Action Action Date Dose Rate Site fluorescein-benoxinate 0.3-0.4 % 1 Drop (FLURESS) 1 Drop, BOTH EYES, DIRECTED, Starting on Mon08/03/23 at 1500, Until Mon08/04/23 at 025, Administer for applanation tonometry. In the event of a Fluress shortage, administer 1 drop of Maria Luisa-Fluor into both eyes as directed for applanation tonometry., [facility] MED ORDERS Given 08/03/2023 3:00 PM EST 1 Drop PHENYLephrine 2.5 % 1 Drop (AK-DILATE, KATHY-SYNEPHRINE) 1 Drop, BOTH EYES, DIRECTED, Starting on Mon08/03/23 at 1500, Until Mon08/04/23 at 0259, Administer for dilation PROTECT FROM LIGHT, [facility] MED ORDERS Given 08/03/2023 3:00 PM EST 1 Drop proparacaine 0.5 % 1 Drop (ALCAINE) 1 Drop, BOTH EYES, DIRECTED, Starting on Mon08/03/23 at 1500, Until Mon08/04/23 at 0259, Administer for pneumo tonometry, tonopen tonometry, or pachymetry. In the event of a proparacaine shortage, administer 1 drop of tetracaine 0.5% ophthalmic drops into both eyes as directed for pneumo tonometry, tonopen tonometry, or pachymetry, [facility] MED ORDERS Given 08/03/2023 3:00 PM EST 1 Drop tropicamide 1 % 1 Drop (MYDRIACYL) 1 Drop, BOTH EYES, DIRECTED, Starting on Mon08/03/23 at 1500, Until Mon08/04/23 at 0259, Administer for dilation, [facility] MED ORDERS Given 08/03/2023 3:00 PM EST 1 Drop FOR RECORDS PERTAINING TO PATIENTS WHO ARE [...] BE BASED ON THE PRIMARY CLINICAL RECORDS. [facility] [employer] [facility]. provides no warranty or guarantee of the accuracy or completeness of information in this document.
[2025-05-23 08:13] LABS: Color, Urine Yellow (Yellow); Glucose, Dipstick Normal (Normal); Ketone-Dipstick Negative (Negative); Leukocyte Esterase-Dipstick Negative /ul (Negative); Nitrite-Dipstick Negative (Negative); Occult Blood-Urine 10 /ul (Negative); Protein-Dipstick 15 mg/dl (Negative); Specific Gravity, Urine 1.010 (1.002-1.030); Urine Bilirubin Dipstick Negative (Negative)
[2025-05-23 08:25] LABS: Red Blood Cells-Urine 0-5 SEEN /hpf (0-5); Squamous Epithelial Cells - UA 0-5 SEEN /hpf (5-10)
== END ==
LOC: OLS.SANC 10:00
DX: R41.82 Altered mental status, unspecified (principal)
CPT/HCPCS: 81001; 87086; 87088